=== PATIENT | male | born 1945 | race African-American/Black ===

== ENCOUNTER 2021-09-18 10:57 | Inpatient (IN) | payer OTHER ==
[2021-09-18 11:58] LABS: Absolute Lymphocytes (CBC) 1.9 K/uL (0.7-4.9); Hematocrit 23.9 % (39.6-49.0); MPV 7.9 fL (7.6-11.3); RBC Red Blood Cell Count 2.71 M/uL (4.33-5.43)
[2021-09-18] MEDS ORDERED: NA CHLORIDE 0.9% 250 ML ONE (12:00)
[2021-09-18 12:22] LABS: Protime INR 1.83
--- NOTE | 2021-09-18 12:23 | RAD REPORT ---
EXAM DESCRIPTION: RAD - Chest Single View - 09/18/2021 12:00 pm CLINICAL HISTORY: COUGH Chest pain. COMPARISON: No comparisons FINDINGS: Portable technique limits examination quality. The lungs are grossly clear. The heart is normal in size. Right-sided venous catheter has tip in the right atrium region.
[2021-09-18 12:24] LABS: Albumin 1.6 g/dL (3.4-5.0); Bilirubin Direct 0.3 mg/dL (0-0.2); Bilirubin Total 0.6 mg/dL (0.2-1.0); CKMB Creatine Kinase MB 2.6 ng/mL (1.0-3.6); Potassium 3.5 mmol/L (3.5-5.1); Protein, Total 6.4 g/dL (6.4-8.2); Troponin (Emerg Dept Use Only) 0.04 ng/mL (0.0-0.045)
[2021-09-18] MEDS ORDERED: CEFTRIAXONE 1000 MG/VIAL ONE (12:36)
[2021-09-18 12:46] LABS: Blood Morphology Comment NOT SEEN (NOT SEEN); Platelet Estimate ADEQ
[2021-09-18 13:12] LABS: SARS-COV-2 RT PCR NEGATIVE (NEGATIVE)
[2021-09-18 13:18] LABS: Urine Bacteria 20-50 /HPF (NONE SEEN)
--- NOTE | 2021-09-18 14:32 | ER ---
Nurse's Notes [facility] Name: Price Marie Age: 76 yrs Sex: Male : 1945 Arrival Date: 09/18/2021 Time: 11:05 Bed 3 Private MD: Diagnosis: Urosepsis;Altered mental status, unspecified;Hypoxia Presentation: 09/18 11:13 Chief complaint: EMS states: They were called out for syncope with decreased o2 stat. 6 Arrived to find pt with low o2 86 and non responsive. BVM used and pt became alert and back to baseline. Coronavirus screen: Vaccine status: Patient reports receiving the 2nd dose of the covid vaccine. Ebola Screen: Patient negative for fever greater than or equal to 101.5 degrees Fahrenheit, and additional compatible Ebola Virus Disease symptoms Patient denies exposure to infectious person. Patient denies travel to an Ebola-affected area in the 21 days before illness onset. Initial Sepsis Screen: Does the patient meet any 2 criteria? Altered Mental Status. Does the patient have a suspected source of infection? No. Patient's initial sepsis screen is negative. Risk Assessment: Do you want to hurt yourself or someone else? Patient reports no desire to harm self or others. Onset of symptoms was September 18, 2021 at 11:00. 11:13 Method Of Arrival: EMS: [place] [id number] 11:13 Acuity: OBIE 2 [facility] Triage Assessment: 11:17 General: Appears obese, Behavior is drowsy, Reports sob this am. Pain: Denies pain. [facility] Neuro: No deficits noted. Reports sob this am and missed dialysis this last . - Immunization history:: Client reports receiving the 2nd dose of the Covid vaccine. - Social history:: Smoking status: Patient denies any tobacco usage or history of. - Code Status:: Full code. Screenin:20 Abuse screen: Denies threats or abuse. Nutritional screening: No deficits noted. [facility] Tuberculosis screening: No symptoms or risk factors identified. Fall Risk Secondary diagnosis (15 points) impaired mobility, Ambulatory Aid- None/Bed Rest/Nurse Assist (0 pts). Mental Status- Oriented to own ability (0 pts). Assessment: 11:19 General: Appears comfortable, obese, Behavior is cooperative, drowsy. Neuro: No [facility] deficits noted. Oriented to person, place, situation. Cardiovascular: hypotension. 12:00 Cardiovascular: Rhythm is regular. jh6 13:00 Reassessment: No changes from previously documented assessment. Patient and/or family 6 updated on plan of care and expected duration. Pain level reassessed. Patient is alert, oriented x 3, equal unlabored respirations, skin warm/dry/pink. Patient denies pain at this time. 13:00 General: Appears in no apparent distress. Derm: Decubitus approximately > 20 cm is jh6 unstageable. bed has granulation present. 14:00 Reassessment: Patient and/or family updated on plan of care and expected duration. Pain jh6 level reassessed. 14:00 Neuro: No deficits noted. 6 16:36 Reassessment: No changes from previously documented assessment. Patient and/or family jh6 updated on plan of care and expected duration. Pain level reassessed. Patient is alert, oriented x 3, equal unlabored respirations, skin warm/dry/pink. Patient denies pain at this time. 16:36 Reassessment: Patient and/or family updated on plan of care and expected duration. Pain jh6 level reassessed. Patient is alert, oriented x 3, equal unlabored respirations, skin warm/dry/pink. General: Behavior is calm, cooperative. Neuro: Oriented to person, place, situation. Cardiovascular: Rhythm is regular. Vital Signs: 11:13 BP 97 / 66; Pulse 99; Resp 20; Temp 97.6; Pulse Ox 100% on 5 lpm NC; Weight 107.5 kg; [facility] Height 6 ft. 0 in. (182.88 cm); Pain 0/10; 12:30 BP 80 / 41; Pulse 94; Resp 20; 6 12:40 BP 101 / 50; Pulse 96; Resp 22; Pulse Ox 100% ; Pain 0/10; 6 13:00 BP 100 / 63; Pulse 92; Resp 20; Pulse Ox 100% ; 6 13:30 BP 76 / 55; Pulse 89; Resp 20; Pulse Ox 100% ; 6 14:00 BP 98 / 57; Pulse 94; Resp 20; Pulse Ox 100% ; 6 14:30 BP 113 / 55; Pulse 91; Resp 18; Pulse Ox 100% ; Pain 0/10; 6 15:30 BP 105 / 53; Pulse 97; Resp 20; Pulse Ox 96% on 3 lpm NC; 6 16:15 BP 109 / 67; Pulse 99; Resp 18; Pulse Ox 98% ; jh6 11:13 Body Mass Index 32.14 (107.50 kg, 182.88 cm) [facility] ED Course: 11:05 Patient arrived in ED. ds1 11:12 Rebeca Rowell RN is Primary Nurse. 6 11:12 Yobany Aguilar NP is PHCP. pm1 11:12 Chris Yee MD is Attending Physician. pm1 11:13 EKG done, by ED staff, reviewed by Yobany Aguilar NP COVID swab sent to lab. 5 11:13 Patient has correct armband on for positive identification. Placed in gown. Bed in low mh5 position. Call light in reach. Side rails up X2. Warm blanket given. secured entrance monitor on. Pulse ox on. NIBP on. 11:16 Triage completed. 6 11:18 Inserted saline lock: 22 gauge in left hand, using aseptic technique. Maintain EMS IV. [facility] Dressing intact. Site clean \T\ dry. Gauge \T\ site: 22g l wrist. Oxygen administration via nasal cannula \T\ 5L/min. 12:00 Chest Single View XRAY In Process Unspecified. EDMS 12:14 Notified Nurse Practitioner and/or Physician Interventional Radiology Technologist of a critical lab result(s), WBC ll1 20.9. 12:25 Blood Culture Adult (2) Sent. 6 12:25 Basic Metabolic Panel Sent. 6 12:25 Amylase, Serum Sent. 6 14:04 Wound care: to wound aprox 12in x 10in stage 2-4 no bone noted to coccyx area. [facility] 14:31 Jovani Alanis is Hospitalizing Provider. pm1 15:09 Resting quietly. jh6 15:10 Assisted provider with central line placement. Set up central line tray. in right 6 femoral. Line placed by Chris Yee MD Placement verified by blood return, Dressed with Tegaderm, Patient tolerated well. Before procedure, did Practitioner(s) obtain informed consent? Yes. Patient \T\ family education about procedure, CLABSI prevention and S/S of infection? Yes. Time-out/Briefing performed prior to start of procedure? Yes. Was handwashing/sanitizing done immediately prior to procedure? Yes. Was patient positioned to in a way to prevent air embolism? Yes. Was procedure site sterilized? Yes, with chlorhexidine. Was the site allowed to dry? Yes. During the procedure, did the Practitioner(s) maintain a sterile field? Yes. Was blood aspirated from each lumen? Yes. After the procedure, did the Practitioner(s) clean the site and apply a sterile dressing? No. Inserted central lines to rt groin. Administered Medications: 12:10 Drug: NS 0.9% 250 ml Route: IV; Rate: bolus; Site: left hand; jh6 12:12 Drug: Rocephin (cefTRIAXone) 1 grams Route: IV; Rate: calculated rate; Site: left hand; jh6 16:33 Drug: NS 0.9% 750 ml Route: IV; Rate: 750 bolus; Site: right femoral; jh6 Outcome: 14:30 Condition: stable jh6 14:30 Discharge instructions given to family, Instructed on the need for admit, Demonstrated understanding of instructions. 14:30 Admitted to ICU accompanied by nurse, via stretcher, room 6, with oxygen, on monitor, jh6 Report called to poli 14:31 Decision to Hospitalize by Provider. pm1 17:25 Patient left the ED. ll1 Signatures: Dispatcher [employer] EDDE Gabrielle Larios ds1 Yobany Aguilar NP CLOTH SHADER pm1 Sirena Ramirez 5 Brigitte Mohan, MAVERICK RN ll1 Rebeca Rowell RN RN jh6 Corrections: (The following items were deleted from the chart) 16:37 16:36 Reassessment: Patient and/or family updated on plan of care and expected jh6 duration. Pain level reassessed. Patient is alert, oriented x 3, equal unlabored respirations, skin warm/dry/pink. jh6
--- NOTE | 2021-09-18 14:32 | EDPHYS ---
Physician Documentation [facility] Name: Price Marie Age: 76 yrs Sex: Male : 1945 Arrival Date: 09/18/2021 Time: 11:05 Bed 3 Private MD: ED Physician Chris Yee HPI: 09/18 11:39 This 76 yrs old Black Male presents to ER via EMS with complaints of Syncope. pm1 11:39 The patient has experienced syncope, became unresponsive. Onset: The symptoms/episode pm1 began/occurred just prior to arrival. Duration: This was a single episode. Context: the episode(s) was witnessed, by family, occurred at home, occurred while the patient was sitting outside the house waiting for dialysis transportation. Patient was found by EMS to be hypoxic and returned to baseline with oxygen and bag valve mask. Associated injury: The patient did not suffer any apparent associated injury. Associated signs and symptoms: The patient has no apparent associated signs or symptoms. The patient has not recently seen a physician. - Immunization history:: Client reports receiving the 2nd dose of the Covid vaccine. - Social history:: Smoking status: Patient denies any tobacco usage or history of. - Code Status:: Full code. ROS: 11:39 Constitutional: Negative for fever, chills, and weight loss, Cardiovascular: Negative pm1 for chest pain, palpitations, and edema, Respiratory: Negative for shortness of breath, cough, wheezing, and pleuritic chest pain, Abdomen/GI: Negative for abdominal pain, nausea, vomiting, diarrhea, and constipation, MS/Extremity: Negative for injury and deformity. 11:39 Skin: Positive for of the sacral decubitus. 11:39 Neuro: Positive for syncope. 11:39 All other systems are negative. 11:39 Unable to obtain ROS due to altered mental status, obtained from and daughter. Exam: 11:39 Abdomen/GI: Inspection: obese, Palpation: abdomen is soft and non-tender. pm1 11:39 Constitutional: The patient appears non-diaphoretic, well developed, well groomed, well nourished, obese. 11:39 Cardiovascular: Exam negative for acute changes, Rate: normal, Rhythm: regular, Pulses: no pulse deficits are appreciated. 11:39 Respiratory: Exam negative for acute changes, respiratory distress, shortness of breath, Breath sounds: are clear throughout. 11:39 Musculoskeletal/extremity: Exam is negative for acute changes. 11:39 Eyes: Exam is negative for acute changes, Periorbital structures: no acute changes, pm1 Sclera: no acute changes, icterus, is not appreciated. 11:39 ENT: Exam is negative for acute changes. 11:39 Head/Face: Normocephalic, atraumatic. Chest/axilla: Normal chest wall appearance and pm1 motion. Nontender with no deformity. No lesions are appreciated. 14:59 Skin: lesion(s), located on the Large decubitus to sacral area, stage 3-4, without any pm1 discharge or drainage. Vital Signs: 11:13 BP 97 / 66; Pulse 99; Resp 20; Temp 97.6; Pulse Ox 100% on 5 lpm NC; Weight 107.5 kg; [facility] Height 6 ft. 0 in. (182.88 cm); Pain 0/10; 12:30 BP 80 / 41; Pulse 94; Resp 20; [facility] 12:40 BP 101 / 50; Pulse 96; Resp 22; Pulse Ox 100% ; Pain 0/10; 6 13:00 BP 100 / 63; Pulse 92; Resp 20; Pulse Ox 100% ; [facility] 13:30 BP 76 / 55; Pulse 89; Resp 20; Pulse Ox 100% ; [facility] 14:00 BP 98 / 57; Pulse 94; Resp 20; Pulse Ox 100% ; [facility] 14:30 BP 113 / 55; Pulse 91; Resp 18; Pulse Ox 100% ; Pain 0/10; [facility] 15:30 BP 105 / 53; Pulse 97; Resp 20; Pulse Ox 96% on 3 lpm NC; [facility] 16:15 BP 109 / 67; Pulse 99; Resp 18; Pulse Ox 98% ; [facility] 11:13 Body Mass Index 32.14 (107.50 kg, 182.88 cm) [facility] Procedures: 16:13 Central Line: the site was prepped with Betadine, a triple lumen catheter was inserted, kdr in the right femoral vein, in 3 attempts. placement was verified, by blood return, the site was dressed with 4X4s, Tegaderm, using sterile technique, the patient tolerated the procedure, well. MDM: 11:27 Patient medically screened. pm1 11:57 ED course: Patient not given septic bolus since he missed two days of dialysis, hx of pm1 CHF and blood pressure within normal limits. Do not want to overload the patient. 14:06 Counseling: I had a detailed discussion with the patient and/or guardian regarding: the pm1 historical points, exam findings, and any diagnostic results supporting the discharge/admit diagnosis, lab results, radiology results, the need for further work-up and treatment in the hospital. 14:27 Physician consultation: Jovani Alanis regarding admission, patient's condition, and pm1 will see patient in ED, Admit the patient to the ICU. Give 1000 L total bolus. Establish central line. 14:29 Data reviewed: vital signs. Data interpreted: Pulse oximetry: on room air is 100 %. pm1 Interpretation: normal. 09/18 11:27 Order name: Amylase, Serum pm1 09/18 11:27 Order name: Basic Metabolic Panel pm1 09/18 11:27 Order name: Blood Culture Adult (2) pm1 09/18 11:27 Order name: CBC with Diff; Complete Time: 12:52 pm1 09/18 11:27 Order name: CPK; Complete Time: 12:39 pm1 09/18 11:27 Order name: Ckmb; Complete Time: 12:39 pm1 09/18 11:27 Order name: LFT's; Complete Time: 12:39 pm1 09/18 11:27 Order name: Lactate; Complete Time: 12:39 pm1 09/18 11:27 Order name: Lipase; Complete Time: 12:39 pm1 09/18 11:27 Order name: Procalcitonin; Complete Time: 13:22 pm1 09/18 11:27 Order name: Protime (+inr); Complete Time: 12:28 pm1 09/18 11:27 Order name: Ptt, Activated; Complete Time: 12:28 pm1 09/18 11:27 Order name: Troponin (emerg Dept Use Only); Complete Time: 12:39 pm1 09/18 11:27 Order name: Urine Microscopic Only; Complete Time: 13:22 pm1 09/18 11:27 Order name: Chest Single View XRAY; Complete Time: 12:28 pm1 09/18 11:27 Order name: Accucheck pm1 09/18 11:27 Order name: Cardiac monitoring; Complete Time: 12:25 pm1 09/18 11:27 Order name: EKG - Nurse/Tech; Complete Time: 12:25 pm1 09/18 11:28 Order name: Amylase; Complete Time: 12:39 EDMS 09/18 11:28 Order name: Basic Metabolic Panel; Complete Time: 12:39 EDMS 09/18 11:28 Order name: Blood Culture EDMS 09/18 11:31 Order name: Misc. Lab Test pm1 09/18 12:11 Order name: Manual Differential; Complete Time: 12:52 EDMS 09/18 12:29 Order name: COVID-19/FLU A+B; Complete Time: 13:22 EDMS 09/18 13:20 Order name: Urine Culture EDMS 09/18 17:03 Order name: Lactate Sepsis 2 HR Follow-up; Complete Time: 17:07 EDMS 09/18 11:27 Order name: IV Saline Lock - Large Bore; Complete Time: 12:26 pm1 09/18 11:27 Order name: Labs collected and sent; Complete Time: 12:26 pm1 09/18 11:27 Order name: O2 Per Protocol; Complete Time: 12:26 pm1 09/18 11:27 Order name: O2 Sat Monitoring; Complete Time: 12:26 pm1 09/18 11:27 Order name: Urine Dipstick-Ancillary (obtain specimen) pm1 09/18 14:27 Order name: Central Line Kit; Complete Time: 15:31 pm1 Administered Medications: 12:10 Drug: NS 0.9% 250 ml Route: IV; Rate: bolus; Site: left hand; 6 12:12 Drug: Rocephin (cefTRIAXone) 1 grams Route: IV; Rate: calculated rate; Site: left hand; 6 16:33 Drug: NS 0.9% 750 ml Route: IV; Rate: 750 bolus; Site: right femoral; 6 Disposition: 18:37 Co-signature as Attending Physician, Chris Yee MD I agree with the assessment and kdr plan of care. Disposition Summary: 09/18/21 14:31 Hospitalization Ordered Hospitalization Status: Inpatient Admission pm1 Provider: Jovani Alanis pm1 Location: Intensive Care Unit pm1 Condition: Stable pm1 Problem: new pm1 Symptoms: have improved pm1 Bed/Room Type: Standard 1 Room Assignment: -(09/18/21 15:46) [facility] Diagnosis - Urosepsis pm1 - Altered mental status, unspecified pm1 - Hypoxia pm1 Forms: - Medication Reconciliation Form pm1 - SBAR form pm1 Signatures: Dispatcher [employer] EDChris Morgan MD MD kdr Marinas, Patrick, NP CONTROL BOARD OPERATOR pm1 Axel Azul RN RN ja1 Rebeca Rowell RN RN jh6 Corrections: (The following items were deleted from the chart) 15:46 14:31 pm1 freda
[2021-09-18] MEDS ORDERED: LIDOCAINE 1% MPF 5 ML VIAL ONE (15:41)
--- NOTE | 2021-09-18 15:53 | P.HP ---
Certification for Inpatient Patient admitted to: Inpatient With expected LOS: >2 Midnights Practitioner: I am a practitioner with admitting privileges, knowledge of patient current condition, hospital course, and medical plan of care. Services: Services provided to patient in accordance with Admission requirements found in Title 42 Section 412.3 of the Code of Federal Regulations Patient History Date of Service: 09/18/21 Reason for admission: Altered mental status History of Present Illness: 76-year-old gentleman with a history of end-stage renal disease on hemodialysis, diabetes mellitus type 2 and heart failure was brought to the emergency department due to altered mental status. Family reports fever up to 102 at home. They also reported patient has become progressively weak up to the point since slumped in his chair today. EMS was called who found him hypoxic with oxygen saturation of 86% on room air. Patient's systolic blood pressure was in the 90s on arrival to the ED. He is afebrile, but WBC markedly elevated to 20,000, lactate elevated to 4.4, chest x-ray unremarkable, UA suggest UTI. Patient has a sacral decubitus ulcer. He has a right anterior chest dialysis catheter which had no discharge or no erythema around it. Family report this is the third episode. He was diagnosed with fever of unknown origin during the first 2 episodes, had a lumbar puncture done at [facility] in the [facility], admitted for 2-weeks. He was also hospitalized for similar episode in [facility], source of sepsis again not identified. Patient was started on hemodialysis in June 2021. Patient given 1 L of normal saline for sepsis and borderline low blood pressure. Central line placed by the ED provider. Patient is admitted for further management of sepsis. Allergies No Known Allergies Allergy (Verified 09/18/21 16:48) - Past Medical/Surgical History -: ESRD -: Noninsulin-dependent DM -: Heart failure -: Multiple CVAs -: Recent lumbar puncture - Family History Family History: Reviewed- Non-Contributory - Social History Smoking Status: Former smoker Alcohol use: No Place of Residence: Home Review of Systems is unable to be obtained (Due to altered mental status) Physical Examination - Physical Exam General: In no apparent distress, Confused HEENT: Atraumatic, PERRLA, Mucous membr. moist/pink, Sclerae nonicteric Neck: Supple, JVD not distended Respiratory: Clear to auscultation bilaterally, Normal air movement Cardiovascular: No edema, Regular rate/rhythm, Normal S1 S2, No murmurs Capillary refill: <2 Seconds Gastrointestinal: Normal bowel sounds, Soft and benign, Non-distended, No tenderness Musculoskeletal: No swelling, No tenderness Integumentary: No rashes, No cyanosis, Other (Sacral decubitus ulcer) Neurological: Other (Unable to examine motor, speech is mumbled.) Lymphatics: No axilla or inguinal lymphadenopathy - Studies Laboratory Data (last 24 hrs) 09/18/21 11:41: PT 21.2 H, INR 1.83, APTT 33.6 09/18/21 11:41: WBC 20.90 H*, Hgb 7.1 L, Hct 23.9 L, Plt Count 344 09/18/21 11:41: Sodium 134 L, Potassium 3.5, BUN 63 H, Creatinine 10.30 H*, Glucose 97, Total Bilirubin 0.6, AST 23, ALT 20, Alkaline Phosphatase 114, Amylase 24 L, Lipase 39 L Assessment and Plan - Problems (Diagnosis) (1) Sepsis Current Visit: Yes Status: Acute (2) UTI (urinary tract infection) Current Visit: Yes Status: Acute (3) End-stage renal disease on hemodialysis Current Visit: Yes Status: Acute (4) Chronic systolic heart failure Current Visit: Yes Status: Acute (5) History of CVA (cerebrovascular accident) Current Visit: Yes Status: Acute (6) Metabolic acidosis Current Visit: Yes Status: Acute (7) Anemia Current Visit: Yes Status: Acute - Plan Admit patient to the ICU. Central line placed in the right femoral. Aggressive antibiotic therapy-IV vancomycin and cefepime. Consulted nephrology Consult to infectious disease given multiple episodes of fever of unknown origin and complicated hospital course. Slow IV hydration with D5 normal saline. Monitor vitals closely-high risk for septic shock. Blood cultures obtained in the ED. Urine culture also obtained in the ED. Confirm and reconcile home medications. Insulin sliding scale for glucose management. Transfuse for hemoglobin less than 7. Bicarb replacement per nephrology. Patient is supposed to have hemodialysis today. Monitor CBC and blood chemistry. Obtain CT abdomen and pelvis to identify any source of infection. - Advance Directives Does patient have a Living Will: No Does patient have a Durable POA for Healthcare: No
[2021-09-18] MEDS ORDERED: NA CHLORIDE 0.9% 1,000 ML ONE (16:05)
[2021-09-18] MEDS ORDERED: ACETAMINOPHEN 650MG/RECT SUPP PR PRN (16:43)
[2021-09-18] MEDS ORDERED: ONDANSETRON 4 MG/2 ML VIAL IV PRN (16:43)
[2021-09-18] MEDS ORDERED: D5 0.9 NS 1,000 ML IV SCH ×2 (16:43→19:08)
[2021-09-18] MEDS: HEPARIN 5000 UNIT/ML 1 ML VIAL SQ SCH (17:00)
[2021-09-18] MEDS ORDERED: ALBUMIN HUMAN 25% 200 ML IV ONE (17:30)
--- NOTE | 2021-09-18 17:32 | RAD REPORT ---
EXAM DESCRIPTION: CT - Abdomen Pelvis Wo Contrast - 09/18/2021 5:07 pm CLINICAL HISTORY: Sepsis COMPARISON: No comparisons TECHNIQUE: Axial [address] imaging of the abdomen and pelvis was performed without IV contrast. No IV contrast was given because of allergy, abnormal renal function, patient refusal or physician re quest. No oral contrast administered. All CT scans are performed using dose optimization technique as appropriate and may include automated exposure control or mA/KV adjustment according to patient size. FINDINGS: No suspicious findings in the lung bases. The liver, spleen and pancreas show no suspicious findings on non-contrast imaging. Gallbladder and b iliary tree are also without suspicious finding. Gallstones can be occult on CT imaging. Degree of re spiratory motion artifact of the upper abdomen limits accurate assessment of gallbladder wall thickne ss. No hydronephrosis or suspicious renal mass. No significant adrenal finding. Isodense renal masses an d pyelonephritis cannot be excluded in the absence of IV contrast. The urinary bladder is without sig nificant finding. A 2.6 centimeter focal mass posterior right margin of the bladder is isodense to th e bladder and is suspected to be moderate-sized bladder diverticulum. No gastric dilatation or gastric wall thickening. No pneumatosis intestinalis. Within the peritoneal cavity there is no free air, free fluid or inflammatory stranding. No acute retroperitoneal process seen. No hernia, mass or bulky lymphadenopathy. Patient has advanced degenerative changes of both hip joints, worse on the left. No acute bone or david nt finding. Patient has extensive gas densities present in the subcutaneous fatty tissues posterior to the sacrum and coccyx. No bone destructive changes. The air densities extend laterally 08-2010 cm off of the mi dline. The inferior margin of the soft tissue gas densities extend in proximity to the posterior wall distal rectum and posterior margin of the levator ani musculature. No abnormal air densities in the fatty tissues of the perineum or scrotum. No history was provided indicating that the patient has a k nown decubitus ulcer or known wound in this region. IMPRESSION: Extensive abnormal air in the subcutaneous fatty tissues posterior to the sacrum and nathan cyx with extension each direction laterally 8-10 cm off of the midline. Inferior margin of the air de nsities abutthe posterior wall distal rectum and posterior margin of the levator ani musculature. This is most likely gas-forming soft tissue infection. The abnormal air densities do not yet extend i nto the fatty tissues of the perineum.
[2021-09-18 17:47] LABS: Arterial Blood Carboxyhemoglob 1.2 % (0-1.5); Blood Gas Oxyhemoglobin 94.5 % (94-97)
[2021-09-18] MEDS: INSULIN -REGULAR HUMAN 50 UNIT/0.5 ML ML SQ SCH (18:00)
[2021-09-18] MEDS ORDERED: CEFEPIME 2 GM in NA CHLORIDE 0.9% 100 ML IV SCH (18:00)
[2021-09-18] MEDS ORDERED: VANCOMYCIN 2 GM in NA CHLORIDE 0.9% 500 ML IVPB ONE (19:00)
--- NOTE | 2021-09-18 19:05 | P.CNS ---
Date of Consult: 09/18/21 Reason for Consult: ESRD Requesting Physician: jacques willard Chief Complaint: Altered mental status History of Present Illness: 76 yo BM CKD, CHF presented to the ER with severe, worsening malaise with associated chills, fatigue and weakness. Family called EMS due to the change in status. 76-year-old gentleman with a history of end-stage renal disease on hemodialysis, diabetes mellitus type 2 and heart failure was brought to the emergency department due to altered mental status. Family reports fever up to 102 at home. They also reported patient has become progressively weak up to the point since slumped in his chair today. EMS was called who found him hypoxic with oxygen saturation of 86% on room air. Patient's systolic blood pressure was in the 90s on arrival to the ED. He is afebrile, but WBC markedly elevated to 20 ,000, lactate elevated to 4.4, chest x-ray unremarkable, UA suggest UTI. Patient has a sacral decubitus ulcer. He has a right anterior chest dialysis catheter which had no discharge or no erythema around it. Family report this is the third episode. He was diagnosed with fever of unknown origin during the first 2 episodes, had a lumbar puncture done at [facility] in the [facility], admitted for 2-weeks. He was also hospitalized for similar episode in [facility], source of sepsis again not identified. Patient was started on hemodialysis in June 2021. Patient given 1 L of normal saline for sepsis and borderline low blood pressure. Central line placed by the ED provider. Patient is admitted for further management of sepsis. Allergies No Known Allergies Allergy (Verified 09/18/21 16:48) Home medications list reviewed: Yes Home Medications: Acetaminophen 1,000 mg PO TID PRN 09/18/21 Albuterol Inhaler [Ventolin Inhaler] 2 puff IH Q6H PRN 09/18/21 Amiodarone HCl [Cordarone Tab] 200 mg PO DAILY 09/18/21 Apixaban [Eliquis] 5 mg PO BID 09/18/21 Aripiprazole [Abilify] 2.5 tab PO DAILY 09/18/21 Atorvastatin Calcium [Lipitor] 0.5 tab PO BEDTIME 09/18/21 Carboxymethylcellulose Sodium [Restore Plus] 2 each OP QID PRN 09/18/21 Cyanocobalamin (Vitamin B-12) [Vitamin B-12] 1,000 mcg PO DAILY 09/18/21 Ferrous Gluconate 324 mg PO DAILY 09/18/21 Fluticasone Propion/Salmeterol [Fluticasone-Salmeterol 100-50] 1 each IH BID 09/18/21 Folic Acid 1 mg PO DAILY 09/18/21 Ipratropium [place] 1 vial IH QID PRN 09/18/21 Ketorolac Tromethamine 1 drop OP QID PRN 09/18/21 Midodrine HCl 5 mg PO TID 09/18/21 Nut.tx.impaired Renal Fxn,Soy [Nepro Carb Steady] 237 ml PO BID 09/18/21 Omeprazole 20 mg PO DAILY 09/18/21 Petrolatum,White [Aloe [place]] 226 gm TP PRN PRN 09/18/21 Thiamine Mononitrate (Vit B1) [Vitamin B-1] 100 mg PO TID 09/18/21 Tiotropium [Spiriva Handihaler] 18 mcg IH DAILY 09/18/21 Zinc Oxide/Petrolatum,White [[place] Moist Barrier Cream] 1 nino TOP DAILY 09/18/21 - Past Medical/Surgical History Diabetic: Yes -: ESRD -: Noninsulin-dependent DM -: Heart failure -: Multiple CVAs -: HTN -: decub -: home o2 -: Recent lumbar puncture - Social History Alcohol use: No CD- Drugs: No Caffeine use: No Place of Residence: Home Review of Systems 10-point ROS is otherwise unremarkable General: Weakness, Malaise Respiratory: SOB with Excertion Neurological: Weakness Physical Examination Temp Pulse Resp BP Pulse Ox 97.6 F 99 H 22 H 108/58 L 97 09/18/21 11:13 09/18/21 17:45 09/18/21 17:45 09/18/21 17:45 09/18/21 17:45 General: In no apparent distress, Cooperative HEENT: Atraumatic Neck: Supple Respiratory: Clear to auscultation bilaterally Cardiovascular: Regular rate/rhythm, Edema Gastrointestinal: Distended, Tenderness Musculoskeletal: No clubbing, No contractures Integumentary: No rashes, No cyanosis Neurological: Normal speech Laboratory Data (last 24 hrs) 09/18/21 11:41: PT 21.2 H, INR 1.83, APTT 33.6 09/18/21 11:41: WBC 20.90 H*, Hgb 7.1 L, Hct 23.9 L, Plt Count 344 09/18/21 11:41: Sodium 134 L, Potassium 3.5, BUN 63 H, Creatinine 10.30 H*, Glucose 97, Total Bilirubin 0.6, AST 23, ALT 20, Alkaline Phosphatase 114, Amylase 24 L, Lipase 39 L Imagings Data: EXAM DESCRIPTION: CT - Abdomen Pelvis Wo Contrast - 09/18/2021 5:07 pm CLINICAL HISTORY: Sepsis COMPARISON: No comparisons TECHNIQUE: Axial [address] imaging of the abdomen and pelvis was performed without IV contrast. No IV contrast was given because of allergy, abnormal renal function, patient refusal or physician request. No oral contrast administered. All CT scans are performed using dose optimization technique as appropriate and may include automated exposure control or mA/KV adjustment according to patient size. FINDINGS: No suspicious findings in the lung bases. The liver, spleen and pancreas show no suspicious findings on non-contrast imaging. Gallbladder and biliary tree are also without suspicious finding. Gallstones can be occult on CT imaging. Degree of respiratory motion artifact of the upper abdomen limits accurate assessment of gallbladder wall thickness. No hydronephrosis or suspicious renal mass. No significant adrenal finding. Isodense renal masses and pyelonephritis cannot be excluded in the absence of IV contrast. The urinary bladder is without significant finding. A 2.6 centimeter focal mass posterior right margin of the bladder is isodense to the bladder and is suspected to be moderate-sized bladder diverticulum. No gastric dilatation or gastric wall thickening. No pneumatosis intestinalis. Within the peritoneal cavity there is no free air, free fluid or inflammatory stranding. No acute retroperitoneal process seen. No hernia, mass or bulky lymphadenopathy. Patient has advanced degenerative changes of both hip joints, worse on the left. No acute bone or joint finding. Patient has extensive gas densities present in the subcutaneous fatty tissues posterior to the sacrum and coccyx. No bone destructive changes. The air densities extend laterally 08-2010 cm off of the midline. The inferior margin of the soft tissue gas densities extend in proximity to the posterior wall distal rectum and posterior margin of the levator ani musculature. No abnormal air densities in the fatty tissues of the perineum or scrotum. No history was provided indicating that the patient has a known decubitus ulcer or known wound in this region. IMPRESSION: Extensive abnormal air in the subcutaneous fatty tissues posterior to the sacrum and coccyx with extension each direction laterally 8-10 cm off of the midline. Inferior margin of the air densities abutthe posterior wall distal rectum and posterior margin of the levator ani musculature. This is most likely gas-forming soft tissue infection. The abnormal air densities do not yet extend into the fatty tissues of the perineum. EXAM DESCRIPTION: RAD - Chest Single View - 09/18/2021 12:00 pm CLINICAL HISTORY: COUGH Chest pain. COMPARISON: No comparisons FINDINGS: Portable technique limits examination quality. The lungs are grossly clear. The heart is normal in size. Right-sided venous catheter has tip in the right atrium region. Conclusions/Impression: ESRD -HD TIW Hypotension Sepsis/ Septic Shock Acute Cystitis Sacral decubitus ulcer -Follow up cultures -Continue Vancomycin and Cefepime; monitor vanc level -Give IV Albumin Diastolic CHF, chronic A/C hypoxic respiratory failure -Low sodium diet -Continue Oxygen supplementation DM II with CKD -RISS Severe malnutrition -Currently NPO -Give IV Albumin Anemia in CKD -Recommend PRBC transfusion -Retacrit X1 -Retacrit TIW CKD MBD -Start Calcitriol Thank you kindly for the consultation. Case reviewed with the ER provider. Critical Care: Yes (>30min)
[2021-09-18] MEDS ORDERED: EPOETIN ALFA-EPBX 10,000 UNIT/ML VIAL SQ ONE (19:08)
[2021-09-18] MEDS ORDERED: MANNITOL 25% 12.5 GM/50 ML VIAL IV PRN (19:10)
[2021-09-18] MEDS ORDERED: NA CHLORIDE 0.9% 1,000 ML IV PRN (19:10)
[2021-09-18] MEDS ORDERED: D5W 1,000 ML with NA BICARB 8.4% 150 MEQ IV SCH ×2 (20:00)
[2021-09-18] MEDS: ALBUTEROL 2.5 MG/3 ML NEB SOL NEB PRN (20:25)
[2021-09-18] MEDS: IPRATROPIUM BROM 0.5MG/2.5ML NEB PRN (20:25)
[2021-09-18] MEDS: DOCUSATE NA 100 MG CAP PO SCH (20:56)
[2021-09-18] MEDS ORDERED: ALBUMIN HUMAN 25% 100 ML IV ONE (22:30)
[2021-09-19] MEDS ORDERED: ALBUMIN HUMAN 25% 100 ML IV ONE (00:30)
[2021-09-19] MEDS: HEPARIN 5000 UNIT/ML 1 ML VIAL SQ SCH ×2 (01:00→07:21)
[2021-09-19] MEDS: NOREPINEPHRINE 4 MG in D5W 250 ML IV SCH ×3 (01:44→09:46)
[2021-09-19 05:18] LABS: Absolute Lymphocytes (CBC) 1.9 K/uL (0.7-4.9); Hematocrit 18.1 % (39.6-49.0); Lymphocytes % 9.4 % (15.3-44.8); MPV 7.7 fL (7.6-11.3); Protime INR 1.99; RBC Red Blood Cell Count 2.08 M/uL (4.33-5.43)
[2021-09-19] MEDS: INSULIN -REGULAR HUMAN 50 UNIT/0.5 ML ML SQ SCH ×4 (05:24→17:26)
[2021-09-19 05:29] LABS: Albumin 2.6 g/dL (3.4-5.0); Bilirubin Total 0.5 mg/dL (0.2-1.0); Magnesium 2.2 mg/dL (1.8-2.4); Phosphorus 4.4 mg/dL (2.5-4.9); Potassium 3.1 mmol/L (3.5-5.1); Protein, Total 6.2 g/dL (6.4-8.2)
[2021-09-19] MEDS: DOCUSATE NA 100 MG CAP PO SCH ×2 (07:21→20:22)
[2021-09-19] MEDS: CALCITROL 0.25 MCG CAP PO SCH (07:22)
[2021-09-19] MEDS ORDERED: NA CHLORIDE 0.9% 250 ML ONE (09:15)
[2021-09-19] MEDS ORDERED: Meropenem 500 MG/100 ML BAG IV ONE (11:00)
[2021-09-19] MEDS: ALBUTEROL 2.5 MG/3 ML NEB SOL NEB PRN ×2 (11:36→21:55)
[2021-09-19] MEDS: IPRATROPIUM BROM 0.5MG/2.5ML NEB PRN (11:36)
--- NOTE | 2021-09-19 11:56 | P.CNS ---
Date of Consult: 09/19/21 Chief Complaint: Altered mental status History of Present Illness: The patient is a 76-year-old male with a past medical history of ESRD on HD, diabetes type 2, and heart failure who was brought to the emergency department secondary to altered mental status. Per family members at bedside the patient was set to go to dialysis however due to his altered mental status they brought him to the emergency department. Per family members the patient has had a steady decline in condition since beginning of May of this year. In May the patient had a 7 week hospitalization at the [facility] after sustaining a stroke. During that hospital stay patient developed a fever of unknown origin. He was placed on several different antibiotics and subsequently developed MUNA which worsened into ESRD. Patient was placed on dialysis in June. Following his stay at the [facility] the patient stayed at a rehab facility in [place], during this stay the patient developed a sacral decubitus wound. In July the patient was hospitalized again at a [facility], during this hospital stay the sacral wound worsened in condition. The wound developed black necrotic tissue and foul odor. Patient was brought to our facility, noted have severe sepsis with a fever, tachycardia, tachypnea, leukocytosis, lactic acidosis, and metabolic acidosis. Preliminary blood cultures obtained on 09/18 growing gram-negative rods, urine culture shows no growth. Patient empirically placed on vancomycin and cefepime on 09/18. Chest x-ray showed no acute cardiopulmonary findings. CT abdomen pelvis showed gas-forming soft tissue infection directly posterior to the sacrum. Due to the cefepime was discontinued and meropenem started for anaerobic/gas-forming organism coverage. General surgery consulted. Infectious disease has been consulted to manage patient's antibiotic regimen. ROS unable to determine due to altered mental status. Allergies No Known Allergies Allergy (Verified 09/18/21 16:48) Home Medications: Acetaminophen 1,000 mg PO TID PRN 09/18/21 Albuterol Inhaler [Ventolin Inhaler] 2 puff IH Q6H PRN 09/18/21 Amiodarone HCl [Cordarone Tab] 200 mg PO DAILY 09/18/21 Apixaban [Eliquis] 5 mg PO BID 09/18/21 Aripiprazole [Abilify] 2.5 tab PO DAILY 09/18/21 Atorvastatin Calcium [Lipitor] 0.5 tab PO BEDTIME 09/18/21 Carboxymethylcellulose Sodium [Restore Plus] 2 each OP QID PRN 09/18/21 Cyanocobalamin (Vitamin B-12) [Vitamin B-12] 1,000 mcg PO DAILY 09/18/21 Ferrous Gluconate 324 mg PO DAILY 09/18/21 Fluticasone Propion/Salmeterol [Fluticasone-Salmeterol 100-50] 1 each IH BID 09/18/21 Folic Acid 1 mg PO DAILY 09/18/21 Ipratropium [place] 1 vial IH QID PRN 09/18/21 Ketorolac Tromethamine 1 drop OP QID PRN 09/18/21 Midodrine HCl 5 mg PO TID 09/18/21 Nut.tx.impaired Renal Fxn,Soy [Nepro Carb Steady] 237 ml PO BID 09/18/21 Omeprazole 20 mg PO DAILY 09/18/21 Petrolatum,White [Aloe [place]] 226 gm TP PRN PRN 09/18/21 Thiamine Mononitrate (Vit B1) [Vitamin B-1] 100 mg PO TID 09/18/21 Tiotropium [Spiriva Handihaler] 18 mcg IH DAILY 09/18/21 Zinc Oxide/Petrolatum,White [[place] Moist Barrier Cream] 1 nino TOP DAILY 09/18/21 - Past Medical/Surgical History Diabetic: Yes -: ESRD -: Noninsulin-dependent DM -: Heart failure -: Multiple CVAs -: HTN -: decub -: home o2 -: Recent lumbar puncture - Social History Alcohol use: No CD- Drugs: No Caffeine use: No Place of Residence: Home Review of Systems is unable to be obtained Physical Examination Temp Pulse Resp BP Pulse Ox 97.5 F 73 22 H 107/47 L 97 09/19/21 08:00 09/19/21 08:45 09/19/21 08:45 09/19/21 08:45 09/19/21 08:45 General: Other (AMS) HEENT: Atraumatic Neck: Supple Respiratory: Clear to auscultation bilaterally, Normal air movement Cardiovascular: Normal pulses, Regular rate/rhythm Gastrointestinal: Normal bowel sounds, Soft and benign Musculoskeletal: No contractures Integumentary: Pressure ulcer (Sacral decubitus ulcer measuring approximately 10 x 12 cm. Wound is unstageable, a majority of wound shows necrotic eschar tissue. Wound with foul odor.) Laboratory Data (last 24 hrs) 09/18/21 11:41: PT 21.2 H, INR 1.83, APTT 33.6 09/18/21 11:41: WBC 20.90 H*, Hgb 7.1 L, Hct 23.9 L, Plt Count 344 09/18/21 11:41: Sodium 134 L, Potassium 3.5, BUN 63 H, Creatinine 10.30 H*, Glucose 97, Total Bilirubin 0.6, AST 23, ALT 20, Alkaline Phosphatase 114, Amylase 24 L, Lipase 39 L Conclusions/Impression: Antibiotics: Vancomycin Start: 09/18 Meropenem Start: 09/19 Assessment/plan Severe sepsis secondary to infected sacral decubitus ulcer Patient septic on admission with lactic acidosis, metabolic acidosis, leukocytosis, and tacypena. Source infection: Infected sacral decubitus ulcer. CT abdomen pelvis showed gas-forming soft tissue infection directly posterior to sacrum. Continue empiric antibiotic coverage with IV vancomycin and meropenem. Preliminary blood cultures obtained on 09/18 growing gram-negative rods. Urine culture shows no growth. Dr. Ramirez consulted for surgical intervention. Patient has low air loss mattress placed. ESRD on HD Avoid nephrotoxic agents, renally dose all antibiotics/give after HD on HD days. Nephrology following. Protein caloric malnutrition: Moderate Patient was low albumin, recommend supplemental Ensure protein drinks. Adequate nutrition needed for proper wound healing. -medical management per primary team Plan of care discussed with Dr. newell Thank you for consultation.
--- NOTE | 2021-09-19 11:57 | P.PN ---
Subjective Date of Service: 09/19/21 Chief Complaint: Altered mental status Developed hypotension overnight and currently on high-dose Levophed drip. Hemodialysis started. Patient is awake and interactive but confused. 4 blood culture bottles are growing gram-negative rods. Hemoglobin dropped to 5. Physical Examination - Vital Signs Temperature: 97.5 F Blood Pressure: 107/47 Pulse: 73 Respirations: 22 Pulse Ox (%): 97 - Physical Exam General: In no apparent distress, Other (Awake) HEENT: Mucous membr. moist/pink Neck: JVD not distended Respiratory: Clear to auscultation bilaterally, Normal air movement Cardiovascular: No edema, Regular rate/rhythm, Normal S1 S2 Gastrointestinal: Soft and benign, Non-distended, No tenderness Musculoskeletal: No swelling Integumentary: Other (Stage IV sacral decubitus ulcer) Neurological: Other (Patient moves all extremities spontaneously) - Studies Laboratory Data (last 24 hrs) 09/18/21 11:41: PT 21.2 H, INR 1.83, APTT 33.6 09/18/21 11:41: WBC 20.90 H*, Hgb 7.1 L, Hct 23.9 L, Plt Count 344 09/18/21 11:41: Sodium 134 L, Potassium 3.5, BUN 63 H, Creatinine 10.30 H*, Glucose 97, Total Bilirubin 0.6, AST 23, ALT 20, Alkaline Phosphatase 114, Amylase 24 L, Lipase 39 L Assessment And Plan - Current Problems (Diagnosis) (1) Sepsis Current Visit: Yes Status: Acute (2) UTI (urinary tract infection) Current Visit: Yes Status: Acute (3) End-stage renal disease on hemodialysis Current Visit: Yes Status: Acute (4) Chronic systolic heart failure Current Visit: Yes Status: Acute (5) History of CVA (cerebrovascular accident) Current Visit: Yes Status: Acute (6) Metabolic acidosis Current Visit: Yes Status: Acute (7) Anemia Current Visit: Yes Status: Acute - Plan 2 units of PRBC transfusion ordered. Nephrology input appreciated. Hemodialysis started. Patient also started on bicarb to treat metabolic acidosis. Status post albumin infusion for low albumin and hypotension. General surgery input appreciated. Patient need emergent debridement for sacral decubitus ulcer with gas gangrene. High risk for surgery given patient is currently on a vasopressor. High mortality also with a gas gangrene and sepsis. Situation communicated to the daughter. Daughter at this time want aggressive treatment. She had questions about the type of anesthesia for the surgery which anesthesiologist and Dr. Ramirez need to address. Infectious disease input appreciated. IV cefepime changed to IV meropenem for anaerobic coverage. Continue IV vancomycin till final culture result. Urine culture: No growth to date. Keep n.p.o. Insulin sliding scale for glucose management. Transfuse for hemoglobin less than 7. Monitor CBC and blood chemistry. Heparin subcu for DVT prophylaxis. Prognosis guarded.
[2021-09-19] MEDS ORDERED: NA CHLORIDE 0.9% 500 ML ONE (12:03)
[2021-09-19] MEDS ORDERED: EPINEPHRINE/PF 1 MG/ML AMP ONE (12:21)
[2021-09-19] MEDS ORDERED: KETOROLAC 30 MG/ML INJ ONE (12:21)
[2021-09-19] MEDS ORDERED: propofoL 200 MG/20 ML VIAL IV ONE (12:21)
[2021-09-19] MEDS ORDERED: KETAMINE HCL 500 MG/5 ML VIAL ONE (12:22)
[2021-09-19] MEDS ORDERED: Phenylephrine HCl 10 MG/ML 1 ML VIAL ONE (12:29)
[2021-09-19] MEDS ORDERED: EPHEDRINE SULF 50 MG/ML VIAL ONE (12:30)
--- NOTE | 2021-09-19 12:38 | CON ---
Date of Consultation: 09/19/2021 History Of Present Illness: This is an emergency consult for a 76-year-old patient, who comes to us with history of fever, sepsis, congestive heart failure, kidney disease. Overnight during the workup , the patient was found to have a sacral decubitus ulcer that may be contributing to his sepsis and a surgical consult was obtained for the need for debridement after the CAT scan shows what could be th e gas producing organism. The patient was anemic. Currently, he is still on dialysis, so we are aftab ting for him to get dialysis as one of the conditions in order for him to go to surgery, so we just w aiting for that and the patient's family came in, we were able to discuss the case understanding the risks of this patient, his poor conditions, and the chance of dying, but at the same time, we explain ed to the patient's family that this issue be addressed in stage. Review of Systems: The patient cannot give any information. Information was obtained from the patient's chart. Allergies: NONE. Medications: Reviewed including aspirin. Past Medical History: Renal disease on hemodialysis, sepsis, hypertension. Past Surgical History: Unknown. Family History: Noncontributory. Physical Examination: General: The patient is awake, but cannot give any information. Chest: Clear. Abdomen: Soft and depressible. Extremity: Good capillary refill. Integumentary: Shows multiple ulcers healed, but the one is giving much of the difficult time is the one in the sacrum, which the CAT scan referred as probably gas present. This area needs to be debri ded. CAT scan reviewed with the findings discussed with the family. Laboratory Data: Blood work shows a hemoglobin of 5, although he is right now getting dialysis and t ransfusing 2 units. The patient has a white count of 20. INR is elevated in 1.99. Chemistry, creat inine is 10.4. Assessment: A 76-year-old patient in critical condition, but at the same time we have a gas producin g bacteria in the sacrum. The patient's family came in. We discussed the pros and cons. We discuss ed also the chance of him dying, but they want to proceed with debridement of the sacral. In order f or me to do that, I need to bring him to the OR to do it properly. So Anesthesia consult was jennifer pedroza and went to the ICU to discuss with the patient's family also the risks of the surgery. We have le ukocytosis. We have anemia. We have hypotension. He is currently on vasoconstrictor just to keep t he pressure going. We need to bring the instruments and the lighting will be better since he is a bi g patient also and we need some help we can to move him to side. He may need some staging. He may n eed to do this debridement more than once and the family understand that. Most likely, we will be do ing pulse lavage to his condition and the way that look at bedside cannot be done properly. The hafsai ly understand. They will discuss once again with Anesthesia and if they give consent, we will deisye kasia. The patient once again is still on dialysis. As soon as he finishes his dialysis, we will like t o take him to surgery. FELICITA/MODL Voice ID: [id number] Report ID: [id number]
[2021-09-19] MEDS: NOREPINEPHRINE 8 MG in Dextrose 5%-Water 500 ML IV SCH ×2 (12:41→19:24)
[2021-09-19] MEDS ORDERED: COLLAGENASE 30 GM OINTMENT TOP ONE (13:17)
[2021-09-19] MEDS ORDERED: BUPIVACAINE 0.5% PF 10 ML VIAL ONE (13:17)
--- NOTE | 2021-09-19 13:59 | P.BOP ---
Preoperative diagnosis: necrotic infected sacral stage 4 decubitus ulcer, sepsis, ESRD, afib Postoperative diagnosis: same Primary procedure: Debridement necrotic infected sacral stage 4 decubitus ulcer 20 x 15 x 2 cm Estimated blood loss: <20cc Specimen: culture and necrotic tissue Findings: necrotic infected sacral decubitus ulcer Anesthesia: MAC Complications: None Drain(s): Other Transferred to: Recovery Room Condition: Serious
[2021-09-19] MEDS ORDERED: [UNRECOGNIZED DRUG - OTHER] OPTH PRN (14:24)
[2021-09-19] MEDS ORDERED: IPRATROPIUM BROM 0.5MG/2.5ML IH PRN (14:24)
[2021-09-19] MEDS ORDERED: ALOE VESTA TOP PRN (14:24)
[2021-09-19] MEDS ORDERED: KETOROLAC TROMETHAMINE OPH OPTH PRN (14:24)
[2021-09-19] MEDS: AMIODARONE HCL 200 MG TAB PO SCH (15:00)
[2021-09-19] MEDS ORDERED: CEFEPIME 1 GM in NA CHLORIDE 0.9% 100 ML IV SCH (17:00)
[2021-09-19] MEDS ORDERED: D5 0.9 NS 1,000 ML IV SCH (17:00)
[2021-09-19] MEDS: EPOETIN ALFA 10,000 UNIT/ML VIAL SQ SCH (17:52)
--- NOTE | 2021-09-19 17:52 | P.PN ---
Date of Service: 09/19/21 Patient noted to be in rapid atrial fibrillation. He spontaneously converted to sinus rhythm. Status post sacral decubitus ulcer debridement. Patient remains on high-dose Levophed drip. Status post hemodialysis. Status post 2 unit PRBC transfusion. Posttransfusion hemoglobin is 7.1. Critical care time spent managing septic shock, atrial fibrillation and anemia was about 42 minutes.
[2021-09-19] MEDS: FLUTICASONE SALMETEROL IH SCH (20:22)
[2021-09-19] MEDS: THIAMINE HCL 100 MG TABLET PO SCH (20:23)
[2021-09-19] MEDS: ATORVASTATIN 40 MG TAB PO SCH (20:23)
[2021-09-19] MEDS: NEPRO SHAKE 237 ML CAN PO SCH (20:23)
[2021-09-19] MEDS ORDERED: THIAMINE MONONITRATE 100 MG PO SCH (21:00)
--- NOTE | 2021-09-19 21:25 | OP ---
Date of Procedure: 09/19/2021 Surgeon: Rosalino Ramirez MD Preoperative Diagnoses: Sepsis, necrotic infected sacral stage IV decubitus ulcer, end-stage renal d isease, atrial fibrillation, septic shock, on vasoconstrictors. Postoperative Diagnoses: Sepsis, necrotic infected sacral stage IV decubitus ulcer, end-stage renal disease, atrial fibrillation, septic shock, on vasoconstrictors. Procedure: Emergent debridement of a necrotic infected sacral stage IV decubitus ulcer, 20 x 15 x 2 cm. Specimen: Culture of necrotic tissue that has gas containing bacteria. Anesthesia: MAC plus local. Packing: Wet-to-dry with Santyl. Indications: This is a case of a 76-year-old patient in septic shock. He has some gas-forming bacte jeremy in the sacrum. They wanted emergency debridement. Everybody understood the risks of this, which include , but at the same time, they believe if not doing so, they will not be able to get him out of the sepsis. Because of his body habitus and his position, we have to take him and use the ins truments in OR, so we brought the patient to the operating room. We explained to the patient and the patient's family benefits and risks of debridement, which include, but not limited to infection, ble eding, damage to adjacent structures, anesthesia complication, recurrence, TX, and even . He al so understands and the family understands that they may take more than 1 debridement to get this unde r control. They understood, signed a consent. Procedure In Detail: The patient was brought emergently to the operating room and placed in a latera l decubitus position. A time-out was called. The anesthesia was induced without complication. The sacral area was prepped and draped in usual sterile fashion. There was a foul-smelling necrotic tiss ue present CAT scan shows to have a gas-forming bacteria. With a sharp knife, we proceede d to remove the necrotic tissue medially all the way down to sacrum and gluteus muscle. Loculations were explored and opened and cultures were obtained. After that, removed the tissue. We procee ded then to use pulse lavage and irrigated the area profusely. Then, after that, obtained hemostasis and packed the area with Santyl wet-to-dry. Initially, we put local anesthetic for pain control. T he patient tolerated the procedure well. The patient is way to ICU in serious, but stable condition. HM/MODL Voice ID: [id number] Report ID: [id number]
--- NOTE | 2021-09-19 21:55 | P.PN ---
Date of Service: 09/19/21 Vital Signs Temp Pulse Resp BP Pulse Ox 97.5 F 71 31 H 94/47 L 96 09/19/21 12:22 09/19/21 19:45 09/19/21 19:45 09/19/21 19:45 09/19/21 19:45 Medications Acetaminophen (Acetaminophen 650mg/Rect Supp) 650 mg OK Q6HP PRN PRN Reason: TEMP > 100' F Acetaminophen (Acetaminophen 500 Mg Tab) 500 mg PO Q4HP PRN PRN Reason: TEMP > 100' F Albuterol Sulfate (Albuterol 2.5 Mg/3 Ml Neb Debra) 2.5 mg NEB [id number] PRN PRN Reason: SHORTNESS OF BREATH Last Admin: 09/19/21 11:36 Dose: 2.5 mg Documented by: Amiodarone HCl (Amiodarone Hcl 200 Mg Tab) [address] [facility] Last Admin: 09/19/21 15:00 Dose: Not Given Documented by: Aripiprazole (Aripiprazole 5 Mg Tab) 2.[address] [facility] Atorvastatin Calcium (Atorvastatin 40 Mg Tab) [address] [facility] Last Admin: 09/19/21 20:23 Dose: Not Given Documented by: Calcitriol (Calcitrol 0.25 Mcg Cap) 0.[address] [facility] Last Admin: 09/19/21 07:22 Dose: Not Given Documented by: Collagenase (Collagenase 30 Gm Ointment) [address] [facility] Cyanocobalamin (Cyanocobalamin 1,000 Mcg Tab) 1,[address] [facility] Docusate Sodium (Docusate Na 100 Mg Cap) [address] [facility] Last Admin: 09/19/21 20:22 Dose: Not Given Documented by: Enteral Nutritional Formula (Nepro Shake 237 Ml Can) [address] [facility] Last Admin: 09/19/21 20:23 Dose: Not Given Documented by: Epoetin Garrick (Epoetin Garrick 10,000 Unit/Ml Vial) 10,000 unit SQ M,W,F [facility] Last Admin: 09/19/21 17:52 Dose: 10,000 unit Documented by: Ferrous Gluconate (Ferrous Gluconate 324 Mg Tab) [address] [facility] Folic Acid (Folic Acid 1 Mg Tablet) [address] [facility] Heparin Sodium (Porcine) (Heparin 5000 Unit/Ml 1 Ml Vial) 5,000 unit SQ Q8HR [facility] Last Admin: 09/19/21 07:21 Dose: Not Given Documented by: Heparin Sodium (Porcine) (Heparin 1,000 Unit/Ml Vial) 6,000 unit IV EVERY HD PRN PRN Reason: AFTER EACH Last Admin: 09/19/21 11:53 Dose: 6,000 unit Documented by: Heparin Sodium (Porcine) (Heparin 1,000 Unit/Ml Vial) 2,000 unit IV EVERY HD [facility] Stop: 09/24/21 11:01 Home Med (Carboxymethylcellulose Sodium [Restore Plus]) 2 each OPTH QID PRN PRN Reason: DRY EYES Home Med (Fluticasone Propion/Salmeterol [Fluticasone-Salmeterol 100-50]) 1 each IH BID [facility] Last Admin: 09/19/21 20:22 Dose: Not Given Documented by: Home Med (Ketorolac Tromethamine [Ketorolac Tromethamine]) 1 drop OPTH QID PRN PRN Reason: inflammation Home Med (Petrolatum,White [Aloe [place]]) 0 gm TOP PRN PRN PRN Reason: wound care Vancomycin HCl 1 gm/ Sodium (Chloride) 250 mls @ 166.667 mls/hr IVPB AFTER EACH DIALYSIS [facility]; Protocol Albumin Human (Albumin 25%) 50 mls @ 100 mls/hr IV EVERY HD [facility] Meropenem (Merrem 500 Mg/100 Ml Ns Ivpb) 500 mg in 100 mls @ 200 mls/hr IV DAILY [facility] Norepinephrine Bitartrate 8 mg (/ Dextrose) 508 mls @ 0 mls/hr IV TITR [facility]; Protocol Last Admin: 09/19/21 19:24 Dose: 25 mcg/min, 95.3 mls/hr Documented by: Insulin Human Regular (Insulin -Regular Human 50 Unit/0.5 Ml Ml) 0 unit SQ Q6HR [facility]; Protocol Last Admin: 09/19/21 17:26 Dose: Not Given Documented by: Ipratropium Zahl (Ipratropium Brom 0.5mg/2.5ml) 0.5 mg IH QIDRESP PRN PRN Reason: SHORTNESS OF BREATH Mannitol (Mannitol 25% 12.5 Gm/50 Ml Vial) 12.5 gm IV EVERY HD PRN PRN Reason: Titrate to SBP (MUST DEFINE) Ondansetron HCl (Ondansetron 4 Mg/2 Ml Vial) 4 mg IV Q6HP PRN PRN Reason: NAUSEA / VOMITING Pantoprazole Sodium (Pantoprazole 40mg Tablet) [address] [facility] Sodium Chloride (Flush Normal Saline 10 Ml) [address] [facility] Last Admin: 09/19/21 20:23 Dose: 10 ml Documented by: Thiamine HCl (Thiamine Hcl 100 Mg Tablet) [address] [facility] Last Admin: 09/19/21 20:23 Dose: Not Given Documented by: Microbiology Results 09/18/21 12:45 Clean Catch Urine Eleanor Count - Preliminary No growth. 09/18/21 12:45 Clean Catch Urine - Preliminary No growth. 09/18/21 11:41 Blood - Blood Aerobic Blood Culture - Preliminary 09/18/21 11:41 Blood - Blood Blood Culture Gram Stain - Preliminary 09/18/21 11:41 Blood - Blood Anaerobic Blood Culture - Preliminary 09/18/21 11:41 Blood - Blood Gram Stain - Preliminary 09/18/21 11:35 Blood - Blood Aerobic Blood Culture - Preliminary 09/18/21 11:35 Blood - Blood Blood Culture Gram Stain - Preliminary 09/18/21 11:35 Blood - Blood Anaerobic Blood Culture - Preliminary 09/18/21 11:35 Blood - Blood Gram Stain - Preliminary Assessment/ Plan: Nephrology No dyspnea No chest pain Weakness and malaise Started on Levophed overnight for persistent hypotension Vitals, medications, blood work and imaging reviewed in the chart General: In no apparent distress, Cooperative HEENT: Atraumatic Neck: Supple Respiratory: Clear to auscultation bilaterally Cardiovascular: Regular rate/rhythm, Edema Gastrointestinal: Distended, Tenderness Musculoskeletal: No clubbing, No contractures Integumentary: No rashes, No cyanosis Neurological: Normal speech Laboratory Data (last 24 hrs) 09/18/21 11:41: PT 21.2 H, INR 1.83, APTT 33.6 09/18/21 11:41: WBC 20.90 H*, Hgb 7.1 L, Hct 23.9 L, Plt Count 344 09/18/21 11:41: Sodium 134 L, Potassium 3.5, BUN 63 H, Creatinine 10.30 H*, Glucose 97, Total Bilirubin 0.6, AST 23, ALT 20, Alkaline Phosphatase 114, Amylase 24 L, Lipase 39 L Imagings Data: EXAM DESCRIPTION: CT - Abdomen Pelvis Wo Contrast - 09/18/2021 5:07 pm CLINICAL HISTORY: Sepsis COMPARISON: No comparisons TECHNIQUE: Axial [address] imaging of the abdomen and pelvis was performed without IV contrast. No IV contrast was given because of allergy, abnormal renal function, patient refusal or physician request. No oral contrast administered. All CT scans are performed using dose optimization technique as appropriate and may include automated exposure control or mA/KV adjustment according to patient size. FINDINGS: No suspicious findings in the lung bases. The liver, spleen and pancreas show no suspicious findings on non-contrast imaging. Gallbladder and biliary tree are also without suspicious finding. Gallstones can be occult on CT imaging. Degree of respiratory motion artifact of the upper abdomen limits accurate assessment of gallbladder wall thickness. No hydronephrosis or suspicious renal mass. No significant adrenal finding. Isodense renal masses and pyelonephritis cannot be excluded in the absence of IV contrast. The urinary bladder is without significant finding. A 2.6 centimeter focal mass posterior right margin of the bladder is isodense to the bladder and is suspected to be moderate-sized bladder diverticulum. No gastric dilatation or gastric wall thickening. No pneumatosis intestinalis. Within the peritoneal cavity there is no free air, free fluid or inflammatory s tranding. No acute retroperitoneal process seen. No hernia, mass or bulky lymphadenopathy. Patient has advanced degenerative changes of both hip joints, worse on the left. No acute bone or joint finding. Patient has extensive gas densities present in the subcutaneous fatty tissues posterior to the sacrum and coccyx. No bone destructive changes. The air densities extend laterally 08-2010 cm off of the midline. The inferior margin of the soft tissue gas densities extend in proximity to the posterior wall distal rectum and posterior margin of the levator ani musculature. No abnormal air densities in the fatty tissues of the perineum or scrotum. No history was provided indicating that the patient has a known decubitus ulcer or known wound in this region. IMPRESSION: Extensive abnormal air in the subcutaneous fatty tissues posterior to the sacrum and coccyx with extension each direction laterally 8-10 cm off of the midline. Inferior margin of the air densities abutthe posterior wall distal rectum and posterior margin of the levator ani musculature. This is most likely gas-forming soft tissue infection. The abnormal air densities do not yet extend into the fatty tissues of the perineum. EXAM DESCRIPTION: RAD - Chest Single View - 09/18/2021 12:00 pm CLINICAL HISTORY: COUGH Chest pain. COMPARISON: No comparisons FINDINGS: Portable technique limits examination quality. The lungs are grossly clear. The heart is normal in size. Right-sided venous catheter has tip in the right atrium region. Conclusions/Impression: ESRD -HD TIW as tolerated -Seen and examined on HD Hypotension Sepsis/ Septic Shock Acute Cystitis Sacral decubitus ulcer -Follow up cultures -Continue Vancomycin and Meropenem; monitor vanc level -IV Albumin as ordered -Continue Levophed -Follow up with surgery; case discussed with Dr. Ramirez Diastolic CHF, chronic A/C hypoxic respiratory failure -Low sodium diet -Continue Oxygen supplementation -HD with UF as tolerated DM II with CKD -RISS Severe malnutrition -Continue Nepro -IV Albumin as ordered Anemia in CKD -PRBC transfusion as ordered -Retacrit TIW CKD MBD -Continue Calcitriol Case reviewed with Dr. Alanis
[2021-09-20] MEDS: NOREPINEPHRINE 8 MG in Dextrose 5%-Water 500 ML IV SCH ×2 (00:28→05:40)
[2021-09-20] MEDS: INSULIN -REGULAR HUMAN 50 UNIT/0.5 ML ML SQ SCH ×4 (05:00→17:46)
[2021-09-20 05:11] LABS: Absolute Lymphocytes (CBC) 2.5 K/uL (0.7-4.9); Lymphocytes % 14.2 % (15.3-44.8); RBC Red Blood Cell Count 2.78 M/uL (4.33-5.43)
[2021-09-20 05:32] LABS: Albumin 2.4 g/dL (3.4-5.0); Bilirubin Total 0.7 mg/dL (0.2-1.0); Protein, Total 6.1 g/dL (6.4-8.2)
[2021-09-20 05:39] LABS: Potassium 2.8 mmol/L (3.5-5.1)
[2021-09-20] MEDS ORDERED: KCL 20 MEQ/100 mL IVPB 100 ML IV ONE (05:54)
[2021-09-20] MEDS: KCL 20 MEQ/100 mL IVPB 20 MEQ/100 ML BAG IV SCH ×4 (06:01→22:45)
[2021-09-20] MEDS ORDERED: HOME MED 1 EA UNK (Cyanocobalamin (Vitamin B-12) [Vitamin B-12] 1,000 MCG Capsule) PO SCH (09:00)
[2021-09-20] MEDS ORDERED: AMIODARONE HCL 200 MG TAB PO SCH (09:00)
[2021-09-20] MEDS: FLUTICASONE SALMETEROL IH SCH ×2 (09:00→21:17)
[2021-09-20] MEDS ORDERED: HOME MED 1 EA UNK (Ferrous Gluconate [Ferrous Gluconate] 324 MG Tablet) PO SCH (09:00)
[2021-09-20] MEDS ORDERED: HOME MED 1 EA UNK (Omeprazole [Omeprazole] 20 MG Tab.Rap.Dr) PO SCH (09:00)
[2021-09-20] MEDS ORDERED: VANCOMYCIN 1 GM in NA CHLORIDE 0.9% 250 ML IVPB SCH (09:00)
[2021-09-20] MEDS: DOCUSATE NA 100 MG CAP PO SCH (09:00)
[2021-09-20] MEDS ORDERED: HOME MED 1 EA UNK (Aripiprazole [Abilify] 10 MG Tablet) PO SCH (09:00)
--- NOTE | 2021-09-20 10:19 | P.PN ---
Subjective Date of Service: 09/20/21 Chief Complaint: Altered mental status Patient is still hypotensive and requiring Levophed drip. Status post sacral decubitus ulcer debridement. S/p hemodialysis yesterday Patient is awake and interactive but confused. 4 blood culture bottles are growing gram-negative rods. Posttransfusion hemoglobin stable at 7. He has been afebrile Physical Examination - Vital Signs Temperature: 97.2 F Blood Pressure: 107/63 Pulse: 72 Respirations: 22 Pulse Ox (%): 94 - Physical Exam General: In no apparent distress, Other (Awake) HEENT: Mucous membr. moist/pink Neck: Supple Respiratory: Clear to auscultation bilaterally, Normal air movement Cardiovascular: No edema, Regular rate/rhythm, Normal S1 S2 Gastrointestinal: Soft and benign, Non-distended, No tenderness Musculoskeletal: No swelling Integumentary: Pressure ulcer (Large stage IV sacral decubitus ulcer) Neurological: Normal speech, Other (Moves all extremities spontaneously) - Studies Microbiology Data (last 24 hrs): 09/18/21 12:45 Clean Catch Urine Farina Count - Final No growth. 09/18/21 12:45 Clean Catch Urine - Final No growth. 09/18/21 11:35 Blood - Blood Blood Culture Gram Stain - Final 09/18/21 11:35 Blood - Blood Gram Stain - Final Assessment And Plan - Current Problems (Diagnosis) (1) Sepsis Current Visit: Yes Status: Acute (2) UTI (urinary tract infection) Current Visit: Yes Status: Acute (3) End-stage renal disease on hemodialysis Current Visit: Yes Status: Acute (4) Chronic systolic heart failure Current Visit: Yes Status: Acute (5) History of CVA (cerebrovascular accident) Current Visit: Yes Status: Acute (6) Metabolic acidosis Current Visit: Yes Status: Acute (7) Anemia Current Visit: Yes Status: Acute - Plan Status post 2 unit PRBC transfusion. Status post sacral decubitus ulcer debridement. Nephrology is following for hemodialysis. Metabolic acidosis resolved. Status post albumin infusion for low albumin and hypotension. General surgery is following and planning another debridement as needed Daughter at this time want aggressive treatment. Infectious disease input appreciated. Continue IV meropenem and vancomycin. Will scale down on antibiotics pending final blood culture result. Urine culture: No growth. Feeding started. Insulin sliding scale for glucose management. Anemia likely secondary to sepsis and chronic kidney disease. Transfuse for hemoglobin less than 7. Monitor CBC and blood chemistry. Resume patient Eliquis for A. fib anticoagulation. Prognosis guarded.
[2021-09-20] MEDS: AMIODARONE HCL 200 MG TAB PO SCH (10:22)
[2021-09-20] MEDS: ARIPiprazole 5 MG TAB PO SCH (10:33)
[2021-09-20] MEDS: CYANOCOBALAMIN 1,000 MCG TAB PO SCH (10:33)
[2021-09-20] MEDS: CALCITROL 0.25 MCG CAP PO SCH (10:33)
[2021-09-20] MEDS: FOLIC ACID 1 MG TABLET PO SCH (10:33)
[2021-09-20] MEDS: THIAMINE HCL 100 MG TABLET PO SCH ×3 (10:34→20:50)
[2021-09-20] MEDS: PANTOPRAZOLE 40MG TABLET PO SCH (10:35)
[2021-09-20] MEDS: FERROUS GLUCONATE 324 MG TAB PO SCH (10:35)
[2021-09-20] MEDS: COLLAGENASE 30 GM OINTMENT TOP SCH (10:36)
--- NOTE | 2021-09-20 11:08 | P.PN ---
Subjective Date of Service: 09/20/21 Chief Complaint: Altered mental status Patient seen examined at bedside status post emergent debridement of sacral decubitus ulcer performed on 09/19. Surgery went well with no complications. Hemostasis obtained. WBC down trending, continue with broad-spectrum IV antibiotics. Still awaiting full blood culture reports. Review of Systems 10-point ROS is otherwise unremarkable Physical Examination - Vital Signs Temperature: 97.2 F Blood Pressure: 112/56 Pulse: 73 Respirations: 25 Pulse Ox (%): 99 - Studies Laboratory Last Values WBC 20.90 K/uL (4.3-10.9) H* 09/18/21 11:41 RBC 2.71 M/uL (4.33-5.43) L 09/18/21 11:41 Hgb 7.1 g/dL (13.6-17.9) L 09/18/21 11:41 Hct 23.9 % (39.6-49.0) L 09/18/21 11:41 MCV 88.3 fL (80-100) 09/18/21 11:41 MCH 26.1 pg (27.0-35.0) L 09/18/21 11:41 MCHC 29.6 g/dL (32.0-36.0) L 09/18/21 11:41 RDW 20.0 % (12.1-15.2) H 09/18/21 11:41 Plt Count 344 K/uL (152-406) 09/18/21 11:41 MPV 7.9 fL (7.6-11.3) 09/18/21 11:41 Neutrophils % 86.4 % (41.7-73.7) H 09/18/21 11:41 Lymphocytes % 9.0 % (15.3-44.8) L 09/18/21 11:41 Monocytes % 4.1 % (3.3-12.3) 09/18/21 11:41 Eosinophils % 0.3 % (0-4.4) 09/18/21 11:41 Basophils % 0.2 % (0-1.3) 09/18/21 11:41 Absolute Neutrophils 18.0 K/uL (1.8-8.0) H 09/18/21 11:41 Segmented Neutrophils 90 % (40-80) H 09/18/21 11:41 Absolute Lymphocytes 1.9 K/uL (0.7-4.9) 09/18/21 11:41 Lymphocytes 7 % (15-42) L 09/18/21 11:41 Monocytes 3 % (0-10) 09/18/21 11:41 Absolute Monocytes 0.9 K/uL (0.1-1.3) 09/18/21 11:41 Absolute Eosinophils 0.1 K/uL (0-0.5) 09/18/21 11:41 Absolute Basophils 0.0 K/uL (0-0.5) 09/18/21 11:41 Platelet Estimate Adeq 09/18/21 11:41 Morphology Comment Not seen (NOT SEEN) 09/18/21 11:41 PT 21.2 SECONDS (9.5-12.5) H 09/18/21 11:41 INR 1.83 09/18/21 11:41 APTT 33.6 SECONDS (24.3-36.9) 09/18/21 11:41 Sodium 134 mmol/L (136-145) L 09/18/21 11:41 Potassium 3.5 mmol/L (3.5-5.1) 09/18/21 11:41 Chloride 104 mmol/L (98-107) 09/18/21 11:41 Carbon Dioxide 14 mmol/L (21-32) L* 09/18/21 11:41 BUN 63 mg/dL (7-18) H 09/18/21 11:41 Creatinine 10.30 mg/dL (0.55-1.3) H* 09/18/21 11:41 Estimated GFR 6 mL/min (=/>90) L 09/18/21 11:41 Glucose 97 mg/dL (74-106) 09/18/21 11:41 Lactic Acid 4.4 mmol/L (0.4-2.0) H* 09/18/21 11:41 Calcium 8.5 mg/dL (8.5-10.1) 09/18/21 11:41 Total Bilirubin 0.6 mg/dL (0.2-1.0) 09/18/21 11:41 Direct Bilirubin 0.3 mg/dL (0-0.2) H 09/18/21 11:41 AST 23 U/L (15-37) 09/18/21 11:41 ALT 20 U/L (12-78) 09/18/21 11:41 Alkaline Phosphatase 114 U/L (45-117) 09/18/21 11:41 Creatine Kinase 80 U/L (39-308) 09/18/21 11:41 CK-MB (CK-2) 2.6 ng/mL (1.0-3.6) 09/18/21 11:41 Rapid Troponin I 0.04 ng/mL (0.0-0.045) 09/18/21 11:41 Serum Total Protein 6.4 g/dL (6.4-8.2) 09/18/21 11:41 Albumin 1.6 g/dL (3.4-5.0) L 09/18/21 11:41 Globulin 4.8 g/dL (2.3-3.5) H 09/18/21 11:41 Albumin/Globulin Ratio 0.3 (1.1-1.8) L 09/18/21 11:41 Amylase 24 U/L (25-115) L 09/18/21 11:41 Lipase 39 U/L (73-393) L 09/18/21 11:41 Procalcitonin 5.15 ng/mL (<0.050) H 09/18/21 11:41 Urine RBC 5-10 /HPF (NONE SEEN) H 09/18/21 12:45 Urine WBC 5-10 /HPF (<5) H 09/18/21 12:45 Ur Squamous Epith Cells <5 /HPF (NONE SEEN) 09/18/21 12:45 Urine Bacteria 20-50 /HPF (NONE SEEN) H 09/18/21 12:45 Urine Culture Reflexed Reflexed 09/18/21 12:45 Influenza Type A RNA Negative (NEGATIVE) 09/18/21 12:27 Influenza Type B RNA Negative (NEGATIVE) 09/18/21 12:27 SARS-CoV-2 RNA (RT-PCR) Negative (NEGATIVE) 09/18/21 12:27 Miscellaneous Test Cancelled 09/18/21 11:31 Microbiology Data (last 24 hrs): 09/18/21 12:45 Clean Catch Urine Harmony Count - Final No growth. 09/18/21 12:45 Clean Catch Urine - Final No growth. 09/18/21 11:35 Blood - Blood Blood Culture Gram Stain - Final 09/18/21 11:35 Blood - Blood Gram Stain - Final Assessment And Plan - Plan Physical exam: General: Other (AMS) HEENT: Atraumatic Neck: Supple Respiratory: Clear to auscultation bilaterally, Normal air movement Cardiovascular: Normal pulses, Regular rate/rhythm Gastrointestinal: Normal bowel sounds, Soft and benign Musculoskeletal: No contractures Integumentary: Pressure ulcer (Sacral decubitus ulcer status post surgical debridement performed on 09/19. Conclusions/Impression: Antibiotics: Vancomycin Start: 09/18 Meropenem Start: 09/19 Assessment/plan Severe sepsis secondary to infected sacral decubitus ulcer Patient septic on admission with lactic acidosis, metabolic acidosis, leukocytosis, and tacypena. Source infection: Infected sacral decubitus ulcer. CT abdomen pelvis showed gas-forming soft tissue infection directly posterior to sacrum. Continue empiric antibiotic coverage with IV vancomycin and meropenem. Preliminary blood cultures obtained on 09/18 growing gram-negative rods. Urine culture shows no growth. Patient underwent emergent debridement of sacral decubitus ulcer on 09/19. Surgery went well no complications, all necrotic tissue removed. Continue wound care per surgical team. Currently utilizing santal wet-to-dry. Patient has low air loss mattress placed. ESRD on HD Avoid nephrotoxic agents, renally dose all antibiotics/give after HD on HD days. Nephrology following. Anemia Patient has received blood products. Continue to monitor H&H. Leukocytosis Down trending, continue to monitor WBC trend in fever curve. Protein caloric malnutrition: Moderate Patient was low albumin, recommend supplemental Ensure protein drinks. Adequate nutrition needed for proper wound healing. -medical management per primary team Plan of care discussed with Dr. newell Thank you for consultation.
[2021-09-20] MEDS: Meropenem 500 MG/100 ML BAG IV SCH (11:28)
[2021-09-20] MEDS: APIXABAN 5 MG TABLET PO SCH ×2 (11:31→20:48)
[2021-09-20] MEDS: NOREPINEPHRINE 8 MG in D5W 250 ML IV SCH ×2 (12:43→19:10)
[2021-09-20] MEDS: NEPRO SHAKE 237 ML CAN PO SCH ×2 (15:04→20:48)
[2021-09-20] MEDS ORDERED: KETOROLAC TROMETHAMINE OPH OPTH PRN (17:00)
[2021-09-20] MEDS ORDERED: [UNRECOGNIZED DRUG - OTHER] OPTH PRN (17:00)
--- NOTE | 2021-09-20 19:55 | P.PN ---
Date of Service: 09/20/21 Vital Signs Temp Pulse Resp BP Pulse Ox 98 F 112 H 27 H 112/56 L 99 09/20/21 16:00 09/20/21 19:30 09/20/21 19:30 09/20/21 19:30 09/20/21 19:30 Medications Acetaminophen (Acetaminophen 650mg/Rect Supp) 650 mg [place] Q6HP PRN PRN Reason: TEMP > 100' F Acetaminophen (Acetaminophen 500 Mg Tab) 500 mg PO Q4HP PRN PRN Reason: TEMP > 100' F Albuterol Sulfate (Albuterol 2.5 Mg/3 Ml Neb Debra) 2.5 mg NEB [id number] PRN PRN Reason: SHORTNESS OF BREATH Last Admin: 09/19/21 21:55 Dose: 2.5 mg Documented by: Amiodarone HCl (Amiodarone Hcl 200 Mg Tab) 200 mg PO DAILY [facility] Last Admin: 09/20/21 10:22 Dose: 200 mg Documented by: Apixaban (Apixaban 5 Mg Tablet) 5 mg PO BID [facility] Last Admin: 09/20/21 11:31 Dose: 5 mg Documented by: Aripiprazole (Aripiprazole 5 Mg Tab) 2.5 mg PO DAILY [facility] Last Admin: 09/20/21 10:33 Dose: 2.5 mg Documented by: Atorvastatin Calcium (Atorvastatin 40 Mg Tab) 40 mg PO BEDTIME [facility] Last Admin: 09/19/21 20:23 Dose: Not Given Documented by: Calcitriol (Calcitrol 0.25 Mcg Cap) 0.5 mcg PO DAILY [facility] Last Admin: 09/20/21 10:33 Dose: 0.5 mcg Documented by: Collagenase (Collagenase 30 Gm Ointment) 1 appl TOP DAILY [facility] Last Admin: 09/20/21 10:36 Dose: 1 appl Documented by: Cyanocobalamin (Cyanocobalamin 1,000 Mcg Tab) 1,000 mcg PO DAILY [facility] Last Admin: 09/20/21 10:33 Dose: 1,000 mcg Documented by: Docusate Sodium (Docusate Na 100 Mg Cap) 100 mg PO BID PRN PRN Reason: CONSTIPATION Enteral Nutritional Formula (Nepro Shake 237 Ml Can) 237 ml PO BID [facility] Last Admin: 09/20/21 15:04 Dose: 237 ml Documented by: Epoetin Garrick (Epoetin Garrick 10,000 Unit/Ml Vial) 10,000 unit SQ M,W,F [facility] Last Admin: 09/19/21 17:52 Dose: 10,000 unit Documented by: Ferrous Gluconate (Ferrous Gluconate 324 Mg Tab) 324 mg PO DAILY [facility] Last Admin: 09/20/21 10:35 Dose: 324 mg Documented by: Folic Acid (Folic Acid 1 Mg Tablet) 1 mg PO DAILY [facility] Last Admin: 09/20/21 10:33 Dose: 1 mg Documented by: Heparin Sodium (Porcine) (Heparin 1,000 Unit/Ml Vial) 6,000 unit IV EVERY HD PRN PRN Reason: AFTER EACH Last Admin: 09/19/21 11:53 Dose: 6,000 unit Documented by: Heparin Sodium (Porcine) (Heparin 1,000 Unit/Ml Vial) 2,000 unit IV EVERY HD [facility] Stop: 09/24/21 11:01 Home Med (Fluticasone Propion/Salmeterol [Fluticasone-Salmeterol 100-50]) 1 each IH BID [facility] Last Admin: 09/20/21 09:00 Dose: 1 each Documented by: Home Med (Petrolatum,White [Aloe Leslie]) 0 gm TOP PRN PRN PRN Reason: wound correction Med (Ketorolac Tromethamine [Ketorolac Tromethamine]) 1 drop OPTH QID PRN PRN Reason: inflammation Home Med (Carboxymethylcellulose Sodium [Restore Plus]) 2 each OPTH QID PRN PRN Reason: DRY EYES Vancomycin HCl 1 gm/ Sodium (Chloride) 250 mls @ 166.667 mls/hr IVPB AFTER EACH DIALYSIS [facility]; Protocol Albumin Human (Albumin 25%) 50 mls @ 100 mls/hr IV EVERY HD [facility] Meropenem (Merrem 500 Mg/100 Ml Ns Ivpb) 500 mg in 100 mls @ 200 mls/hr IV DAILY [facility] Last Admin: 09/20/21 11:28 Dose: 100 mls Documented by: Norepinephrine Bitartrate 8 mg (/ Dextrose) 258 mls @ 0 mls/hr IV TITR [facility]; Protocol Last Admin: 09/20/21 19:10 Dose: 22 mcg/min, 42.6 mls/hr Documented by: Potassium Chloride (Kcl 20 Meq/100 Ml Ivpb (Premix)) 20 meq in 100 mls @ 50 mls/hr IV Q2H [facility]; Protocol Stop: 09/20/21 23:59 Insulin Human Regular (Insulin -Regular Human 50 Unit/0.5 Ml Ml) 0 unit SQ Q6HR [facility]; Protocol Last Admin: 09/20/21 17:46 Dose: Not Given Documented by: Ipratropium [place] (Ipratropium Brom 0.5mg/2.5ml) 0.5 mg IH QIDRESP PRN PRN Reason: SHORTNESS OF BREATH Last Admin: 09/19/21 21:55 Dose: 0.5 mg Documented by: Mannitol (Mannitol 25% 12.5 Gm/50 Ml Vial) 12.5 gm IV EVERY HD PRN PRN Reason: Titrate to SBP (MUST DEFINE) Ondansetron HCl (Ondansetron 4 Mg/2 Ml Vial) 4 mg IV Q6HP PRN PRN Reason: NAUSEA / VOMITING Pantoprazole Sodium (Pantoprazole 40mg Tablet) 40 mg PO DAILY [facility] Last Admin: 09/20/21 10:35 Dose: 40 mg Documented by: Sodium Chloride (Flush Normal Saline 10 Ml) 10 ml IV BID [facility] Last Admin: 09/20/21 09:00 Dose: 10 ml Documented by: Thiamine HCl (Thiamine Hcl 100 Mg Tablet) 100 mg PO TID [facility] Last Admin: 09/20/21 15:03 Dose: 100 mg Documented by: Microbiology Results 09/18/21 12:45 Clean Catch Urine [place] Count - Final No growth. 09/18/21 12:45 Clean Catch Urine - Final No growth. 09/18/21 11:35 Blood - Blood Aerobic Blood Culture - Preliminary Gram Neg Vimal 09/18/21 11:35 Blood - Blood Blood Culture Gram Stain - Final 09/18/21 11:35 Blood - Blood Anaerobic Blood Culture - Preliminary 09/18/21 11:35 Blood - Blood Gram Stain - Final 09/18/21 11:41 Blood - Blood Aerobic Blood Culture - Preliminary 09/18/21 11:41 Blood - Blood Blood Culture Gram Stain - Preliminary 09/18/21 11:41 Blood - Blood Anaerobic Blood Culture - Preliminary 09/18/21 11:41 Blood - Blood Gram Stain - Preliminary Assessment/ Plan: Nephrology No dyspnea No chest pain Tolerating oral meds No acute events overnight. Vitals, medications, blood work and imaging reviewed in the chart General: In no apparent distress, Cooperative HEENT: Atraumatic Neck: Supple Respiratory: Clear to auscultation bilaterally Cardiovascular: Regular rate/rhythm, Edema Gastrointestinal: Non-distended, No tenderness Musculoskeletal: No clubbing, No contractures Integumentary: No rashes, No cyanosis Neurological: Normal speech Laboratory Data (last 24 hrs) 09/18/21 11:41: PT 21.2 H, INR 1.83, APTT 33.6 09/18/21 11:41: WBC 20.90 H*, Hgb 7.1 L, Hct 23.9 L, Plt Count 344 09/18/21 11:41: Sodium 134 L, Potassium 3.5, BUN 63 H, Creatinine 10.30 H*, Glucose 97, Total Bilirubin 0.6, AST 23, ALT 20, Alkaline Phosphatase 114, Amylase 24 L, Lipase 39 L Imagings Data: EXAM DESCRIPTION: CT - Abdomen Pelvis Wo Contrast - 09/18/2021 5:07 pm CLINICAL HISTORY: Sepsis COMPARISON: No comparisons TECHNIQUE: Axial [address] imaging of the abdomen and pelvis was performed without IV contrast. No IV contrast was given because of allergy, abnormal renal function, patient refusal or physician request. No oral contrast administered. All CT scans are performed using dose optimization technique as appropriate and may include automated exposure control or mA/KV adjustment according to patient size. FINDINGS: No suspicious findings in the lung bases. The liver, spleen and pancreas show no suspicious findings on non-contrast imaging. Gallbladder and biliary tree are also without suspicious finding. Gallstones can be occult on CT imaging. Degree of respiratory motion artifact of the upper abdomen limits accurate assessment of gallbladder wall thickness. No hydronephrosis or suspicious renal mass. No significant adrenal finding. Isodense renal masses and pyelonephritis cannot be excluded in the absence of IV contrast. The urinary bladder is without significant finding. A 2.6 centimeter focal mass posterior right margin of the bladder is isodense to the bladder and is suspected to be moderate-sized bladder diverticulum. No gastric dilatation or gastric wall thickening. No pneumatosis intestinalis. Within the peritoneal cavity there is no free air, free fluid or inflammatory stranding. No acute retroperitoneal process seen. No hernia, mass or bulky lymphadenopathy. Patient has advanced degenerative changes of both hip joints, worse on the left. No acute bone or joint finding. Patient has extensive gas densities present in the subcutaneous fatty tissues posterior to the sacrum and coccyx. No bone destructive changes. The air densities extend laterally 08-2010 cm off of the midline. The inferior margin of the soft tissue gas densities extend in proximity to the posterior wall distal rectum and posterior margin of the levator ani musculature. No abnormal air densities in the fatty tissues of the perineum or scrotum. No history was provided indicating that the patient has a known decubitus ulcer or known wound in this region. IMPRESSION: Extensive abnormal air in the subcutaneous fatty tissues posterior to the sacrum and coccyx with extension each direction laterally 8-10 cm off of the midline. Inferior margin of the air densities abutthe posterior wall distal rectum and posterior margin of the levator ani musculature. This is most likely gas-forming soft tissue infection. The abnormal air densities do not yet extend into the fatty tissues of the perineum. EXAM DESCRIPTION: RAD - Chest Single View - 09/18/2021 12:00 pm CLINICAL HISTORY: COUGH Chest pain. COMPARISON: No comparisons FINDINGS: Portable technique limits examination quality. The lungs are grossly clear. The heart is normal in size. Right-sided venous cat heter has tip in the right atrium region. Conclusions/Impression: ESRD -HD TIW as tolerated Hypokalemia -Replete potassium Hypotension Sepsis/ Septic Shock Acute Cystitis Sacral decubitus ulcer -Follow up cultures -Continue Vancomycin and Meropenem; monitor vanc level -IV Albumin prn -Continue Levophed -Follow up with surgery; plan for wound vac Diastolic CHF, chronic A/C hypoxic respiratory failure -Low sodium diet -Continue Oxygen supplementation -HD with UF as tolerated DM II with CKD -RISS Severe malnutrition -Continue Nepro -IV Albumin prn Anemia in CKD -PRBC transfusion prn -Retacrit TIW CKD MBD -Continue Calcitriol Case reviewed with his nurse. Greater than 30min patient care.
[2021-09-20] MEDS: ATORVASTATIN 40 MG TAB PO SCH (20:48)
[2021-09-21] MEDS: NOREPINEPHRINE 8 MG in D5W 250 ML IV SCH ×3 (02:12→18:43)
[2021-09-21] MEDS: INSULIN -REGULAR HUMAN 50 UNIT/0.5 ML ML SQ SCH ×4 (06:00→18:00)
[2021-09-21 06:29] LABS: Absolute Lymphocytes (CBC) 3.7 K/uL (0.7-4.9); Hematocrit 24.1 % (39.6-49.0); Lymphocytes % 19.4 % (15.3-44.8); MPV 7.9 fL (7.6-11.3)
[2021-09-21 06:51] LABS: Albumin 2.1 g/dL (3.4-5.0); Magnesium 1.8 mg/dL (1.8-2.4); Phosphorus 1.4 mg/dL (2.5-4.9); Potassium 3.1 mmol/L (3.5-5.1); Protein, Total 5.9 g/dL (6.4-8.2); Uric Acid 6.2 mg/dL (3.5-7.2)
[2021-09-21] MEDS: AMIODARONE HCL 200 MG TAB PO SCH (07:48)
[2021-09-21] MEDS: PANTOPRAZOLE 40MG TABLET PO SCH (07:48)
[2021-09-21] MEDS: NEPRO SHAKE 237 ML CAN PO SCH (09:00)
[2021-09-21] MEDS: CYANOCOBALAMIN 1,000 MCG TAB PO SCH (09:21)
[2021-09-21] MEDS: THIAMINE HCL 100 MG TABLET PO SCH (09:21)
[2021-09-21] MEDS: APIXABAN 5 MG TABLET PO SCH ×2 (09:21→19:54)
[2021-09-21] MEDS: CALCITROL 0.25 MCG CAP PO SCH (09:21)
[2021-09-21] MEDS: FERROUS GLUCONATE 324 MG TAB PO SCH (09:21)
[2021-09-21] MEDS: FOLIC ACID 1 MG TABLET PO SCH (09:21)
[2021-09-21] MEDS: ARIPiprazole 5 MG TAB PO SCH (09:21)
[2021-09-21] MEDS: FLUTICASONE SALMETEROL IH SCH ×2 (09:22→19:56)
[2021-09-21] MEDS: NA CHLORIDE 0.9% 250 ML IV ONE ×2 (09:44→10:00)
[2021-09-21] MEDS: ALBUMIN HUMAN 25% 100 ML IV ONE ×2 (09:44→10:00)
[2021-09-21] MEDS ORDERED: SODIUM CHLORIDE 0.9% 10ML INJ IV PRN (10:15)
[2021-09-21] MEDS: KCL 20 MEQ/100 mL IVPB 20 MEQ/100 ML BAG IV SCH ×2 (10:16→12:17)
--- NOTE | 2021-09-21 10:46 | P.PN ---
Subjective Date of Service: 09/21/21 Chief Complaint: Altered mental status Patient seen examined at bedside, states he is feeling well today. Slight elevation WBC noted on most recent labs, continue broad-spectrum IV antibiotics. Patient is afebrile, denies nausea/vomiting/diarrhea. Blood cultures growing Proteus mirabilis. Review of Systems 10-point ROS is otherwise unremarkable Physical Examination - Vital Signs Temperature: 98.8 F Blood Pressure: 112/67 Pulse: 133 Respirations: 21 Pulse Ox (%): 99 - Studies Active Medications Acetaminophen (Acetaminophen 650mg/Rect Supp) 650 mg [place] Q6HP PRN PRN Reason: TEMP > 100' F Acetaminophen (Acetaminophen 500 Mg Tab) 500 mg PO Q4HP PRN PRN Reason: TEMP > 100' F Albuterol Sulfate (Albuterol 2.5 Mg/3 Ml Neb Debra) 2.5 mg NEB [id number] PRN PRN Reason: SHORTNESS OF BREATH Last Admin: 09/19/21 21:55 Dose: 2.5 mg Documented by: Amiodarone HCl (Amiodarone Hcl 200 Mg Tab) 200 mg PO DAILY [facility] Last Admin: 09/21/21 07:48 Dose: 200 mg Documented by: Apixaban (Apixaban 5 Mg Tablet) 5 mg PO BID [facility] Last Admin: 09/21/21 09:21 Dose: 5 mg Documented by: Aripiprazole (Aripiprazole 5 Mg Tab) 2.5 mg PO DAILY [facility] Last Admin: 09/21/21 09:21 Dose: 2.5 mg Documented by: Atorvastatin Calcium (Atorvastatin 40 Mg Tab) 40 mg PO BEDTIME [facility] Last Admin: 09/20/21 20:48 Dose: 40 mg Documented by: Calcitriol (Calcitrol 0.25 Mcg Cap) 0.5 mcg PO DAILY [facility] Last Admin: 09/21/21 09:21 Dose: 0.5 mcg Documented by: Collagenase (Collagenase 30 Gm Ointment) 1 appl TOP DAILY [facility] Last Admin: 09/20/21 10:36 Dose: 1 appl Documented by: Docusate Sodium (Docusate Na 100 Mg Cap) 100 mg PO BID PRN PRN Reason: CONSTIPATION Enteral Nutritional Formula (Nepro Shake 237 Ml Can) 237 ml PO BID [facility] Last Admin: 09/21/21 09:00 Dose: 237 ml Documented by: Epoetin Garrick (Epoetin Garrick 10,000 Unit/Ml Vial) 10,000 unit SQ M,W,F [facility] Last Admin: 09/19/21 17:52 Dose: 10,000 unit Documented by: Heparin Sodium (Porcine) (Heparin 1,000 Unit/Ml Vial) 6,000 unit IV EVERY HD PRN PRN Reason: AFTER EACH Last Admin: 09/19/21 11:53 Dose: 6,000 unit Documented by: Heparin Sodium (Porcine) (Heparin 1,000 Unit/Ml Vial) 2,000 unit IV EVERY HD [facility] Stop: 09/24/21 11:01 Home Med (Fluticasone Propion/Salmeterol [Fluticasone-Salmeterol 100-50]) 1 each IH BID [facility] Last Admin: 09/21/21 09:22 Dose: 1 each Documented by: Home Med (Petrolatum,White [Aloe [place]]) 0 gm TOP PRN PRN PRN Reason: wound alf Med (Ketorolac Tromethamine [Ketorolac Tromethamine]) 1 drop OPTH QID PRN PRN Reason: inflammation Home Med (Carboxymethylcellulose Sodium [Restore Plus]) 2 each OPTH QID PRN PRN Reason: DRY EYES Vancomycin HCl 1 gm/ Sodium (Chloride) 250 mls @ 166.667 mls/hr IVPB AFTER EACH DIALYSIS [facility]; Protocol Albumin Human (Albumin 25%) 50 mls @ 100 mls/hr IV EVERY HD [facility] Meropenem (Merrem 500 Mg/100 Ml Ns Ivpb) 500 mg in 100 mls @ 200 mls/hr IV DAILY [facility] Last Admin: 09/20/21 11:28 Dose: 100 mls Documented by: Norepinephrine Bitartrate 8 mg (/ Dextrose) 258 mls @ 0 mls/hr IV TITR [facility]; Protocol Last Admin: 09/21/21 10:28 Dose: 18 mcg/min, 34.8 mls/hr Documented by: Albumin Human (Albumin 25% 25 Gm) 100 mls @ 100 mls/hr IV 1X ONE Stop: 09/21/21 10:59 Last Admin: 09/21/21 09:44 Dose: 100 mls Documented by: Potassium Chloride (Kcl 20 Meq/100 Ml Ivpb (Premix)) 20 meq in 100 mls @ 50 mls/hr IV Q2H [facility]; Protocol Stop: 09/21/21 14:59 Last Admin: 09/21/21 10:16 Dose: 100 mls Documented by: Magnesium Sulfate (Magnesium Sulfate 2 Gm/50ml Ivpb (Premix)) 2 g in 50 mls @ 50 mls/hr IV 1X ONE Stop: 09/21/21 11:59 Last Admin: 09/21/21 10:16 Dose: 50 mls Documented by: Insulin Human Regular (Insulin -Regular Human 50 Unit/0.5 Ml Ml) 0 unit SQ Q6HR [facility]; Protocol Last Admin: 09/21/21 06:00 Dose: Not Given Documented by: Ipratropium [place] (Ipratropium Brom 0.5mg/2.5ml) 0.5 mg IH QIDRESP PRN PRN Reason: SHORTNESS OF BREATH Last Admin: 09/19/21 21:55 Dose: 0.5 mg Documented by: Mannitol (Mannitol 25% 12.5 Gm/50 Ml Vial) 12.5 gm IV EVERY HD PRN PRN Reason: Titrate to SBP (MUST DEFINE) Ondansetron HCl (Ondansetron 4 Mg/2 Ml Vial) 4 mg IV Q6HP PRN PRN Reason: NAUSEA / VOMITING Pantoprazole Sodium (Pantoprazole 40 Mg Inj) 40 mg IVP DAILY [facility]; Protocol Potassium Phos/Sodium Phos (Potass/Sodium Phosphate 1 Pkt Powd.Pack) 2 pkt PO 1X ONE Stop: 09/21/21 11:01 Last Admin: 09/21/21 10:17 Dose: 2 pkt Documented by: Sodium Chloride (Flush Normal Saline 10 Ml) 10 ml IV BID [facility] Last Admin: 09/21/21 09:00 Dose: 10 ml Documented by: Sodium Chloride (Sodium Chloride 0.9% 10ml Inj) 10 ml IV UD PRN PRN Reason: Diluant Vitamin B Complex/Vit C/Folic Acid (Multivitamins,Therapeut 1 Tab) 1 tab PO DAILY [facility] Microbiology Data (last 24 hrs): 09/18/21 11:41 Blood - Blood Aerobic Blood Culture - Final Proteus Mirabilis 09/18/21 11:41 Blood - Blood Blood Culture Gram Stain - Final 09/18/21 11:41 Blood - Blood Anaerobic Blood Culture - Final Proteus Mirabilis 09/18/21 11:41 Blood - Blood Gram Stain - Final 09/18/21 11:35 Blood - Blood Aerobic Blood Culture - Final Proteus Mirabilis 09/18/21 11:35 Blood - Blood Blood Culture Gram Stain - Final 09/18/21 11:35 Blood - Blood Anaerobic Blood Culture - Final Proteus Mirabilis 09/18/21 11:35 Blood - Blood Gram Stain - Final 09/18/21 12:45 Clean Catch Urine [place] Count - Final No growth. 09/18/21 12:45 Clean Catch Urine - Final No growth. Assessment And Plan - Plan Physical exam: General: Other (AMS) HEENT: Atraumatic Neck: Supple Respiratory: Clear to auscultation bilaterally, Normal air movement Cardiovascular: Normal pulses, Regular rate/rhythm Gastrointestinal: Normal bowel sounds, Soft and benign Musculoskeletal: No contractures Integumentary: Pressure ulcer (Sacral decubitus ulcer status post surgical debridement performed on 09/19. Conclusions/Impression: Antibiotics: Vancomycin Start: 09/18 Meropenem Start: 09/19 Assessment/plan Severe sepsis secondary to infected sacral decubitus ulcer Patient septic on admission with lactic acidosis, metabolic acidosis, leukocytosis, and tacypena. Source infection: Infected sacral decubitus ulcer. CT abdomen pelvis showed gas-forming soft tissue infection directly posterior to sacrum. Continue empiric antibiotic coverage with IV vancomycin and meropenem. Blood cultures obtained on 09/18 growing Proteus mirabilis. Repeat blood cultures show no growth at 24hr. Urine culture shows no growth. Patient underwent emergent debridement of sacral decubitus ulcer on 09/19. Surgery went well no complications, all necrotic tissue removed. Continue wound care per surgical team. Currently utilizing santal wet-to-dry. Patient has low air loss mattress placed. ESRD on HD Avoid nephrotoxic agents, renally dose all antibiotics/give after HD on HD days. Nephrology following. Anemia Patient has received blood products. Continue to monitor H&H. Leukocytosis Down trending, continue to monitor WBC trend in fever curve. Protein caloric malnutrition: Moderate Patient was low albumin, recommend supplemental Ensure protein drinks. Adequate nutrition needed for proper wound healing. -medical management per primary team Plan of care discussed with Dr. newell Thank you for consultation.
[2021-09-21] MEDS ORDERED: Magnesium Sulfate 2gm IVPB 2 G/50 ML BAG IV ONE (11:00)
[2021-09-21] MEDS ORDERED: POTASS/SODIUM PHOSPHATE 1 PKT POWD.PACK PO ONE (11:00)
--- NOTE | 2021-09-21 11:05 | P.PN ---
Subjective Date of Service: 09/21/21 Chief Complaint: Altered mental status Patient remains on Levophed drip. He was more interactive with me this morning. He has been in and out of atrial fibrillation. Currently in atrial fibrillation with heart rate ranging from 130 to 150 He has been afebrile Physical Examination - Vital Signs Temperature: 98.8 F Blood Pressure: 112/67 Pulse: 133 Respirations: 21 Pulse Ox (%): 99 - Physical Exam General: In no apparent distress, Confused, Other (Awake) HEENT: Mucous membr. moist/pink Neck: JVD not distended Respiratory: Clear to auscultation bilaterally, Normal air movement Cardiovascular: Normal S1 S2, Irregular heart rate/rhythm Gastrointestinal: Soft and benign, Non-distended Musculoskeletal: No swelling Integumentary: Other (Sacral decubitus ulcer) Neurological: Other (Moves all extremities) - Studies Microbiology Data (last 24 hrs): 09/18/21 11:41 Blood - Blood Aerobic Blood Culture - Final Proteus Mirabilis 09/18/21 11:41 Blood - Blood Blood Culture Gram Stain - Final 09/18/21 11:41 Blood - Blood Anaerobic Blood Culture - Final Proteus Mirabilis 09/18/21 11:41 Blood - Blood Gram Stain - Final 09/18/21 11:35 Blood - Blood Aerobic Blood Culture - Final Proteus Mirabilis 09/18/21 11:35 Blood - Blood Blood Culture Gram Stain - Final 09/18/21 11:35 Blood - Blood Anaerobic Blood Culture - Final Proteus Mirabilis 09/18/21 11:35 Blood - Blood Gram Stain - Final 09/18/21 12:45 Clean Catch Urine [place] Count - Final No growth. 09/18/21 12:45 Clean Catch Urine - Final No growth. Assessment And Plan - Current Problems (Diagnosis) (1) Sepsis Current Visit: Yes Status: Acute (2) UTI (urinary tract infection) Current Visit: Yes Status: Acute (3) End-stage renal disease on hemodialysis Current Visit: Yes Status: Acute (4) Chronic systolic heart failure Current Visit: Yes Status: Acute (5) History of CVA (cerebrovascular accident) Current Visit: Yes Status: Acute (6) Metabolic acidosis Current Visit: Yes Status: Acute (7) Anemia Current Visit: Yes Status: Acute - Plan Status post 2 unit PRBC transfusion. Status post sacral decubitus ulcer debridement. Nephrology is following for hemodialysis. Patient scheduled for hemodialysis today. Metabolic acidosis resolved. Status post albumin infusion for low albumin and hypotension. General surgery is following and planning another debridement as needed. Daughter at this time want aggressive treatment. We will give albumin infusion and 250 mils normal saline bolus to see if this can reduce her heart rate, improve her blood pressure so we can wean off the Levophed. Infectious disease is following. Continue IV meropenem and vancomycin. Blood culture is growing pansensitive Proteus. Repeat blood culture is pending. Scale down antibiotics per ID recommendation Urine culture: No growth. Feeding started. Insulin sliding scale for glucose management. Anemia likely secondary to sepsis and chronic kidney disease. Transfuse as needed for hemoglobin less than 7. Monitor CBC and blood chemistry. Continue Eliquis for A. fib anticoagulation. Electrolyte replacement per nephrology. Prognosis guarded.
[2021-09-21] MEDS: LACTOSE-REDUCED FOOD 330 ML LIQUID PO SCH ×2 (13:56→19:54)
[2021-09-21] MEDS: POTASS/SODIUM PHOSPHATE 1 PKT POWD.PACK PO SCH ×2 (14:00→15:55)
[2021-09-21] MEDS: COLLAGENASE 30 GM OINTMENT TOP SCH (17:08)
[2021-09-21] MEDS ORDERED: HYDROMORPHONE HCL 1 MG/ML INJ IV ONE (18:28)
[2021-09-21] MEDS: Meropenem 500 MG/100 ML BAG IV SCH (18:39)
[2021-09-21] MEDS: EPOETIN ALFA 10,000 UNIT/ML VIAL SQ SCH (18:40)
[2021-09-21] MEDS: ATORVASTATIN 40 MG TAB PO SCH (19:56)
--- NOTE | 2021-09-21 21:18 | P.PN ---
Date of Service: 09/21/21 Vital Signs Temp Pulse Resp BP Pulse Ox 97.4 F 94 H 18 103/69 100 09/21/21 20:00 09/21/21 20:15 09/21/21 20:15 09/21/21 20:15 09/21/21 20:15 Medications Acetaminophen (Acetaminophen 650mg/Rect Supp) 650 mg [place] Q6HP PRN PRN Reason: TEMP > 100' F Acetaminophen (Acetaminophen 500 Mg Tab) 500 mg PO Q4HP PRN PRN Reason: TEMP > 100' F Albuterol Sulfate (Albuterol 2.5 Mg/3 Ml Neb Debra) 2.5 mg NEB [id number] PRN PRN Reason: SHORTNESS OF BREATH Last Admin: 09/19/21 21:55 Dose: 2.5 mg Documented by: Amiodarone HCl (Amiodarone Hcl 200 Mg Tab) 200 mg PO DAILY [facility] Last Admin: 09/21/21 07:48 Dose: 200 mg Documented by: Apixaban (Apixaban 5 Mg Tablet) 5 mg PO BID [facility] Last Admin: 09/21/21 19:54 Dose: 5 mg Documented by: Aripiprazole (Aripiprazole 5 Mg Tab) 2.5 mg PO DAILY [facility] Last Admin: 09/21/21 09:21 Dose: 2.5 mg Documented by: Atorvastatin Calcium (Atorvastatin 40 Mg Tab) 40 mg PO BEDTIME [facility] Last Admin: 09/21/21 19:56 Dose: 40 mg Documented by: Calcitriol (Calcitrol 0.25 Mcg Cap) 0.5 mcg PO DAILY [facility] Last Admin: 09/21/21 09:21 Dose: 0.5 mcg Documented by: Collagenase (Collagenase 30 Gm Ointment) 1 appl TOP DAILY [facility] Last Admin: 09/21/21 17:08 Dose: 1 appl Documented by: Docusate Sodium (Docusate Na 100 Mg Cap) 100 mg PO BID PRN PRN Reason: CONSTIPATION Epoetin Garrick (Epoetin Garrick 10,000 Unit/Ml Vial) 10,000 unit SQ M,W,F [facility] Last Admin: 09/21/21 18:40 Dose: 10,000 unit Documented by: Heparin Sodium (Porcine) (Heparin 1,000 Unit/Ml Vial) 6,000 unit IV EVERY HD PRN PRN Reason: AFTER EACH Last Admin: 09/19/21 11:53 Dose: 6,000 unit Documented by: Heparin Sodium (Porcine) (Heparin 1,000 Unit/Ml Vial) 2,000 unit IV EVERY HD [facility] Stop: 09/24/21 11:01 Home Med (Fluticasone Propion/Salmeterol [Fluticasone-Salmeterol 100-50]) 1 each IH BID [facility] Last Admin: 09/21/21 19:56 Dose: 1 each Documented by: Home Med (Petrolatum,White [Aloe [place]]) 0 gm TOP PRN PRN PRN Reason: wound [facility] Med (Ketorolac Tromethamine [Ketorolac Tromethamine]) 1 drop OPTH QID PRN PRN Reason: inflammation Home Med (Carboxymethylcellulose Sodium [Restore Plus]) 2 each OPTH QID PRN PRN Reason: DRY EYES Vancomycin HCl 1 gm/ Sodium (Chloride) 250 mls @ 166.667 mls/hr IVPB AFTER EACH DIALYSIS [facility]; Protocol Albumin Human (Albumin 25%) 50 mls @ 100 mls/hr IV EVERY HD [facility] Meropenem (Merrem 500 Mg/100 Ml Ns Ivpb) 500 mg in 100 mls @ 200 mls/hr IV DAILY [facility] Last Admin: 09/21/21 18:39 Dose: 100 mls Documented by: Norepinephrine Bitartrate 8 mg (/ Dextrose) 258 mls @ 0 mls/hr IV TITR [facility]; Protocol Last Admin: 09/21/21 18:43 Dose: 18 mcg/min, 34.8 mls/hr Documented by: Insulin Human Regular (Insulin -Regular Human 50 Unit/0.5 Ml Ml) 0 unit SQ Q6HR [facility]; Protocol Last Admin: 09/21/21 18:00 Dose: Not Given Documented by: Ipratropium [place] (Ipratropium Brom 0.5mg/2.5ml) 0.5 mg IH QIDRESP PRN PRN Reason: SHORTNESS OF BREATH Last Admin: 09/19/21 21:55 Dose: 0.5 mg Documented by: Mannitol (Mannitol 25% 12.5 Gm/50 Ml Vial) 12.5 gm IV EVERY HD PRN PRN Reason: Titrate to SBP (MUST DEFINE) Ondansetron HCl (Ondansetron 4 Mg/2 Ml Vial) 4 mg IV Q6HP PRN PRN Reason: NAUSEA / VOMITING Pantoprazole Sodium (Pantoprazole 40 Mg Inj) 40 mg IVP DAILY [facility]; Protocol Sodium Chloride (Flush Normal Saline 10 Ml) 10 ml IV BID [facility] Last Admin: 09/21/21 19:56 Dose: 10 ml Documented by: Sodium Chloride (Sodium Chloride 0.9% 10ml Inj) 10 ml IV UD PRN PRN Reason: Diluant Vitamin B Complex/Vit C/Folic Acid (Multivitamins,Therapeut 1 Tab) 1 tab PO DAILY [facility] Microbiology Results 09/18/21 11:41 Blood - Blood Aerobic Blood Culture - Final Proteus Mirabilis 09/18/21 11:41 Blood - Blood Blood Culture Gram Stain - Final 09/18/21 11:41 Blood - Blood Anaerobic Blood Culture - Final Proteus Mirabilis 09/18/21 11:41 Blood - Blood Gram Stain - Final 09/18/21 11:35 Blood - Blood Aerobic Blood Culture - Final Proteus Mirabilis 09/18/21 11:35 Blood - Blood Blood Culture Gram Stain - Final 09/18/21 11:35 Blood - Blood Anaerobic Blood Culture - Final Proteus Mirabilis 09/18/21 11:35 Blood - Blood Gram Stain - Final 09/18/21 12:45 Clean Catch Urine [place] Count - Final No growth. 09/18/21 12:45 Clean Catch Urine - Final No growth. Assessment/ Plan: Nephrology No dyspnea No chest pain Weakness and fatigue. No acute events overnight. Vitals, medications, blood work and imaging reviewed in the chart General: In no apparent distress, Cooperative HEENT: Atraumatic Neck: Supple Respiratory: Clear to auscultation bilaterally Cardiovascular: Regular rate/rhythm, Hip Edema Gastrointestinal: Non-distended, No tenderness Musculoskeletal: No clubbing, No contractures Integumentary: No rashes, No cyanosis Neurological: Normal speech Laboratory Data (last 24 hrs) 09/18/21 11:41: PT 21.2 H, INR 1.83, APTT 33.6 09/18/21 11:41: WBC 20.90 H*, Hgb 7.1 L, Hct 23.9 L, Plt Count 344 09/18/21 11:41: Sodium 134 L, Potassium 3.5, BUN 63 H, Creatinine 10.30 H*, Glucose 97, Total Bilirubin 0.6, AST 23, ALT 20, Alkaline Phosphatase 114, Amylase 24 L, Lipase 39 L Imagings Data: EXAM DESCRIPTION: CT - Abdomen Pelvis Wo Contrast - 09/18/2021 5:07 pm CLINICAL HISTORY: Sepsis COMPARISON: No comparisons TECHNIQUE: Axial [address] imaging of the abdomen and pelvis was performed without IV contrast. No IV contrast was given because of allergy, abnormal renal function, patient refusal or physician request. No oral contrast administered. All CT scans are performed using dose optimization technique as appropriate and may include automated exposure control or mA/KV adjustment according to patient size. FINDINGS: No suspicious findings in the lung bases. The liver, spleen and pancreas show no suspicious findings on non-contrast imaging. Gallbladder and biliary tree are also without suspicious finding. Gallstones can be occult on CT imaging. Degree of respiratory motion artifact of the upper abdomen limits accurate assessment of gallbladder wall thickness. No hydronephrosis or suspicious renal mass. No significant adrenal finding. Isodense renal masses and pyelonephritis cannot be excluded in the absence of IV contrast. The urinary bladder is without significant finding. A 2.6 centimeter focal mass posterior right margin of the bladder is isodense to the bladder and is suspected to be moderate-sized bladder diverticulum. No gastric dilatation or gastric wall thickening. No pneumatosis intestinalis. Within the peritoneal cavity there is no free air, free fluid or inflammatory stranding. No acute retroperitoneal process seen. No hernia, mass or bulky lymphadenopathy. Patient has advanced degenerative changes of both hip joints, worse on the left. No acute bone or joint finding. Patient has extensive gas densities present in the subcutaneous fatty tissues posterior to the sacrum and coccyx. No bone destructive changes. The air densities extend laterally 08-2010 cm off of the midline. The inferior margin of the soft tissue gas densities extend in proximity to the posterior wall distal rectum and posterior margin of the levator ani musculature. No abnormal air densities in the fatty tissues of the perineum or scrotum. No history was provided indicating that the patient has a known decubitus ulcer or known wound in this region. IMPRESSION: Extensive abnormal air in the subcutaneous fatty tissues posterior to the sacrum and coccyx with extension each direction laterally 8-10 cm off of the midline. Inferior margin of the air densities abutthe posterior wall distal rectum and posterior margin of the levator ani musculature. This is most likely gas-forming soft tissue infection. The abnormal air densities do not yet extend into the fatty tissues of the perineum. EXAM DESCRIPTION: RAD - Chest Single View - 09/18/2021 12:00 pm CLINICAL HISTORY: COUGH Chest pain. COMPARISON: No comparisons FINDINGS: Portable technique limits examination quality. The lungs are grossly clear. The heart is normal in size. Right-sided venous catheter has tip in the right atrium region. Conclusions/Impression: ESRD -HD TIW as tolerated -HD not performed today due to rapid Afib Hypokalemia -Replete potassium Hypomagnesemia -Replete IV magnesium HypoPO4 -Give Neutra-phos Hypotension Sepsis/ Septic Shock Acute Cystitis Sacral decubitus ulcer -Follow up cultures -Continue Vancomycin and Meropenem; monitor vanc level -IV Albumin prn -Continue Levophed; wean as tolerated -Follow up with surgery; plan for wound vac Diastolic CHF, chronic A/C hypoxic respiratory failure -Low sodium diet -Continue Oxygen supplementation -HD with UF as tolerated DM II with CKD -RISS Severe malnutrition -Change supplementation to Ensure -IV Albumin prn -Change oral supplements to nephrovite Anemia in CKD -PRBC transfusion prn -Retacrit TIW CKD MBD -Continue Calcitriol Case reviewed with Dr. Alanis. Greater than 30min patient care.
[2021-09-22] MEDS: NOREPINEPHRINE 8 MG in D5W 250 ML IV SCH ×2 (00:59→12:02)
[2021-09-22 05:13] LABS: Absolute Lymphocytes (CBC) 2.1 K/uL (0.7-4.9); Hematocrit 24.4 % (39.6-49.0); Lymphocytes % 12.6 % (15.3-44.8); MPV 8.1 fL (7.6-11.3); RBC Red Blood Cell Count 2.91 M/uL (4.33-5.43)
[2021-09-22 05:55] LABS: Albumin 2.1 g/dL (3.4-5.0); Bilirubin Total 0.8 mg/dL (0.2-1.0); Folic Acid, (Folate) 19.6 ng/mL (3.1-17.5); Magnesium 2.3 mg/dL (1.8-2.4); Phosphorus 2.5 mg/dL (2.5-4.9); Potassium 3.2 mmol/L (3.5-5.1); Protein, Total 5.9 g/dL (6.4-8.2)
[2021-09-22] MEDS: INSULIN -REGULAR HUMAN 50 UNIT/0.5 ML ML SQ SCH ×4 (06:00→18:00)
[2021-09-22] MEDS: Meropenem 500 MG/100 ML BAG IV SCH (08:34)
[2021-09-22] MEDS: MULTIVITAMINS,THERAPEUT 1 TAB PO SCH (08:35)
[2021-09-22] MEDS: AMIODARONE HCL 200 MG TAB PO SCH (08:35)
[2021-09-22] MEDS: PANTOPRAZOLE 40 MG INJ IVP SCH (08:35)
[2021-09-22] MEDS: CALCITROL 0.25 MCG CAP PO SCH (08:35)
[2021-09-22] MEDS: APIXABAN 5 MG TABLET PO SCH ×2 (08:35→21:13)
[2021-09-22] MEDS: ARIPiprazole 5 MG TAB PO SCH (08:35)
[2021-09-22] MEDS: FLUTICASONE SALMETEROL IH SCH ×2 (09:00→21:13)
[2021-09-22] MEDS: LACTOSE-REDUCED FOOD 330 ML LIQUID PO SCH ×4 (09:00→21:00)
[2021-09-22] MEDS: COLLAGENASE 30 GM OINTMENT TOP SCH (10:48)
--- NOTE | 2021-09-22 10:58 | P.PN ---
Subjective Date of Service: 09/22/21 Chief Complaint: Altered mental status Patient remain hypotensive on Levophed drip. His oral intake is improved. A. fib heart rate improved. Patient is awake and interactive. Physical Examination - Vital Signs Temperature: 96.8 F Blood Pressure: 98/48 Pulse: 73 Respirations: 22 Pulse Ox (%): 99 - Studies Microbiology Data (last 24 hrs): 09/18/21 11:41 Blood - Blood Aerobic Blood Culture - Final Proteus Mirabilis 09/18/21 11:41 Blood - Blood Blood Culture Gram Stain - Final 09/18/21 11:41 Blood - Blood Anaerobic Blood Culture - Final Proteus Mirabilis 09/18/21 11:41 Blood - Blood Gram Stain - Final 09/18/21 11:35 Blood - Blood Aerobic Blood Culture - Final Proteus Mirabilis 09/18/21 11:35 Blood - Blood Blood Culture Gram Stain - Final 09/18/21 11:35 Blood - Blood Anaerobic Blood Culture - Final Proteus Mirabilis 09/18/21 11:35 Blood - Blood Gram Stain - Final Assessment And Plan - Current Problems (Diagnosis) (1) Sepsis Current Visit: Yes Status: Acute (2) UTI (urinary tract infection) Current Visit: Yes Status: Acute (3) End-stage renal disease on hemodialysis Current Visit: Yes Status: Acute (4) Chronic systolic heart failure Current Visit: Yes Status: Acute (5) History of CVA (cerebrovascular accident) Current Visit: Yes Status: Acute (6) Metabolic acidosis Current Visit: Yes Status: Acute (7) Anemia Current Visit: Yes Status: Acute - Plan Physical examination General: In no apparent distress, awake and interactive. HEENT: Mucous membr. moist/pink Neck: JVD not distended Respiratory: Clear to auscultation bilaterally, Normal air movement Cardiovascular: Normal S1 S2, Irregular heart rate/rhythm Gastrointestinal: Soft and benign, Non-distended Musculoskeletal: No swelling Integumentary: Stage IV large sacral decubitus ulcer) Neurological: Moves all extremities Status post 2 unit PRBC transfusion. Posttransfusion hemoglobin is stable around 7. Status post sacral decubitus ulcer debridement. Nephrology is following for hemodialysis. Metabolic acidosis resolved. Status post albumin infusion for low albumin and hypotension. General surgery is following and planning another debridement as needed. Daughter at this time want aggressive treatment. Patient is still hypotensive despite multiple albumin infusion, normal saline bolus and IV hydration. Levophed drip is being weaned down. Noted patient has soft blood pressure at baseline and has been on midodrine. Will restart midodrine so we can wean off the Levophed drip Infectious disease is following. . Blood culture is growing pansensitive Proteus. Wound culture: Proteus and Citrobacter. Repeat blood culture shows no growth to date. Continue IV meropenem and vancomycin Antibiotic taper per infectious disease Urine culture: No growth. Feeding started. Insulin sliding scale for glucose management. Anemia likely secondary to sepsis and chronic kidney disease. Transfuse as needed for hemoglobin less than 7. Monitor CBC and blood chemistry. Continue Eliquis for A. fib anticoagulation. Electrolyte replacement per nephrology. Prognosis guarded.
[2021-09-22] MEDS: MIDODRINE HCL 5 MG TABLET PO SCH ×2 (11:59→17:14)
[2021-09-22] MEDS ORDERED: NA CHLORIDE 0.9% 250 ML ONE (17:30)
[2021-09-22] MEDS: ATORVASTATIN 40 MG TAB PO SCH (21:13)
[2021-09-23] MEDS: NOREPINEPHRINE 8 MG in D5W 250 ML IV SCH (05:00)
[2021-09-23 05:39] LABS: Absolute Lymphocytes (CBC) 2.3 K/uL (0.7-4.9); Hematocrit 23.6 % (39.6-49.0); Lymphocytes % 19.5 % (15.3-44.8); MPV 7.3 fL (7.6-11.3); RBC Red Blood Cell Count 2.86 M/uL (4.33-5.43)
[2021-09-23] MEDS: INSULIN -REGULAR HUMAN 50 UNIT/0.5 ML ML SQ SCH ×4 (06:00→16:07)
[2021-09-23 06:05] LABS: Phosphorus 2.1 mg/dL (2.5-4.9); Potassium 3.3 mmol/L (3.5-5.1)
[2021-09-23] MEDS: MIDODRINE HCL 5 MG TABLET PO SCH ×3 (08:05→16:07)
[2021-09-23] MEDS: PANTOPRAZOLE 40 MG INJ IVP SCH (08:05)
[2021-09-23] MEDS: MULTIVITAMINS,THERAPEUT 1 TAB PO SCH (08:05)
[2021-09-23] MEDS: APIXABAN 5 MG TABLET PO SCH ×2 (08:05→20:17)
[2021-09-23] MEDS: ARIPiprazole 5 MG TAB PO SCH (08:05)
[2021-09-23] MEDS: CALCITROL 0.25 MCG CAP PO SCH (08:05)
[2021-09-23] MEDS: AMIODARONE HCL 200 MG TAB PO SCH (08:05)
[2021-09-23] MEDS: FLUTICASONE SALMETEROL IH SCH ×2 (08:06→20:16)
[2021-09-23] MEDS: Meropenem 500 MG/100 ML BAG IV SCH (08:06)
[2021-09-23] MEDS: LACTOSE-REDUCED FOOD 330 ML LIQUID PO SCH ×3 (09:00→21:00)
[2021-09-23] MEDS: COLLAGENASE 30 GM OINTMENT TOP SCH (09:00)
--- NOTE | 2021-09-23 10:03 | P.PN ---
Subjective Date of Service: 09/23/21 Chief Complaint: Altered mental status Patient awake and tolerating puree Diet Heart rate has been under good control for the past 24 hours, mostly in sinus rhythm and intermittent A. fib Leukocytosis has trended down significantly. Physical Examination - Vital Signs Temperature: 97.7 F Blood Pressure: 116/62 Pulse: 88 Respirations: 24 Pulse Ox (%): 96 Assessment And Plan - Current Problems (Diagnosis) (1) Sepsis Current Visit: Yes Status: Acute (2) UTI (urinary tract infection) Current Visit: Yes Status: Acute (3) End-stage renal disease on hemodialysis Current Visit: Yes Status: Acute (4) Chronic systolic heart failure Current Visit: Yes Status: Acute (5) History of CVA (cerebrovascular accident) Current Visit: Yes Status: Acute (6) Metabolic acidosis Current Visit: Yes Status: Acute (7) Anemia Current Visit: Yes Status: Acute - Plan Physical examination General: In no apparent distress, awake and interactive. HEENT: Mucous membr. moist/pink Neck: JVD not distended Respiratory: Clear to auscultation bilaterally, Normal air movement Cardiovascular: Normal S1 S2, Irregular heart rate/rhythm Gastrointestinal: Soft and benign, Non-distended, nontender. Musculoskeletal: No swelling Integumentary: Stage IV large sacral decubitus ulcer) Neurological: Moves all extremities Status post 3 unit PRBC transfusion. Status post sacral decubitus ulcer debridement. Nephrology is following for hemodialysis. Metabolic acidosis resolved. Status post albumin infusion for low albumin and hypotension. General surgery is following. Patient may need another surgical debridement Patient is still hypotensive despite multiple albumin infusion, normal saline bolus and IV hydration. Levophed drip is being weaned down. Continue midodrine. Patient has baseline soft blood pressure. Infectious disease is following. . Blood culture: pansensitive Proteus. Wound culture: Proteus and Citrobacter. Repeat blood culture shows no growth to date. Continue IV meropenem and vancomycin Antibiotic taper per infectious disease Urine culture: No growth. Feeding as tolerated. Patient is tolerating puree diet more. Insulin sliding scale for glucose management. Anemia likely secondary to sepsis and chronic kidney disease. Transfuse as needed for hemoglobin less than 7. Monitor CBC and blood chemistry. Continue Eliquis for A. fib anticoagulation. Electrolyte replacement per nephrology. Prognosis guarded.
--- NOTE | 2021-09-23 19:00 | P.PN ---
Date of Service: 09/22/21 Vital Signs Temp Pulse Resp BP Pulse Ox 97.4 F 94 H 20 98/73 96 09/23/21 16:00 09/23/21 18:00 09/23/21 18:00 09/23/21 18:00 09/23/21 18:00 Medications Acetaminophen (Acetaminophen 650mg/Rect Supp) [address] Q6HP PRN PRN Reason: TEMP > 100' F Acetaminophen (Acetaminophen 500 Mg Tab) 500 mg PO Q4HP PRN PRN Reason: TEMP > 100' F Albuterol Sulfate (Albuterol 2.5 Mg/3 Ml Neb Debra) 2.5 mg NEB [id number] PRN PRN Reason: SHORTNESS OF BREATH Last Admin: 09/19/21 21:55 Dose: 2.5 mg Documented by: Amiodarone HCl (Amiodarone Hcl 200 Mg Tab) 200 mg PO DAILY [facility] Last Admin: 09/23/21 08:05 Dose: 200 mg Documented by: Apixaban (Apixaban 5 Mg Tablet) 5 mg PO BID [facility] Last Admin: 09/23/21 08:05 Dose: 5 mg Documented by: Aripiprazole (Aripiprazole 5 Mg Tab) 2.5 mg PO DAILY [facility] Last Admin: 09/23/21 08:05 Dose: 2.5 mg Documented by: Atorvastatin Calcium (Atorvastatin 40 Mg Tab) 40 mg PO BEDTIME [facility] Last Admin: 09/22/21 21:13 Dose: 40 mg Documented by: Calcitriol (Calcitrol 0.25 Mcg Cap) 0.5 mcg PO DAILY [facility] Last Admin: 09/23/21 08:05 Dose: 0.5 mcg Documented by: Collagenase (Collagenase 30 Gm Ointment) 1 appl TOP DAILY [facility] Last Admin: 09/23/21 09:00 Dose: 1 appl Documented by: Docusate Sodium (Docusate Na 100 Mg Cap) 100 mg PO BID PRN PRN Reason: CONSTIPATION Epoetin [place] (Epoetin [place] 10,000 Unit/Ml Vial) 10,000 unit SQ M,W,F [facility] Last Admin: 09/21/21 18:40 Dose: 10,000 unit Documented by: Heparin Sodium (Porcine) (Heparin 1,000 Unit/Ml Vial) 6,000 unit IV EVERY HD PRN PRN Reason: AFTER EACH Last Admin: 09/22/21 20:05 Dose: 6,000 unit Documented by: Heparin Sodium (Porcine) (Heparin 1,000 Unit/Ml Vial) 2,000 unit IV EVERY HD [facility] Stop: 09/24/21 11:01 Home Med (Fluticasone Propion/Salmeterol [Fluticasone-Salmeterol 100-50]) 1 each IH BID [facility] Last Admin: 09/23/21 08:06 Dose: 1 each Documented by: Home Med (Petrolatum,White [Aloe [place]]) 0 gm TOP PRN PRN PRN Reason: wound [facility] living Med (Ketorolac Tromethamine [Ketorolac Tromethamine]) 1 drop OPTH QID PRN PRN Reason: inflammation Home Med (Carboxymethylcellulose Sodium [Restore Plus]) 2 each OPTH QID PRN PRN Reason: DRY EYES Vancomycin HCl 1 gm/ Sodium (Chloride) 250 mls @ 166.667 mls/hr IVPB AFTER EACH DIALYSIS [facility]; Protocol Last Admin: 09/23/21 00:24 Dose: 250 mls Documented by: Albumin Human (Albumin 25%) 50 mls @ 100 mls/hr IV EVERY HD [facility] Meropenem (Merrem 500 Mg/100 Ml Ns Ivpb) 500 mg in 100 mls @ 200 mls/hr IV DAILY [facility] Last Admin: 09/23/21 08:06 Dose: 100 mls Documented by: Norepinephrine Bitartrate 8 mg (/ Dextrose) 258 mls @ 0 mls/hr IV TITR [facility]; Protocol Last Admin: 09/23/21 05:00 Dose: 8 mcg/min, 15.5 mls/hr Documented by: Insulin Human Regular (Insulin -Regular Human 50 Unit/0.5 Ml Ml) 0 unit SQ Q6HR [facility]; Protocol Last Admin: 09/23/21 16:07 Dose: Not Given Documented by: Ipratropium [place] (Ipratropium Brom 0.5mg/2.5ml) 0.5 mg IH QIDRESP PRN PRN Reason: SHORTNESS OF BREATH Last Admin: 09/19/21 21:55 Dose: 0.5 mg Documented by: Mannitol (Mannitol 25% 12.5 Gm/50 Ml Vial) 12.5 gm IV EVERY HD PRN PRN Reason: Titrate to SBP (MUST DEFINE) Midodrine (Midodrine Hcl 5 Mg Tablet) 5 mg PO AC [facility] Last Admin: 09/23/21 16:07 Dose: 5 mg Documented by: Ondansetron HCl (Ondansetron 4 Mg/2 Ml Vial) 4 mg IV Q6HP PRN PRN Reason: NAUSEA / VOMITING Pantoprazole Sodium (Pantoprazole 40 Mg Inj) 40 mg IVP DAILY [facility]; Protocol Last Admin: 09/23/21 08:05 Dose: 40 mg Documented by: Sodium Chloride (Flush Normal Saline 10 Ml) 10 ml IV BID [facility] Last Admin: 09/23/21 08:07 Dose: 10 ml Documented by: Sodium Chloride (Sodium Chloride 0.9% 10ml Inj) 10 ml IV UD PRN PRN Reason: Diluant Vitamin B Complex/Vit C/Folic Acid (Multivitamins,Therapeut 1 Tab) 1 tab PO DAILY [facility] Last Admin: 09/23/21 08:05 Dose: 1 tab Documented by: Microbiology Results 09/18/21 11:41 Blood - Blood Aerobic Blood Culture - Final Proteus Mirabilis 09/18/21 11:41 Blood - Blood Blood Culture Gram Stain - Final 09/18/21 11:41 Blood - Blood Anaerobic Blood Culture - Final Proteus Mirabilis 09/18/21 11:41 Blood - Blood Gram Stain - Final 09/18/21 11:35 Blood - Blood Aerobic Blood Culture - Final Proteus Mirabilis 09/18/21 11:35 Blood - Blood Blood Culture Gram Stain - Final 09/18/21 11:35 Blood - Blood Anaerobic Blood Culture - Final Proteus Mirabilis 09/18/21 11:35 Blood - Blood Gram Stain - Final 09/18/21 12:45 Clean Catch Urine [place] Count - Final No growth. 09/18/21 12:45 Clean Catch Urine - Final No growth. Assessment/ Plan: Nephrology No dyspnea. ZHAO No chest pain Weakness and fatigue. No acute events overnight. Vitals, medications, blood work and imaging reviewed in the chart General: In no apparent distress, Cooperative HEENT: Atraumatic Neck: Supple Respiratory: Clear to auscultation bilaterally Cardiovascular: Regular rate/rhythm, Hip Edema Gastrointestinal: Non-distended, No tenderness Musculoskeletal: No clubbing, No contractures Integumentary: No rashes, No cyanosis Neurological: Minimal speech Laboratory Data (last 24 hrs) 09/18/21 11:41: PT 21.2 H, INR 1.83, APTT 33.6 09/18/21 11:41: WBC 20.90 H*, Hgb 7.1 L, Hct 23.9 L, Plt Count 344 09/18/21 11:41: Sodium 134 L, Potassium 3.5, BUN 63 H, Creatinine 10.30 H*, Glucose 97, Total Bilirubin 0.6, AST 23, ALT 20, Alkaline Phosphatase 114, Amylase 24 L, Lipase 39 L Imagings Data: EXAM DESCRIPTION: CT - Abdomen Pelvis Wo Contrast - 09/18/2021 5:07 pm CLINICAL HISTORY: Sepsis COMPARISON: No comparisons TECHNIQUE: Axial [address] imaging of the abdomen and pelvis was performed without IV contrast. No IV contrast was given because of allergy, abnormal renal function, patient refusal or physician request. No oral contrast administered. All CT scans are performed using dose optimization technique as appropriate and may include automated exposure control or mA/KV adjustment according to patient size. FINDINGS: No suspicious findings in the lung bases. The liver, spleen and pancreas show no suspicious findings on non-contrast imaging. Gallbladder and biliary tree are also without suspicious finding. Gallstones can be occult on CT imaging. Degree of respiratory motion artifact of the upper abdomen limits accurate assessment of gallbladder wall thickness. No hydronephrosis or suspicious renal mass. No significant adrenal finding. Isodense renal masses and pyelonephritis cannot be excluded in the absence of IV contrast. The urinary bladder is without significant finding. A 2.6 centimeter focal mass posterior right margin of the bladder is isodense to the bladder and is suspected to be moderate-sized bladder diverticulum. No gastric dilatation or gastric wall thickening. No pneumatosis intestinalis. Within the peritoneal cavity there is no free air, free fluid or inflammatory stranding. No acute retroperitoneal process seen. No hernia, mass or bulky lymphadenopathy. Patient has advanced degenerative changes of both hip joints, worse on the left. No acute bone or joint finding. Patient has extensive gas densities present in the subcutaneous fatty tissues posterior to the sacrum and coccyx. No bone destructive changes. The air densities extend laterally 08-2010 cm off of the midline. The inferior margin of the soft tissue gas densities extend in proximity to the posterior wall distal rectum and posterior margin of the levator ani musculature. No abnormal air densities in the fatty tissues of the perineum or scrotum. No history was provided indicating that the patient has a known decubitus ulcer or known wound in this region. IMPRESSION: Extensive abnormal air in the subcutaneous fatty tissues posterior to the sacrum and coccyx with extension each direction laterally 8-10 cm off of the midline. Inferior margin of the air densities abutthe posterior wall distal rectum and posterior margin of the levator ani musculature. This is most likely gas-forming soft tissue infection. The abnormal air densities do not yet extend into the fatty tissues of the perineum. EXAM DESCRIPTION: RAD - Chest Single View - 09/18/2021 12:00 pm CLINICAL HISTORY: COUGH Chest pain. COMPARISON: No comparisons FINDINGS: Portable technique limits examination quality. The lungs are grossly clear. The heart is normal in size. Right-sided venous catheter has tip in the right atrium region. Conclusions/Impression: ESRD -HD TIW as tolerated -HD today; give PRBC with HD Hypokalemia -Replete potassium Hypomagnesemia -Replete with IV magnesium prn HypoPO4 -Give Neutra-phos prn -Encourage nutrition Hypotension Sepsis/ Septic Shock Acute Cystitis Sacral decubitus ulcer -Continue Vancomycin and Meropenem; monitor vanc level -IV Albumin prn -Continue Levophed; wean as tolerated -Follow up with surgery; plan for wound vac Diastolic CHF, chronic A/C hypoxic respiratory failure -Low sodium diet -Continue Oxygen supplementation -HD with UF as tolerated DM II with CKD -RISS Severe malnutrition -Continue Ensure supplementation -IV Albumin prn -Continue nephrovite Anemia in CKD -PRBC transfusion with HD today -Retacrit TIW CKD MBD -Continue Calcitriol Case reviewed with Dr. Alanis. Greater than 30min patient care.
[2021-09-23] MEDS: KCL 20 MEQ/100 mL IVPB 20 MEQ/100 ML BAG IV SCH ×2 (20:16→21:54)
[2021-09-23] MEDS: ATORVASTATIN 40 MG TAB PO SCH (20:17)
[2021-09-24] MEDS: NOREPINEPHRINE 8 MG in D5W 250 ML IV SCH ×2 (03:37→21:09)
[2021-09-24 05:51] LABS: Absolute Lymphocytes (CBC) 2.6 K/uL (0.7-4.9); Hematocrit 21.3 % (39.6-49.0); Lymphocytes % 23.2 % (15.3-44.8); MPV 7.7 fL (7.6-11.3); RBC Red Blood Cell Count 2.58 M/uL (4.33-5.43)
[2021-09-24] MEDS: INSULIN -REGULAR HUMAN 50 UNIT/0.5 ML ML SQ SCH ×5 (05:51→23:14)
[2021-09-24 06:59] LABS: Potassium 3.3 mmol/L (3.5-5.1)
[2021-09-24] MEDS: AMIODARONE HCL 200 MG TAB PO SCH (08:12)
[2021-09-24] MEDS: FLUTICASONE SALMETEROL IH SCH ×2 (08:12→20:32)
[2021-09-24] MEDS: CALCITROL 0.25 MCG CAP PO SCH (08:12)
[2021-09-24] MEDS: MIDODRINE HCL 5 MG TABLET PO SCH ×3 (08:12→18:20)
[2021-09-24] MEDS: PANTOPRAZOLE 40 MG INJ IVP SCH (08:12)
[2021-09-24] MEDS: ARIPiprazole 5 MG TAB PO SCH (08:13)
[2021-09-24] MEDS: MULTIVITAMINS,THERAPEUT 1 TAB PO SCH (08:13)
[2021-09-24] MEDS: COLLAGENASE 30 GM OINTMENT TOP SCH (08:42)
[2021-09-24] MEDS: APIXABAN 5 MG TABLET PO SCH (09:00)
[2021-09-24] MEDS: LACTOSE-REDUCED FOOD 330 ML LIQUID PO SCH ×3 (09:00→20:33)
[2021-09-24] MEDS ORDERED: NA CHLORIDE 0.9% 250 ML IV SCH (10:00)
--- NOTE | 2021-09-24 10:55 | P.PN ---
Subjective Date of Service: 09/24/21 Chief Complaint: Altered mental status Patient seen examined at bedside, no acute events. Review of Systems 10-point ROS is otherwise unremarkable Physical Examination - Vital Signs Temperature: 97.8 F Blood Pressure: 109/64 Pulse: 76 Respirations: 20 Pulse Ox (%): 100 - Studies Microbiology 09/18/21 11:41 Blood - Blood Aerobic Blood Culture - Final Proteus Mirabilis 09/18/21 11:41 Blood - Blood Blood Culture Gram Stain - Final 09/18/21 11:41 Blood - Blood Anaerobic Blood Culture - Final Proteus Mirabilis 09/18/21 11:41 Blood - Blood Gram Stain - Final 09/18/21 11:35 Blood - Blood Aerobic Blood Culture - Final Proteus Mirabilis 09/18/21 11:35 Blood - Blood Blood Culture Gram Stain - Final 09/18/21 11:35 Blood - Blood Anaerobic Blood Culture - Final Proteus Mirabilis 09/18/21 11:35 Blood - Blood Gram Stain - Final 09/18/21 12:45 Clean Catch Urine [place] Count - Final No growth. 09/18/21 12:45 Clean Catch Urine - Final No growth. Assessment And Plan - Plan Physical exam: General: Other (AMS) HEENT: Atraumatic Neck: Supple Respiratory: Clear to auscultation bilaterally, Normal air movement Cardiovascular: Normal pulses, Regular rate/rhythm Gastrointestinal: Normal bowel sounds, Soft and benign Musculoskeletal: No contractures Integumentary: Pressure ulcer (Sacral decubitus ulcer status post surgical debridement performed on 09/19. Conclusions/Impression: Antibiotics: Vancomycin Start: 09/18 Stop: 09/24 Meropenem Start: 09/19 Assessment/plan Severe sepsis secondary to infected sacral decubitus ulcer Patient septic on admission with lactic acidosis, metabolic acidosis, leukocytosis, and tacypena. Source infection: Infected sacral decubitus ulcer. CT abdomen pelvis showed gas-forming soft tissue infection directly posterior to sacrum. Initially placed on empiric antibiotic coverage with IV vancomycin and meropenem. Blood cultures obtained on 09/18 growing Proteus mirabilis. Repeat blood cultures show no growth at 24hr. Sacral wound culture grew Proteus mirabilis and citrobacter, both sensitive to meropenem. IV vancomycin discontinued, continue monotherapy with IV meropenem. Urine culture shows no growth. Patient underwent emergent debridement of sacral decubitus ulcer on 09/19. Surgery went well no complications. Surgical team plans to take patient back for additional debridement. Continue wound care per surgical team. Currently utilizing santal wet-to-dry. Patient has low air loss mattress placed. ESRD on HD Avoid nephrotoxic agents, renally dose all antibiotics/give after HD on HD days. Nephrology following. Anemia Patient has received blood products. Continue to monitor H&H. Leukocytosis Down trending, continue to monitor WBC trend in fever curve. Protein caloric malnutrition: Moderate Patient was low albumin, recommend supplemental Ensure protein drinks. Adequate nutrition needed for proper wound healing. -medical management per primary team Plan of care discussed with Dr. newell Thank you for consultation.
--- NOTE | 2021-09-24 11:36 | P.PN ---
Date of Service: 09/24/21 Vital Signs Temp Pulse Resp BP Pulse Ox 97.8 F 76 20 109/64 100 09/24/21 10:54 09/24/21 10:54 09/24/21 10:54 09/24/21 10:54 09/24/21 10:54 Medications Acetaminophen (Acetaminophen 650mg/Rect Supp) 650 mg KS Q6HP PRN PRN Reason: TEMP > 100' F Acetaminophen (Acetaminophen 500 Mg Tab) 500 mg PO Q4HP PRN PRN Reason: TEMP > 100' F Albuterol Sulfate (Albuterol 2.5 Mg/3 Ml Neb Debra) 2.5 mg NEB [id number] PRN PRN Reason: SHORTNESS OF BREATH Last Admin: 09/19/21 21:55 Dose: 2.5 mg Documented by: Amiodarone HCl (Amiodarone Hcl 200 Mg Tab) 200 mg PO DAILY [facility] Last Admin: 09/24/21 08:12 Dose: 200 mg Documented by: Apixaban (Apixaban 5 Mg Tablet) 5 mg PO BID [facility] Last Admin: 09/23/21 20:17 Dose: 5 mg Documented by: Aripiprazole (Aripiprazole 5 Mg Tab) 2.5 mg PO DAILY [facility] Last Admin: 09/24/21 08:13 Dose: 2.5 mg Documented by: Atorvastatin Calcium (Atorvastatin 40 Mg Tab) 40 mg PO BEDTIME [facility] Last Admin: 09/23/21 20:17 Dose: 40 mg Documented by: Calcitriol (Calcitrol 0.25 Mcg Cap) 0.5 mcg PO DAILY [facility] Last Admin: 09/24/21 08:12 Dose: 0.5 mcg Documented by: Collagenase (Collagenase 30 Gm Ointment) 1 appl TOP DAILY [facility] Last Admin: 09/24/21 08:42 Dose: 1 appl Documented by: Docusate Sodium (Docusate Na 100 Mg Cap) 100 mg PO BID PRN PRN Reason: CONSTIPATION Epoetin Garrick (Epoetin Garrick 10,000 Unit/Ml Vial) 10,000 unit SQ M,W,F [facility] Last Admin: 09/21/21 18:40 Dose: 10,000 unit Documented by: Heparin Sodium (Porcine) (Heparin 1,000 Unit/Ml Vial) 6,000 unit IV EVERY HD PRN PRN Reason: AFTER EACH Last Admin: 09/22/21 20:05 Dose: 6,000 unit Documented by: Home Med (Fluticasone Propion/Salmeterol [Fluticasone-Salmeterol 100-50]) 1 each IH BID [facility] Last Admin: 09/24/21 08:12 Dose: 1 each Documented by: Home Med (Petrolatum,White [Aloe [place]]) 0 gm TOP PRN PRN PRN Reason: wound halfway Med (Ketorolac Tromethamine [Ketorolac Tromethamine]) 1 drop OPTH QID PRN PRN Reason: inflammation Home Med (Carboxymethylcellulose Sodium [Restore Plus]) 2 each OPTH QID PRN PRN Reason: DRY EYES Albumin Human (Albumin 25%) 50 mls @ 100 mls/hr IV EVERY HD [facility] Meropenem (Merrem 500 Mg/100 Ml Ns Ivpb) 500 mg in 100 mls @ 200 mls/hr IV DAILY [facility] Last Admin: 09/23/21 08:06 Dose: 100 mls Documented by: Norepinephrine Bitartrate 8 mg (/ Dextrose) 258 mls @ 0 mls/hr IV TITR KAMRYN; Protocol Last Titration: 09/24/21 05:54 Dose: 5 mcg/min, 9.7 mls/hr Documented by: Sodium Chloride (Sodium Chloride) 250 mls @ 0 mls/hr IV .Q0M [facility] Insulin Human Regular (Insulin -Regular Human 50 Unit/0.5 Ml Ml) 0 unit SQ Q6HR [facility]; Protocol Last Admin: 09/24/21 05:51 Dose: Not Given Documented by: Ipratropium [place] (Ipratropium Brom 0.5mg/2.5ml) 0.5 mg IH QIDRESP PRN PRN Reason: SHORTNESS OF BREATH Last Admin: 09/19/21 21:55 Dose: 0.5 mg Documented by: Mannitol (Mannitol 25% 12.5 Gm/50 Ml Vial) 12.5 gm IV EVERY HD PRN PRN Reason: Titrate to SBP (MUST DEFINE) Midodrine (Midodrine Hcl 5 Mg Tablet) 5 mg PO AC [facility] Last Admin: 09/24/21 08:12 Dose: 5 mg Documented by: Ondansetron HCl (Ondansetron 4 Mg/2 Ml Vial) 4 mg IV Q6HP PRN PRN Reason: NAUSEA / VOMITING Pantoprazole Sodium (Pantoprazole 40 Mg Inj) 40 mg IVP DAILY [facility]; Protocol Last Admin: 09/24/21 08:12 Dose: 40 mg Documented by: Sodium Chloride (Flush Normal Saline 10 Ml) 10 ml IV BID [facility] Last Admin: 09/24/21 08:13 Dose: 10 ml Documented by: Sodium Chloride (Sodium Chloride 0.9% 10ml Inj) 10 ml IV UD PRN PRN Reason: Diluant Vitamin B Complex/Vit C/Folic Acid (Multivitamins,Therapeut 1 Tab) 1 tab PO DAILY [facility] Last Admin: 09/24/21 08:13 Dose: 1 tab Documented by: Microbiology Results 09/18/21 11:41 Blood - Blood Aerobic Blood Culture - Final Proteus Mirabilis 09/18/21 11:41 Blood - Blood Blood Culture Gram Stain - Final 09/18/21 11:41 Blood - Blood Anaerobic Blood Culture - Final Proteus Mirabilis 09/18/21 11:41 Blood - Blood Gram Stain - Final 09/18/21 11:35 Blood - Blood Aerobic Blood Culture - Final Proteus Mirabilis 09/18/21 11:35 Blood - Blood Blood Culture Gram Stain - Final 09/18/21 11:35 Blood - Blood Anaerobic Blood Culture - Final Proteus Mirabilis 09/18/21 11:35 Blood - Blood Gram Stain - Final 09/18/21 12:45 Clean Catch Urine [place] Count - Final No growth. 09/18/21 12:45 Clean Catch Urine - Final No growth. Assessment/ Plan: Nephrology No dyspnea. ZHAO No chest pain Weakness and fatigue. No acute events overnight. Vitals, medications, blood work and imaging reviewed in the chart General: In no apparent distress, Cooperative HEENT: Atraumatic Neck: Supple Respiratory: Clear to auscultation bilaterally Cardiovascular: Regular rate/rhythm, Hip Edema Gastrointestinal: Non-distended, No tenderness Musculoskeletal: No clubbing, No contractures Integumentary: No rashes, No cyanosis Neurological: Minimal speech Laboratory Data (last 24 hrs) 09/18/21 11:41: PT 21.2 H, INR 1.83, APTT 33.6 09/18/21 11:41: WBC 20.90 H*, Hgb 7.1 L, Hct 23.9 L, Plt Count 344 09/18/21 11:41: Sodium 134 L, Potassium 3.5, BUN 63 H, Creatinine 10.30 H*, Glucose 97, Total Bilirubin 0.6, AST 23, ALT 20, Alkaline Phosphatase 114, Amylase 24 L, Lipase 39 L Imagings Data: EXAM DESCRIPTION: CT - Abdomen Pelvis Wo Contrast - 09/18/2021 5:07 pm CLINICAL HISTORY: Sepsis COMPARISON: No comparisons TECHNIQUE: Axial [address] imaging of the abdomen and pelvis was performed without IV contrast. No IV contrast was given because of allergy, abnormal renal function, patient refusal or physician request. No oral contrast administered. All CT scans are performed using dose optimization technique as appropriate and may include automated exposure control or mA/KV adjustment according to patient size. FINDINGS: No suspicious findings in the lung bases. The liver, spleen and pancreas show no suspicious findings on non-contrast imaging. Gallbladder and biliary tree are also without suspicious finding. Gallstones can be occult on CT imaging. Degree of respiratory motion artifact of the upper abdomen limits accurate assessment of gallbladder wall thickness. No hydronephrosis or suspicious renal mass. No significant adrenal finding. Isodense renal masses and pyelonephritis cannot be excluded in the absence of IV contrast. The urinary bladder is without significant finding. A 2.6 centimeter focal mass posterior right margin of the bladder is isodense to the bladder and is suspected to be moderate-sized bladder diverticulum. No gastric dilatation or gastric wall thickening. No pneumatosis intestinalis. Within the peritoneal cavity there is no free air, free fluid or inflammatory stranding. No acute retroperitoneal process seen. No hernia, mass or bulky lymphadenopathy. Patient has advanced degenerative changes of both hip joints, worse on the left. No acute bone or joint finding. Patient has extensive gas densities present in the subcutaneous fatty tissues posterior to the sacrum and coccyx. No bone destructive changes. The air densities extend laterally 08-2010 cm off of the midline. The inferior margin of the soft tissue gas densities extend in proximity to the posterior wall distal rectum and posterior margin of the levator ani musculature. No abnormal air densities in the fatty tissues of the perineum or scrotum. No history was provided indicating that the patient has a known decubitus ulcer or known wound in this region. IMPRESSION: Extensive abnormal air in the subcutaneous fatty tissues posterior to the sacrum and coccyx with extension each direction laterally 8-10 cm off of the midline. Inferior margin of the air densities abutthe posterior wall distal rectum and posterior margin of the levator ani musculature. This is most likely gas-forming soft tissue infection. The abnormal air densities do not yet extend into the fatty tissues of the perineum. EXAM DESCRIPTION: RAD - Chest Single View - 09/18/2021 12:00 pm CLINICAL HISTORY: COUGH Chest pain. COMPARISON: No comparisons FINDINGS: Portable technique limits examination quality. The lungs are grossly clear. The heart is normal in size. Right-sided venous catheter has tip in the right atrium region. Conclusions/Impression: ESRD -HD TIW as tolerated -HD today; give PRBC with HD Hypokalemia -Replete potassium Hypomagnesemia -Replete with IV magnesium prn HypoPO4 -Give Neutra-phos prn -Encourage nutrition Hypotension Sepsis/ Septic Shock Acute Cystitis Sacral decubitus ulcer -Continue Vancomycin and Meropenem; monitor vanc level -IV Albumin prn -Continue Levophed; wean as tolerated -Follow up with surgery; plan for wound vac Diastolic CHF, chronic A/C hypoxic respiratory failure -Low sodium diet -Continue Oxygen supplementation -HD with UF as tolerated DM II with CKD -RISS Severe malnutrition -Continue Ensure supplementation -IV Albumin prn -Continue nephrovite Anemia in CKD -PRBC transfusion with HD today -Retacrit TIW CKD MBD -Continue Calcitriol Case reviewed with Dr. Alanis. Greater than 30min patient care.
--- NOTE | 2021-09-24 11:51 | P.PN ---
Subjective Date of Service: 09/24/21 Chief Complaint: Altered mental status Patient awake and interactive. Patient is currently in sinus rhythm and heart rate controlled. Leukocytosis almost resolved. Hemoglobin dropped to 6.7. Physical Examination - Vital Signs Temperature: 97.8 F Blood Pressure: 109/64 Pulse: 76 Respirations: 20 Pulse Ox (%): 100 Assessment And Plan - Current Problems (Diagnosis) (1) Sepsis Current Visit: Yes Status: Acute (2) UTI (urinary tract infection) Current Visit: Yes Status: Acute (3) End-stage renal disease on hemodialysis Current Visit: Yes Status: Acute (4) Chronic systolic heart failure Current Visit: Yes Status: Acute (5) History of CVA (cerebrovascular accident) Current Visit: Yes Status: Acute (6) Metabolic acidosis Current Visit: Yes Status: Acute (7) Anemia Current Visit: Yes Status: Acute - Plan Physical examination General: In no apparent distress, awake and interactive. HEENT: Mucous membr. moist/pink Neck: JVD not distended Respiratory: Clear to auscultation bilaterally, Normal air movement Cardiovascular: Normal S1 S2, Irregular heart rate/rhythm Gastrointestinal: Soft and benign, Non-distended, nontender. Musculoskeletal: No swelling Integumentary: Stage IV large sacral decubitus ulcer Neurological: Moves all extremities Plan: Status post 3 unit PRBC transfusion. Transfused 2 more units PRBC for hemoglobin of 6.7. No evidence of active bleeding. Patient is on Eliquis but no GI bleed. No melena or hematochezia. Hold Eliquis. Status post sacral decubitus ulcer debridement. Dr. Ramirez recommend another debridement. Nephrology is following for hemodialysis. Metabolic acidosis resolved. Status post albumin infusion for low albumin and hypotension. Patient is still hypotensive despite multiple albumin infusion, normal saline bolus and IV hydration. Levophed drip is being weaned down. Currently at 7 mcg per minute. Continue midodrine. Patient has baseline soft blood pressure. Infectious disease is following. Blood culture: pansensitive Proteus. Wound culture: Proteus and Citrobacter. Repeat blood culture shows no growth to date. Antibiotics scaled down to IV meropenem. IV vancomycin discontinued 09/24/21. Urine culture: No growth. Feeding as tolerated. Patient is tolerating puree diet more. Insulin sliding scale for glucose management. Anemia likely secondary to sepsis and chronic kidney disease. Monitor CBC and blood chemistry. Electrolyte replacement per nephrology. Patient is a good candidate for LTAC placement for aggressive wound care, bacteremia treatment and hemodialysis. Prognosis guarded.
[2021-09-24] MEDS: KCL 20 MEQ/100 mL IVPB 20 MEQ/100 ML BAG IV SCH ×2 (12:51→14:46)
[2021-09-24] MEDS: EPOETIN ALFA 10,000 UNIT/ML VIAL SQ SCH (18:20)
[2021-09-24] MEDS: ATORVASTATIN 40 MG TAB PO SCH (20:31)
[2021-09-25] MEDS: Meropenem 500 MG/100 ML BAG IV SCH ×2 (02:31→09:00)
[2021-09-25 05:32] LABS: Absolute Lymphocytes (CBC) 2.6 K/uL (0.7-4.9); Hematocrit 26.7 % (39.6-49.0); Lymphocytes % 23.9 % (15.3-44.8); MPV 7.9 fL (7.6-11.3); RBC Red Blood Cell Count 3.22 M/uL (4.33-5.43)
[2021-09-25] MEDS: INSULIN -REGULAR HUMAN 50 UNIT/0.5 ML ML SQ SCH ×3 (05:40→17:43)
[2021-09-25 05:41] LABS: Potassium 3.4 mmol/L (3.5-5.1)
--- NOTE | 2021-09-25 05:57 | P.PN ---
Date of Service: 09/25/21 Subjective: No acute events overnight per nursing. Patient alert, oriented to self. Without any complaints, denies pain continues on levophed s/p 2u PRBC yesterday with dialysis ROS: 10 point ROS as noted above, otherwise negative Physical examination General: In no apparent distress, awake/interactive HEENT: Mucous membr. moist/pink, sclera anicteric Respiratory: mild b/l crackles, nonlabored on 1L NC Cardiovascular: Irregular heart rate/rhythm, 2+ b/l edema Gastrointestinal: Soft, Non-distended, nontender. Integumentary: large sacral decubitus ulcer - deferred Neurological: Moves all extremities Problem List Sepsis secondary to infected sacral ulcer, bacteremia End-stage renal disease on hemodialysis Chronic systolic heart failure History of CVA (cerebrovascular accident) Metabolic acidosis Anemia s/p 5u PRBC, last 2 uPRBC on 09/24 No evidence of active bleeding. Patient was on Eliquis but no GI bleed. No melena or hematochezia. Eliquis now on hold s/p sacral decubitus ulcer debridement. Dr. Ramirez recommends another debridement, possibly today Nephrology is following for hemodialysis. Metabolic acidosis resolved. Status post albumin infusion for low albumin and hypotension. Electrolyte replacement per nephrology. Patient is still hypotensive despite multiple albumin infusion, normal saline bolus and IV hydration. Levophed drip is being weaned down. Currently at 4 mcg per minute. Continue midodrine. Patient has baseline soft blood pressure. Infectious disease is following. Blood culture: pansensitive Proteus. Wound culture: Proteus and Citrobacter. Now growing enterococcus as well Repeat blood culture shows no growth to date. Antibiotics scaled down to IV meropenem. IV vancomycin discontinued 09/24/21. will discuss new culture results with ID Urine culture: No growth. Feeding as tolerated. Insulin sliding scale for glucose management. Anemia likely secondary to sepsis and chronic kidney disease. unclear if current level of cognition/mentation is his baseline or not, will discuss further with family Dispo: continue ICU level of care Patient is a good candidate for LTAC placement for aggressive wound care, bacteremia treatment and hemodialysis. This was reportedly discussed with family yesterday who do not want him going anywhere else but home when ready. Will re-address with daughter Prognosis guarded. Time Spent Managing Pts Care (In Minutes): 35
[2021-09-25] MEDS: MIDODRINE HCL 5 MG TABLET PO SCH ×3 (07:30→17:43)
[2021-09-25 07:58] LABS: Anisocytosis 2+; Blood Morphology Comment NOTED (NOT SEEN); Platelet Estimate DECR; White Blood Cell Scan OK (OK)
[2021-09-25] MEDS: LACTOSE-REDUCED FOOD 330 ML LIQUID PO SCH ×3 (09:00→21:00)
[2021-09-25] MEDS: ARIPiprazole 5 MG TAB PO SCH (10:44)
[2021-09-25] MEDS: CALCITROL 0.25 MCG CAP PO SCH (10:45)
[2021-09-25] MEDS: PANTOPRAZOLE 40 MG INJ IVP SCH (10:45)
[2021-09-25] MEDS: MULTIVITAMINS,THERAPEUT 1 TAB PO SCH (10:45)
[2021-09-25] MEDS: AMIODARONE HCL 200 MG TAB PO SCH (10:45)
[2021-09-25] MEDS: FLUTICASONE SALMETEROL IH SCH ×2 (10:46→21:22)
--- NOTE | 2021-09-25 11:06 | P.PN ---
Subjective Date of Service: 09/25/21 Chief Complaint: Altered mental status Patient seen examined at bedside, wound culture now growing a vancomycin- resistant Enterococcus faecalis. Patient placed on daptomycin, will hold statin well on this medication. Review of Systems 10-point ROS is otherwise unremarkable Physical Examination - Vital Signs Temperature: 98.2 F Blood Pressure: 94/53 Pulse: 78 Respirations: 21 Pulse Ox (%): 95 - Studies Microbiology 09/18/21 11:41 Blood - Blood Aerobic Blood Culture - Final Proteus Mirabilis 09/18/21 11:41 Blood - Blood Blood Culture Gram Stain - Final 09/18/21 11:41 Blood - Blood Anaerobic Blood Culture - Final Proteus Mirabilis 09/18/21 11:41 Blood - Blood Gram Stain - Final 09/18/21 11:35 Blood - Blood Aerobic Blood Culture - Final Proteus Mirabilis 09/18/21 11:35 Blood - Blood Blood Culture Gram Stain - Final 09/18/21 11:35 Blood - Blood Anaerobic Blood Culture - Final Proteus Mirabilis 09/18/21 11:35 Blood - Blood Gram Stain - Final 09/18/21 12:45 Clean Catch Urine [place] Count - Final No growth. 09/18/21 12:45 Clean Catch Urine - Final No growth. Assessment And Plan - Plan Physical exam: General: Other (AMS) HEENT: Atraumatic Neck: Supple Respiratory: Clear to auscultation bilaterally, Normal air movement Cardiovascular: Normal pulses, Regular rate/rhythm Gastrointestinal: Normal bowel sounds, Soft and benign Musculoskeletal: No contractures Integumentary: Pressure ulcer (Sacral decubitus ulcer status post surgical debridement performed on 09/19. Conclusions/Impression: Antibiotics: CURRENT: Daptomycin Start: 09/25 Meropenem Start: 09/19 DC: Vancomycin Start: 09/18 Stop: 09/24 Assessment/plan Severe sepsis secondary to infected sacral decubitus ulcer Patient septic on admission with lactic acidosis, metabolic acidosis, leukocytosis, and tacypena. Source infection: Infected sacral decubitus ulcer. CT abdomen pelvis showed gas-forming soft tissue infection directly posterior to sacrum. Sacral wound culture grew Proteus mirabilis, citrobacter, and vancomycin-resistant Enterococcus faecalis. Based off wound culture report patient has been placed on daptomycin and meropenem. Baseline creatinine kinase ordered, will obtain weekly creatinine kinase will patient is on daptomycin. Will hold statin well patient is on this medication. Patient underwent emergent debridement of sacral decubitus ulcer on 09/19. Surgery went well no complications. Surgical team plans to take patient back for additional debridement. Continue wound care per surgical team. Currently utilizing santal wet-to-dry. Patient has low air loss mattress placed. Bacteremia Blood cultures obtained on 09/18 growing Proteus mirabilis sensitive to meropen em. Repeat blood cultures ontained on 09/20 show no growth at 24hr. Continue IV meropenem for 7 days from 09/20. ESRD on HD Avoid nephrotoxic agents, renally dose all antibiotics/give after HD on HD days. Nephrology following. Anemia Patient has received blood products. Continue to monitor H&H. Leukocytosis Down trending, continue to monitor WBC trend in fever curve. Protein caloric malnutrition: Moderate Patient was low albumin, recommend supplemental Ensure protein drinks. Adequate nutrition needed for proper wound healing. -medical management per primary team Plan of care discussed with Dr. newell Thank you for consultation.
[2021-09-25] MEDS: NA CHLORIDE 0.9% IVPB SCH (13:41)
[2021-09-25] MEDS: DAPTOMYCIN IVPB SCH (13:41)
[2021-09-25] MEDS: NOREPINEPHRINE 8 MG in D5W 250 ML IV SCH (14:49)
--- NOTE | 2021-09-25 23:06 | P.PN ---
Date of Service: 09/25/21 Vital Signs Temp Pulse Resp BP Pulse Ox 96.6 F L 84 23 H 102/62 98 09/25/21 20:00 09/25/21 21:15 09/25/21 21:15 09/25/21 21:15 09/25/21 21:15 Medications Acetaminophen (Acetaminophen 650mg/Rect Supp) 650 mg MT Q6HP PRN PRN Reason: TEMP > 100' F Acetaminophen (Acetaminophen 500 Mg Tab) 500 mg PO Q4HP PRN PRN Reason: TEMP > 100' F Amiodarone HCl (Amiodarone Hcl 200 Mg Tab) 200 mg PO DAILY [facility] Last Admin: 09/25/21 10:45 Dose: 200 mg Documented by: Apixaban (Apixaban 5 Mg Tablet) 5 mg PO BID [facility] Last Admin: 09/24/21 09:00 Dose: Not Given Documented by: Aripiprazole (Aripiprazole 5 Mg Tab) 2.5 mg PO DAILY [facility] Last Admin: 09/25/21 10:44 Dose: 2.5 mg Documented by: Calcitriol (Calcitrol 0.25 Mcg Cap) 0.5 mcg PO DAILY [facility] Last Admin: 09/25/21 10:45 Dose: 0.5 mcg Documented by: Collagenase (Collagenase 30 Gm Ointment) 1 appl TOP DAILY [facility] Last Admin: 09/24/21 08:42 Dose: 1 appl Documented by: Docusate Sodium (Docusate Na 100 Mg Cap) 100 mg PO BID PRN PRN Reason: CONSTIPATION Epoetin Garrick (Epoetin Garrick 10,000 Unit/Ml Vial) 10,000 unit SQ M,W,F [facility] Last Admin: 09/24/21 18:20 Dose: 10,000 unit Documented by: Home Med (Fluticasone Propion/Salmeterol [Fluticasone-Salmeterol 100-50]) 1 each IH BID [facility] Last Admin: 09/25/21 21:22 Dose: 1 each Documented by: Home Med (Petrolatum,White [Aloe Hawi]) 0 gm TOP PRN PRN PRN Reason: wound group home Med (Ketorolac Tromethamine [Ketorolac Tromethamine]) 1 drop OPTH QID PRN PRN Reason: inflammation Home Med (Carboxymethylcellulose Sodium [Restore Plus]) 2 each OPTH QID PRN PRN Reason: DRY EYES Albumin Human (Albumin 25%) 50 mls @ 100 mls/hr IV EVERY HD [facility] Meropenem (Merrem 500 Mg/100 Ml Ns Ivpb) 500 mg in 100 mls @ 200 mls/hr IV DAILY [facility] Last Admin: 09/25/21 09:00 Dose: Not Given Documented by: Norepinephrine Bitartrate 8 mg (/ Dextrose) 258 mls @ 0 mls/hr IV TITR [facility]; Protocol Last Titration: 09/25/21 14:51 Dose: 6 mcg/min, 11.6 mls/hr Documented by: Sodium Chloride (Sodium Chloride) 250 mls @ 0 mls/hr IV .Q0M [facility] Last Admin: 09/24/21 22:36 Dose: 250 mls Documented by: Daptomycin 675 mg/ Sodium (Chloride) 100 mls @ 200 mls/hr IVPB Q48H [facility] Last Admin: 09/25/21 13:41 Dose: 100 mls Documented by: Potassium Chloride (Kcl 20 Meq/100 Ml Ivpb (Premix)) 20 meq in 100 mls @ 50 mls/hr IV Q2H [facility]; Protocol Stop: 09/26/21 02:59 Insulin Human Regular (Insulin -Regular Human 50 Unit/0.5 Ml Ml) 0 unit SQ Q6HR [facility]; Protocol Last Admin: 09/25/21 17:43 Dose: Not Given Documented by: Ipratropium [place] (Ipratropium Brom 0.5mg/2.5ml) 0.5 mg IH QIDRESP PRN PRN Reason: SHORTNESS OF BREATH Last Admin: 09/19/21 21:55 Dose: 0.5 mg Documented by: Mannitol (Mannitol 25% 12.5 Gm/50 Ml Vial) 12.5 gm IV EVERY HD PRN PRN Reason: Titrate to SBP (MUST DEFINE) Midodrine (Midodrine Hcl 5 Mg Tablet) 5 mg PO AC [facility] Last Admin: 09/25/21 17:43 Dose: 5 mg Documented by: Ondansetron HCl (Ondansetron 4 Mg/2 Ml Vial) 4 mg IV Q6HP PRN PRN Reason: NAUSEA / VOMITING Pantoprazole Sodium (Pantoprazole 40 Mg Inj) 40 mg IVP DAILY [facility]; Protocol Last Admin: 09/25/21 10:45 Dose: 40 mg Documented by: Sodium Chloride (Flush Normal Saline 10 Ml) 10 ml IV BID [facility] Last Admin: 09/25/21 21:23 Dose: 10 ml Documented by: Sodium Chloride (Sodium Chloride 0.9% 10ml Inj) 10 ml IV UD PRN PRN Reason: Diluant Vitamin B Complex/Vit C/Folic Acid (Multivitamins,Therapeut 1 Tab) 1 tab PO DAILY [facility] Last Admin: 09/25/21 10:45 Dose: 1 tab Documented by: Microbiology Results 09/18/21 11:41 Blood - Blood Aerobic Blood Culture - Final Proteus Mirabilis 09/18/21 11:41 Blood - Blood Blood Culture Gram Stain - Final 09/18/21 11:41 Blood - Blood Anaerobic Blood Culture - Final Proteus Mirabilis 09/18/21 11:41 Blood - Blood Gram Stain - Final 09/18/21 11:35 Blood - Blood Aerobic Blood Culture - Final Proteus Mirabilis 09/18/21 11:35 Blood - Blood Blood Culture Gram Stain - Final 09/18/21 11:35 Blood - Blood Anaerobic Blood Culture - Final Proteus Mirabilis 09/18/21 11:35 Blood - Blood Gram Stain - Final 09/18/21 12:45 Clean Catch Urine [place] Count - Final No growth. 09/18/21 12:45 Clean Catch Urine - Final No growth. Assessment/ Plan: Nephrology No dyspnea. ZHAO No chest pain Weakness and fatigue. Feeling better today. No acute events overnight. Vitals, medications, blood work and imaging reviewed in the chart General: In no apparent distress, Cooperative HEENT: Atraumatic Neck: Supple Respiratory: Clear to auscultation bilaterally Cardiovascular: Regular rate/rhythm, Hip Edema Gastrointestinal: Non-distended, No tenderness Musculoskeletal: No clubbing, No contractures Integumentary: No rashes, No cyanosis Neurological: Minimal speech Laboratory Data (last 24 hrs) 09/18/21 11:41: PT 21.2 H, INR 1.83, APTT 33.6 09/18/21 11:41: WBC 20.90 H*, Hgb 7.1 L, Hct 23.9 L, Plt Count 344 09/18/21 11:41: Sodium 134 L, Potassium 3.5, BUN 63 H, Creatinine 10.30 H*, Glucose 97, Total Bilirubin 0.6, AST 23, ALT 20, Alkaline Phosphatase 114, Amylase 24 L, Lipase 39 L Imagings Data: EXAM DESCRIPTION: CT - Abdomen Pelvis Wo Contrast - 09/18/2021 5:07 pm CLINICAL HISTORY: Sepsis COMPARISON: No comparisons TECHNIQUE: Axial [address] imaging of the abdomen and pelvis was performed without IV contrast. No IV contrast was given because of allergy, abnormal renal function, patient refusal or physician request. No oral contrast administered. All CT scans are performed using dose optimization technique as appropriate and may include automated exposure control or mA/KV adjustment according to patient size. FINDINGS: No suspicious findings in the lung bases. The liver, spleen and pancreas show no suspicious findings on non-contrast imaging. Gallbladder and biliary tree are also without suspicious finding. Gallstones can be occult on CT imaging. Degree of respiratory motion artifact of the upper abdomen limits accurate assessment of gallbladder wall thickness. No hydronephrosis or suspicious renal mass. No significant adrenal finding. Isodense renal masses and pyelonephritis cannot be excluded in the absence of IV contrast. The urinary bladder is without significant finding. A 2.6 centimeter focal mass posterior right margin of the bladder is isodense to the bladder and is suspected to be moderate-sized bladder diverticulum. No gastric dilatation or gastric wall thickening. No pneumatosis intestinalis. Within the peritoneal cavity there is no free air, free fluid or inflammatory stranding. No acute retroperitoneal process seen. No hernia, mass or bulky lymphadenopathy. Patient has advanced degenerative changes of both hip joints, worse on the left. No acute bone or joint finding. Patient has extensive gas densities present in the subcutaneous fatty tissues posterior to the sacrum and coccyx. No bone destructive changes. The air densities extend laterally 08-2010 cm off of the midline. The inferior margin of the soft tissue gas densities extend in proximity to the posterior wall distal rectum and posterior margin of the levator ani musculature. No abnormal air densities in the fatty tissues of the perineum or scrotum. No history was provided indicating that the patient has a known decubitus ulcer or known wound in this region. IMPRESSION: Extensive abnormal air in the subcutaneous fatty tissues posterior to the sacrum and coccyx with extension each direction laterally 8-10 cm off of the midline. Inferior margin of the air densities abutthe posterior wall distal rectum and posterior margin of the levator ani musculature. This is most likely gas-forming soft tissue infection. The abnormal air densities do not yet extend into the fatty tissues of the perineum. EXAM DESCRIPTION: RAD - Chest Single View - 09/18/2021 12:00 pm CLINICAL HISTORY: COUGH Chest pain. COMPARISON: No comparisons FINDINGS: Portable technique limits examination quality. The lungs are grossly clear. The heart is normal in size. Right-sided venous catheter has tip in the right atrium region. Conclusions/Impression: ESRD -HD TIW as tolerated Hypokalemia -Replete potassium Hypomagnesemia -Replete with IV magnesium prn HypoPO4 -Give Neutra-phos prn -Encourage nutrition Hypotension Sepsis/ Septic Shock Acute Cystitis Sacral decubitus ulcer -Continue Vancomycin and Meropenem; monitor vanc level -IV Albumin prn -Continue Levophed; wean as tolerated -Follow up with surgery; plan for wound vac Systolic Diastolic CHF, chronic A/C hypoxic respiratory failure -Low sodium diet -Continue Oxygen supplementation -HD with UF as tolerated DM II with CKD -RISS Severe malnutrition -Continue Ensure supplementation -IV Albumin prn -Continue nephrovite Anemia in CKD -PRBC transfusion with HD today -Retacrit TIW CKD MBD -Continue Calcitriol Greater than 30min patient care.
[2021-09-26] MEDS: KCL 20 MEQ/100 mL IVPB 20 MEQ/100 ML BAG IV SCH ×2 (00:06→02:19)
[2021-09-26] MEDS: COLLAGENASE 30 GM OINTMENT TOP SCH ×2 (01:30→09:00)
[2021-09-26 04:57] LABS: Absolute Lymphocytes (CBC) 2.9 K/uL (0.7-4.9); Hematocrit 27.3 % (39.6-49.0); MPV 8.4 fL (7.6-11.3); RBC Red Blood Cell Count 3.27 M/uL (4.33-5.43)
[2021-09-26 05:22] LABS: Lymphocytes % 26.8 % (15.3-44.8)
--- NOTE | 2021-09-26 05:42 | P.PN ---
Date of Service: 09/26/21 Subjective: no acute events overnight scheduled for OR today for debridement without any new complaints ROS: 10 point ROS as noted above, otherwise negative Physical examination General: In no apparent distress, awake/interactive HEENT: Mucous membr. moist/pink, sclera anicteric Respiratory: mild b/l crackles, nonlabored on 1L NC Cardiovascular: Irregular heart rate/rhythm, 2+ b/l edema Gastrointestinal: Soft, Non-distended, nontender. Integumentary: large sacral decubitus ulcer - deferred at this time Neurological: Moves all extremities Problem List Sepsis secondary to infected sacral ulcer, bacteremia End-stage renal disease on hemodialysis Chronic systolic heart failure History of CVA (cerebrovascular accident) Metabolic acidosis Anemia s/p 5u PRBC, last 2 uPRBC on 09/24 No evidence of active bleeding. Patient was on Eliquis but no GI bleed. No melena or hematochezia. Eliquis now on hold s/p sacral decubitus ulcer debridement. Dr. Ramirez recommends another debridement, today Nephrology is following for hemodialysis. Metabolic acidosis resolved. Status post albumin infusion for low albumin and hypotension Patient is still hypotensive despite multiple albumin infusion, normal saline bolus and IV hydration. Levophed drip is being weaned down. Currently at 4 mcg per minute. Continue midodrine. Patient has baseline soft blood pressure. Infectious disease is following. Blood culture: pansensitive Proteus. Wound culture: Proteus and Citrobacter. Now growing enterococcus as well Repeat blood culture shows no growth to date. Antibiotics scaled down to IV meropenem. IV vancomycin discontinued 09/24/21. Dapto added by ID on 09/25 Urine culture: No growth. Feeding as tolerated. Insulin sliding scale for glucose management. Anemia likely secondary to sepsis and chronic kidney disease. unclear if current level of cognition/mentation is his baseline or not, will discuss further with family Dispo: continue ICU level of care Patient is a good candidate for LTAC placement for aggressive wound care, bacteremia treatment and hemodialysis. This was reportedly discussed with family earlier in the week and they do not want him going anywhere else but home when ready. Prognosis guarded. Time Spent Managing Pts Care (In Minutes): 35
[2021-09-26] MEDS: INSULIN -REGULAR HUMAN 50 UNIT/0.5 ML ML SQ SCH ×4 (05:50→16:46)
[2021-09-26 06:05] LABS: Potassium 4.2 mmol/L (3.5-5.1)
[2021-09-26] MEDS: MIDODRINE HCL 5 MG TABLET PO SCH ×3 (07:30→16:46)
[2021-09-26] MEDS: PANTOPRAZOLE 40 MG INJ IVP SCH (08:52)
[2021-09-26] MEDS: Meropenem 500 MG/100 ML BAG IV SCH (08:52)
[2021-09-26] MEDS: FLUTICASONE SALMETEROL IH SCH ×2 (08:52→20:16)
[2021-09-26] MEDS: LACTOSE-REDUCED FOOD 330 ML LIQUID PO SCH ×3 (08:53→20:16)
--- NOTE | 2021-09-26 10:36 | P.PN ---
Subjective Date of Service: 09/26/21 Chief Complaint: Altered mental status Patient seen examined at bedside, baseline creatinine kinase within normal range. Surgical team plans to take patient back to OR for second sacral debridment today. Review of Systems 10-point ROS is otherwise unremarkable Physical Examination - Vital Signs Temperature: 97.6 F Blood Pressure: 108/52 Pulse: 81 Respirations: 29 Pulse Ox (%): 98 - Studies Laboratory Last Values WBC 20.90 K/uL (4.3-10.9) H* 09/18/21 11:41 RBC 2.71 M/uL (4.33-5.43) L 09/18/21 11:41 Hgb 7.1 g/dL (13.6-17.9) L 09/18/21 11:41 Hct 23.9 % (39.6-49.0) L 09/18/21 11:41 MCV 88.3 fL (80-100) 09/18/21 11:41 MCH 26.1 pg (27.0-35.0) L 09/18/21 11:41 MCHC 29.6 g/dL (32.0-36.0) L 09/18/21 11:41 RDW 20.0 % (12.1-15.2) H 09/18/21 11:41 Plt Count 344 K/uL (152-406) 09/18/21 11:41 MPV 7.9 fL (7.6-11.3) 09/18/21 11:41 Neutrophils % 86.4 % (41.7-73.7) H 09/18/21 11:41 Lymphocytes % 9.0 % (15.3-44.8) L 09/18/21 11:41 Monocytes % 4.1 % (3.3-12.3) 09/18/21 11:41 Eosinophils % 0.3 % (0-4.4) 09/18/21 11:41 Basophils % 0.2 % (0-1.3) 09/18/21 11:41 Absolute Neutrophils 18.0 K/uL (1.8-8.0) H 09/18/21 11:41 Segmented Neutrophils 90 % (40-80) H 09/18/21 11:41 Absolute Lymphocytes 1.9 K/uL (0.7-4.9) 09/18/21 11:41 Lymphocytes 7 % (15-42) L 09/18/21 11:41 Monocytes 3 % (0-10) 09/18/21 11:41 Absolute Monocytes 0.9 K/uL (0.1-1.3) 09/18/21 11:41 Absolute Eosinophils 0.1 K/uL (0-0.5) 09/18/21 11:41 Absolute Basophils 0.0 K/uL (0-0.5) 09/18/21 11:41 Platelet Estimate Adeq 09/18/21 11:41 Morphology Comment Not seen (NOT SEEN) 09/18/21 11:41 PT 21.2 SECONDS (9.5-12.5) H 09/18/21 11:41 INR 1.83 09/18/21 11:41 APTT 33.6 SECONDS (24.3-36.9) 09/18/21 11:41 Sodium 134 mmol/L (136-145) L 09/18/21 11:41 Potassium 3.5 mmol/L (3.5-5.1) 09/18/21 11:41 Chloride 104 mmol/L (98-107) 09/18/21 11:41 Carbon Dioxide 14 mmol/L (21-32) L* 09/18/21 11:41 BUN 63 mg/dL (7-18) H 09/18/21 11:41 Creatinine 10.30 mg/dL (0.55-1.3) H* 09/18/21 11:41 Estimated GFR 6 mL/min (=/>90) L 09/18/21 11:41 Glucose 97 mg/dL (74-106) 09/18/21 11:41 Lactic Acid 4.4 mmol/L (0.4-2.0) H* 09/18/21 11:41 Calcium 8.5 mg/dL (8.5-10.1) 09/18/21 11:41 Total Bilirubin 0.6 mg/dL (0.2-1.0) 09/18/21 11:41 Direct Bilirubin 0.3 mg/dL (0-0.2) H 09/18/21 11:41 AST 23 U/L (15-37) 09/18/21 11:41 ALT 20 U/L (12-78) 09/18/21 11:41 Alkaline Phosphatase 114 U/L (45-117) 09/18/21 11:41 Creatine Kinase 80 U/L (39-308) 09/18/21 11:41 CK-MB (CK-2) 2.6 ng/mL (1.0-3.6) 09/18/21 11:41 Rapid Troponin I 0.04 ng/mL (0.0-0.045) 09/18/21 11:41 Serum Total Protein 6.4 g/dL (6.4-8.2) 09/18/21 11:41 Albumin 1.6 g/dL (3.4-5.0) L 09/18/21 11:41 Globulin 4.8 g/dL (2.3-3.5) H 09/18/21 11:41 Albumin/Globulin Ratio 0.3 (1.1-1.8) L 09/18/21 11:41 Amylase 24 U/L (25-115) L 09/18/21 11:41 Lipase 39 U/L (73-393) L 09/18/21 11:41 Procalcitonin 5.15 ng/mL (<0.050) H 09/18/21 11:41 Urine RBC 5-10 /HPF (NONE SEEN) H 09/18/21 12:45 Urine WBC 5-10 /HPF (<5) H 09/18/21 12:45 Ur Squamous Epith Cells <5 /HPF (NONE SEEN) 09/18/21 12:45 Urine Bacteria 20-50 /HPF (NONE SEEN) H 09/18/21 12:45 Urine Culture Reflexed Reflexed 09/18/21 12:45 Influenza Type A RNA Negative (NEGATIVE) 09/18/21 12:27 Influenza Type B RNA Negative (NEGATIVE) 09/18/21 12:27 SARS-CoV-2 RNA (RT-PCR) Negative (NEGATIVE) 09/18/21 12:27 Miscellaneous Test Cancelled 09/18/21 11:31 Assessment And Plan - Plan Physical exam: General: Other (AMS) HEENT: Atraumatic Neck: Supple Respiratory: Clear to auscultation bilaterally, Normal air movement Cardiovascular: Normal pulses, Regular rate/rhythm Gastrointestinal: Normal bowel sounds, Soft and benign Musculoskeletal: No contractures Integumentary: Pressure ulcer (Sacral decubitus ulcer status post surgical debridement performed on 09/19. Conclusions/Impression: Antibiotics: CURRENT: Daptomycin Start: 09/25 Meropenem Start: 09/19 DC: Vancomycin Start: 09/18 Stop: 09/24 Assessment/plan Severe sepsis secondary to infected sacral decubitus ulcer Patient septic on admission with lactic acidosis, metabolic acidosis, leukocytosis, and tacypena. Source infection: Infected sacral decubitus ulcer. CT abdomen pelvis showed gas-forming soft tissue infection directly posterior to sacrum. Sacral wound culture grew Proteus mirabilis, citrobacter, and vancomycin-resistant Enterococcus faecalis. Based off wound culture report patient has been placed on daptomycin and meropenem. Baseline creatinine kinase: 15, will obtain weekly creatinine kinase will patient is on daptomycin. Will hold statin well patient is on this medication. Patient underwent emergent debridement of sacral decubitus ulcer on 09/19. Surgery went well no complications. Surgical team plans to take patient back for additional debridement. Continue wound care per surgical team. Currently utilizing santal wet-to-dry. Patient has low air loss mattress placed. Bacteremia Blood cultures obtained on 09/18 growing Proteus mirabilis sensitive to meropenem. Repeat blood cultures obtained on 09/20 show no growth at 24hr. Continue IV meropenem for 7 days from 09/20. ESRD on HD Avoid nephrotoxic agents, renally dose all antibiotics/give after HD on HD days. Nephrology following. Anemia Patient has received blood products. Continue to monitor H&H. Leukocytosis Down trending, continue to monitor WBC trend in fever curve. Protein caloric malnutrition: Moderate Patient was low albumin, recommend supplemental Ensure protein drinks. Adequate nutrition needed for proper wound healing. -medical management per primary team Plan of care discussed with Dr. newell Thank you for consultation.
[2021-09-26] MEDS ORDERED: MIDAZOLAM HCL 2 MG/2 ML INJ ONE (11:23)
[2021-09-26] MEDS ORDERED: propofoL 200 MG/20 ML VIAL IV ONE (11:23)
[2021-09-26] MEDS ORDERED: FENTANYL CITR 100 MCG/2 ML ONE (11:23)
[2021-09-26] MEDS ORDERED: COLLAGENASE 30 GM OINTMENT TOP ONE (11:24)
[2021-09-26] MEDS ORDERED: NA CHLORIDE 0.9% 500 ML ONE (11:24)
[2021-09-26] MEDS ORDERED: BUPIVACAINE 0.5% PF 10 ML VIAL ONE (11:57)
[2021-09-26] MEDS: MULTIVITAMINS,THERAPEUT 1 TAB PO SCH (12:24)
[2021-09-26] MEDS: AMIODARONE HCL 200 MG TAB PO SCH (12:24)
[2021-09-26] MEDS: CALCITROL 0.25 MCG CAP PO SCH (12:24)
[2021-09-26] MEDS: ARIPiprazole 5 MG TAB PO SCH (12:24)
[2021-09-26] MEDS: EPOETIN ALFA 10,000 UNIT/ML VIAL SQ SCH (16:46)
[2021-09-26] MEDS: NOREPINEPHRINE 8 MG in D5W 250 ML IV SCH (18:33)
--- NOTE | 2021-09-26 20:03 | OP ---
Date of Procedure: 09/26/2021 Surgeon: Rosalino Ramirez MD Preoperative Diagnosis: Sepsis, sacral necrotic decubitus ulcer. Postoperative Diagnosis: Sepsis, sacral necrotic decubitus ulcer. Procedure: Excisional debridement, subcu of a necrotic sacral decubitus ulcer, 22 x 15 x 2 cm. Anesthesia: General plus local. Complications: None. Indications: This is a case of a 76-year-old patient with a history of sepsis, found to have necroti c sacral ulcer. The gas-forming bacteria was taken several days ago for initial debridement. Now ta roman today for additional debridement of that region since the patient is forming some necrotic tissue still over the area. The benefits, alternatives, and risks fully explained to the family again. We understand his conditions. He is on vasoconstrictors at this moment, but at the same time, still ne ed a job to be done in that sacral decubitus ulcer to trying to diminish the chance of this contribut ing to his sepsis. The family understood the risks including infection, bleeding, damage to adjacent structures, anesthesia complication, UT, and even . He also understands this will require woun d care and some of the modalities including nutrition and off-loading to be successful. The consent was signed. Procedure In Detail: The patient was brought to the operating room, placed in supine position. Anes thesia was done without complication. The patient was placed in lateral decubitus with proper protec tion. The sacral area was prepped and draped in a sterile fashion. We proceeded to carefully using an 11 blade do debridement of the area. Necrotic tissue was removed and then after that, we proceeded to pulse lavage of the entire wound with several liters of saline. Then, hemostasis obt ained. Local anesthetic was applied and the area covered with dry dressing. The patient tolerated t he procedure well. The patient will be sent back to ICU in stable condition. HM/MODL Voice ID: [id number] Report ID: [id number]
--- NOTE | 2021-09-26 22:32 | P.PN ---
Date of Service: 09/26/21 Vital Signs Temp Pulse Resp BP Pulse Ox 97 F 85 24 H 103/55 L 99 09/26/21 20:00 09/26/21 22:15 09/26/21 22:15 09/26/21 22:15 09/26/21 21:30 Medications Acetaminophen (Acetaminophen 650mg/Rect Supp) 650 mg MI Q6HP PRN PRN Reason: TEMP > 100' F Acetaminophen (Acetaminophen 500 Mg Tab) 500 mg PO Q4HP PRN PRN Reason: TEMP > 100' F Amiodarone HCl (Amiodarone Hcl 200 Mg Tab) 200 mg PO DAILY PENDING SALE TO [facility] Last Admin: 09/26/21 12:24 Dose: 200 mg Documented by: Apixaban (Apixaban 5 Mg Tablet) 5 mg PO BID PENDING SALE TO [facility] Last Admin: 09/24/21 09:00 Dose: Not Given Documented by: Aripiprazole (Aripiprazole 5 Mg Tab) 2.5 mg PO DAILY PENDING SALE TO [facility] Last Admin: 09/26/21 12:24 Dose: 2.5 mg Documented by: Calcitriol (Calcitrol 0.25 Mcg Cap) 0.5 mcg PO DAILY PENDING SALE TO [facility] Last Admin: 09/26/21 12:24 Dose: 0.5 mcg Documented by: Collagenase (Collagenase 30 Gm Ointment) 1 appl TOP DAILY PENDING SALE TO [facility] Last Admin: 09/26/21 09:00 Dose: Not Given Documented by: Docusate Sodium (Docusate Na 100 Mg Cap) 100 mg PO BID PRN PRN Reason: CONSTIPATION Epoetin Garrick (Epoetin Garrick 10,000 Unit/Ml Vial) 10,000 unit SQ M,W,F PENDING SALE TO [facility] Last Admin: 09/26/21 16:46 Dose: 10,000 unit Documented by: Heparin Sodium (Porcine) (Heparin 1,000 Unit/Ml Vial) 3,000 unit IV EVERY HD PENDING SALE TO [facility] Stop: 10/03/21 17:01 Heparin Sodium (Porcine) (Heparin 1,000 Unit/Ml Vial) 6,000 unit IV EVERY HD PRN PRN Reason: AFTER EACH Home Med (Fluticasone Propion/Salmeterol [Fluticasone-Salmeterol 100-50]) 1 each IH BID PENDING SALE TO [facility] Last Admin: 09/26/21 20:16 Dose: 1 each Documented by: Home Med (Petrolatum,White [Aloe [place]]) 0 gm TOP PRN PRN PRN Reason: wound halfway Med (Ketorolac Tromethamine [Ketorolac Tromethamine]) 1 drop OPTH QID PRN PRN Reason: inflammation Home Med (Carboxymethylcellulose Sodium [Restore Plus]) 2 each OPTH QID PRN PRN Reason: DRY EYES Albumin Human (Albumin 25%) 50 mls @ 100 mls/hr IV EVERY HD KAMRYN Meropenem (Merrem 500 Mg/100 Ml Ns Ivpb) 500 mg in 100 mls @ 200 mls/hr IV DAILY PENDING SALE TO [facility] Last Admin: 09/26/21 08:52 Dose: 100 mls Documented by: Norepinephrine Bitartrate 8 mg (/ Dextrose) 258 mls @ 0 mls/hr IV TITR PENDING SALE TO [facility]; Protocol Last Titration: 09/26/21 19:45 Dose: 10 mcg/min, 19.4 mls/hr Documented by: Sodium Chloride (Sodium Chloride) 250 mls @ 0 mls/hr IV .Q0M PENDING SALE TO [facility] Last Admin: 09/24/21 22:36 Dose: 250 mls Documented by: Daptomycin 675 mg/ Sodium (Chloride) 100 mls @ 200 mls/hr IVPB Q48H PENDING SALE TO [facility] Last Admin: 09/25/21 13:41 Dose: 100 mls Documented by: Insulin Human Regular (Insulin -Regular Human 50 Unit/0.5 Ml Ml) 0 unit SQ Q6HR PENDING SALE TO [facility]; Protocol Last Admin: 09/26/21 16:46 Dose: Not Given Documented by: Ipratropium [place] (Ipratropium Brom 0.5mg/2.5ml) 0.5 mg IH QIDRESP PRN PRN Reason: SHORTNESS OF BREATH Last Admin: 09/19/21 21:55 Dose: 0.5 mg Documented by: Mannitol (Mannitol 25% 12.5 Gm/50 Ml Vial) 12.5 gm IV EVERY HD PRN PRN Reason: Titrate to SBP (MUST DEFINE) Midodrine (Midodrine Hcl 5 Mg Tablet) 5 mg PO AC PENDING SALE TO [facility] Last Admin: 09/26/21 16:46 Dose: 5 mg Documented by: Ondansetron HCl (Ondansetron 4 Mg/2 Ml Vial) 4 mg IV Q6HP PRN PRN Reason: NAUSEA / VOMITING Pantoprazole Sodium (Pantoprazole 40mg Tablet) 40 mg PO DAILYAC PENDING SALE TO [facility]; Protocol Sodium Chloride (Flush Normal Saline 10 Ml) 10 ml IV BID KAMRYN Last Admin: 09/26/21 20:19 Dose: 10 ml Documented by: Sodium Chloride (Sodium Chloride 0.9% 10ml Inj) 10 ml IV UD PRN PRN Reason: Diluant Vitamin B Complex/Vit C/Folic Acid (Multivitamins,Therapeut 1 Tab) 1 tab PO DAILY KAMRYN Last Admin: 09/26/21 12:24 Dose: 1 tab Documented by: Microbiology Results 09/18/21 11:41 Blood - Blood Aerobic Blood Culture - Final Proteus Mirabilis 09/18/21 11:41 Blood - Blood Blood Culture Gram Stain - Final 09/18/21 11:41 Blood - Blood Anaerobic Blood Culture - Final Proteus Mirabilis 09/18/21 11:41 Blood - Blood Gram Stain - Final 09/18/21 11:35 Blood - Blood Aerobic Blood Culture - Final Proteus Mirabilis 09/18/21 11:35 Blood - Blood Blood Culture Gram Stain - Final 09/18/21 11:35 Blood - Blood Anaerobic Blood Culture - Final Proteus Mirabilis 09/18/21 11:35 Blood - Blood Gram Stain - Final 09/18/21 12:45 Clean Catch Urine [place] Count - Final No growth. 09/18/21 12:45 Clean Catch Urine - Final No growth. Assessment/ Plan: Nephrology No dyspnea. ZHAO No chest pain Weakness and fatigue. No acute events overnight. Vitals, medications, blood work and imaging reviewed in the chart General: In no apparent distress, Cooperative HEENT: Atraumatic Neck: Supple Respiratory: Clear to auscultation bilaterally Cardiovascular: Regular rate/rhythm, Hip Edema Gastrointestinal: Non-distended, No tenderness Musculoskeletal: No clubbing, No contractures Integumentary: No rashes, No cyanosis. Large sacral ulcer. Neurological: Normal speech Laboratory Data (last 24 hrs) 09/18/21 11:41: PT 21.2 H, INR 1.83, APTT 33.6 09/18/21 11:41: WBC 20.90 H*, Hgb 7.1 L, Hct 23.9 L, Plt Count 344 09/18/21 11:41: Sodium 134 L, Potassium 3.5, BUN 63 H, Creatinine 10.30 H*, Glucose 97, Total Bilirubin 0.6, AST 23, ALT 20, Alkaline Phosphatase 114, Amylase 24 L, Lipase 39 L Imagings Data: EXAM DESCRIPTION: CT - Abdomen Pelvis Wo Contrast - 09/18/2021 5:07 pm CLINICAL HISTORY: Sepsis COMPARISON: No comparisons TECHNIQUE: Axial [address] imaging of the abdomen and pelvis was performed without IV contrast. No IV contrast was given because of allergy, abnormal renal function, patient refusal or physician request. No oral contrast administered. All CT scans are performed using dose optimization technique as appropriate and may include automated exposure control or mA/KV adjustment according to patient size. FINDINGS: No suspicious findings in the lung bases. The liver, spleen and pancreas show no suspicious findings on non-contrast imaging. Gallbladder and biliary tree are also without suspicious finding. Gallstones can be occult on CT imaging. Degree of respiratory motion artifact of the upper abdomen limits accurate assessment of gallbladder wall thickness. No hydronephrosis or suspicious renal mass. No significant adrenal finding. Isodense renal masses and pyelonephritis cannot be excluded in the absence of IV contrast. The urinary bladder is without significant finding. A 2.6 centimeter focal mass posterior right margin of the bladder is isodense to the bladder and is suspected to be moderate-sized bladder diverticulum. No gastric dilatation or gastric wall thickening. No pneumatosis intestinalis. Within the peritoneal cavity there is no free air, free fluid or inflammatory stranding. No acute retroperitoneal process seen. No hernia, mass or bulky lymphadenopathy. Patient has advanced degenerative changes of both hip joints, worse on the left. No acute bone or joint finding. Patient has extensive gas densities present in the subcutaneous fatty tissues posterior to the sacrum and coccyx. No bone destructive changes. The air densities extend laterally 08-2010 cm off of the midline. The inferior margin of the soft tissue gas densities extend in proximity to the posterior wall distal rectum and posterior margin of the levator ani musculature. No abnormal air densities in the fatty tissues of the perineum or scrotum. No history was provided indicating that the patient has a known decubitus ulcer or known wound in this region. IMPRESSION: Extensive abnormal air in the subcutaneous fatty tissues posterior to the sacrum and coccyx with extension each direction laterally 8-10 cm off of the midline. Inferior margin of the air densities abutthe posterior wall distal rectum and posterior margin of the levator ani musculature. This is most likely gas-forming soft tissue infection. The abnormal air densities do not yet extend into the fatty tissues of the perineum. EXAM DESCRIPTION: RAD - Chest Single View - 09/18/2021 12:00 pm CLINICAL HISTORY: COUGH Chest pain. COMPARISON: No comparisons FINDINGS: Portable technique limits examination quality. The lungs are grossly clear. The heart is normal in size. Right-sided venous catheter has tip in the right atrium region. Conclusions/Impression: ESRD -HD TIW as tolerated -HD today. Give IV albumin. Hypokalemia -Replete potassium prn Hypomagnesemia -Replete with IV magnesium prn HypoPO4 -Give Neutra-phos prn -Encourage nutrition Hypotension Sepsis/ Septic Shock Acute Cystitis Sacral decubitus ulcer -Continue Vancomycin and Meropenem; monitor vanc level -IV Albumin prn -Continue Levophed; wean as tolerated -Follow up with surgery; plan for wound vac Diastolic CHF, chronic A/C hypoxic respiratory failure -Low sodium diet -Continue Oxygen supplementation -HD with UF as tolerated DM II with CKD -RISS Severe malnutrition -Continue Ensure supplementation -IV Albumin prn -Continue nephrovite Anemia in CKD -PRBC transfusion prn -Retacrit TIW CKD MBD -Continue Calcitriol Case reviewed with Dr. Adam Greater than 30min patient care.
[2021-09-27 05:07] LABS: Absolute Lymphocytes (CBC) 4.1 K/uL (0.7-4.9); Hematocrit 27.1 % (39.6-49.0); MPV 8.5 fL (7.6-11.3)
[2021-09-27 05:13] LABS: Lymphocytes % 36.1 % (15.3-44.8)
[2021-09-27 05:20] LABS: Albumin 2.4 g/dL (3.4-5.0); Potassium 4.1 mmol/L (3.5-5.1)
--- NOTE | 2021-09-27 05:53 | P.PN ---
Date of Service: 09/27/21 Subjective: Tolerated debridement yesterday, underwent dialysis. Levophed was uptitrated after dialysis and able to slightly wean down overnight. Remains on Levophed this morning Patient reports feeling a little bit better today, reports good appetite, not having any severe/significant pain at this time Denies shortness of breath ROS: 10 point ROS as noted above, otherwise negative Physical examination General: In no apparent distress, awake/interactive HEENT: Mucous membr. moist/pink, sclera anicteric Respiratory: mild b/l crackles, nonlabored on 1L NC Cardiovascular: Irregular heart rate/rhythm, 2+ b/l edema up to thighs Gastrointestinal: Soft, Non-distended, nontender. Integumentary: large sacral decubitus ulcer - with dressing in place, LLE dressing in place c/d/i Neurological: follows commands, moves upper extremities Problem List Sepsis secondary to infected sacral ulcer, bacteremia End-stage renal disease on hemodialysis Chronic systolic heart failure History of CVA (cerebrovascular accident) Metabolic acidosis Anemia No evidence of active bleeding. Patient was on Eliquis but no GI bleed. No melena or hematochezia. Eliquis now on hold suspect anemia secondary to infection, CKD s/p 5u PRBC, last 2 uPRBC on 09/24 s/p sacral decubitus ulcer debridement x2 by Dr. Ramirez Nephrology is following for hemodialysis. Metabolic acidosis resolved. Status post albumin infusion for low albumin and hypotension Patient is still hypotensive despite multiple albumin infusion, normal saline bolus and IV hydration. Levophed drip is being weaned down. Currently at 4 mcg per minute. seems to required more after dialysis goal MAP > 60 patient does have h/o low blood pressure chronically Continue midodrine Infectious disease is following. Blood culture: pansensitive Proteus. Wound culture: Proteus and Citrobacter. Now growing enterococcus as well Repeat blood culture shows no growth to date. Continue merrem and Dapto (added by ID on 09/25) Urine culture: No growth. Feeding as tolerated. Insulin sliding scale for glucose management. unclear if current level of cognition/mentation is his baseline or not, will discuss further with family Dispo: continue ICU level of care, anticipate several more days Patient is a good candidate for LTAC placement for aggressive wound care, bacteremia treatment and hemodialysis. This was reportedly discussed with family earlier in the week and they do not want him going anywhere else but home when ready. Time Spent Managing Pts Care (In Minutes): 35
[2021-09-27] MEDS: INSULIN -REGULAR HUMAN 50 UNIT/0.5 ML ML SQ SCH ×4 (06:00→16:43)
[2021-09-27] MEDS: PANTOPRAZOLE 40MG TABLET PO SCH (06:30)
[2021-09-27] MEDS: NOREPINEPHRINE 8 MG in D5W 250 ML IV SCH (07:50)
[2021-09-27] MEDS: MULTIVITAMINS,THERAPEUT 1 TAB PO SCH (07:59)
[2021-09-27] MEDS: ARIPiprazole 5 MG TAB PO SCH (07:59)
[2021-09-27] MEDS: CALCITROL 0.25 MCG CAP PO SCH (07:59)
[2021-09-27] MEDS: MIDODRINE HCL 5 MG TABLET PO SCH ×3 (07:59→17:06)
[2021-09-27] MEDS: AMIODARONE HCL 200 MG TAB PO SCH (07:59)
[2021-09-27] MEDS: FLUTICASONE SALMETEROL IH SCH ×2 (08:00→21:05)
[2021-09-27] MEDS: Meropenem 500 MG/100 ML BAG IV SCH (08:00)
[2021-09-27] MEDS: LACTOSE-REDUCED FOOD 330 ML LIQUID PO SCH ×3 (08:00→21:00)
[2021-09-27] MEDS: COLLAGENASE 30 GM OINTMENT TOP SCH (09:00)
--- NOTE | 2021-09-27 12:29 | P.PN ---
Subjective Date of Service: 09/27/21 Chief Complaint: Altered mental status Patient seen examined at bedside, status post seconds sacral wound debridement. Review of Systems 10-point ROS is otherwise unremarkable Physical Examination - Vital Signs Temperature: 97.4 F Blood Pressure: 107/45 Pulse: 88 Respirations: 20 Pulse Ox (%): 85 - Studies Microbiology 09/18/21 11:41 Blood - Blood Aerobic Blood Culture - Final Proteus Mirabilis 09/18/21 11:41 Blood - Blood Blood Culture Gram Stain - Final 09/18/21 11:41 Blood - Blood Anaerobic Blood Culture - Final Proteus Mirabilis 09/18/21 11:41 Blood - Blood Gram Stain - Final 09/18/21 11:35 Blood - Blood Aerobic Blood Culture - Final Proteus Mirabilis 09/18/21 11:35 Blood - Blood Blood Culture Gram Stain - Final 09/18/21 11:35 Blood - Blood Anaerobic Blood Culture - Final Proteus Mirabilis 09/18/21 11:35 Blood - Blood Gram Stain - Final 09/18/21 12:45 Clean Catch Urine [place] Count - Final No growth. 09/18/21 12:45 Clean Catch Urine - Final No growth. Assessment And Plan - Plan Physical exam: General: Other (AMS) HEENT: Atraumatic Neck: Supple Respiratory: Clear to auscultation bilaterally, Normal air movement Cardiovascular: Normal pulses, Regular rate/rhythm Gastrointestinal: Normal bowel sounds, Soft and benign Musculoskeletal: No contractures Integumentary: Pressure ulcer (Sacral decubitus ulcer status post surgical debridement performed on 09/19. Conclusions/Impression: Antibiotics: CURRENT: Daptomycin Start: 09/25 Meropenem Start: 09/19 DC: Vancomycin Start: 09/18 Stop: 09/24 Assessment/plan Severe sepsis secondary to infected sacral decubitus ulcer Patient septic on admission with lactic acidosis, metabolic acidosis, leukocytosis, and tacypena. Source infection: Infected sacral decubitus ulcer. CT abdomen pelvis showed gas-forming soft tissue infection directly posterior to sacrum. Sacral wound culture grew Proteus mirabilis, citrobacter, and vancomycin-resistant Enterococcus faecalis. Based off wound culture report patient has been placed on daptomycin and meropenem. Baseline creatinine kinase: 15, will obtain weekly creatinine kinase will patient is on daptomycin. Will hold statin well patient is on this medication. Patient underwent emergent debridement of sacral decubitus ulcer on 09/19. Additional debridement performed on 09/26. Continue wound care per surgical team. Wound VAC placed 2 sacral wound on 09/27. Will obtain imaging to assess for osteomyelitis. Bacteremia Blood cultures obtained on 09/18 growing Proteus mirabilis sensitive to meropenem. Repeat blood cultures obtained on 09/20 show no growth at 24hr. Continue IV meropenem for 7-10 days from 09/20. ESRD on HD Avoid nephrotoxic agents, renally dose all antibiotics/give after HD on HD days. Nephrology following. Anemia Patient has received blood products. Continue to monitor H&H. Leukocytosis Down trending, continue to monitor WBC trend in fever curve. Protein caloric malnutrition: Moderate Patient was low albumin, recommend supplemental Ensure protein drinks. Adequate nutrition needed for proper wound healing. -medical management per primary team Plan of care discussed with Dr. newell Thank you for consultation.
[2021-09-27] MEDS: DAPTOMYCIN IVPB SCH (13:59)
[2021-09-27] MEDS: NA CHLORIDE 0.9% IVPB SCH (13:59)
--- NOTE | 2021-09-27 19:19 | RAD REPORT ---
EXAM DESCRIPTION: US - UPPER EXTREMITY VENOUS BILAT - 09/27/2021 6:46 pm CLINICAL HISTORY: R/O DVT, right arm pain COMPARISON: None. TECHNIQUE: Real-time sonographic evaluation of the right upper extremity deep venous system was perf ormed. Doppler evaluation was performed with extrinsic compression maneuvers and visual inspection. V elocity values and waveforms were obtained. FINDINGS: Exam is technically limited. Patient was in a contracted position and pain. This limited v isualization of the right basilic and right axillary veins. Echogenic material is present within the superficial right cephalic vein. The vessel was not compress ible and no flow was identified on Doppler assessment. Normal blood flow is seen with no intraluminal abnormalities of the right internal jugular vein. In t he far peripheral right upper extremity the radial and ulnar veins are unremarkable. No subclavian or brachials vein abnormality identified. No mass, hematoma or other significant finding in the soft tissues. IMPRESSION: Acute superficial venous thrombosis identified in the cephalic vein. No deep venous thrombosis identified in the right upper extremity. The right axillary vein was poorly visualized but there are no findings proximal or distal to this segment that would suggest the axill bradley vein thrombosis.
[2021-09-27] MEDS: APIXABAN 2.5 MG TABLET PO SCH (21:05)
--- NOTE | 2021-09-27 21:16 | P.PN ---
Date of Service: 09/27/21 Vital Signs Temp Pulse Resp BP Pulse Ox 97.4 F 87 24 H 103/56 L 100 09/27/21 12:29 09/27/21 15:45 09/27/21 15:45 09/27/21 15:45 09/27/21 15:00 Medications Acetaminophen (Acetaminophen 650mg/Rect Supp) 650 mg OR Q6HP PRN PRN Reason: TEMP > 100' F Acetaminophen (Acetaminophen 500 Mg Tab) 500 mg PO Q4HP PRN PRN Reason: TEMP > 100' F Amiodarone HCl (Amiodarone Hcl 200 Mg Tab) 200 mg PO DAILY [facility] Last Admin: 09/27/21 07:59 Dose: 200 mg Documented by: Apixaban (Apixaban 2.5 Mg Tablet) 2.5 mg PO BID [facility] Last Admin: 09/27/21 21:05 Dose: 2.5 mg Documented by: Aripiprazole (Aripiprazole 5 Mg Tab) 2.5 mg PO DAILY [facility] Last Admin: 09/27/21 07:59 Dose: 2.5 mg Documented by: Calcitriol (Calcitrol 0.25 Mcg Cap) 0.5 mcg PO DAILY [facility] Last Admin: 09/27/21 07:59 Dose: 0.5 mcg Documented by: Collagenase (Collagenase 30 Gm Ointment) 1 appl TOP DAILY [facility] Last Admin: 09/27/21 09:00 Dose: Not Given Documented by: Docusate Sodium (Docusate Na 100 Mg Cap) 100 mg PO BID PRN PRN Reason: CONSTIPATION Epoetin Garrick (Epoetin Garrick 10,000 Unit/Ml Vial) 10,000 unit SQ M,W,F [facility] Last Admin: 09/26/21 16:46 Dose: 10,000 unit Documented by: Heparin Sodium (Porcine) (Heparin 1,000 Unit/Ml Vial) 3,000 unit IV EVERY HD [facility] Stop: 10/03/21 17:01 Heparin Sodium (Porcine) (Heparin 1,000 Unit/Ml Vial) 6,000 unit IV EVERY HD PRN PRN Reason: AFTER EACH Home Med (Fluticasone Propion/Salmeterol [Fluticasone-Salmeterol 100-50]) 1 each IH BID [facility] Last Admin: 09/27/21 21:05 Dose: 1 each Documented by: Home Med (Petrolatum,White [Aloe Boody]) 0 gm TOP PRN PRN PRN Reason: wound [facility] Med (Ketorolac Tromethamine [Ketorolac Tromethamine]) 1 drop OPTH QID PRN PRN Reason: inflammation Home Med (Carboxymethylcellulose Sodium [Restore Plus]) 2 each OPTH QID PRN PRN Reason: DRY EYES Albumin Human (Albumin 25%) 50 mls @ 100 mls/hr IV EVERY HD [facility] Meropenem (Merrem 500 Mg/100 Ml Ns Ivpb) 500 mg in 100 mls @ 200 mls/hr IV DAILY [facility] Last Admin: 09/27/21 08:00 Dose: 100 mls Documented by: Norepinephrine Bitartrate 8 mg (/ Dextrose) 258 mls @ 0 mls/hr IV TITR [facility]; Protocol Last Titration: 09/27/21 16:15 Dose: 0 mcg/min, 0 mls/hr Documented by: Sodium Chloride (Sodium Chloride) 250 mls @ 0 mls/hr IV .Q0M [facility] Last Admin: 09/24/21 22:36 Dose: 250 mls Documented by: Daptomycin 675 mg/ Sodium (Chloride) 100 mls @ 200 mls/hr IVPB Q48H [facility] Last Admin: 09/27/21 13:59 Dose: 100 mls Documented by: Insulin Human Regular (Insulin -Regular Human 50 Unit/0.5 Ml Ml) 0 unit SQ Q6HR [facility]; Protocol Last Admin: 09/27/21 16:43 Dose: Not Given Documented by: Ipratropium Robinson (Ipratropium Brom 0.5mg/2.5ml) 0.5 mg IH QIDRESP PRN PRN Reason: SHORTNESS OF BREATH Last Admin: 09/19/21 21:55 Dose: 0.5 mg Documented by: Mannitol (Mannitol 25% 12.5 Gm/50 Ml Vial) 12.5 gm IV EVERY HD PRN PRN Reason: Titrate to SBP (MUST DEFINE) Midodrine (Midodrine Hcl 5 Mg Tablet) 5 mg PO AC [facility] Last Admin: 09/27/21 17:06 Dose: 5 mg Documented by: Ondansetron HCl (Ondansetron 4 Mg/2 Ml Vial) 4 mg IV Q6HP PRN PRN Reason: NAUSEA / VOMITING Pantoprazole Sodium (Pantoprazole 40mg Tablet) 40 mg PO DAILYAC [facility]; Protocol Last Admin: 09/27/21 06:30 Dose: Not Given Documented by: Sodium Chloride (Flush Normal Saline 10 Ml) 10 ml IV BID KAMRYN Last Admin: 09/27/21 21:05 Dose: 10 ml Documented by: Sodium Chloride (Sodium Chloride 0.9% 10ml Inj) 10 ml IV UD PRN PRN Reason: Diluant Vitamin B Complex/Vit C/Folic Acid (Multivitamins,Therapeut 1 Tab) 1 tab PO DAILY [facility] Last Admin: 09/27/21 07:59 Dose: 1 tab Documented by: Microbiology Results 09/18/21 11:41 Blood - Blood Aerobic Blood Culture - Final Proteus Mirabilis 09/18/21 11:41 Blood - Blood Blood Culture Gram Stain - Final 09/18/21 11:41 Blood - Blood Anaerobic Blood Culture - Final Proteus Mirabilis 09/18/21 11:41 Blood - Blood Gram Stain - Final 09/18/21 11:35 Blood - Blood Aerobic Blood Culture - Final Proteus Mirabilis 09/18/21 11:35 Blood - Blood Blood Culture Gram Stain - Final 09/18/21 11:35 Blood - Blood Anaerobic Blood Culture - Final Proteus Mirabilis 09/18/21 11:35 Blood - Blood Gram Stain - Final 09/18/21 12:45 Clean Catch Urine [place] Count - Final No growth. 09/18/21 12:45 Clean Catch Urine - Final No growth. Assessment/ Plan: Nephrology No dyspnea. ZHAO No chest pain Weakness and fatigue. No acute events overnight. Vitals, medications, blood work and imaging reviewed in the chart General: In no apparent distress, Cooperative HEENT: Atraumatic Neck: Supple Respiratory: Clear to auscultation bilaterally Cardiovascular: Regular rate/rhythm, Hip Edema Gastrointestinal: Non-distended, No tenderness Musculoskeletal: No clubbing, No contractures Integumentary: No rashes, No cyanosis. Large sacral ulcer. Neurological: Normal speech Laboratory Data (last 24 hrs) 09/18/21 11:41: PT 21.2 H, INR 1.83, APTT 33.6 09/18/21 11:41: WBC 20.90 H*, Hgb 7.1 L, Hct 23.9 L, Plt Count 344 09/18/21 11:41: Sodium 134 L, Potassium 3.5, BUN 63 H, Creatinine 10.30 H*, Glucose 97, Total Bilirubin 0.6, AST 23, ALT 20, Alkaline Phosphatase 114, Amylase 24 L, Lipase 39 L Imagings Data: EXAM DESCRIPTION: CT - Abdomen Pelvis Wo Contrast - 09/18/2021 5:07 pm CLINICAL HISTORY: Sepsis COMPARISON: No comparisons TECHNIQUE: Axial [address] imaging of the abdomen and pelvis was performed without IV contrast. No IV contrast was given because of allergy, abnormal renal function, patient refusal or physician request. No oral contrast administered. All CT scans are performed using dose optimization technique as appropriate and may include automated exposure control or mA/KV adjustment according to patient size. FINDINGS: No suspicious findings in the lung bases. The liver, spleen and pancreas show no suspicious findings on non-contrast imaging. Gallbladder and biliary tree are also without suspicious finding. Gallstones can be occult on CT imaging. Degree of respiratory motion artifact of the upper abdomen limits accurate assessment of gallbladder wall thickness. No hydronephrosis or suspicious renal mass. No significant adrenal finding. Isodense renal masses and pyelonephritis cannot be excluded in the absence of IV contrast. The urinary bladder is without significant finding. A 2.6 centimeter focal mass posterior right margin of the bladder is isodense to the bladder and is suspected to be moderate-sized bladder diverticulum. No gastric dilatation or gastric wall thickening. No pneumatosis intestinalis. Within the peritoneal cavity there is no free air, free fluid or inflammatory stranding. No acute retroperitoneal process seen. No hernia, mass or bulky lymphadenopathy. Patient has advanced degenerative changes of both hip joints, worse on the left. No acute bone or joint finding. Patient has extensive gas densities present in the subcutaneous fatty tissues posterior to the sacrum and coccyx. No bone destructive changes. The air densities extend laterally 08-2010 cm off of the midline. The inferior margin of the soft tissue gas densities extend in proximity to the posterior wall distal rectum and posterior margin of the levator ani musculature. No abnormal air densities in the fatty tissues of the perineum or scrotum. No history was provided indicating that the patient has a known decubitus ulcer or known wound in this region. IMPRESSION: Extensive abnormal air in the subcutaneous fatty tissues posterior to the sacrum and coccyx with extension each direction laterally 8-10 cm off of the midline. Inferior margin of the air densities abutthe posterior wall distal rectum and posterior margin of the levator ani musculature. This is most likely gas-forming soft tissue infection. The abnormal air densiti es do not yet extend into the fatty tissues of the perineum. EXAM DESCRIPTION: RAD - Chest Single View - 09/18/2021 12:00 pm CLINICAL HISTORY: COUGH Chest pain. COMPARISON: No comparisons FINDINGS: Portable technique limits examination quality. The lungs are grossly clear. The heart is normal in size. Right-sided venous catheter has tip in the right atrium region. Conclusions/Impression: ESRD -HD TIW as tolerated -HD tomorrow Hypokalemia -Replete potassium prn Hypomagnesemia -Replete with IV magnesium prn HypoPO4 -Give Neutra-phos prn -Encourage nutrition Hypotension Sepsis/ Septic Shock Acute Cystitis Sacral decubitus ulcer -Continue Vancomycin and Meropenem; monitor vanc level -IV Albumin prn -Continue Levophed; wean as tolerated -Follow up with surgery; plan for wound vac Diastolic CHF, chronic A/C hypoxic respiratory failure -Low sodium diet -Continue Oxygen supplementation -HD with UF as tolerated DM II with CKD -RISS Severe malnutrition -Continue Ensure supplementation -IV Albumin prn -Continue nephrovite Anemia in CKD -PRBC transfusion prn -Retacrit TIW CKD MBD -Continue Calcitriol Case reviewed with Dr. Adam. Plan for a CT tomorrow. Greater than 30min patient care.
[2021-09-27] MEDS ORDERED: POTASS/SODIUM PHOSPHATE 1 PKT POWD.PACK PO ONE (21:19)
[2021-09-28] MEDS: INSULIN -REGULAR HUMAN 50 UNIT/0.5 ML ML SQ SCH ×4 (05:43→17:20)
[2021-09-28] MEDS: PANTOPRAZOLE 40MG TABLET PO SCH (05:45)
--- NOTE | 2021-09-28 05:50 | P.PN ---
Date of Service: 09/28/21 Subjective: No acute events overnight. Patient went for CT today, shows osteomyelitis Weaned off Levophed this morning, blood pressure soft, will need to be restarted for dialysis Patient without any new complaints at bedside ROS: 10 point ROS as noted above, otherwise negative Physical examination General: In no apparent distress, awake/interactive HEENT: Mucous membr. moist/pink, sclera anicteric Respiratory: nonlabored on 2L NC, diminished at bases bilaterally, mild crackles at left base Cardiovascular: Irregular heart rate/rhythm, 2+ b/l edema up to thighs Gastrointestinal: Soft, Non-distended, nontender. Integumentary: large sacral decubitus ulcer with wound vac in place Neurological: follows commands Problem List Sepsis secondary to infected sacral ulcer, bacteremia End-stage renal disease on hemodialysis RUE supervicial vein thrombosis; h/o upper extremity DVT Chronic systolic heart failure History of CVA (cerebrovascular accident) Metabolic acidosis Anemia No evidence of active bleeding. Patient was on Eliquis but no GI bleed. No melena or hematochezia. Eliquis 5mg last given evening of 09/23 suspect anemia secondary to infection, CKD s/p 5u PRBC, last 2 uPRBC on 09/24 hgb relatively stable, concern for UE DVT, eliquis 2.5mg BID started 09/27, will discuss further with hematology s/p sacral decubitus ulcer debridement x2 by Dr. Ramirez Wound VAC placed 09/27 Nephrology is following for hemodialysis. Metabolic acidosis resolved. Status post albumin infusion for low albumin and hypotension Patient is still hypotensive despite multiple albumin infusion, normal saline bolus and IV hydration. Levophed drip ongoing for several days, weaned down yesterday, but will be restarted for dialysis today seems to require more with/after dialysis goal MAP > 60 patient does have h/o low blood pressure chronically Continue midodrine Infectious disease is following. Blood culture: pansensitive Proteus. Wound culture: Proteus and Citrobacter. Now growing enterococcus as well Repeat blood culture shows no growth to date. Continue merrem and Dapto (added by ID on 09/25) Urine culture: No growth. Feeding as tolerated. Insulin sliding scale for glucose management. CT showed osteomyelitis. Will discuss with ID regarding antibiotic recommendations. Dispo: continue ICU level of care, anticipate several more days family do not want him going anywhere else but home when ready home with home health, wound vac, will need prolonged antibiotics, hopefully can be given with dialysis Time Spent Managing Pts Care (In Minutes): 35
[2021-09-28 05:57] LABS: Absolute Lymphocytes (CBC) 2.8 K/uL (0.7-4.9); Hematocrit 25.8 % (39.6-49.0); Lymphocytes % 31.7 % (15.3-44.8); MPV 8.2 fL (7.6-11.3); RBC Red Blood Cell Count 3.04 M/uL (4.33-5.43)
[2021-09-28 06:44] LABS: Albumin 2.2 g/dL (3.4-5.0); Bilirubin Total 0.6 mg/dL (0.2-1.0); Phosphorus 2.6 mg/dL (2.5-4.9); Potassium 4.1 mmol/L (3.5-5.1); Protein, Total 5.8 g/dL (6.4-8.2)
--- NOTE | 2021-09-28 07:41 | RAD REPORT ---
EXAM DESCRIPTION: CT - Abdomen Pelvis W Contrast - 09/28/2021 6:32 am CLINICAL HISTORY: eval sacral ulcer, eval osteomyelitis, abdominal pain COMPARISON: No comparisons TECHNIQUE: Biphasic, helical CT imaging of the abdomen and pelvis was performed following 100 ml non -ionic IV contrast. No oral contrast administered. All CT scans are performed using dose optimization technique as appropriate and may include automated exposure control or mA/KV adjustment according to patient size. FINDINGS: Contrast opacification is suboptimal. No cardiomegaly or pericardial effusion. Minimal left pleural effusion with partial atelectasis in th e left lower lobe. The liver, spleen, and pancreas show no suspicious findings. Gallbladder and biliary tree are also wi thout suspicious finding. Stones and sludge can be occult on CT imaging. Respiratory motion also limi ts gallbladder assessment. Symmetric renal function is seen with no hydronephrosis or suspicious renal mass. No pyelonephritis o r acute parenchymal process. No bladder abnormalities. Incidental note made of 3 centimeter diverticu lum projecting from the posterior right margin of the bladder. No adrenal abnormalities. Stomach is decompressed which accentuates wall thickness. A very minimal hiatal hernia is suspected. No focal gastric finding identifiable. No dilated small bowel loop. Appendicitis is not identified. A ir and stool are scattered in nondilated colon with no acute colon process identified. Hyperdense mat erial within the lumen of the distal rectum may be ingested medication. No free air or pneumatosis. No abnormal free fluid collection in the peritoneal cavity. Small fat only right inguinal hernia pre sent. Patient has a small fat only umbilical hernia. No omental thickening or bulky lymphadenopathy. Arterial tree calcifications are present without aneurysm or acute finding. Disc and bone degenerative changes are present in the lumbar spine and SI joints. A large decubitus ulcer is present posterior to the lower sacrum and coccyx. Erosive bony changes are identified at the tip of the coccyx. The ulcer depth contacts the coccyx. No bone loss in the sacrum . IMPRESSION: Osteomyelitis findings with cortical disruption and bone loss changes present at the tip of the coccyx which is contacted by the large sacral decubitus ulcer. There is no air or drainable fluid collection near the decubitus ulcer. Minimal left pleural effusion with partial atelectasis in the left lower lobe.
[2021-09-28] MEDS: MIDODRINE HCL 5 MG TABLET PO SCH ×3 (07:58→17:19)
[2021-09-28] MEDS: Meropenem 500 MG/100 ML BAG IV SCH (07:58)
[2021-09-28] MEDS: AMIODARONE HCL 200 MG TAB PO SCH (07:58)
[2021-09-28] MEDS: APIXABAN 2.5 MG TABLET PO SCH ×2 (07:58→20:51)
[2021-09-28] MEDS: CALCITROL 0.25 MCG CAP PO SCH (07:59)
[2021-09-28] MEDS: MULTIVITAMINS,THERAPEUT 1 TAB PO SCH (08:00)
[2021-09-28] MEDS: FLUTICASONE SALMETEROL IH SCH ×2 (08:00→20:51)
[2021-09-28] MEDS: ARIPiprazole 5 MG TAB PO SCH (08:00)
[2021-09-28] MEDS: LACTOSE-REDUCED FOOD 330 ML LIQUID PO SCH ×3 (08:01→20:52)
[2021-09-28] MEDS: COLLAGENASE 30 GM OINTMENT TOP SCH (08:02)
[2021-09-28 08:52] LABS: Anisocytosis 1+; Blood Morphology Comment NOTED (NOT SEEN); Platelet Estimate DECR
--- NOTE | 2021-09-28 11:22 | P.PN ---
Subjective Date of Service: 09/28/21 Chief Complaint: Altered mental status Patient seen examined at bedside, CT pelvis positive for osteomyelitis. Review of Systems 10-point ROS is otherwise unremarkable Physical Examination - Vital Signs Temperature: 97.1 F Blood Pressure: 91/48 Pulse: 88 Respirations: 19 Pulse Ox (%): 96 - Studies Laboratory Last Values WBC 20.90 K/uL (4.3-10.9) H* 09/18/21 11:41 RBC 2.71 M/uL (4.33-5.43) L 09/18/21 11:41 Hgb 7.1 g/dL (13.6-17.9) L 09/18/21 11:41 Hct 23.9 % (39.6-49.0) L 09/18/21 11:41 MCV 88.3 fL (80-100) 09/18/21 11:41 MCH 26.1 pg (27.0-35.0) L 09/18/21 11:41 MCHC 29.6 g/dL (32.0-36.0) L 09/18/21 11:41 RDW 20.0 % (12.1-15.2) H 09/18/21 11:41 Plt Count 344 K/uL (152-406) 09/18/21 11:41 MPV 7.9 fL (7.6-11.3) 09/18/21 11:41 Neutrophils % 86.4 % (41.7-73.7) H 09/18/21 11:41 Lymphocytes % 9.0 % (15.3-44.8) L 09/18/21 11:41 Monocytes % 4.1 % (3.3-12.3) 09/18/21 11:41 Eosinophils % 0.3 % (0-4.4) 09/18/21 11:41 Basophils % 0.2 % (0-1.3) 09/18/21 11:41 Absolute Neutrophils 18.0 K/uL (1.8-8.0) H 09/18/21 11:41 Segmented Neutrophils 90 % (40-80) H 09/18/21 11:41 Absolute Lymphocytes 1.9 K/uL (0.7-4.9) 09/18/21 11:41 Lymphocytes 7 % (15-42) L 09/18/21 11:41 Monocytes 3 % (0-10) 09/18/21 11:41 Absolute Monocytes 0.9 K/uL (0.1-1.3) 09/18/21 11:41 Absolute Eosinophils 0.1 K/uL (0-0.5) 09/18/21 11:41 Absolute Basophils 0.0 K/uL (0-0.5) 09/18/21 11:41 Platelet Estimate Adeq 09/18/21 11:41 Morphology Comment Not seen (NOT SEEN) 09/18/21 11:41 PT 21.2 SECONDS (9.5-12.5) H 09/18/21 11:41 INR 1.83 09/18/21 11:41 APTT 33.6 SECONDS (24.3-36.9) 09/18/21 11:41 Sodium 134 mmol/L (136-145) L 09/18/21 11:41 Potassium 3.5 mmol/L (3.5-5.1) 09/18/21 11:41 Chloride 104 mmol/L (98-107) 09/18/21 11:41 Carbon Dioxide 14 mmol/L (21-32) L* 09/18/21 11:41 BUN 63 mg/dL (7-18) H 09/18/21 11:41 Creatinine 10.30 mg/dL (0.55-1.3) H* 09/18/21 11:41 Estimated GFR 6 mL/min (=/>90) L 09/18/21 11:41 Glucose 97 mg/dL (74-106) 09/18/21 11:41 Lactic Acid 4.4 mmol/L (0.4-2.0) H* 09/18/21 11:41 Calcium 8.5 mg/dL (8.5-10.1) 09/18/21 11:41 Total Bilirubin 0.6 mg/dL (0.2-1.0) 09/18/21 11:41 Direct Bilirubin 0.3 mg/dL (0-0.2) H 09/18/21 11:41 AST 23 U/L (15-37) 09/18/21 11:41 ALT 20 U/L (12-78) 09/18/21 11:41 Alkaline Phosphatase 114 U/L (45-117) 09/18/21 11:41 Creatine Kinase 80 U/L (39-308) 09/18/21 11:41 CK-MB (CK-2) 2.6 ng/mL (1.0-3.6) 09/18/21 11:41 Rapid Troponin I 0.04 ng/mL (0.0-0.045) 09/18/21 11:41 Serum Total Protein 6.4 g/dL (6.4-8.2) 09/18/21 11:41 Albumin 1.6 g/dL (3.4-5.0) L 09/18/21 11:41 Globulin 4.8 g/dL (2.3-3.5) H 09/18/21 11:41 Albumin/Globulin Ratio 0.3 (1.1-1.8) L 09/18/21 11:41 Amylase 24 U/L (25-115) L 09/18/21 11:41 Lipase 39 U/L (73-393) L 09/18/21 11:41 Procalcitonin 5.15 ng/mL (<0.050) H 09/18/21 11:41 Urine RBC 5-10 /HPF (NONE SEEN) H 09/18/21 12:45 Urine WBC 5-10 /HPF (<5) H 09/18/21 12:45 Ur Squamous Epith Cells <5 /HPF (NONE SEEN) 09/18/21 12:45 Urine Bacteria 20-50 /HPF (NONE SEEN) H 09/18/21 12:45 Urine Culture Reflexed Reflexed 09/18/21 12:45 Influenza Type A RNA Negative (NEGATIVE) 09/18/21 12:27 Influenza Type B RNA Negative (NEGATIVE) 09/18/21 12:27 SARS-CoV-2 RNA (RT-PCR) Negative (NEGATIVE) 09/18/21 12:27 Miscellaneous Test Cancelled 09/18/21 11:31 Assessment And Plan - Plan Physical exam: General: Other (AMS) HEENT: Atraumatic Neck: Supple Respiratory: Clear to auscultation bilaterally, Normal air movement Cardiovascular: Normal pulses, Regular rate/rhythm Gastrointestinal: Normal bowel sounds, Soft and benign Musculoskeletal: No contractures Integumentary: Pressure ulcer (Sacral decubitus ulcer status post surgical debridement performed on 09/19. Conclusions/Impression: Antibiotics: CURRENT: Daptomycin Start: 09/25 Meropenem Start: 09/19 DC: Vancomycin Start: 09/18 Stop: 09/24 Assessment/plan Severe sepsis secondary to infected sacral decubitus ulcer Patient septic on admission with lactic acidosis, metabolic acidosis, leukocyt osis, and tacypena. Source infection: Infected sacral decubitus ulcer. CT abdomen pelvis showed gas-forming soft tissue infection directly posterior to sacrum. Sacral wound culture grew Proteus mirabilis, citrobacter, and vancomycin-resistant Enterococcus faecalis. Based off wound culture report patient has been placed on daptomycin and meropenem. Baseline creatinine kinase: 15, will obtain weekly creatinine kinase will patient is on daptomycin. Will hold statin well patient is on this medication. Patient underwent emergent debridement of sacral decubitus ulcer on 09/19. Additional debridement performed on 09/26. Continue wound care per surgical team. Wound VAC placed to sacral wound on 09/27. Coccyx osteomyelitis Patient will need antibioitc therapy for 6 weeks duration. Continue dapto and merum during hospital stay, can send home on IV cephazolin--BC showed sensitivity. Weekly labs inculding: CRP, ESR, CBC, BMP. 09/26: CRP: 61 ESR: 105 Bacteremia Blood cultures obtained on 09/18 growing Proteus mirabilis sensitive to meropenem. Repeat blood cultures obtained on 09/20 show no growth at 24hr. Continue IV meropenem for 7-10 days from 09/20. ESRD on HD Avoid nephrotoxic agents, renally dose all antibiotics/give after HD on HD days. Nephrology following. Anemia Patient has received blood products. Continue to monitor H&H. Leukocytosis Down trending, continue to monitor WBC trend in fever curve. Protein caloric malnutrition: Moderate Patient was low albumin, recommend supplemental Ensure protein drinks. Adequate nutrition needed for proper wound healing. -medical management per primary team Plan of care discussed with Dr. newell Thank you for consultation.
[2021-09-28] MEDS: NOREPINEPHRINE 8 MG in D5W 250 ML IV SCH (12:00)
[2021-09-28] MEDS: EPOETIN ALFA 10,000 UNIT/ML VIAL SQ SCH (17:19)
--- NOTE | 2021-09-28 23:00 | P.PN ---
Date of Service: 09/28/21 Vital Signs Temp Pulse Resp BP Pulse Ox 97.2 F 90 24 H 88/49 L 97 09/28/21 20:00 09/28/21 21:45 09/28/21 21:45 09/28/21 21:45 09/28/21 21:45 Medications Acetaminophen (Acetaminophen 650mg/Rect Supp) 650 mg OH Q6HP PRN PRN Reason: TEMP > 100' F Acetaminophen (Acetaminophen 500 Mg Tab) 500 mg PO Q4HP PRN PRN Reason: TEMP > 100' F Amiodarone HCl (Amiodarone Hcl 200 Mg Tab) 200 mg PO DAILY [facility] Last Admin: 09/28/21 07:58 Dose: 200 mg Documented by: Apixaban (Apixaban 2.5 Mg Tablet) 2.5 mg PO BID [facility] Last Admin: 09/28/21 20:51 Dose: 2.5 mg Documented by: Aripiprazole (Aripiprazole 5 Mg Tab) 2.5 mg PO DAILY [facility] Last Admin: 09/28/21 08:00 Dose: 2.5 mg Documented by: Calcitriol (Calcitrol 0.25 Mcg Cap) 0.5 mcg PO DAILY [facility] Last Admin: 09/28/21 07:59 Dose: 0.5 mcg Documented by: Docusate Sodium (Docusate Na 100 Mg Cap) 100 mg PO BID PRN PRN Reason: CONSTIPATION Epoetin Garrick (Epoetin Garrick 10,000 Unit/Ml Vial) 10,000 unit SQ M,W,F [facility] Last Admin: 09/28/21 17:19 Dose: 10,000 unit Documented by: Heparin Sodium (Porcine) (Heparin 1,000 Unit/Ml Vial) 3,000 unit IV EVERY HD [facility] Stop: 10/03/21 17:01 Heparin Sodium (Porcine) (Heparin 1,000 Unit/Ml Vial) 6,000 unit IV EVERY HD PRN PRN Reason: AFTER EACH Home Med (Fluticasone Propion/Salmeterol [Fluticasone-Salmeterol 100-50]) 1 each IH BID [facility] Last Admin: 09/28/21 20:51 Dose: 1 each Documented by: Home Med (Petrolatum,White [Aloe [place]]) 0 gm TOP PRN PRN PRN Reason: wound detention Med (Ketorolac Tromethamine [Ketorolac Tromethamine]) 1 drop OPTH QID PRN PRN Reason: inflammation Home Med (Carboxymethylcellulose Sodium [Restore Plus]) 2 each OPTH QID PRN PRN Reason: DRY EYES Albumin Human (Albumin 25%) 50 mls @ 100 mls/hr IV EVERY HD [facility] Meropenem (Merrem 500 Mg/100 Ml Ns Ivpb) 500 mg in 100 mls @ 200 mls/hr IV DAILY [facility] Last Admin: 09/28/21 07:58 Dose: 100 mls Documented by: Norepinephrine Bitartrate 8 mg (/ Dextrose) 258 mls @ 0 mls/hr IV TITR [facility]; Protocol Last Titration: 09/28/21 18:15 Dose: 5 mcg/min, 9.7 mls/hr Documented by: Sodium Chloride (Sodium Chloride) 250 mls @ 0 mls/hr IV .Q0M [facility] Last Admin: 09/24/21 22:36 Dose: 250 mls Documented by: Daptomycin 675 mg/ Sodium (Chloride) 100 mls @ 200 mls/hr IVPB Q48H [facility] Last Admin: 09/27/21 13:59 Dose: 100 mls Documented by: Insulin Human Regular (Insulin -Regular Human 50 Unit/0.5 Ml Ml) 0 unit SQ Q6HR [facility]; Protocol Last Admin: 09/28/21 17:20 Dose: Not Given Documented by: Ipratropium Lillie (Ipratropium Brom 0.5mg/2.5ml) 0.5 mg IH QIDRESP PRN PRN Reason: SHORTNESS OF BREATH Last Admin: 09/19/21 21:55 Dose: 0.5 mg Documented by: Mannitol (Mannitol 25% 12.5 Gm/50 Ml Vial) 12.5 gm IV EVERY HD PRN PRN Reason: Titrate to SBP (MUST DEFINE) Midodrine (Midodrine Hcl 5 Mg Tablet) 5 mg PO AC [facility] Last Admin: 09/28/21 17:19 Dose: 5 mg Documented by: Ondansetron HCl (Ondansetron 4 Mg/2 Ml Vial) 4 mg IV Q6HP PRN PRN Reason: NAUSEA / VOMITING Pantoprazole Sodium (Pantoprazole 40mg Tablet) 40 mg PO DAILYAC [facility]; Protocol Last Admin: 09/28/21 05:45 Dose: 40 mg Documented by: Sodium Chloride (Flush Normal Saline 10 Ml) 10 ml IV BID [facility] Last Admin: 09/28/21 20:52 Dose: 10 ml Documented by: Sodium Chloride (Sodium Chloride 0.9% 10ml Inj) 10 ml IV UD PRN PRN Reason: Diluant Vitamin B Complex/Vit C/Folic Acid (Multivitamins,Therapeut 1 Tab) 1 tab PO DAILY [facility] Last Admin: 09/28/21 08:00 Dose: 1 tab Documented by: Microbiology Results 09/18/21 11:41 Blood - Blood Aerobic Blood Culture - Final Proteus Mirabilis 09/18/21 11:41 Blood - Blood Blood Culture Gram Stain - Final 09/18/21 11:41 Blood - Blood Anaerobic Blood Culture - Final Proteus Mirabilis 09/18/21 11:41 Blood - Blood Gram Stain - Final 09/18/21 11:35 Blood - Blood Aerobic Blood Culture - Final Proteus Mirabilis 09/18/21 11:35 Blood - Blood Blood Culture Gram Stain - Final 09/18/21 11:35 Blood - Blood Anaerobic Blood Culture - Final Proteus Mirabilis 09/18/21 11:35 Blood - Blood Gram Stain - Final 09/18/21 12:45 Clean Catch Urine Allen Count - Final No growth. 09/18/21 12:45 Clean Catch Urine - Final No growth. Assessment/ Plan: Nephrology No dyspnea. ZHAO No chest pain Weakness and fatigue. No acute events overnight. Vitals, medications, blood work and imaging reviewed in the chart General: In no apparent distress, Cooperative HEENT: Atraumatic Neck: Supple Respiratory: Clear to auscultation bilaterally Cardiovascular: Regular rate/rhythm, Hip Edema Gastrointestinal: Non-distended, No tenderness Musculoskeletal: No clubbing, No contractures Integumentary: No rashes, No cyanosis. Large sacral ulcer. Neurological: Normal speech Laboratory Data (last 24 hrs) 09/18/21 11:41: PT 21.2 H, INR 1.83, APTT 33.6 09/18/21 11:41: WBC 20.90 H*, Hgb 7.1 L, Hct 23.9 L, Plt Count 344 09/18/21 11:41: Sodium 134 L, Potassium 3.5, BUN 63 H, Creatinine 10.30 H*, Glucose 97, Total Bilirubin 0.6, AST 23, ALT 20, Alkaline Phosphatase 114, Amylase 24 L, Lipase 39 L Imagings Data: EXAM DESCRIPTION: CT - Abdomen Pelvis Wo Contrast - 09/18/2021 5:07 pm CLINICAL HISTORY: Sepsis COMPARISON: No comparisons TECHNIQUE: Axial [address] imaging of the abdomen and pelvis was performed without IV contrast. No IV contrast was given because of allergy, abnormal renal function, patient refusal or physician request. No oral contrast administered. All CT scans are performed using dose optimization technique as appropriate and may include automated exposure control or mA/KV adjustment according to patient size. FINDINGS: No suspicious findings in the lung bases. The liver, spleen and pancreas show no suspicious findings on non-contrast imaging. Gallbladder and biliary tree are also without suspicious finding. Gallstones can be occult on CT imaging. Degree of respiratory motion artifact of the upper abdomen limits accurate assessment of gallbladder wall thickness. No hydronephrosis or suspicious renal mass. No significant adrenal finding. Isodense renal masses and pyelonephritis cannot be excluded in the absence of IV contrast. The urinary bladder is without significant finding. A 2.6 centimeter focal mass posterior right margin of the bladder is isodense to the bladder and is suspected to be moderate-sized bladder diverticulum. No gastric dilatation or gastric wall thickening. No pneumatosis intestinalis. Within the peritoneal cavity there is no free air, free fluid or inflammatory stranding. No acute retroperitoneal process seen. No hernia, mass or bulky lymphadenopathy. Patient has advanced degenerative changes of both hip joints, worse on the left. No acute bone or joint finding. Patient has extensive gas densities present in the subcutaneous fatty tissues posterior to the sacrum and coccyx. No bone destructive changes. The air densities extend laterally 08-2010 cm off of the midline. The inferior margin of the soft tissue gas densities extend in proximity to the posterior wall distal rectum and posterior margin of the levator ani musculature. No abnormal air densities in the fatty tissues of the perineum or scrotum. No history was prov ided indicating that the patient has a known decubitus ulcer or known wound in this region. IMPRESSION: Extensive abnormal air in the subcutaneous fatty tissues posterior to the sacrum and coccyx with extension each direction laterally 8-10 cm off of the midline. Inferior margin of the air densities abutthe posterior wall distal rectum and posterior margin of the levator ani musculature. This is most likely gas-forming soft tissue infection. The abnormal air densities do not yet extend into the fatty tissues of the perineum. EXAM DESCRIPTION: RAD - Chest Single View - 09/18/2021 12:00 pm CLINICAL HISTORY: COUGH Chest pain. COMPARISON: No comparisons FINDINGS: Portable technique limits examination quality. The lungs are grossly clear. The heart is normal in size. Right-sided venous catheter has tip in the right atrium region. Conclusions/Impression: ESRD -HD TIW as tolerated Hypokalemia -Replete potassium prn Hypomagnesemia -Replete with IV magnesium prn HypoPO4 -Give Neutra-phos prn -Encourage nutrition Hypotension Sepsis/ Septic Shock Acute Cystitis Sacral decubitus ulcer. Osteomyelitis of the coccyx. -Continue Vancomycin and Meropenem; monitor vanc level -IV Albumin prn -Continue Levophed; wean as tolerated -Follow up with surgery; plan for wound vac Diastolic CHF, chronic A/C hypoxic respiratory failure -Low sodium diet -Continue Oxygen supplementation -HD with UF as tolerated DM II with CKD -RISS Severe malnutrition -Continue Ensure supplementation -IV Albumin prn -Continue nephrovite Anemia in CKD -PRBC transfusion prn -Retacrit TIW CKD MBD -Continue Calcitriol Case reviewed with Dr. Adam. Greater than 30min patient care.
[2021-09-29 05:26] LABS: Absolute Lymphocytes (CBC) 2.8 K/uL (0.7-4.9); Hematocrit 24.2 % (39.6-49.0); Lymphocytes % 33.8 % (15.3-44.8); MPV 8.4 fL (7.6-11.3); RBC Red Blood Cell Count 2.86 M/uL (4.33-5.43)
[2021-09-29 05:31] LABS: Albumin 2.1 g/dL (3.4-5.0); Magnesium 2.2 mg/dL (1.8-2.4); Phosphorus 2.6 mg/dL (2.5-4.9); Potassium 4.1 mmol/L (3.5-5.1)
[2021-09-29] MEDS: PANTOPRAZOLE 40MG TABLET PO SCH (05:31)
[2021-09-29] MEDS: INSULIN -REGULAR HUMAN 50 UNIT/0.5 ML ML SQ SCH ×4 (06:00→18:00)
[2021-09-29] MEDS: LACTOSE-REDUCED FOOD 330 ML LIQUID PO SCH ×3 (08:07→19:57)
[2021-09-29] MEDS: AMIODARONE HCL 200 MG TAB PO SCH (08:07)
[2021-09-29] MEDS: CALCITROL 0.25 MCG CAP PO SCH (08:07)
[2021-09-29] MEDS: MIDODRINE HCL 5 MG TABLET PO SCH ×3 (08:07→18:07)
[2021-09-29] MEDS: APIXABAN 2.5 MG TABLET PO SCH (08:07)
[2021-09-29] MEDS: MULTIVITAMINS,THERAPEUT 1 TAB PO SCH (08:08)
[2021-09-29] MEDS: ARIPiprazole 5 MG TAB PO SCH (08:08)
[2021-09-29] MEDS: FLUTICASONE SALMETEROL IH SCH ×2 (08:08→19:54)
[2021-09-29] MEDS: Meropenem 500 MG/100 ML BAG IV SCH (08:09)
[2021-09-29] MEDS: NOREPINEPHRINE 8 MG in D5W 250 ML IV SCH (08:28)
--- NOTE | 2021-09-29 12:53 | P.PN ---
Date of Service: 09/29/21 Subjective: Underwent dialysis yesterday Was weaned off Levophed, however required with dialysis and continues to require it Patient without any new complaints today, feels a little more tired than yesterday ROS: 10 point ROS as noted above, otherwise negative Physical examination General: In no apparent distress, awake/interactive HEENT: Mucous membr. moist/pink, sclera anicteric Respiratory: nonlabored on 2L NC, diminished at bases bilaterally Cardiovascular: Irregular heart rate/rhythm, 2+ b/l edema up to thighs Gastrointestinal: Soft, Non-distended, nontender Integumentary: large sacral decubitus ulcer with wound vac in place, LLE with dressing c/d/i Neurological: follows commands Problem List Sepsis secondary to infected sacral ulcer, bacteremia ESRD on hemodialysis RUE supervicial vein thrombosis; h/o upper extremity DVT Chronic systolic heart failure History of CVA (cerebrovascular accident) Metabolic acidosis Anemia No evidence of active bleeding. Patient was on Eliquis but no GI bleed. No melena or hematochezia. Eliquis 5mg last given evening of 09/23 suspect anemia secondary to infection, CKD s/p 5u PRBC, last 2 uPRBC on 09/24 hgb slowly downtrending RUE superficial vein thrombosis noted 09/27, eliquis 2.5mg BID started on 09/27, reviewed with hematology if begins to bleed or hgb drops significantly, will need to discontinue/hold again s/p sacral decubitus ulcer debridement x2 by Dr. Ramirez Wound VAC placed 09/27 Nephrology is following for hemodialysis. Metabolic acidosis resolved. Status post albumin infusion for low albumin and hypotension Patient is still hypotensive despite multiple albumin infusion, normal saline bolus and IV hydration. on levophed drip, seems to require more with/after dialysis goal MAP > 60 patient does have h/o low blood pressure chronically Continue midodrine Infectious disease is following. Blood culture: pansensitive Proteus. Wound culture: Proteus and Citrobacter. Now growing enterococcus as well Repeat blood culture shows no growth to date. Continue merrem and Dapto (added by ID on 09/25) Urine culture: No growth. Feeding as tolerated. Insulin sliding scale for glucose management. CT showed osteomyelitis. Will discuss with ID regarding antibiotic recommendations. Dispo: continue ICU level of care, anticipate several more days family do not want him going anywhere else but home when ready home with home health, wound vac, will need prolonged antibiotics, hopefully can be given with dialysis Time Spent Managing Pts Care (In Minutes): 35
--- NOTE | 2021-09-29 13:36 | P.PN ---
Subjective Date of Service: 09/29/21 Chief Complaint: Altered mental status Subjective: No new changes (remains on levophed 20mcg/min) Review of Systems Respiratory: Shortness of Breath Physical Examination - Vital Signs Temperature: 97.1 F Blood Pressure: 126/54 Pulse: 83 Respirations: 23 Pulse Ox (%): 97 - Physical Exam General: Alert, In no apparent distress HEENT: Atraumatic Respiratory: Clear to auscultation bilaterally Cardiovascular: No edema Gastrointestinal: Normal bowel sounds Musculoskeletal: No clubbing Urinary: Dialysis catheter - Studies Medications List Reviewed: Yes Assessment And Plan - Plan ESRD -HD TIW as tolerated Hypokalemia -Replete potassium prn Hypomagnesemia -Replete with IV magnesium prn HypoPO4 -Give Neutra-phos prn -Encourage nutrition Hypotension Sepsis/ Septic Shock Acute Cystitis Sacral decubitus ulcer. Osteomyelitis of the coccyx. -Continue Vancomycin and Meropenem; monitor vanc level -IV Albumin prn -Continue Levophed; wean as tolerated -Follow up with surgery; plan for wound vac Diastolic CHF, chronic A/C hypoxic respiratory failure -Low sodium diet -Continue Oxygen supplementation -HD with UF as tolerated DM II with CKD -RISS Severe malnutrition -Continue Ensure supplementation -IV Albumin prn -Continue nephrovite Anemia in CKD -PRBC transfusion prn -Retacrit TIW CKD MBD -Continue Calcitriol Critical Care: Yes
[2021-09-29] MEDS: DAPTOMYCIN IVPB SCH (15:15)
[2021-09-29] MEDS: NA CHLORIDE 0.9% IVPB SCH (15:15)
[2021-09-30] MEDS: NOREPINEPHRINE 8 MG in D5W 250 ML IV SCH ×3 (00:01→17:49)
--- NOTE | 2021-09-30 05:47 | P.PN ---
Date of Service: 09/30/21 Subjective: remains on levophed nursing reports patient tired last night more awake this morning, "feels ok" no new pains, no worsening SOB / no chest pain Itching on his back ROS: 10 point ROS as noted above, otherwise negative Physical examination General: In no apparent distress, awake/interactive HEENT: Mucous membr. moist/pink, sclera anicteric Respiratory: nonlabored on 2L NC, diminished at bases bilaterally Cardiovascular: Regular rate/rhythm, 2+ b/l edema up to thighs Gastrointestinal: Soft, Non-distended, nontender Integumentary: large sacral decubitus ulcer with wound vac in place, LLE with dressing c/d/i Neurological: Awake, fatigued appearing, follows commands Problem List Sepsis secondary to infected sacral ulcer, bacteremia ESRD on hemodialysis RUE supervicial vein thrombosis; h/o upper extremity DVT Chronic systolic heart failure History of CVA (cerebrovascular accident) Metabolic acidosis Anemia No evidence of active bleeding. Patient was on Eliquis but no GI bleed noted. No melena or hematochezia. Eliquis 5mg last given evening of 09/23 suspect anemia secondary to infection, CKD s/p 5u PRBC, last 2 uPRBC on 09/24 RUE superficial vein thrombosis noted 09/27, eliquis 2.5mg BID started on 09/27, reviewed with hematology hgb slowly downtrending again, dc'd on 09/29 monitor hgb closely, may need another transfusion s/p sacral decubitus ulcer debridement x2 by Dr. Ramirez Wound VAC placed 09/27 Nephrology is following for hemodialysis. Metabolic acidosis resolved. s/p albumin infusions remains hypotensive, requiring levophed. patient does have h/o low blood pressure chronically seems to require more with/after dialysis goal MAP > 60 Continue midodrine Infectious disease is following. Blood culture: pansensitive Proteus. Wound culture: Proteus and Citrobacter, Enteroccus Repeat blood culture shows no growth to date. Urine culture: No growth. Continue merrem and Dapto (added by ID on 09/25) Feeding as tolerated. Insulin sliding scale for glucose management. CT showed osteomyelitis. Will discuss with ID regarding antibiotic recommendations / duration Dispo: continue ICU level of care, anticipate several more days family do not want him going anywhere else but home on discharge. Has had prior bad experience/outcomes home with home health, wound vac, will need prolonged antibiotics, hopefully can be given with dialysis Time Spent Managing Pts Care (In Minutes): 35
[2021-09-30] MEDS: PANTOPRAZOLE 40MG TABLET PO SCH (05:57)
[2021-09-30] MEDS: INSULIN -REGULAR HUMAN 50 UNIT/0.5 ML ML SQ SCH ×4 (06:00→17:49)
[2021-09-30 06:04] LABS: Phosphorus 2.7 mg/dL (2.5-4.9); Potassium 3.9 mmol/L (3.5-5.1)
[2021-09-30 06:21] LABS: Hematocrit 24.9 % (39.6-49.0); MPV 7.7 fL (7.6-11.3); RBC Red Blood Cell Count 2.94 M/uL (4.33-5.43)
[2021-09-30] MEDS: AMIODARONE HCL 200 MG TAB PO SCH (07:42)
[2021-09-30] MEDS: ARIPiprazole 5 MG TAB PO SCH (07:42)
[2021-09-30] MEDS: MIDODRINE HCL 5 MG TABLET PO SCH ×3 (07:42→16:53)
[2021-09-30] MEDS: CALCITROL 0.25 MCG CAP PO SCH (07:42)
[2021-09-30] MEDS: MULTIVITAMINS,THERAPEUT 1 TAB PO SCH (07:42)
[2021-09-30] MEDS: FLUTICASONE SALMETEROL IH SCH ×2 (07:43→20:22)
[2021-09-30] MEDS: LACTOSE-REDUCED FOOD 330 ML LIQUID PO SCH ×3 (07:43→20:25)
[2021-09-30] MEDS: Meropenem 500 MG/100 ML BAG IV SCH (07:44)
--- NOTE | 2021-09-30 11:56 | RAD REPORT ---
EXAM DESCRIPTION: [place] Single View09/30/2021 10:31 am CLINICAL HISTORY: Shortness of breath/desaturation COMPARISON: September 28, 2021 CT abdomen FINDINGS: Small left pleural effusion. Lungs appear clear of acute infiltrate. Heart is normal size. Central venous catheter in place IMPRESSION: Small left pleural effusion
[2021-09-30 11:59] LABS: Arterial Blood Carboxyhemoglob 1.2 % (0-1.5); Blood O2 Saturation 98.2 % (92-98.5)
--- NOTE | 2021-09-30 12:58 | PN ---
Date of Progress Note: 09/30/2021 Subjective: The patient was seen and examined at bedside. Overnight, he has remained on Levophed. He is down to 60 mcg/min of Levophed. He has had some desaturations while he was sleeping. ABG was done which was within acceptable range. He continues to be a little confused and is not able to give me much history. Physical Examination: Vital Signs: Showing temperature of 97.5, pulse rate of 90, respiratory rate of 21, blood pressure 9 1/20. He is saturating at 93% on nasal cannula oxygen. General: He appears in no acute distress. HEENT: Atraumatic head. Lungs: Auscultation of lungs reveal bilateral equal air entry anteriorly. He is on Levophed at 60 m cg/min. Abdomen: Soft and nontender. Extremities: Showed evidence of anasarca. He has a sacral decubitus ulcer. Laboratory Data: Showing hemoglobin of 7.7, hematocrit 24.9, and platelet count of 135. BMP results are showing labs consistent with ESRD. Current Medications: Have been reviewed in detail. Impression: 1.End-stage renal disease, on dialysis. 2.Infected sacral decubitus ulcer. 3.Hypotension secondary to septic shock from infected sacral ulcer, status post debridement x2. 4.Anemia secondary to chronic disease. 5.Severe malnutrition. 6.Bed-bound status and debility. 7.Underlying metabolic encephalopathy. Plan: The patient continues to be on high dose Levophed at this time. His chest x-ray was done this morning showing a small left pleural effusion but otherwise no acute pulmonary edema. We will hold off on dialysis at this time. We will plan for dialysis tomorrow. Continue local wound care for sac ral ulcer and continue antibiotics for the infection. Continue to wean down Levophed as tolerated. The patient's prognosis remains poor. We will discuss further with the family. The patient's antico agulation is currently on hold because of severe anemia and concern for bleed as well as renal failur e. Continue Retacrit and transfuse p.r.n. Follow up closely on wound care and culture results. Inf ectious Disease being consulted for antibiotic recommendations. VV/MODL Voice ID: [id number] Report ID: [id number]
[2021-09-30 16:14] LABS: Absolute Lymphocytes (CBC) 2.8 K/uL (0.7-4.9); Hematocrit 25.6 % (39.6-49.0); Lymphocytes % 31.2 % (15.3-44.8); MPV 7.7 fL (7.6-11.3); RBC Red Blood Cell Count 3.04 M/uL (4.33-5.43)
[2021-10-01] MEDS: NOREPINEPHRINE 8 MG in D5W 250 ML IV SCH ×3 (04:29→21:19)
[2021-10-01 05:35] LABS: Hematocrit 23.5 % (39.6-49.0); MPV 8.1 fL (7.6-11.3); RBC Red Blood Cell Count 2.78 M/uL (4.33-5.43)
[2021-10-01] MEDS: INSULIN -REGULAR HUMAN 50 UNIT/0.5 ML ML SQ SCH ×4 (06:00→17:33)
[2021-10-01 06:03] LABS: Albumin 1.9 g/dL (3.4-5.0); Magnesium 2.2 mg/dL (1.8-2.4); Phosphorus 3.1 mg/dL (2.5-4.9); Potassium 3.9 mmol/L (3.5-5.1)
--- NOTE | 2021-10-01 06:06 | P.PN ---
Date of Service: 10/01/21 Subjective: Appears more tired "things are fine" Denies any change in his pain/no worsening, no shortness of breath on oxygen Without any new complaints/concerns this morning Still requiring Levophed ROS: 10 point ROS as noted above, otherwise negative Physical examination General: In no apparent distress, awake/interactive, fatigued appearing HEENT: Mucous membr. moist/pink, sclera anicteric Respiratory: nonlabored on 2L NC, diminished at bases bilaterally Cardiovascular: Regular rate/rhythm, 2+ b/l edema up to thighs Gastrointestinal: Soft, Non-distended, nontender Integumentary: large sacral decubitus ulcer with wound vac in place, LLE with dr pineda c/d/i Neurological: Awake, fatigued appearing, follows commands Problem List Sepsis secondary to infected sacral ulcer, bacteremia ESRD on hemodialysis RUE supervicial vein thrombosis; h/o upper extremity DVT Chronic systolic heart failure History of CVA (cerebrovascular accident) Metabolic acidosis Anemia No evidence of active bleeding. Patient was on Eliquis but no GI bleed noted. No melena or hematochezia. Eliquis 5mg last given evening of 09/23 suspect anemia secondary to infection, CKD s/p 5u PRBC, last 2 uPRBC on 09/24 RUE superficial vein thrombosis noted 09/27, eliquis 2.5mg BID started on 09/27, reviewed with hematology hgb slowly downtrending again, dc'd on 09/29 Transfuse 1 unit with dialysis today, may help with his hypotension and lethargy s/p sacral decubitus ulcer debridement x2 by Dr. Ramirez Wound VAC placed 09/27 Nephrology is following for hemodialysis. Metabolic acidosis resolved. s/p albumin infusions remains hypotensive, requiring levophed. patient does have h/o low blood pressure chronically seems to require more with/after dialysis goal MAP > 60 Continue midodrine Infectious disease is following. Blood culture: pansensitive Proteus. Wound culture: Proteus and Citrobacter, Enteroccus Repeat blood culture shows no growth to date. Urine culture: No growth. Continue merrem and Dapto (added by ID on 09/25) Feeding as tolerated. Insulin sliding scale for glucose management. CT showed osteomyelitis. Will discuss with ID regarding antibiotic recommendations / duration Dispo: continue ICU level of care, anticipate several more days family do not want him going anywhere else but home on discharge. Has had prior bad experience/outcomes home with home health, wound vac, will need prolonged antibiotics, hopefully can be given with dialysis With prolonged hospitalization, much difficulty weaning the Levophed. Time Spent Managing Pts Care (In Minutes): 35
[2021-10-01] MEDS: PANTOPRAZOLE 40MG TABLET PO SCH (06:30)
[2021-10-01] MEDS: Meropenem 500 MG/100 ML BAG IV SCH ×2 (09:00→21:17)
[2021-10-01] MEDS: AMIODARONE HCL 200 MG TAB PO SCH (09:53)
[2021-10-01] MEDS: LACTOSE-REDUCED FOOD 330 ML LIQUID PO SCH ×3 (09:53→21:00)
[2021-10-01] MEDS: MIDODRINE HCL 5 MG TABLET PO SCH ×3 (09:53→17:33)
[2021-10-01] MEDS: CALCITROL 0.25 MCG CAP PO SCH (09:53)
[2021-10-01] MEDS: FLUTICASONE SALMETEROL IH SCH ×2 (09:53→21:00)
[2021-10-01] MEDS: ARIPiprazole 5 MG TAB PO SCH (09:53)
[2021-10-01] MEDS: MULTIVITAMINS,THERAPEUT 1 TAB PO SCH (09:53)
--- NOTE | 2021-10-01 12:04 | P.PN ---
Subjective Date of Service: 10/01/21 Chief Complaint: Altered mental status Patient seen examined at bedside, per nursing staff patient has had decreased PO intake and is more lethargic. he is alert and orientated x2. Review of Systems 10-point ROS is otherwise unremarkable Physical Examination - Vital Signs Temperature: 97.1 F Blood Pressure: 110/52 Pulse: 72 Respirations: 19 Pulse Ox (%): 97 - Studies Microbiology 09/18/21 11:41 Blood - Blood Aerobic Blood Culture - Final Proteus Mirabilis 09/18/21 11:41 Blood - Blood Blood Culture Gram Stain - Final 09/18/21 11:41 Blood - Blood Anaerobic Blood Culture - Final Proteus Mirabilis 09/18/21 11:41 Blood - Blood Gram Stain - Final 09/18/21 11:35 Blood - Blood Aerobic Blood Culture - Final Proteus Mirabilis 09/18/21 11:35 Blood - Blood Blood Culture Gram Stain - Final 09/18/21 11:35 Blood - Blood Anaerobic Blood Culture - Final Proteus Mirabilis 09/18/21 11:35 Blood - Blood Gram Stain - Final 09/18/21 12:45 Clean Catch Urine [place] Count - Final No growth. 09/18/21 12:45 Clean Catch Urine - Final No growth. Medications List Reviewed: Yes Assessment And Plan - Plan Physical exam: General: Other (AMS) HEENT: Atraumatic Neck: Supple Respiratory: Clear to auscultation bilaterally, Normal air movement Cardiovascular: Normal pulses, Regular rate/rhythm Gastrointestinal: Normal bowel sounds, Soft and benign Musculoskeletal: No contractures Integumentary: Pressure ulcer (Sacral decubitus ulcer status post surgical debridement performed on 09/19. Conclusions/Impression: Antibiotics: CURRENT: Daptomycin Start: 09/25 Meropenem Start: 09/19 DC: Vancomycin Start: 09/18 Stop: 09/24 Assessment/plan Severe sepsis secondary to infected sacral decubitus ulcer Patient septic on admission with lactic acidosis, metabolic acidosis, leukocytosis, and tacypena. Source infection: Infected sacral decubitus ulcer. CT abdomen pelvis showed gas-forming soft tissue infection directly posterior to sacrum. Sacral wound culture grew Proteus mirabilis, citrobacter, and vancomycin-resistant Enterococcus faecalis. Based off wound culture report patient has been placed on daptomycin and meropenem. Baseline creatinine kinase: 15, will obtain weekly creatinine kinase will patient is on daptomycin. Will hold statin well patient is on this medication. Patient underwent emergent debridement of sacral decubitus ulcer on 09/19. Additional debridement performed on 09/26. Continue wound care per surgical team. Wound VAC placed to sacral wound on 09/27. CK level on 10/01: 11 Coccyx osteomyelitis Patient will need antibioitc therapy for 6 weeks duration. Continue dapto and merum during hospital stay, can send home on IV rocephin--BC showed sensitivity. Antibiotic day . Bacteremia Blood cultures obtained on 09/18 growing Proteus mirabilis sensitive to meropenem. Repeat blood cultures obtained on 09/20 show no growth at 24hr. Continue IV meropenem for 7-10 days from 09/20. Extended due to osteomyeltis. ESRD on HD Avoid nephrotoxic agents, renally dose all antibiotics/give after HD on HD days. Nephrology following. Anemia Patient has received blood products. Continue to monitor H&H. Leukocytosis Down trending, continue to monitor WBC trend in fever curve. Protein caloric malnutrition: Moderate Patient was low albumin, recommend supplemental Ensure protein drinks. Adequate nutrition needed for proper wound healing. -medical management per primary team Plan of care discussed with Dr. newell Thank you for consultation.
[2021-10-01] MEDS: NA CHLORIDE 0.9% IVPB SCH (13:41)
[2021-10-01] MEDS: DAPTOMYCIN IVPB SCH (13:41)
[2021-10-01] MEDS: ALBUMIN HUMAN 25% 50 ML IV SCH (17:26)
[2021-10-01] MEDS: EPOETIN ALFA 10,000 UNIT/ML VIAL SQ SCH (17:33)
--- NOTE | 2021-10-01 20:37 | P.PN ---
Date of Service: 10/01/21 Vital Signs Temp Pulse Resp BP Pulse Ox 97.1 F 82 18 148/68 H 100 10/01/21 12:04 10/01/21 19:30 10/01/21 19:30 10/01/21 19:30 10/01/21 19:30 Medications Acetaminophen (Acetaminophen 650mg/Rect Supp) 650 mg TX Q6HP PRN PRN Reason: TEMP > 100' F Acetaminophen (Acetaminophen 500 Mg Tab) 500 mg PO Q4HP PRN PRN Reason: TEMP > 100' F Amiodarone HCl (Amiodarone Hcl 200 Mg Tab) 200 mg PO DAILY [facility] Last Admin: 10/01/21 09:53 Dose: 200 mg Documented by: Aripiprazole (Aripiprazole 5 Mg Tab) 2.5 mg PO DAILY [facility] Last Admin: 10/01/21 09:53 Dose: 2.5 mg Documented by: Calcitriol (Calcitrol 0.25 Mcg Cap) 0.5 mcg PO DAILY [facility] Last Admin: 10/01/21 09:53 Dose: 0.5 mcg Documented by: Docusate Sodium (Docusate Na 100 Mg Cap) 100 mg PO BID PRN PRN Reason: CONSTIPATION Epoetin Garrick (Epoetin Garrick 10,000 Unit/Ml Vial) 10,000 unit SQ M,W,F [facility] Last Admin: 10/01/21 17:33 Dose: 10,000 unit Documented by: Heparin Sodium (Porcine) (Heparin 1,000 Unit/Ml Vial) 6,000 unit IV EVERY HD PRN PRN Reason: AFTER EACH Home Med (Fluticasone Propion/Salmeterol [Fluticasone-Salmeterol 100-50]) 1 each IH BID [facility] Last Admin: 10/01/21 09:53 Dose: 1 each Documented by: Home Med (Petrolatum,White [Aloe [place]]) 0 gm TOP PRN PRN PRN Reason: wound skilled nursing Med (Ketorolac Tromethamine [Ketorolac Tromethamine]) 1 drop OPTH QID PRN PRN Reason: inflammation Home Med (Carboxymethylcellulose Sodium [Restore Plus]) 2 each OPTH QID PRN PRN Reason: DRY EYES Albumin Human (Albumin 25%) 50 mls @ 100 mls/hr IV EVERY HD [facility] Meropenem (Merrem 500 Mg/100 Ml Ns Ivpb) 500 mg in 100 mls @ 200 mls/hr IV DAILY [facility] Last Admin: 10/01/21 09:00 Dose: Not Given Documented by: Norepinephrine Bitartrate 8 mg (/ Dextrose) 258 mls @ 0 mls/hr IV TITR [facility]; Protocol Last Admin: 10/01/21 15:40 Dose: 12 mcg/min, 23.2 mls/hr Documented by: Sodium Chloride (Sodium Chloride) 250 mls @ 0 mls/hr IV .Q0M [facility] Last Admin: 09/24/21 22:36 Dose: 250 mls Documented by: Daptomycin 675 mg/ Sodium (Chloride) 100 mls @ 200 mls/hr IVPB Q48H [facility] Last Admin: 10/01/21 13:41 Dose: 100 mls Documented by: Insulin Human Regular (Insulin -Regular Human 50 Unit/0.5 Ml Ml) 0 unit SQ Q6HR [facility]; Protocol Last Admin: 10/01/21 17:33 Dose: Not Given Documented by: Ipratropium [place] (Ipratropium Brom 0.5mg/2.5ml) 0.5 mg IH QIDRESP PRN PRN Reason: SHORTNESS OF BREATH Last Admin: 09/19/21 21:55 Dose: 0.5 mg Documented by: Mannitol (Mannitol 25% 12.5 Gm/50 Ml Vial) 12.5 gm IV EVERY HD PRN PRN Reason: Titrate to SBP (MUST DEFINE) Midodrine (Midodrine Hcl 5 Mg Tablet) 5 mg PO AC [facility] Last Admin: 10/01/21 17:33 Dose: 5 mg Documented by: Ondansetron HCl (Ondansetron 4 Mg/2 Ml Vial) 4 mg IV Q6HP PRN PRN Reason: NAUSEA / VOMITING Pantoprazole Sodium (Pantoprazole 40mg Tablet) 40 mg PO DAILYAC [facility]; Protocol Last Admin: 10/01/21 06:30 Dose: 40 mg Documented by: Sodium Chloride (Flush Normal Saline 10 Ml) 10 ml IV BID [facility] Last Admin: 10/01/21 09:53 Dose: 10 ml Documented by: Sodium Chloride (Sodium Chloride 0.9% 10ml Inj) 10 ml IV UD PRN PRN Reason: Diluant Vitamin B Complex/Vit C/Folic Acid (Multivitamins,Therapeut 1 Tab) 1 tab PO DAILY [facility] Last Admin: 10/01/21 09:53 Dose: 1 tab Documented by: Microbiology Results 09/18/21 11:41 Blood - Blood Aerobic Blood Culture - Final Proteus Mirabilis 09/18/21 11:41 Blood - Blood Blood Culture Gram Stain - Final 09/18/21 11:41 Blood - Blood Anaerobic Blood Culture - Final Proteus Mirabilis 09/18/21 11:41 Blood - Blood Gram Stain - Final 09/18/21 11:35 Blood - Blood Aerobic Blood Culture - Final Proteus Mirabilis 09/18/21 11:35 Blood - Blood Blood Culture Gram Stain - Final 09/18/21 11:35 Blood - Blood Anaerobic Blood Culture - Final Proteus Mirabilis 09/18/21 11:35 Blood - Blood Gram Stain - Final 09/18/21 12:45 Clean Catch Urine [place] Count - Final No growth. 09/18/21 12:45 Clean Catch Urine - Final No growth. Assessment/ Plan: Nephrology No dyspnea. ZHAO No chest pain Weakness and fatigue. Worsening malaise today. No acute events overnight. Vitals, medications, blood work and imaging reviewed in the chart General: In no apparent distress, Cooperative HEENT: Atraumatic Neck: Supple Respiratory: Clear to auscultation bilaterally Cardiovascular: Regular rate/rhythm, Hip & LE Edema Gastrointestinal: Non-distended, No tenderness Musculoskeletal: No clubbing, No contractures Integumentary: No rashes, No cyanosis. Large sacral ulcer. Neurological: Normal speech Laboratory Data (last 24 hrs) 09/18/21 11:41: PT 21.2 H, INR 1.83, APTT 33.6 09/18/21 11:41: WBC 20.90 H*, Hgb 7.1 L, Hct 23.9 L, Plt Count 344 09/18/21 11:41: Sodium 134 L, Potassium 3.5, BUN 63 H, Creatinine 10.30 H*, Glucose 97, Total Bilirubin 0.6, AST 23, ALT 20, Alkaline Phosphatase 114, Amylase 24 L, Lipase 39 L Imagings Data: EXAM DESCRIPTION: CT - Abdomen Pelvis Wo Contrast - 09/18/2021 5:07 pm CLINICAL HISTORY: Sepsis COMPARISON: No comparisons TECHNIQUE: Axial [address] imaging of the abdomen and pelvis was performed without IV contrast. No IV contrast was given because of allergy, abnormal renal function, patient refusal or physician request. No oral contrast administered. All CT scans are performed using dose optimization technique as appropriate and may include automated exposure control or mA/KV adjustment according to patient size. FINDINGS: No suspicious findings in the lung bases. The liver, spleen and pancreas show no suspicious findings on non-contrast imaging. Gallbladder and biliary tree are also without suspicious finding. Gallstones can be occult on CT imaging. Degree of respiratory motion artifact of the upper abdomen limits accurate assessment of gallbladder wall thickness. No hydronephrosis or suspicious renal mass. No significant adrenal finding. Isodense renal masses and pyelonephritis cannot be excluded in the absence of IV contrast. The urinary bladder is without significant finding. A 2.6 centimeter focal mass posterior right margin of the bladder is isodense to the bladder and is suspected to be moderate-sized bladder diverticulum. No gastric dilatation or gastric wall thickening. No pneumatosis intestinalis. Within the peritoneal cavity there is no free air, free fluid or inflammatory stranding. No acute retroperitoneal process seen. No hernia, mass or bulky lymphadenopathy. Patient has advanced degenerative changes of both hip joints, worse on the left. No acute bone or joint finding. Patient has extensive gas densities present in the subcutaneous fatty tissues posterior to the sacrum and coccyx. No bone destructive changes. The air densities extend laterally 08-2010 cm off of the midline. The inferior margin of the soft tissue gas densities extend in proximity to the posterior wall distal rectum and posterior margin of the levator ani musculature. No abnormal air densities in the fatty tissues of the perineum or scrotum. No history was provided indicating that the patient has a known decubitus ulcer or known wound in this region. IMPRESSION: Extensive abnormal air in the subcutaneous fatty tissues posterior to the sacrum and coccyx with extension each direction laterally 8-10 cm off of the midline. Inferior margin of the air densities abutthe posterior wall distal rectum and posterior margin of the levator ani musculature. This is most likely gas-forming soft tissue infection. The abnormal air densities do not yet extend into the fatty tissues of the perineum. EXAM DESCRIPTION: RAD - Chest Single View - 09/18/2021 12:00 pm CLINICAL HISTORY: COUGH Chest pain. COMPARISON: No comparisons FINDINGS: Portable technique limits examination quality. The lungs are grossly clear. The heart is normal in size. Right-sided venous catheter has tip in the right atrium region. Conclusions/Impression: ESRD -HD TIW as tolerated Hypokalemia -Replete potassium prn Hypomagnesemia -Replete with IV magnesium prn HypoPO4 -Give Neutra-phos prn -Encourage nutrition Hypotension Sepsis/ Septic Shock Acute Cystitis Sacral decubitus ulcer. Osteomyelitis of the coccyx. -Continue Vancomycin and Meropenem; monitor vanc level -IV Albumin prn -Continue Levophed; wean as tolerated -Follow up with surgery; wound vac Diastolic CHF, chronic A/C hypoxic respiratory failure -Low sodium diet -Continue Oxygen supplementation -HD with UF as tolerated DM II with CKD -RISS Severe malnutrition -Continue Ensure supplementation -IV Albumin with HD today -Continue nephrovite Anemia in CKD -PRBC transfusion with HD today -Retacrit TIW CKD MBD -Continue Calcitriol Case reviewed with Dr. Adam. Greater than 30min patient care.
[2021-10-01 23:37] LABS: Hematocrit 25.4 % (39.6-49.0)
[2021-10-02] MEDS: INSULIN -REGULAR HUMAN 50 UNIT/0.5 ML ML SQ SCH ×4 (06:00→17:25)
[2021-10-02] MEDS: PANTOPRAZOLE 40MG TABLET PO SCH (06:27)
[2021-10-02 06:43] LABS: Hematocrit 25.1 % (39.6-49.0); MPV 7.5 fL (7.6-11.3)
[2021-10-02 07:00] LABS: Albumin 2.2 g/dL (3.4-5.0); Magnesium 2.1 mg/dL (1.8-2.4); Phosphorus 2.3 mg/dL (2.5-4.9); Potassium 3.7 mmol/L (3.5-5.1)
[2021-10-02] MEDS: AMIODARONE HCL 200 MG TAB PO SCH (08:30)
[2021-10-02] MEDS: CALCITROL 0.25 MCG CAP PO SCH (08:30)
[2021-10-02] MEDS: MIDODRINE HCL 5 MG TABLET PO SCH ×3 (08:30→16:30)
[2021-10-02] MEDS: MULTIVITAMINS,THERAPEUT 1 TAB PO SCH (08:34)
[2021-10-02] MEDS: ARIPiprazole 5 MG TAB PO SCH (08:34)
[2021-10-02] MEDS: FLUTICASONE SALMETEROL IH SCH ×2 (08:34→21:00)
[2021-10-02] MEDS: LACTOSE-REDUCED FOOD 330 ML LIQUID PO SCH ×3 (09:00→21:00)
[2021-10-02] MEDS: Meropenem 500 MG/100 ML BAG IV SCH (09:54)
--- NOTE | 2021-10-02 11:09 | P.PN ---
Subjective Date of Service: 10/02/21 Chief Complaint: Altered mental status Patient seen examined at bedside, no acute events. Review of Systems 10-point ROS is otherwise unremarkable Physical Examination - Vital Signs Temperature: 97.3 F Blood Pressure: 107/68 Pulse: 81 Respirations: 21 Pulse Ox (%): 99 - Studies Laboratory Last Values WBC 20.90 K/uL (4.3-10.9) H* 09/18/21 11:41 RBC 2.71 M/uL (4.33-5.43) L 09/18/21 11:41 Hgb 7.1 g/dL (13.6-17.9) L 09/18/21 11:41 Hct 23.9 % (39.6-49.0) L 09/18/21 11:41 MCV 88.3 fL (80-100) 09/18/21 11:41 MCH 26.1 pg (27.0-35.0) L 09/18/21 11:41 MCHC 29.6 g/dL (32.0-36.0) L 09/18/21 11:41 RDW 20.0 % (12.1-15.2) H 09/18/21 11:41 Plt Count 344 K/uL (152-406) 09/18/21 11:41 MPV 7.9 fL (7.6-11.3) 09/18/21 11:41 Neutrophils % 86.4 % (41.7-73.7) H 09/18/21 11:41 Lymphocytes % 9.0 % (15.3-44.8) L 09/18/21 11:41 Monocytes % 4.1 % (3.3-12.3) 09/18/21 11:41 Eosinophils % 0.3 % (0-4.4) 09/18/21 11:41 Basophils % 0.2 % (0-1.3) 09/18/21 11:41 Absolute Neutrophils 18.0 K/uL (1.8-8.0) H 09/18/21 11:41 Segmented Neutrophils 90 % (40-80) H 09/18/21 11:41 Absolute Lymphocytes 1.9 K/uL (0.7-4.9) 09/18/21 11:41 Lymphocytes 7 % (15-42) L 09/18/21 11:41 Monocytes 3 % (0-10) 09/18/21 11:41 Absolute Monocytes 0.9 K/uL (0.1-1.3) 09/18/21 11:41 Absolute Eosinophils 0.1 K/uL (0-0.5) 09/18/21 11:41 Absolute Basophils 0.0 K/uL (0-0.5) 09/18/21 11:41 Platelet Estimate Adeq 09/18/21 11:41 Morphology Comment Not seen (NOT SEEN) 09/18/21 11:41 PT 21.2 SECONDS (9.5-12.5) H 09/18/21 11:41 INR 1.83 09/18/21 11:41 APTT 33.6 SECONDS (24.3-36.9) 09/18/21 11:41 Sodium 134 mmol/L (136-145) L 09/18/21 11:41 Potassium 3.5 mmol/L (3.5-5.1) 09/18/21 11:41 Chloride 104 mmol/L (98-107) 09/18/21 11:41 Carbon Dioxide 14 mmol/L (21-32) L* 09/18/21 11:41 BUN 63 mg/dL (7-18) H 09/18/21 11:41 Creatinine 10.30 mg/dL (0.55-1.3) H* 09/18/21 11:41 Estimated GFR 6 mL/min (=/>90) L 09/18/21 11:41 Glucose 97 mg/dL (74-106) 09/18/21 11:41 Lactic Acid 4.4 mmol/L (0.4-2.0) H* 09/18/21 11:41 Calcium 8.5 mg/dL (8.5-10.1) 09/18/21 11:41 Total Bilirubin 0.6 mg/dL (0.2-1.0) 09/18/21 11:41 Direct Bilirubin 0.3 mg/dL (0-0.2) H 09/18/21 11:41 AST 23 U/L (15-37) 09/18/21 11:41 ALT 20 U/L (12-78) 09/18/21 11:41 Alkaline Phosphatase 114 U/L (45-117) 09/18/21 11:41 Creatine Kinase 80 U/L (39-308) 09/18/21 11:41 CK-MB (CK-2) 2.6 ng/mL (1.0-3.6) 09/18/21 11:41 Rapid Troponin I 0.04 ng/mL (0.0-0.045) 09/18/21 11:41 Serum Total Protein 6.4 g/dL (6.4-8.2) 09/18/21 11:41 Albumin 1.6 g/dL (3.4-5.0) L 09/18/21 11:41 Globulin 4.8 g/dL (2.3-3.5) H 09/18/21 11:41 Albumin/Globulin Ratio 0.3 (1.1-1.8) L 09/18/21 11:41 Amylase 24 U/L (25-115) L 09/18/21 11:41 Lipase 39 U/L (73-393) L 09/18/21 11:41 Procalcitonin 5.15 ng/mL (<0.050) H 09/18/21 11:41 Urine RBC 5-10 /HPF (NONE SEEN) H 09/18/21 12:45 Urine WBC 5-10 /HPF (<5) H 09/18/21 12:45 Ur Squamous Epith Cells <5 /HPF (NONE SEEN) 09/18/21 12:45 Urine Bacteria 20-50 /HPF (NONE SEEN) H 09/18/21 12:45 Urine Culture Reflexed Reflexed 09/18/21 12:45 Influenza Type A RNA Negative (NEGATIVE) 09/18/21 12:27 Influenza Type B RNA Negative (NEGATIVE) 09/18/21 12:27 SARS-CoV-2 RNA (RT-PCR) Negative (NEGATIVE) 09/18/21 12:27 Miscellaneous Test Cancelled 09/18/21 11:31 Medications List Reviewed: Yes Assessment And Plan - Plan Physical exam: General: Other (AMS) HEENT: Atraumatic Neck: Supple Respiratory: Clear to auscultation bilaterally, Normal air movement Cardiovascular: Normal pulses, Regular rate/rhythm Gastrointestinal: Normal bowel sounds, Soft and benign Musculoskeletal: No contractures Integumentary: Pressure ulcer (Sacral decubitus ulcer status post surgical debridement performed on 09/19. Conclusions/Impression: Antibiotics: CURRENT: Daptomycin Start: 09/25 Meropenem Start: 09/19 DC: Vancomycin Start: 09/18 Stop: 09/24 Assessment/plan Severe sepsis secondary to infected sacral decubitus ulcer Patient septic on admission with lactic acidosis, metabolic acidosis, leukocytosis, and tacypena. Source infection: Infected sacral decubitus ulcer. CT abdomen pelvis showed gas-forming soft tissue infection directly posterior to sacrum. Sacral wound culture grew Proteus mirabilis, citrobacter, and vancomycin-resistant Enterococcus faecalis. Based off wound culture report patient has been placed on daptomycin and meropenem. Baseline creatinine kinase: 15, will obtain weekly creatinine kinase will patient is on daptomycin. Will hold statin well patient is on this medication. Patient underwent emergent debridement of sacral decubitus ulcer on 09/19. Additional debridement performed on 09/26. Continue wound care per surgical team. Wound VAC placed to sacral wound on 09/27. CK level on 10/01: 11 Coccyx osteomyelitis Patient will need antibioitc therapy for 6 weeks duration. Continue dapto and merum during hospital stay, can send home on IV rocephin--BC showed sensitivity. Antibiotic day . Bacteremia Blood cultures obtained on 09/18 growing Proteus mirabilis sensitive to meropenem. Repeat blood cultures obtained on 09/20 show no growth at 24hr. Continue IV meropenem for 7-10 days from 09/20. Extended due to osteomyeltis. ESRD on HD Avoid nephrotoxic agents, renally dose all antibiotics/give after HD on HD days. Nephrology following. Anemia Patient has received blood products. Continue to monitor H&H. Leukocytosis Down trending, continue to monitor WBC trend in fever curve. Protein caloric malnutrition: Moderate Patient was low albumin, recommend supplemental Ensure protein drinks. Adequate nutrition needed for proper wound healing. -medical management per primary team Plan of care discussed with Dr. newell Thank you for consultation.
[2021-10-02] MEDS: NOREPINEPHRINE 8 MG in D5W 250 ML IV SCH (13:26)
[2021-10-02 13:29] LABS: HBsAG Nonreactive (Nonreactive)
--- NOTE | 2021-10-02 13:55 | P.PN ---
Subjective Date of Service: 10/02/21 Chief Complaint: Altered mental status Patient awake and interactive. Still hypotensive and requiring Levophed drip. Physical Examination - Vital Signs Temperature: 97.6 F Blood Pressure: 87/73 Pulse: 77 Respirations: 21 Pulse Ox (%): 100 - Studies Medications List Reviewed: Yes Assessment And Plan - Current Problems (Diagnosis) (1) Sepsis Current Visit: Yes Status: Acute (2) UTI (urinary tract infection) Current Visit: Yes Status: Acute (3) End-stage renal disease on hemodialysis Current Visit: Yes Status: Acute (4) Chronic systolic heart failure Current Visit: Yes Status: Acute (5) History of CVA (cerebrovascular accident) Current Visit: Yes Status: Acute (6) Metabolic acidosis Current Visit: Yes Status: Acute (7) Anemia Current Visit: Yes Status: Acute - Plan Physical examination General: In no apparent distress, awake and interactive. Neck: JVD not distended Respiratory: Clear to auscultation bilaterally, Normal air movement Cardiovascular: Normal S1 S2, Irregular heart rate/rhythm Gastrointestinal: Soft and benign, Non-distended, nontender. Musculoskeletal: No swelling Integumentary: Stage IV large sacral decubitus ulcer Neurological: Moves all extremities Plan: Status post 5 unit PRBC transfusion. No evidence of active bleeding. Patient is on Eliquis but no GI bleed. No melena or hematochezia. Patient with superficial vein thrombosis. Eliquis discontinued. Status post sacral decubitus ulcer debridement. Dr. Ramirez saw patient and status post debridement x2. Wound VAC in place. Nephrology is following for hemodialysis. Metabolic acidosis resolved. Status post albumin infusion for low albumin and hypotension. Patient is still hypotensive despite multiple albumin infusion, normal saline bolus and IV hydration. Also hypotensive despite being on midodrine. Will increase midodrine to 10 mg 3 times daily and wean off Levophed drip as possible. Infectious disease is following. Blood culture: pansensitive Proteus. Wound culture: Proteus and Citrobacter. Repeat blood culture shows no growth to date. On daptomycin and meropenem. Urine culture: No growth. Feeding as tolerated. Patient is tolerating puree diet. Insulin sliding scale for glucose management. Anemia likely secondary to sepsis and chronic kidney disease. Hemoglobin is stable around 7 Monitor CBC and blood chemistry. Electrolyte replacement per nephrology. Patient is a good candidate for LTAC placement for aggressive wound care, bacteremia treatment and hemodialysis. Family have refused LTAC placement. Prognosis guarded.
[2021-10-02] MEDS ORDERED: POTASSIUM PHOS IN 0.9 % NACL 15 MMOL/250 ML BAG IV ONE (21:02)
--- NOTE | 2021-10-02 21:10 | P.PN ---
Date of Service: 10/02/21 Vital Signs Temp Pulse Resp BP Pulse Ox 97.4 F 85 24 H 114/59 L 100 10/02/21 16:00 10/02/21 18:45 10/02/21 18:45 10/02/21 18:45 10/02/21 18:45 Medications Acetaminophen (Acetaminophen 650mg/Rect Supp) 650 mg [place] Q6HP PRN PRN Reason: TEMP > 100' F Acetaminophen (Acetaminophen 500 Mg Tab) 500 mg PO Q4HP PRN PRN Reason: TEMP > 100' F Amiodarone HCl (Amiodarone Hcl 200 Mg Tab) 200 mg PO DAILY [facility] Last Admin: 10/02/21 08:30 Dose: 200 mg Documented by: Aripiprazole (Aripiprazole 5 Mg Tab) 2.5 mg PO DAILY [facility] Last Admin: 10/02/21 08:34 Dose: 2.5 mg Documented by: Calcitriol (Calcitrol 0.25 Mcg Cap) 0.5 mcg PO DAILY [facility] Last Admin: 10/02/21 08:30 Dose: 0.5 mcg Documented by: Docusate Sodium (Docusate Na 100 Mg Cap) 100 mg PO BID PRN PRN Reason: CONSTIPATION Epoetin Garrick (Epoetin Garrick 10,000 Unit/Ml Vial) 10,000 unit SQ M,W,F [facility] Last Admin: 10/01/21 17:33 Dose: 10,000 unit Documented by: Home Med (Fluticasone Propion/Salmeterol [Fluticasone-Salmeterol 100-50]) 1 each IH BID [facility] Last Admin: 10/02/21 08:34 Dose: 1 each Documented by: Home Med (Petrolatum,White [Aloe [place]]) 0 gm TOP PRN PRN PRN Reason: wound [facility] Med (Ketorolac Tromethamine [Ketorolac Tromethamine]) 1 drop OPTH QID PRN PRN Reason: inflammation Last Admin: 10/02/21 08:31 Dose: 1 drop Documented by: Home Med (Carboxymethylcellulose Sodium [Restore Plus]) 2 each OPTH QID PRN PRN Reason: DRY EYES Last Admin: 10/02/21 08:31 Dose: 2 each Documented by: Albumin Human (Albumin 25%) 50 mls @ 100 mls/hr IV EVERY HD [facility] Last Admin: 10/01/21 17:26 Dose: 50 mls Documented by: Meropenem (Merrem 500 Mg/100 Ml Ns Ivpb) 500 mg in 100 mls @ 200 mls/hr IV DAILY [facility] Last Admin: 10/02/21 09:54 Dose: 100 mls Documented by: Norepinephrine Bitartrate 8 mg (/ Dextrose) 258 mls @ 0 mls/hr IV TITR [facility]; Protocol Last Titration: 10/02/21 18:45 Dose: 8 mcg/min, 15.5 mls/hr Documented by: Sodium Chloride (Sodium Chloride) 250 mls @ 0 mls/hr IV .Q0M [facility] Last Admin: 09/24/21 22:36 Dose: 250 mls Documented by: Daptomycin 675 mg/ Sodium (Chloride) 100 mls @ 200 mls/hr IVPB Q48H [facility] Last Admin: 10/01/21 13:41 Dose: 100 mls Documented by: Potassium Phosphate (Potassium Phos 15 Mmol/250 Ml Ns) 15 mmol in 250 mls @ 62.5 mls/hr IV 1X ONE; Protocol Stop: 10/03/21 01:01 Insulin Human Regular (Insulin -Regular Human 50 Unit/0.5 Ml Ml) 0 unit SQ Q6HR [facility]; Protocol Last Admin: 10/02/21 17:25 Dose: Not Given Documented by: Ipratropium [place] (Ipratropium Brom 0.5mg/2.5ml) 0.5 mg IH QIDRESP PRN PRN Reason: SHORTNESS OF BREATH Last Admin: 09/19/21 21:55 Dose: 0.5 mg Documented by: Mannitol (Mannitol 25% 12.5 Gm/50 Ml Vial) 12.5 gm IV EVERY HD PRN PRN Reason: Titrate to SBP (MUST DEFINE) Midodrine (Midodrine Hcl 5 Mg Tablet) 10 mg PO AC [facility] Last Admin: 10/02/21 16:30 Dose: 10 mg Documented by: Ondansetron HCl (Ondansetron 4 Mg/2 Ml Vial) 4 mg IV Q6HP PRN PRN Reason: NAUSEA / VOMITING Pantoprazole Sodium (Pantoprazole 40mg Tablet) 40 mg PO DAILYAC [facility]; Protocol Last Admin: 10/02/21 06:27 Dose: 40 mg Documented by: Sodium Chloride (Flush Normal Saline 10 Ml) 10 ml IV BID [facility] Last Admin: 10/02/21 08:34 Dose: 10 ml Documented by: Sodium Chloride (Sodium Chloride 0.9% 10ml Inj) 10 ml IV UD PRN PRN Reason: Diluant Vitamin B Complex/Vit C/Folic Acid (Multivitamins,Therapeut 1 Tab) 1 tab PO DAILY [facility] Last Admin: 10/02/21 08:34 Dose: 1 tab Documented by: Microbiology Results 09/18/21 11:41 Blood - Blood Aerobic Blood Culture - Final Proteus Mirabilis 09/18/21 11:41 Blood - Blood Blood Culture Gram Stain - Final 09/18/21 11:41 Blood - Blood Anaerobic Blood Culture - Final Proteus Mirabilis 09/18/21 11:41 Blood - Blood Gram Stain - Final 09/18/21 11:35 Blood - Blood Aerobic Blood Culture - Final Proteus Mirabilis 09/18/21 11:35 Blood - Blood Blood Culture Gram Stain - Final 09/18/21 11:35 Blood - Blood Anaerobic Blood Culture - Final Proteus Mirabilis 09/18/21 11:35 Blood - Blood Gram Stain - Final 09/18/21 12:45 Clean Catch Urine [place] Count - Final No growth. 09/18/21 12:45 Clean Catch Urine - Final No growth. Assessment/ Plan: Nephrology No dyspnea. ZHAO. No chest pain Weakness and fatigue. No acute events overnight. Vitals, medications, blood work and imaging reviewed in the chart General: In no apparent distress, Cooperative HEENT: Atraumatic Neck: Supple Respiratory: Clear to auscultation bilaterally Cardiovascular: Regular rate/rhythm, Hip & LE Edema Gastrointestinal: Non-distended, No tenderness Musculoskeletal: No clubbing, No contractures Integumentary: No rashes, No cyanosis. Large sacral ulcer. Neurological: Normal speech Laboratory Data (last 24 hrs) 09/18/21 11:41: PT 21.2 H, INR 1.83, APTT 33.6 09/18/21 11:41: WBC 20.90 H*, Hgb 7.1 L, Hct 23.9 L, Plt Count 344 09/18/21 11:41: Sodium 134 L, Potassium 3.5, BUN 63 H, Creatinine 10.30 H*, Glucose 97, Total Bilirubin 0.6, AST 23, ALT 20, Alkaline Phosphatase 114, Amylase 24 L, Lipase 39 L Imagings Data: EXAM DESCRIPTION: CT - Abdomen Pelvis Wo Contrast - 09/18/2021 5:07 pm CLINICAL HISTORY: Sepsis COMPARISON: No comparisons TECHNIQUE: Axial [address] imaging of the abdomen and pelvis was performed without IV contrast. No IV contrast was given because of allergy, abnormal renal function, patient refusal or physician request. No oral contrast administered. All CT scans are performed using dose optimization technique as appropriate and may include automated exposure control or mA/KV adjustment according to patient size. FINDINGS: No suspicious findings in the lung bases. The liver, spleen and pancreas show no suspicious findings on non-contrast imaging. Gallbladder and biliary tree are also without suspicious finding. Gallstones can be occult on CT imaging. Degree of respiratory motion artifact of the upper abdomen limits accurate assessment of gallbladder wall thickness. No hydronephrosis or suspicious renal mass. No significant adrenal finding. Isodense renal masses and pyelonephritis cannot be excluded in the absence of IV contrast. The urinary bladder is without significant finding. A 2.6 centimeter focal mass posterior right margin of the bladder is isodense to the bladder and is suspected to be moderate-sized bladder diverticulum. No gastric dilatation or gastric wall thickening. No pneumatosis intestinalis. Within the peritoneal cavity there is no free air, free fluid or inflammatory stranding. No acute retroperitoneal process seen. No hernia, mass or bulky lymphadenopathy. Patient has advanced degenerative changes of both hip joints, worse on the left. No acute bone or joint finding. Patient has extensive gas densities present in the subcutaneous fatty tissues posterior to the sacrum and coccyx. No bone destructive changes. The air densities extend laterally 08-2010 cm off of the midline. The inferior margin of the soft tissue gas densities extend in proximity to the posterior wall distal rectum and posterior margin of the levator ani musculature. No abnormal air densities in the fatty tissues of the perineum or scrotum. No history was provided indicating that the patient has a known decubitus ulcer or known wound in this region. IMPRESSION: Extensive abnormal air in the subcutaneous fatty tissues posterior to the sacrum and coccyx with extension each direction laterally 8-10 cm off of the midline. Inferior margin of the air densities abutthe posterior wall distal rectum and posterior margin of the levator ani musculature. This is most likely gas-forming soft tissue infection. The abnormal air densities do not yet extend into the fatty tissues of the perineum. EXAM DESCRIPTION: RAD - Chest Single View - 09/18/2021 12:00 pm CLINICAL HISTORY: COUGH Chest pain. COMPARISON: No comparisons FINDINGS: Portable technique limits examination quality. The lungs are grossly clear. The heart is normal in size. Right-sided venous catheter has tip in the right atrium region. Conclusions/Impression: ESRD -HD TIW as tolerated Hypokalemia -Replete potassium Hypomagnesemia -Replete with IV magnesium prn HypoPO4 -Replete PO4 -Encourage nutrition Hypotension Sepsis/ Septic Shock Acute Cystitis Sacral decubitus ulcer. Osteomyelitis of the coccyx. -Continue Meropenem -IV Albumin prn -Continue Levophed; wean as tolerated -Follow up with surgery; wound vac Diastolic CHF, chronic A/C hypoxic respiratory failure -Low sodium diet -Continue Oxygen supplementation -HD with UF as tolerated DM II with CKD -RISS Severe malnutrition -Continue Ensure supplementation -IV Albumin with HD today -Continue nephrovite Anemia in CKD -PRBC transfusion with HD today -Retacrit TIW CKD MBD -Continue Calcitriol Greater than 30min patient care.
[2021-10-03] MEDS: INSULIN -REGULAR HUMAN 50 UNIT/0.5 ML ML SQ SCH ×4 (06:00→17:21)
[2021-10-03] MEDS: PANTOPRAZOLE 40MG TABLET PO SCH (06:01)
[2021-10-03 06:11] LABS: Hematocrit 25.4 % (39.6-49.0); MPV 8.4 fL (7.6-11.3); RBC Red Blood Cell Count 2.99 M/uL (4.33-5.43)
[2021-10-03 06:32] LABS: Albumin 2.1 g/dL (3.4-5.0); Magnesium 2.2 mg/dL (1.8-2.4); Phosphorus 3.9 mg/dL (2.5-4.9)
[2021-10-03] MEDS: LACTOSE-REDUCED FOOD 330 ML LIQUID PO SCH ×3 (09:00→20:29)
[2021-10-03] MEDS: FLUTICASONE SALMETEROL IH SCH ×2 (09:00→20:32)
[2021-10-03] MEDS: MIDODRINE HCL 5 MG TABLET PO SCH ×3 (09:24→16:57)
[2021-10-03] MEDS: MULTIVITAMINS,THERAPEUT 1 TAB PO SCH (09:26)
[2021-10-03] MEDS: ARIPiprazole 5 MG TAB PO SCH (09:26)
[2021-10-03] MEDS: CALCITROL 0.25 MCG CAP PO SCH (09:26)
[2021-10-03] MEDS: AMIODARONE HCL 200 MG TAB PO SCH (09:27)
[2021-10-03] MEDS: NOREPINEPHRINE 8 MG in D5W 250 ML IV SCH (09:28)
--- NOTE | 2021-10-03 10:55 | P.PN ---
Subjective Date of Service: 10/03/21 Chief Complaint: Altered mental status Patient seen examined at bedside, new skin tear noted to right forearm. Review of Systems 10-point ROS is otherwise unremarkable Physical Examination - Vital Signs Temperature: 97.2 F Blood Pressure: 94/52 Pulse: 75 Respirations: 18 Pulse Ox (%): 100 - Studies Laboratory Last Values WBC 20.90 K/uL (4.3-10.9) H* 09/18/21 11:41 RBC 2.71 M/uL (4.33-5.43) L 09/18/21 11:41 Hgb 7.1 g/dL (13.6-17.9) L 09/18/21 11:41 Hct 23.9 % (39.6-49.0) L 09/18/21 11:41 MCV 88.3 fL (80-100) 09/18/21 11:41 MCH 26.1 pg (27.0-35.0) L 09/18/21 11:41 MCHC 29.6 g/dL (32.0-36.0) L 09/18/21 11:41 RDW 20.0 % (12.1-15.2) H 09/18/21 11:41 Plt Count 344 K/uL (152-406) 09/18/21 11:41 MPV 7.9 fL (7.6-11.3) 09/18/21 11:41 Neutrophils % 86.4 % (41.7-73.7) H 09/18/21 11:41 Lymphocytes % 9.0 % (15.3-44.8) L 09/18/21 11:41 Monocytes % 4.1 % (3.3-12.3) 09/18/21 11:41 Eosinophils % 0.3 % (0-4.4) 09/18/21 11:41 Basophils % 0.2 % (0-1.3) 09/18/21 11:41 Absolute Neutrophils 18.0 K/uL (1.8-8.0) H 09/18/21 11:41 Segmented Neutrophils 90 % (40-80) H 09/18/21 11:41 Absolute Lymphocytes 1.9 K/uL (0.7-4.9) 09/18/21 11:41 Lymphocytes 7 % (15-42) L 09/18/21 11:41 Monocytes 3 % (0-10) 09/18/21 11:41 Absolute Monocytes 0.9 K/uL (0.1-1.3) 09/18/21 11:41 Absolute Eosinophils 0.1 K/uL (0-0.5) 09/18/21 11:41 Absolute Basophils 0.0 K/uL (0-0.5) 09/18/21 11:41 Platelet Estimate Adeq 09/18/21 11:41 Morphology Comment Not seen (NOT SEEN) 09/18/21 11:41 PT 21.2 SECONDS (9.5-12.5) H 09/18/21 11:41 INR 1.83 09/18/21 11:41 APTT 33.6 SECONDS (24.3-36.9) 09/18/21 11:41 Sodium 134 mmol/L (136-145) L 09/18/21 11:41 Potassium 3.5 mmol/L (3.5-5.1) 09/18/21 11:41 Chloride 104 mmol/L (98-107) 09/18/21 11:41 Carbon Dioxide 14 mmol/L (21-32) L* 09/18/21 11:41 BUN 63 mg/dL (7-18) H 09/18/21 11:41 Creatinine 10.30 mg/dL (0.55-1.3) H* 09/18/21 11:41 Estimated GFR 6 mL/min (=/>90) L 09/18/21 11:41 Glucose 97 mg/dL (74-106) 09/18/21 11:41 Lactic Acid 4.4 mmol/L (0.4-2.0) H* 09/18/21 11:41 Calcium 8.5 mg/dL (8.5-10.1) 09/18/21 11:41 Total Bilirubin 0.6 mg/dL (0.2-1.0) 09/18/21 11:41 Direct Bilirubin 0.3 mg/dL (0-0.2) H 09/18/21 11:41 AST 23 U/L (15-37) 09/18/21 11:41 ALT 20 U/L (12-78) 09/18/21 11:41 Alkaline Phosphatase 114 U/L (45-117) 09/18/21 11:41 Creatine Kinase 80 U/L (39-308) 09/18/21 11:41 CK-MB (CK-2) 2.6 ng/mL (1.0-3.6) 09/18/21 11:41 Rapid Troponin I 0.04 ng/mL (0.0-0.045) 09/18/21 11:41 Serum Total Protein 6.4 g/dL (6.4-8.2) 09/18/21 11:41 Albumin 1.6 g/dL (3.4-5.0) L 09/18/21 11:41 Globulin 4.8 g/dL (2.3-3.5) H 09/18/21 11:41 Albumin/Globulin Ratio 0.3 (1.1-1.8) L 09/18/21 11:41 Amylase 24 U/L (25-115) L 09/18/21 11:41 Lipase 39 U/L (73-393) L 09/18/21 11:41 Procalcitonin 5.15 ng/mL (<0.050) H 09/18/21 11:41 Urine RBC 5-10 /HPF (NONE SEEN) H 09/18/21 12:45 Urine WBC 5-10 /HPF (<5) H 09/18/21 12:45 Ur Squamous Epith Cells <5 /HPF (NONE SEEN) 09/18/21 12:45 Urine Bacteria 20-50 /HPF (NONE SEEN) H 09/18/21 12:45 Urine Culture Reflexed Reflexed 09/18/21 12:45 Influenza Type A RNA Negative (NEGATIVE) 09/18/21 12:27 Influenza Type B RNA Negative (NEGATIVE) 09/18/21 12:27 SARS-CoV-2 RNA (RT-PCR) Negative (NEGATIVE) 09/18/21 12:27 Miscellaneous Test Cancelled 09/18/21 11:31 Medications List Reviewed: Yes Assessment And Plan - Plan Physical exam: General: Other (AMS) HEENT: Atraumatic Neck: Supple Respiratory: Clear to auscultation bilaterally, Normal air movement Cardiovascular: Normal pulses, Regular rate/rhythm Gastrointestinal: Normal bowel sounds, Soft and benign Musculoskeletal: No contractures Integumentary: Pressure ulcer (Sacral decubitus ulcer status post surgical debridement performed on 09/19 and 09/26. Conclusions/Impression: Antibiotics: CURRENT: Daptomycin Start: 09/25 Meropenem Start: 09/19 DC: Vancomycin Start: 09/18 Stop: 09/24 Assessment/plan Severe sepsis secondary to infected sacral decubitus ulcer Patient septic on admission with lactic acidosis, metabolic acidosis, leukocytosis, and tacypena. Source infection: Infected sacral decubitus ulcer. CT abdomen pelvis showed gas-forming soft tissue infection directly posterior to sacrum. Sacral wound culture grew Proteus mirabilis, citrobacter, and vancomycin-resistant Enterococcus faecalis. Based off wound culture report patient has been placed on daptomycin and meropenem. Baseline creatinine kinase: 15, will obtain weekly creatinine kinase will patient is on daptomycin. Will hold statin well patient is on this medication. Patient underwent emergent debridement of sacral decubitus ulcer on 09/19. Additional debridement performed on 09/26. Continue wound care per surgical team. Wound VAC placed to sacral wound on 09/27. CK level on 10/01: 11 Coccyx osteomyelitis Patient will need antibioitc therapy for 6 weeks duration. Continue dapto and merum during hospital stay/while patient is still on pressers, can send home on IV rocephin--BC showed sensitivity. Antibiotic day . right forearm skin tear Patient is at risk of skin abrasions due to mediations and poor nutritional status. Continue to monitor closely and use caution when moving. To area: apply xeroform and cover with foam. Change daily or PRN if soiled or removed. Bacteremia Blood cultures obtained on 09/18 growing Proteus mirabilis sensitive to meropenem. Repeat blood cultures obtained on 09/20 show no growth at 24hr. Continue IV meropenem for 7-10 days from 09/20. Extended due to osteomyeltis. ESRD on HD Avoid nephrotoxic agents, renally dose all antibiotics/give after HD on HD days. Nephrology following. Anemia Patient has received blood products. Continue to monitor H&H. Leukocytosis Down trending, continue to monitor WBC trend in fever curve. Protein caloric malnutrition: Moderate Patient was low albumin, recommend supplemental Ensure protein drinks. Adequate nutrition needed for proper wound healing. -medical management per primary team Plan of care discussed with Dr. newell Thank you for consultation.
--- NOTE | 2021-10-03 14:38 | P.PN ---
Subjective Date of Service: 10/03/21 Chief Complaint: Altered mental status Patient awake and interactive. No major changes from yesterday. Levophed drip being weaned down. Physical Examination - Vital Signs Temperature: 98.4 F Blood Pressure: 120/49 Pulse: 84 Respirations: 20 Pulse Ox (%): 98 - Studies Medications List Reviewed: Yes Assessment And Plan - Current Problems (Diagnosis) (1) Sepsis Current Visit: Yes Status: Acute (2) UTI (urinary tract infection) Current Visit: Yes Status: Acute (3) End-stage renal disease on hemodialysis Current Visit: Yes Status: Acute (4) Chronic systolic heart failure Current Visit: Yes Status: Acute (5) History of CVA (cerebrovascular accident) Current Visit: Yes Status: Acute (6) Metabolic acidosis Current Visit: Yes Status: Acute (7) Anemia Current Visit: Yes Status: Acute - Plan Physical examination General: In no apparent distress, awake and interactive. Neck: JVD not distended Respiratory: Clear to auscultation bilaterally, Normal air movement Cardiovascular: Normal S1 S2, Irregular heart rate/rhythm Gastrointestinal: Soft and benign, Non-distended, nontender. Musculoskeletal: No swelling Integumentary: Stage IV large sacral decubitus ulcer. Multiple skin tears on bilateral upper extremities and lower extremities. Bilateral lower extremity venous stasis dermatitis and hemosiderin discolorations. Neurological: Moves all extremities Plan: Status post 5 unit PRBC transfusion. No evidence of active bleeding. Patient is on Eliquis but no GI bleed. No melena or hematochezia. Patient with superficial vein thrombosis. Eliquis discontinued. Status post sacral decubitus ulcer debridement. Dr. Ramirez saw patient. Status post debridement x2. Wound VAC in place. Nephrology is following for hemodialysis. Metabolic acidosis resolved. Status post albumin infusion for low albumin and hypotension. Status post multiple albumin infusion, normal saline bolus and IV hydration. Also hypotensive despite being on midodrine. Continue midodrine to 10 mg 3 times daily and wean off Levophed drip as possible. Obtain echocardiogram to assess his ejection fraction. Infectious disease is following. Blood culture: pansensitive Proteus. Wound culture: Proteus and Citrobacter. Repeat blood culture shows no growth to date. On daptomycin and meropenem. ID is monitoring CPK levels. Urine culture: No growth. Feeding as tolerated. Patient is tolerating puree diet. Insulin sliding scale for glucose management. Anemia likely secondary to sepsis and chronic kidney disease. Hemoglobin is stable around 7 Monitor CBC and blood chemistry. Electrolyte replacement per nephrology. Patient is a good candidate for LTAC placement for aggressive wound care, bacteremia treatment and hemodialysis. Family have refused LTAC placement and would like to take him home upon discharge. Family has been informed it may be difficult to take care of of him, transport him to dialysis given his large decubitus and a soft blood pressure. Recommended care in a facility but they are adamant on managing him at home. Prognosis guarded.
[2021-10-03] MEDS: EPOETIN ALFA 10,000 UNIT/ML VIAL SQ SCH (16:57)
[2021-10-03] MEDS: Meropenem 500 MG/100 ML BAG IV SCH (20:27)
--- NOTE | 2021-10-03 20:56 | P.PN ---
Date of Service: 10/03/21 Vital Signs Temp Pulse Resp BP Pulse Ox 97.1 F 80 21 H 98/61 99 10/03/21 16:00 10/03/21 17:15 10/03/21 17:15 10/03/21 17:15 10/03/21 17:15 Medications Acetaminophen (Acetaminophen 650mg/Rect Supp) 650 mg NV Q6HP PRN PRN Reason: TEMP > 100' F Acetaminophen (Acetaminophen 500 Mg Tab) 500 mg PO Q4HP PRN PRN Reason: TEMP > 100' F Amiodarone HCl (Amiodarone Hcl 200 Mg Tab) 200 mg PO DAILY [facility] Last Admin: 10/03/21 09:27 Dose: 200 mg Documented by: Aripiprazole (Aripiprazole 5 Mg Tab) 2.5 mg PO DAILY [facility] Last Admin: 10/03/21 09:26 Dose: 2.5 mg Documented by: Calcitriol (Calcitrol 0.25 Mcg Cap) 0.5 mcg PO DAILY [facility] Last Admin: 10/03/21 09:26 Dose: 0.5 mcg Documented by: Docusate Sodium (Docusate Na 100 Mg Cap) 100 mg PO BID PRN PRN Reason: CONSTIPATION Epoetin Garrick (Epoetin Garrick 10,000 Unit/Ml Vial) 10,000 unit SQ M,W,F [facility] Last Admin: 10/03/21 16:57 Dose: 10,000 unit Documented by: Home Med (Fluticasone Propion/Salmeterol [Fluticasone-Salmeterol 100-50]) 1 each IH BID [facility] Last Admin: 10/03/21 20:32 Dose: 1 each Documented by: Home Med (Petrolatum,White [Aloe [place]]) 0 gm TOP PRN PRN PRN Reason: wound senior care Med (Ketorolac Tromethamine [Ketorolac Tromethamine]) 1 drop OPTH QID PRN PRN Reason: inflammation Last Admin: 10/02/21 08:31 Dose: 1 drop Documented by: Home Med (Carboxymethylcellulose Sodium [Restore Plus]) 2 each OPTH QID PRN PRN Reason: DRY EYES Last Admin: 10/02/21 08:31 Dose: 2 each Documented by: Albumin Human (Albumin 25%) 50 mls @ 100 mls/hr IV EVERY HD [facility] Last Admin: 10/01/21 17:26 Dose: 50 mls Documented by: Meropenem (Merrem 500 Mg/100 Ml Ns Ivpb) 500 mg in 100 mls @ 200 mls/hr IV DAILY [facility] Last Admin: 10/03/21 20:27 Dose: 100 mls Documented by: Norepinephrine Bitartrate 8 mg (/ Dextrose) 258 mls @ 0 mls/hr IV TITR [facility]; Protocol Last Titration: 10/03/21 20:15 Dose: 7 mcg/min, 13.5 mls/hr Documented by: Sodium Chloride (Sodium Chloride) 250 mls @ 0 mls/hr IV .Q0M [facility] Last Admin: 09/24/21 22:36 Dose: 250 mls Documented by: Daptomycin 675 mg/ Sodium (Chloride) 100 mls @ 200 mls/hr IVPB Q48H [facility] Last Admin: 10/01/21 13:41 Dose: 100 mls Documented by: Insulin Human Regular (Insulin -Regular Human 50 Unit/0.5 Ml Ml) 0 unit SQ Q6HR [facility]; Protocol Last Admin: 10/03/21 17:21 Dose: Not Given Documented by: Ipratropium [place] (Ipratropium Brom 0.5mg/2.5ml) 0.5 mg IH QIDRESP PRN PRN Reason: SHORTNESS OF BREATH Last Admin: 09/19/21 21:55 Dose: 0.5 mg Documented by: Mannitol (Mannitol 25% 12.5 Gm/50 Ml Vial) 12.5 gm IV EVERY HD PRN PRN Reason: Titrate to SBP (MUST DEFINE) Midodrine (Midodrine Hcl 5 Mg Tablet) 10 mg PO AC [facility] Last Admin: 10/03/21 16:57 Dose: 10 mg Documented by: Ondansetron HCl (Ondansetron 4 Mg/2 Ml Vial) 4 mg IV Q6HP PRN PRN Reason: NAUSEA / VOMITING Pantoprazole Sodium (Pantoprazole 40mg Tablet) 40 mg PO DAILYAC [facility]; Protocol Last Admin: 10/03/21 06:01 Dose: 40 mg Documented by: Sodium Chloride (Flush Normal Saline 10 Ml) 10 ml IV BID [facility] Last Admin: 10/03/21 20:31 Dose: 10 ml Documented by: Sodium Chloride (Sodium Chloride 0.9% 10ml Inj) 10 ml IV UD PRN PRN Reason: Diluant Vitamin B Complex/Vit C/Folic Acid (Multivitamins,Therapeut 1 Tab) 1 tab PO DAILY [facility] Last Admin: 10/03/21 09:26 Dose: 1 tab Documented by: Microbiology Results 09/18/21 11:41 Blood - Blood Aerobic Blood Culture - Final Proteus Mirabilis 09/18/21 11:41 Blood - Blood Blood Culture Gram Stain - Final 09/18/21 11:41 Blood - Blood Anaerobic Blood Culture - Final Proteus Mirabilis 09/18/21 11:41 Blood - Blood Gram Stain - Final 09/18/21 11:35 Blood - Blood Aerobic Blood Culture - Final Proteus Mirabilis 09/18/21 11:35 Blood - Blood Blood Culture Gram Stain - Final 09/18/21 11:35 Blood - Blood Anaerobic Blood Culture - Final Proteus Mirabilis 09/18/21 11:35 Blood - Blood Gram Stain - Final 09/18/21 12:45 Clean Catch Urine [place] Count - Final No growth. 09/18/21 12:45 Clean Catch Urine - Final No growth. Assessment/ Plan: Nephrology No dyspnea. ZHAO. No chest pain Weakness and fatigue. More responsive today with improved appetite. No acute events overnight. Vitals, medications, blood work and imaging reviewed in the chart General: In no apparent distress, Cooperative HEENT: Atraumatic Neck: Supple Respiratory: Clear to auscultation bilaterally Cardiovascular: Regular rate/rhythm, Hip & LE Edema Gastrointestinal: Non-distended, No tenderness Musculoskeletal: No clubbing, No contractures Integumentary: No rashes, No cyanosis. Large sacral ulcer. Neurological: Normal speech Laboratory Data (last 24 hrs) 09/18/21 11:41: PT 21.2 H, INR 1.83, APTT 33.6 09/18/21 11:41: WBC 20.90 H*, Hgb 7.1 L, Hct 23.9 L, Plt Count 344 09/18/21 11:41: Sodium 134 L, Potassium 3.5, BUN 63 H, Creatinine 10.30 H*, Glucose 97, Total Bilirubin 0.6, AST 23, ALT 20, Alkaline Phosphatase 114, Amylase 24 L, Lipase 39 L Imagings Data: EXAM DESCRIPTION: CT - Abdomen Pelvis Wo Contrast - 09/18/2021 5:07 pm CLINICAL HISTORY: Sepsis COMPARISON: No comparisons TECHNIQUE: Axial [address] imaging of the abdomen and pelvis was performed without IV contrast. No IV contrast was given because of allergy, abnormal renal function, patient refusal or physician request. No oral contrast administered. All CT scans are performed using dose optimization technique as appropriate and may include automated exposure control or mA/KV adjustment according to patient size. FINDINGS: No suspicious findings in the lung bases. The liver, spleen and pancreas show no suspicious findings on non-contrast imaging. Gallbladder and biliary tree are also without suspicious finding. Gallstones can be occult on CT imaging. Degree of respiratory motion artifact of the upper abdomen limits accurate assessment of gallbladder wall thickness. No hydronephrosis or suspicious renal mass. No significant adrenal finding. Isodense renal masses and pyelonephritis cannot be excluded in the absence of IV contrast. The urinary bladder is without significant finding. A 2.6 centimeter focal mass posterior right margin of the bladder is isodense to the bladder and is suspected to be moderate-sized bladder diverticulum. No gastric dilatation or gastric wall thickening. No pneumatosis intestinalis. Within the peritoneal cavity there is no free air, free fluid or inflammatory stranding. No acute retroperitoneal process seen. No hernia, mass or bulky lymphadenopathy. Patient has advanced degenerative changes of both hip joints, worse on the left. No acute bone or joint finding. Patient has extensive gas densities present in the subcutaneous fatty tissues posterior to the sacrum and coccyx. No bone destructive changes. The air dens ities extend laterally 08-2010 cm off of the midline. The inferior margin of the soft tissue gas densities extend in proximity to the posterior wall distal rectum and posterior margin of the levator ani musculature. No abnormal air densities in the fatty tissues of the perineum or scrotum. No history was provided indicating that the patient has a known decubitus ulcer or known wound in this region. IMPRESSION: Extensive abnormal air in the subcutaneous fatty tissues posterior to the sacrum and coccyx with extension each direction laterally 8-10 cm off of the midline. Inferior margin of the air densities abutthe posterior wall distal rectum and posterior margin of the levator ani musculature. This is most likely gas-forming soft tissue infection. The abnormal air densities do not yet extend into the fatty tissues of the perineum. EXAM DESCRIPTION: RAD - Chest Single View - 09/18/2021 12:00 pm CLINICAL HISTORY: COUGH Chest pain. COMPARISON: No comparisons FINDINGS: Portable technique limits examination quality. The lungs are grossly clear. The heart is normal in size. Right-sided venous catheter has tip in the right atrium region. Conclusions/Impression: ESRD -HD TIW as tolerated Hypokalemia -Replete potassium Hypomagnesemia -Replete with IV magnesium prn HypoPO4 -Replete PO4 -Encourage nutrition Hypotension Sepsis/ Septic Shock Acute Cystitis Sacral decubitus ulcer. Osteomyelitis of the coccyx. -Continue Meropenem -IV Albumin prn -Continue Levophed; wean as tolerated -Follow up with surgery; wound vac Diastolic CHF, chronic A/C hypoxic respiratory failure -Low sodium diet -Continue Oxygen supplementation -HD with UF as tolerated DM II with CKD -RISS Severe malnutrition -Continue Ensure supplementation -IV Albumin with HD today -Continue nephrovite Anemia in CKD -PRBC transfusion with HD today -Retacrit TIW CKD MBD -Continue Calcitriol Greater than 30min patient care.
[2021-10-03] MEDS: NA CHLORIDE 0.9% IVPB SCH (21:54)
[2021-10-03] MEDS: DAPTOMYCIN IVPB SCH (21:54)
[2021-10-04] MEDS: NOREPINEPHRINE 8 MG in D5W 250 ML IV SCH (02:38)
[2021-10-04 05:11] LABS: Absolute Lymphocytes (CBC) 3.1 K/uL (0.7-4.9); Hematocrit 23.5 % (39.6-49.0); Lymphocytes % 41.6 % (15.3-44.8); MPV 7.4 fL (7.6-11.3); RBC Red Blood Cell Count 2.77 M/uL (4.33-5.43)
[2021-10-04 05:31] LABS: Albumin 2.6 g/dL (3.4-5.0); Bilirubin Total 0.6 mg/dL (0.2-1.0); Potassium 3.9 mmol/L (3.5-5.1); Protein, Total 5.9 g/dL (6.4-8.2)
[2021-10-04] MEDS: INSULIN -REGULAR HUMAN 50 UNIT/0.5 ML ML SQ SCH ×4 (05:57→17:14)
[2021-10-04] MEDS: PANTOPRAZOLE 40MG TABLET PO SCH (06:09)
[2021-10-04 06:28] LABS: Anisocytosis SLIGHT; Blood Morphology Comment NOTED (NOT SEEN); Platelet Estimate ADEQ
[2021-10-04] MEDS: FLUTICASONE SALMETEROL IH SCH ×2 (09:00→21:00)
[2021-10-04] MEDS: LACTOSE-REDUCED FOOD 330 ML LIQUID PO SCH ×3 (09:00→21:00)
[2021-10-04] MEDS: CALCITROL 0.25 MCG CAP PO SCH (09:22)
[2021-10-04] MEDS: AMIODARONE HCL 200 MG TAB PO SCH (09:22)
[2021-10-04] MEDS: MIDODRINE HCL 5 MG TABLET PO SCH ×3 (09:22→17:14)
[2021-10-04] MEDS: ARIPiprazole 5 MG TAB PO SCH (09:23)
[2021-10-04] MEDS: MULTIVITAMINS,THERAPEUT 1 TAB PO SCH (09:24)
[2021-10-04] MEDS: Meropenem 500 MG/100 ML BAG IV SCH (10:23)
[2021-10-04] MEDS ORDERED: COLLAGENASE 30 GM OINTMENT TOP ONE (11:18)
--- NOTE | 2021-10-04 11:40 | P.PN ---
Subjective Date of Service: 10/04/21 Chief Complaint: Altered mental status Patient seen examined at bedside, patient still has right femoral line placed. Has been there for 2 weeks duration. Recommend pulling this line. Review of Systems 10-point ROS is otherwise unremarkable Physical Examination - Vital Signs Temperature: 97.1 F Blood Pressure: 107/56 Pulse: 81 Respirations: 21 Pulse Ox (%): 100 - Studies Laboratory Last Values WBC 20.90 K/uL (4.3-10.9) H* 09/18/21 11:41 RBC 2.71 M/uL (4.33-5.43) L 09/18/21 11:41 Hgb 7.1 g/dL (13.6-17.9) L 09/18/21 11:41 Hct 23.9 % (39.6-49.0) L 09/18/21 11:41 MCV 88.3 fL (80-100) 09/18/21 11:41 MCH 26.1 pg (27.0-35.0) L 09/18/21 11:41 MCHC 29.6 g/dL (32.0-36.0) L 09/18/21 11:41 RDW 20.0 % (12.1-15.2) H 09/18/21 11:41 Plt Count 344 K/uL (152-406) 09/18/21 11:41 MPV 7.9 fL (7.6-11.3) 09/18/21 11:41 Neutrophils % 86.4 % (41.7-73.7) H 09/18/21 11:41 Lymphocytes % 9.0 % (15.3-44.8) L 09/18/21 11:41 Monocytes % 4.1 % (3.3-12.3) 09/18/21 11:41 Eosinophils % 0.3 % (0-4.4) 09/18/21 11:41 Basophils % 0.2 % (0-1.3) 09/18/21 11:41 Absolute Neutrophils 18.0 K/uL (1.8-8.0) H 09/18/21 11:41 Segmented Neutrophils 90 % (40-80) H 09/18/21 11:41 Absolute Lymphocytes 1.9 K/uL (0.7-4.9) 09/18/21 11:41 Lymphocytes 7 % (15-42) L 09/18/21 11:41 Monocytes 3 % (0-10) 09/18/21 11:41 Absolute Monocytes 0.9 K/uL (0.1-1.3) 09/18/21 11:41 Absolute Eosinophils 0.1 K/uL (0-0.5) 09/18/21 11:41 Absolute Basophils 0.0 K/uL (0-0.5) 09/18/21 11:41 Platelet Estimate Adeq 09/18/21 11:41 Morphology Comment Not seen (NOT SEEN) 09/18/21 11:41 PT 21.2 SECONDS (9.5-12.5) H 09/18/21 11:41 INR 1.83 09/18/21 11:41 APTT 33.6 SECONDS (24.3-36.9) 09/18/21 11:41 Sodium 134 mmol/L (136-145) L 09/18/21 11:41 Potassium 3.5 mmol/L (3.5-5.1) 09/18/21 11:41 Chloride 104 mmol/L (98-107) 09/18/21 11:41 Carbon Dioxide 14 mmol/L (21-32) L* 09/18/21 11:41 BUN 63 mg/dL (7-18) H 09/18/21 11:41 Creatinine 10.30 mg/dL (0.55-1.3) H* 09/18/21 11:41 Estimated GFR 6 mL/min (=/>90) L 09/18/21 11:41 Glucose 97 mg/dL (74-106) 09/18/21 11:41 Lactic Acid 4.4 mmol/L (0.4-2.0) H* 09/18/21 11:41 Calcium 8.5 mg/dL (8.5-10.1) 09/18/21 11:41 Total Bilirubin 0.6 mg/dL (0.2-1.0) 09/18/21 11:41 Direct Bilirubin 0.3 mg/dL (0-0.2) H 09/18/21 11:41 AST 23 U/L (15-37) 09/18/21 11:41 ALT 20 U/L (12-78) 09/18/21 11:41 Alkaline Phosphatase 114 U/L (45-117) 09/18/21 11:41 Creatine Kinase 80 U/L (39-308) 09/18/21 11:41 CK-MB (CK-2) 2.6 ng/mL (1.0-3.6) 09/18/21 11:41 Rapid Troponin I 0.04 ng/mL (0.0-0.045) 09/18/21 11:41 Serum Total Protein 6.4 g/dL (6.4-8.2) 09/18/21 11:41 Albumin 1.6 g/dL (3.4-5.0) L 09/18/21 11:41 Globulin 4.8 g/dL (2.3-3.5) H 09/18/21 11:41 Albumin/Globulin Ratio 0.3 (1.1-1.8) L 09/18/21 11:41 Amylase 24 U/L (25-115) L 09/18/21 11:41 Lipase 39 U/L (73-393) L 09/18/21 11:41 Procalcitonin 5.15 ng/mL (<0.050) H 09/18/21 11:41 Urine RBC 5-10 /HPF (NONE SEEN) H 09/18/21 12:45 Urine WBC 5-10 /HPF (<5) H 09/18/21 12:45 Ur Squamous Epith Cells <5 /HPF (NONE SEEN) 09/18/21 12:45 Urine Bacteria 20-50 /HPF (NONE SEEN) H 09/18/21 12:45 Urine Culture Reflexed Reflexed 09/18/21 12:45 Influenza Type A RNA Negative (NEGATIVE) 09/18/21 12:27 Influenza Type B RNA Negative (NEGATIVE) 09/18/21 12:27 SARS-CoV-2 RNA (RT-PCR) Negative (NEGATIVE) 09/18/21 12:27 Miscellaneous Test Cancelled 09/18/21 11:31 Medications List Reviewed: Yes Assessment And Plan - Plan Physical exam: General: Other (AMS) HEENT: Atraumatic Neck: Supple Respiratory: Clear to auscultation bilaterally, Normal air movement Cardiovascular: Normal pulses, Regular rate/rhythm Gastrointestinal: Normal bowel sounds, Soft and benign Musculoskeletal: No contractures Integumentary: Pressure ulcer (Sacral decubitus ulcer status post surgical debridement performed on 09/19 and 09/26. Conclusions/Impression: Antibiotics: CURRENT: Daptomycin Start: 09/25 Meropenem Start: 09/19 DC: Vancomycin Start: 09/18 Stop: 09/24 Assessment/plan Severe sepsis secondary to infected sacral decubitus ulcer Patient septic on admission with lactic acidosis, metabolic acidosis, leukocytosis, and tacypena. Source infection: Infected sacral decubitus ulcer. CT abdomen pelvis showed gas-forming soft tissue infection directly posterior to sacrum. Sacral wound culture grew Proteus mirabilis, citrobacter, and vancomycin-resistant Enterococcus faecalis. Based off wound culture report patient has been placed on daptomycin and meropenem. Baseline creatinine kinase: 15, will obtain weekly creatinine kinase will patient is on daptomycin. Will hold statin well patient is on this medication. Patient underwent emergent debridement of sacral decubitus ulcer on 09/19. Additional debridement performed on 09/26. Continue wound care per surgical team. Wound VAC placed to sacral wound on 09/27. CK level on 10/01: 11 Coccyx osteomyelitis Patient will need antibioitc therapy for 6 weeks duration. Continue dapto and merum during hospital stay/while patient is still on pressers, can send home on IV ceftazidime or cefepime as a can be given with dialysis--BC showed sensitivity. Antibiotic day . right forearm skin tear Patient is at risk of skin abrasions due to mediations and poor nutritional status. Continue to monitor closely and use caution when moving. To area: apply xeroform and cover with foam. Change daily or PRN if soiled or removed. Bacteremia Blood cultures obtained on 09/18 growing Proteus mirabilis sensitive to meropenem. Repeat blood cultures obtained on 09/20 show no growth at 24hr. Continue IV meropenem for 7-10 days from 09/20. Extended due to osteomyeltis. ESRD on HD Avoid nephrotoxic agents, renally dose all antibiotics/give after HD on HD days. Nephrology following. Anemia Patient has received blood products. Continue to monitor H&H. Leukocytosis Resolved, continue to monitor WBC trend in fever curve. Protein caloric malnutrition: Moderate Patient was low albumin, recommend supplemental Ensure protein drinks. Adequate nutrition needed for proper wound healing. -medical management per primary team Plan of care discussed with Dr. newell Thank you for consultation.
--- NOTE | 2021-10-04 13:00 | P.PN ---
Subjective Date of Service: 10/04/21 Chief Complaint: Altered mental status Patient has no new complaint. He is awake. Still on Levophed drip. Physical Examination - Vital Signs Temperature: 97.1 F Blood Pressure: 122/55 Pulse: 87 Respirations: 20 Pulse Ox (%): 97 - Studies Medications List Reviewed: Yes Assessment And Plan - Current Problems (Diagnosis) (1) Sepsis Current Visit: Yes Status: Acute (2) UTI (urinary tract infection) Current Visit: Yes Status: Acute (3) End-stage renal disease on hemodialysis Current Visit: Yes Status: Acute (4) Chronic systolic heart failure Current Visit: Yes Status: Acute (5) History of CVA (cerebrovascular accident) Current Visit: Yes Status: Acute (6) Metabolic acidosis Current Visit: Yes Status: Acute (7) Anemia Current Visit: Yes Status: Acute - Plan Physical examination General: In no apparent distress, awake and interactive. Neck: JVD not distended Respiratory: Clear to auscultation bilaterally, Normal air movement Cardiovascular: Normal S1 S2, Irregular heart rate/rhythm Gastrointestinal: Soft and benign, Non-distended, nontender. Musculoskeletal: No swelling Integumentary: Stage IV large sacral decubitus ulcer. Multiple skin tears on bilateral upper extremities and lower extremities. Bilateral lower extremity venous stasis dermatitis and hemosiderin discolorations. Neurological: Moves all extremities Plan: Status post 5 unit PRBC transfusion. No evidence of active bleeding. Patient was on Eliquis. No melena or hematochezia. Hemoglobin remained stable. Patient with superficial vein thrombosis. Eliquis discontinued. Status post sacral decubitus ulcer debridement. Dr. Ramirez saw patient. Status post debridement x2. Wound VAC in place. Dr. Ramirez to follow. Nephrology is following for hemodialysis. Metabolic acidosis resolved. Status post albumin infusion for low albumin and hypotension. Status post multiple albumin infusion, normal saline bolus and IV hydration. Also hypotensive despite being on midodrine. Continue midodrine to 10 mg 3 times daily and wean off Levophed drip as possible. Echocardiogram to assess EF is pending Infectious disease is following. Patient with femoral central line. Blood culture: pansensitive Proteus. Wound culture: Proteus and Citrobacter. Repeat blood culture shows no growth to date. On daptomycin and meropenem. ID is monitoring CPK levels. Plan is to wean off Levophed drip so we can discontinue the central line. ID is planning vancomycin with hemodialysis for osteomyelitis Urine culture: No growth. Feeding as tolerated. Patient is tolerating puree diet. Insulin sliding scale for glucose management. Anemia likely secondary to sepsis and chronic kidney disease. Hemoglobin is stable around 7 Monitor CBC and blood chemistry. Electrolyte replacement per nephrology. Patient is a good candidate for LTAC placement for aggressive wound care, bacteremia treatment and hemodialysis. Family have refused LTAC placement and would like to take him home upon discharge. Family has been informed it may be difficult to take care of of him, transport him to dialysis given his large decubitus and a soft blood pressure. Recommended care in a facility but they are adamant on managing him at home. We may be able to discharge him home once patient is weaned off the Levophed drip. Prognosis guarded.
--- NOTE | 2021-10-04 20:54 | P.PN ---
Date of Service: 10/04/21 Vital Signs Temp Pulse Resp BP Pulse Ox 97.6 F 100 H 27 H 125/64 95 10/04/21 16:00 10/04/21 18:00 10/04/21 18:00 10/04/21 18:00 10/04/21 18:00 Medications Acetaminophen (Acetaminophen 650mg/Rect Supp) 650 mg MA Q6HP PRN PRN Reason: TEMP > 100' F Acetaminophen (Acetaminophen 500 Mg Tab) 500 mg PO Q4HP PRN PRN Reason: TEMP > 100' F Amiodarone HCl (Amiodarone Hcl 200 Mg Tab) 200 mg PO DAILY [facility] Last Admin: 10/04/21 09:22 Dose: 200 mg Documented by: Aripiprazole (Aripiprazole 5 Mg Tab) 2.5 mg PO DAILY [facility] Last Admin: 10/04/21 09:23 Dose: 2.5 mg Documented by: Calcitriol (Calcitrol 0.25 Mcg Cap) 0.5 mcg PO DAILY [facility] Last Admin: 10/04/21 09:22 Dose: 0.5 mcg Documented by: Collagenase (Collagenase 30 Gm Ointment) 1 appl TOP DAILY [facility] Docusate Sodium (Docusate Na 100 Mg Cap) 100 mg PO BID PRN PRN Reason: CONSTIPATION Epoetin Garrick (Epoetin Garrick 10,000 Unit/Ml Vial) 10,000 unit SQ M,W,F [facility] Last Admin: 10/03/21 16:57 Dose: 10,000 unit Documented by: Home Med (Fluticasone Propion/Salmeterol [Fluticasone-Salmeterol 100-50]) 1 each IH BID [facility] Last Admin: 10/04/21 09:00 Dose: 1 each Documented by: Home Med (Petrolatum,White [Aloe [place]]) 0 gm TOP PRN PRN PRN Reason: wound [facility] Med (Ketorolac Tromethamine [Ketorolac Tromethamine]) 1 drop OPTH QID PRN PRN Reason: inflammation Last Admin: 10/02/21 08:31 Dose: 1 drop Documented by: Home Med (Carboxymethylcellulose Sodium [Restore Plus]) 2 each OPTH QID PRN PRN Reason: DRY EYES Last Admin: 10/02/21 08:31 Dose: 2 each Documented by: Albumin Human (Albumin 25%) 50 mls @ 100 mls/hr IV EVERY HD [facility] Last Admin: 10/01/21 17:26 Dose: 50 mls Documented by: Meropenem (Merrem 500 Mg/100 Ml Ns Ivpb) 500 mg in 100 mls @ 200 mls/hr IV DAILY [facility] Last Admin: 10/04/21 10:23 Dose: 100 mls Documented by: Norepinephrine Bitartrate 8 mg (/ Dextrose) 258 mls @ 0 mls/hr IV TITR [facility]; Protocol Last Titration: 10/04/21 14:10 Dose: 0 mcg/min, 0 mls/hr Documented by: Sodium Chloride (Sodium Chloride) 250 mls @ 0 mls/hr IV .Q0M [facility] Last Admin: 09/24/21 22:36 Dose: 250 mls Documented by: Daptomycin 675 mg/ Sodium (Chloride) 100 mls @ 200 mls/hr IVPB Q48H [facility] Last Admin: 10/03/21 21:54 Dose: 100 mls Documented by: Insulin Human Regular (Insulin -Regular Human 50 Unit/0.5 Ml Ml) 0 unit SQ Q6HR [facility]; Protocol Last Admin: 10/04/21 17:14 Dose: Not Given Documented by: Ipratropium [place] (Ipratropium Brom 0.5mg/2.5ml) 0.5 mg IH QIDRESP PRN PRN Reason: SHORTNESS OF BREATH Last Admin: 09/19/21 21:55 Dose: 0.5 mg Documented by: Mannitol (Mannitol 25% 12.5 Gm/50 Ml Vial) 12.5 gm IV EVERY HD PRN PRN Reason: Titrate to SBP (MUST DEFINE) Midodrine (Midodrine Hcl 5 Mg Tablet) 10 mg PO AC [facility] Last Admin: 10/04/21 17:14 Dose: 10 mg Documented by: Ondansetron HCl (Ondansetron 4 Mg/2 Ml Vial) 4 mg IV Q6HP PRN PRN Reason: NAUSEA / VOMITING Pantoprazole Sodium (Pantoprazole 40mg Tablet) 40 mg PO DAILYAC [facility]; Protocol Last Admin: 10/04/21 06:09 Dose: 40 mg Documented by: Sodium Chloride (Flush Normal Saline 10 Ml) 10 ml IV BID [facility] Last Admin: 10/04/21 09:00 Dose: 10 ml Documented by: Sodium Chloride (Sodium Chloride 0.9% 10ml Inj) 10 ml IV UD PRN PRN Reason: Diluant Vitamin B Complex/Vit C/Folic Acid (Multivitamins,Therapeut 1 Tab) 1 tab PO DAILY [facility] Last Admin: 10/04/21 09:24 Dose: 1 tab Documented by: Microbiology Results 09/18/21 11:41 Blood - Blood Aerobic Blood Culture - Final Proteus Mirabilis 09/18/21 11:41 Blood - Blood Blood Culture Gram Stain - Final 09/18/21 11:41 Blood - Blood Anaerobic Blood Culture - Final Proteus Mirabilis 09/18/21 11:41 Blood - Blood Gram Stain - Final 09/18/21 11:35 Blood - Blood Aerobic Blood Culture - Final Proteus Mirabilis 09/18/21 11:35 Blood - Blood Blood Culture Gram Stain - Final 09/18/21 11:35 Blood - Blood Anaerobic Blood Culture - Final Proteus Mirabilis 09/18/21 11:35 Blood - Blood Gram Stain - Final 09/18/21 12:45 Clean Catch Urine [place] Count - Final No growth. 09/18/21 12:45 Clean Catch Urine - Final No growth. Assessment/ Plan: Nephrology No dyspnea. ZHAO. No chest pain Weakness and fatigue. No acute events overnight. Vitals, medications, blood work and imaging reviewed in the chart General: In no apparent distress, Cooperative HEENT: Atraumatic Neck: Supple Respiratory: Clear to auscultation bilaterally Cardiovascular: Regular rate/rhythm, Hip & LE Edema Gastrointestinal: Non-distended, No tenderness Musculoskeletal: No clubbing, No contractures Integumentary: No rashes, No cyanosis. Large sacral ulcer. Neurological: Normal speech Laboratory Data (last 24 hrs) 09/18/21 11:41: PT 21.2 H, INR 1.83, APTT 33.6 09/18/21 11:41: WBC 20.90 H*, Hgb 7.1 L, Hct 23.9 L, Plt Count 344 09/18/21 11:41: Sodium 134 L, Potassium 3.5, BUN 63 H, Creatinine 10.30 H*, Glucose 97, Total Bilirubin 0.6, AST 23, ALT 20, Alkaline Phosphatase 114, Amylase 24 L, Lipase 39 L Imagings Data: EXAM DESCRIPTION: CT - Abdomen Pelvis Wo Contrast - 09/18/2021 5:07 pm CLINICAL HISTORY: Sepsis COMPARISON: No comparisons TECHNIQUE: Axial [address] imaging of the abdomen and pelvis was performed without IV contrast. No IV contrast was given because of allergy, abnormal renal function, patient refusal or physician request. No oral contrast administered. All CT scans are performed using dose optimization technique as appropriate and may include automated exposure control or mA/KV adjustment according to patient size. FINDINGS: No suspicious findings in the lung bases. The liver, spleen and pancreas show no suspicious findings on non-contrast imaging. Gallbladder and biliary tree are also without suspicious finding. Gallstones can be occult on CT imaging. Degree of respiratory motion artifact of the upper abdomen limits accurate assessment of gallbladder wall thickness. No hydronephrosis or suspicious renal mass. No significant adrenal finding. Isodense renal masses and pyelonephritis cannot be excluded in the absence of IV contrast. The urinary bladder is without significant finding. A 2.6 centimeter focal mass posterior right margin of the bladder is isodense to the bladder and is suspected to be moderate-sized bladder diverticulum. No gastric dilatation or gastric wall thickening. No pneumatosis intestinalis. Within the peritoneal cavity there is no free air, free fluid or inflammatory stranding. No acute retroperitoneal process seen. No hernia, mass or bulky lymphadenopathy. Patient has advanced degenerative changes of both hip joints, worse on the left. No acute bone or joint finding. Patient has extensive gas densities present in the subcutaneous fatty tissues posterior to the sacrum and coccyx. No bone destructive changes. The air densities extend laterally 08-2010 cm off of the midline. The inferior margin of the soft tissue gas densities extend in proximity to the posterior wall distal rectum and posterior margin of the levator ani musculature. No abnormal air densities in the fatty tissues of the perineum or scrotum. No history was provided indicating that the patient has a known decubitus ulcer or known wound in this region. IMPRESSION: Extensive abnormal air in the subcutaneous fatty tissues posterior to the sacrum and coccyx with extension each direction laterally 8-10 cm off of the midline. Inferior margin of the air densities abutthe posterior wall distal rectum and posterior margin of the levator ani musculature. This is most likely gas-forming soft tissue infection. The abnormal air densities do not yet extend into the fatty tissues of the perineum. EXAM DESCRIPTION: RAD - Chest Single View - 09/18/2021 12:00 pm CLINICAL HISTORY: COUGH Chest pain. COMPARISON: No comparisons FINDINGS: Portable technique limits examination quality. The lungs are grossly clear. The heart is normal in size. Right-sided venous catheter has tip in the right atrium region. Conclusions/Impression: ESRD -HD TIW as tolerated Hypokalemia -Replete potassium prn Hypomagnesemia -Replete with IV magnesium prn HypoPO4 -Replete PO4 -Encourage nutrition Hypotension Sepsis/ Septic Shock Acute Cystitis Sacral decubitus ulcer. Osteomyelitis of the coccyx. -Continue Meropenem -IV Albumin prn -Continue Levophed; wean as tolerated -Follow up with surgery; wound vac Diastolic CHF, chronic A/C hypoxic respiratory failure -Low sodium diet -Continue Oxygen supplementation -HD with UF as tolerated DM II with CKD -RISS Severe malnutrition -Continue Ensure supplementation -IV Albumin with HD today -Continue nephrovite Anemia in CKD -PRBC transfusion with HD today -Retacrit TIW CKD MBD -Continue Calcitriol Greater than 30min patient care. Case reviewed with Dr. Alanis
[2021-10-05] MEDS ORDERED: GLUCAGON 1 MG/VIAL IM PRN (00:43)
[2021-10-05] MEDS: D50W 25 GM/50 ML SYRINGE IV PRN ×2 (01:01→05:47)
[2021-10-05 05:37] LABS: Lymphocytes % 39.8 % (15.3-44.8); MPV 8.4 fL (7.6-11.3); RBC Red Blood Cell Count 2.81 M/uL (4.33-5.43)
[2021-10-05] MEDS: INSULIN -REGULAR HUMAN 50 UNIT/0.5 ML ML SQ SCH ×4 (05:48→18:00)
[2021-10-05] MEDS: PANTOPRAZOLE 40MG TABLET PO SCH (05:49)
[2021-10-05 05:56] LABS: Potassium 3.7 mmol/L (3.5-5.1)
--- NOTE | 2021-10-05 08:27 | ECHO ---
HEIGHT: 6 ft 0 in WEIGHT: 237 lb 1.6 oz DATE OF STUDY: 10/03/[address]: jacques willard 2-DIMENSIONAL: YES M.MODE: YES DOPPLER: YES COLOR FLOW: YES TDS: YES PORTABLE: YES DEFINITY: NO BUBBLE STUDY: NO DIAGNOSIS: EVALUATE HEART FUNCTION CARDIAC HISTORY: CATHERIZATION: SURGERY: PROSTHETIC VALVE: PACEMAKER: MEASUREMENTS (cm) DIASTOLIC (NORMALS) SYSTOLIC (NORMALS) IVSd 1.0 (0.6-1.2) LA Diam (1.9-4.0) LVEF 77% LVIDd 3.9 (3.5-5.7) LVIDs 2.1 (2.0-3.5) %FS 45% LVPWd 0.9 (0.6-1.2) Ao Diam 3.2 (2.0-3.7) 2 DIMENSIONAL ASSESSMENT: RIGHT ATRIUM: NORMAL LEFT ATRIUM: NORMAL RIGHT VENTRICLE: NORMAL LEFT VENTRICLE: NORMAL TRICUSPID VALVE: NORMAL MITRAL VALVE: NORMAL PULMONIC VALVE: NORMAL AORTIC VALVE: PERICARDIAL EFFUSION: NONE AORTIC ROOT: NORMAL LEFT VENTRICULAR WALL MOTION: NORMAL DOPPLER/COLOR FLOW: MODERATE AORTIC STENOSIS. COMMENTS: NORMAL LEFT VENTRICULAR EJECTION FRACTION 60-65%. NORMAL WALL MOTION. MODERATE AORTIC STENOSIS. TECHNOLOGIST: Gus RYAN
[2021-10-05] MEDS: LACTOSE-REDUCED FOOD 330 ML LIQUID PO SCH ×3 (09:00→21:00)
[2021-10-05] MEDS: FLUTICASONE SALMETEROL IH SCH ×2 (09:00→21:40)
[2021-10-05] MEDS ORDERED: COLLAGENASE 30 GM OINTMENT TOP SCH (09:00)
[2021-10-05] MEDS: CALCITROL 0.25 MCG CAP PO SCH (10:14)
[2021-10-05] MEDS: MIDODRINE HCL 5 MG TABLET PO SCH ×3 (10:15→16:30)
[2021-10-05] MEDS: ARIPiprazole 5 MG TAB PO SCH (10:15)
[2021-10-05] MEDS: MULTIVITAMINS,THERAPEUT 1 TAB PO SCH (10:16)
[2021-10-05] MEDS: AMIODARONE HCL 200 MG TAB PO SCH (10:16)
--- NOTE | 2021-10-05 11:44 | P.PN ---
Subjective Date of Service: 10/05/21 Chief Complaint: Altered mental status Subjective: No new changes, No C/O voiced, Tolerating diet, Ambulating, Improving Patient seen examined at bedside, taken off Levophed drip last night. Patient is set to have dialysis today, if pressure stabilized after dialysis we will de- escalate antibiotics and remove right femoral central line. Review of Systems 10-point ROS is otherwise unremarkable Physical Examination - Vital Signs Temperature: 98.4 F Blood Pressure: 107/58 Pulse: 91 Respirations: 24 Pulse Ox (%): 96 - Physical Exam General: Alert, In no apparent distress HEENT: Atraumatic, PERRLA, EOMI Neck: Supple, JVD not distended Respiratory: Clear to auscultation bilaterally, Normal air movement Cardiovascular: Regular rate/rhythm, Normal S1 S2 Gastrointestinal: Normal bowel sounds, No tenderness Musculoskeletal: No tenderness Integumentary: No rashes Neurological: Normal speech, Normal tone, Normal affect Lymphatics: No axilla or inguinal lymphadenopathy - Studies Laboratory Last Values WBC 20.90 K/uL (4.3-10.9) H* 09/18/21 11:41 RBC 2.71 M/uL (4.33-5.43) L 09/18/21 11:41 Hgb 7.1 g/dL (13.6-17.9) L 09/18/21 11:41 Hct 23.9 % (39.6-49.0) L 09/18/21 11:41 MCV 88.3 fL (80-100) 09/18/21 11:41 MCH 26.1 pg (27.0-35.0) L 09/18/21 11:41 MCHC 29.6 g/dL (32.0-36.0) L 09/18/21 11:41 RDW 20.0 % (12.1-15.2) H 09/18/21 11:41 Plt Count 344 K/uL (152-406) 09/18/21 11:41 MPV 7.9 fL (7.6-11.3) 09/18/21 11:41 Neutrophils % 86.4 % (41.7-73.7) H 09/18/21 11:41 Lymphocytes % 9.0 % (15.3-44.8) L 09/18/21 11:41 Monocytes % 4.1 % (3.3-12.3) 09/18/21 11:41 Eosinophils % 0.3 % (0-4.4) 09/18/21 11:41 Basophils % 0.2 % (0-1.3) 09/18/21 11:41 Absolute Neutrophils 18.0 K/uL (1.8-8.0) H 09/18/21 11:41 Segmented Neutrophils 90 % (40-80) H 09/18/21 11:41 Absolute Lymphocytes 1.9 K/uL (0.7-4.9) 09/18/21 11:41 Lymphocytes 7 % (15-42) L 09/18/21 11:41 Monocytes 3 % (0-10) 09/18/21 11:41 Absolute Monocytes 0.9 K/uL (0.1-1.3) 09/18/21 11:41 Absolute Eosinophils 0.1 K/uL (0-0.5) 09/18/21 11:41 Absolute Basophils 0.0 K/uL (0-0.5) 09/18/21 11:41 Platelet Estimate Adeq 09/18/21 11:41 Morphology Comment Not seen (NOT SEEN) 09/18/21 11:41 PT 21.2 SECONDS (9.5-12.5) H 09/18/21 11:41 INR 1.83 09/18/21 11:41 APTT 33.6 SECONDS (24.3-36.9) 09/18/21 11:41 Sodium 134 mmol/L (136-145) L 09/18/21 11:41 Potassium 3.5 mmol/L (3.5-5.1) 09/18/21 11:41 Chloride 104 mmol/L (98-107) 09/18/21 11:41 Carbon Dioxide 14 mmol/L (21-32) L* 09/18/21 11:41 BUN 63 mg/dL (7-18) H 09/18/21 11:41 Creatinine 10.30 mg/dL (0.55-1.3) H* 09/18/21 11:41 Estimated GFR 6 mL/min (=/>90) L 09/18/21 11:41 Glucose 97 mg/dL (74-106) 09/18/21 11:41 Lactic Acid 4.4 mmol/L (0.4-2.0) H* 09/18/21 11:41 Calcium 8.5 mg/dL (8.5-10.1) 09/18/21 11:41 Total Bilirubin 0.6 mg/dL (0.2-1.0) 09/18/21 11:41 Direct Bilirubin 0.3 mg/dL (0-0.2) H 09/18/21 11:41 AST 23 U/L (15-37) 09/18/21 11:41 ALT 20 U/L (12-78) 09/18/21 11:41 Alkaline Phosphatase 114 U/L (45-117) 09/18/21 11:41 Creatine Kinase 80 U/L (39-308) 09/18/21 11:41 CK-MB (CK-2) 2.6 ng/mL (1.0-3.6) 09/18/21 11:41 Rapid Troponin I 0.04 ng/mL (0.0-0.045) 09/18/21 11:41 Serum Total Protein 6.4 g/dL (6.4-8.2) 09/18/21 11:41 Albumin 1.6 g/dL (3.4-5.0) L 09/18/21 11:41 Globulin 4.8 g/dL (2.3-3.5) H 09/18/21 11:41 Albumin/Globulin Ratio 0.3 (1.1-1.8) L 09/18/21 11:41 Amylase 24 U/L (25-115) L 09/18/21 11:41 Lipase 39 U/L (73-393) L 09/18/21 11:41 Procalcitonin 5.15 ng/mL (<0.050) H 09/18/21 11:41 Urine RBC 5-10 /HPF (NONE SEEN) H 09/18/21 12:45 Urine WBC 5-10 /HPF (<5) H 09/18/21 12:45 Ur Squamous Epith Cells <5 /HPF (NONE SEEN) 09/18/21 12:45 Urine Bacteria 20-50 /HPF (NONE SEEN) H 09/18/21 12:45 Urine Culture Reflexed Reflexed 09/18/21 12:45 Influenza Type A RNA Negative (NEGATIVE) 09/18/21 12:27 Influenza Type B RNA Negative (NEGATIVE) 09/18/21 12:27 SARS-CoV-2 RNA (RT-PCR) Negative (NEGATIVE) 09/18/21 12:27 Miscellaneous Test Cancelled 09/18/21 11:31 Medications List Reviewed: Yes Assessment And Plan - Plan Physical exam: General: Other (AMS) HEENT: Atraumatic Neck: Supple Respiratory: Clear to auscultation bilaterally, Normal air movement Cardiovascular: Normal pulses, Regular rate/rhythm Gastrointestinal: Normal bowel sounds, Soft and benign Musculoskeletal: No contractures Integumentary: Pressure ulcer (Sacral decubitus ulcer status post surgical debridement performed on 09/19 and 09/26. Conclusions/Impression: Antibiotics: CURRENT: Daptomycin Start: 09/25 Meropenem Start: 09/19 DC: Vancomycin Start: 09/18 Stop: 09/24 Assessment/plan Severe sepsis secondary to infected sacral decubitus ulcer Patient septic on admission with lactic acidosis, metabolic acidosis, leukocytosis, and tacypena. Source infection: Infected sacral decubitus ulcer. CT abdomen pelvis showed gas-forming soft tissue infection directly posterior to sacrum. Sacral wound culture grew Proteus mirabilis, citrobacter, and vancomycin-resistant Enterococcus faecalis. Based off wound culture report patient has been placed on daptomycin and meropenem. Baseline creatinine kinase: 15, will obtain weekly creatinine kinase will patient is on daptomycin. Will hold statin well patient is on this medication. Patient underwent emergent debridement of sacral decubitus ulcer on 09/19. Additional debridement performed on 09/26. Continue wound care per surgical team. Wound VAC placed to sacral wound on 09/27. CK level on 10/01: 11 1: 15 Coccyx osteomyelitis Patient will need antibioitc therapy for 6 weeks duration. Continue dapto and merum during hospital stay/while patient is still on pressers, can send home on IV ceftazidime or cefepime as a can be given with dialysis--BC showed sensitivity. Antibiotic day . right forearm skin tear Patient is at risk of skin abrasions due to mediations and poor nutritional status. Continue to monitor closely and use caution when moving. To area: apply xeroform and cover with foam. Change daily or PRN if soiled or removed. Bacteremia Blood cultures obtained on 09/18 growing Proteus mirabilis sensitive to meropenem. Repeat blood cultures obtained on 09/20 show no growth at 24hr. Continue IV meropenem for 7-10 days from 09/20. Extended due to osteomyeltis. ESRD on HD Avoid nephrotoxic agents, renally dose all antibiotics/give after HD on HD days. Nephrology following. Anemia Patient has received blood products. Continue to monitor H&H. Leukocytosis Resolved, continue to monitor WBC trend in fever curve. Protein caloric malnutrition: Moderate Patient was low albumin, recommend supplemental Ensure protein drinks. Adequate nutrition needed for proper wound healing. -medical management per primary team Plan of care discussed with Dr. newell Thank you for consultation.
--- NOTE | 2021-10-05 13:14 | P.PN ---
Subjective Date of Service: 10/05/21 Chief Complaint: Altered mental status Patient has no new complaint. He is awake. He is weaned off Levophed drip. Patient's blood sugar borderline low at some point today. Physical Examination - Vital Signs Temperature: 98.4 F Blood Pressure: 107/58 Pulse: 91 Respirations: 24 Pulse Ox (%): 96 - Physical Exam General: Alert, In no apparent distress HEENT: Mucous membr. moist/pink Neck: JVD not distended Respiratory: Clear to auscultation bilaterally, Normal air movement Cardiovascular: No edema, Regular rate/rhythm, Normal S1 S2 Gastrointestinal: Soft and benign, Non-distended, No tenderness Integumentary: Pressure ulcer (Large sacral decubitus ulcer with wound VAC applied.), Other (Bilateral lower extremity venous stasis dermatitis) Neurological: Other (No focal motor deficit.) - Studies Medications List Reviewed: Yes Assessment And Plan - Current Problems (Diagnosis) (1) Sepsis Current Visit: Yes Status: Acute (2) UTI (urinary tract infection) Current Visit: Yes Status: Acute (3) End-stage renal disease on hemodialysis Current Visit: Yes Status: Acute (4) Chronic systolic heart failure Current Visit: Yes Status: Acute (5) History of CVA (cerebrovascular accident) Current Visit: Yes Status: Acute (6) Metabolic acidosis Current Visit: Yes Status: Acute (7) Anemia Current Visit: Yes Status: Acute - Plan Physical examination General: In no apparent distress, awake and interactive. Neck: JVD not distended Respiratory: Clear to auscultation bilaterally, Normal air movement Cardiovascular: Normal S1 S2, Irregular heart rate/rhythm Gastrointestinal: Soft and benign, Non-distended, nontender. Musculoskeletal: No swelling Integumentary: Stage IV large sacral decubitus ulcer. Multiple skin tears on bilateral upper extremities and lower extremities. Bilateral lower extremity venous stasis dermatitis and hemosiderin discolorations. Neurological: Moves all extremities Plan: Status post 5 unit PRBC transfusion. No evidence of active bleeding. Patient was on Eliquis. No melena or hematochezia. Hemoglobin remained stable. Patient with superficial vein thrombosis. Eliquis discontinued. Status post sacral decubitus ulcer debridement. Dr. Ramirez saw patient. Status post debridement x2. Wound VAC in place. Dr. Ramirez to follow. Nephrology is following for hemodialysis. Metabolic acidosis resolved. Status post albumin infusion for low albumin and hypotension. Status post multiple albumin infusion, normal saline bolus and IV hydration. Also hypotensive despite being on midodrine. Continue midodrine to 10 mg 3 times daily. Levophed drip weaned off. Echocardiogram: Normal EF. I suspect adrenal insufficiency given persistent hypotension and hypoglycemia. Check a.m. cortisol level. Start IV dexamethasone. Infectious disease is following. Patient with femoral central line. Remove central line after dialysis today Blood culture: pansensitive Proteus. Wound culture: Proteus and Citrobacter. Repeat blood culture shows no growth to date. On daptomycin and meropenem. ID is monitoring CPK levels. ID is planning outpatient vancomycin with hemodialysis. ID is planning vancomycin with hemodialysis for osteomyelitis Urine culture: No growth. Feeding as tolerated. Patient is tolerating puree diet. Insulin sliding scale for glucose management. Anemia likely secondary to sepsis and chronic kidney disease. Hemoglobin is stable around 7 Monitor CBC and blood chemistry. Electrolyte replacement per nephrology. Patient is a good candidate for LTAC placement for aggressive wound care, bacteremia treatment and hemodialysis. Family have refused LTAC placement and would like to take him home upon discharge. Family has been informed it may be difficult to take care of of him, transport him to dialysis given his large decubitus and a soft blood pressure. Recommended care in a facility but they are adamant on managing him at home. We may be able to discharge him home once patient is weaned off the Levophed drip. Prognosis guarded.
[2021-10-05] MEDS: DAPTOMYCIN IVPB SCH (13:42)
[2021-10-05] MEDS: NA CHLORIDE 0.9% IVPB SCH (13:42)
[2021-10-05] MEDS: Meropenem 500 MG/100 ML BAG IV SCH (13:43)
[2021-10-05] MEDS: ALBUMIN HUMAN 25% 50 ML IV SCH (15:23)
[2021-10-05] MEDS: NOREPINEPHRINE 8 MG in D5W 250 ML IV SCH (16:08)
[2021-10-05] MEDS: EPOETIN ALFA 10,000 UNIT/ML VIAL SQ SCH (19:12)
--- NOTE | 2021-10-05 20:32 | P.PN ---
Date of Service: 10/05/21 Vital Signs Temp Pulse Resp BP Pulse Ox 97.6 F 80 22 H 92/51 L 98 10/05/21 16:00 10/05/21 18:15 10/05/21 18:15 10/05/21 18:15 10/05/21 18:15 Medications Acetaminophen (Acetaminophen 650mg/Rect Supp) 650 mg TN Q6HP PRN PRN Reason: TEMP > 100' F Acetaminophen (Acetaminophen 500 Mg Tab) 500 mg PO Q4HP PRN PRN Reason: TEMP > 100' F Amiodarone HCl (Amiodarone Hcl 200 Mg Tab) 200 mg PO DAILY [facility] Last Admin: 10/05/21 10:16 Dose: 200 mg Documented by: Calcitriol (Calcitrol 0.25 Mcg Cap) 0.5 mcg PO DAILY [facility] Last Admin: 10/05/21 10:14 Dose: 0.5 mcg Documented by: Collagenase (Collagenase 30 Gm Ointment) 1 appl TOP TUTHSA@0900 [facility] Dexamethasone (Dexamethasone 4 Mg/Ml Vial) 4 mg IV Q12HR [facility] Dextrose (D50w 25 Gm/50 Ml Syringe) 12.5 gm IV PRN PRN PRN Reason: HYPOGLYCEMIA Last Admin: 10/05/21 05:47 Dose: 12.5 gm Documented by: Docusate Sodium (Docusate Na 100 Mg Cap) 100 mg PO BID PRN PRN Reason: CONSTIPATION Epoetin Garrick (Epoetin Garrick 10,000 Unit/Ml Vial) 10,000 unit SQ M,W,F [facility] Last Admin: 10/05/21 19:12 Dose: 10,000 unit Documented by: Glucagon (Glucagon 1 Mg/Vial) 1 mg IM 1X PRN PRN Reason: HYPOGLYCEMIA Heparin Sodium (Porcine) (Heparin 1,000 Unit/Ml Vial) 6,000 unit IV EVERY HD PRN PRN Reason: DIALYSIS Last Admin: 10/05/21 18:26 Dose: 6,000 unit Documented by: Home Med (Fluticasone Propion/Salmeterol [Fluticasone-Salmeterol 100-50]) 1 each IH BID [facility] Last Admin: 10/05/21 09:00 Dose: 1 each Documented by: Home Med (Petrolatum,White [Aloe [place]]) 0 gm TOP PRN PRN PRN Reason: wound alf Med (Ketorolac Tromethamine [Ketorolac Tromethamine]) 1 drop OPTH QID PRN PRN Reason: inflammation Last Admin: 10/02/21 08:31 Dose: 1 drop Documented by: Home Med (Carboxymethylcellulose Sodium [Restore Plus]) 2 each OPTH QID PRN PRN Reason: DRY EYES Last Admin: 10/02/21 08:31 Dose: 2 each Documented by: Albumin Human (Albumin 25%) 50 mls @ 100 mls/hr IV EVERY HD KAMRYN Last Admin: 10/05/21 15:23 Dose: 50 mls Documented by: Meropenem (Merrem 500 Mg/100 Ml Ns Ivpb) 500 mg in 100 mls @ 200 mls/hr IV DAILY [facility] Last Admin: 10/05/21 13:43 Dose: 100 mls Documented by: Norepinephrine Bitartrate 8 mg (/ Dextrose) 258 mls @ 0 mls/hr IV TITR [facility]; Protocol Last Admin: 10/05/21 16:08 Dose: 2 mcg/min, 3.9 mls/hr Documented by: Sodium Chloride (Sodium Chloride) 250 mls @ 0 mls/hr IV .Q0M [facility] Last Admin: 09/24/21 22:36 Dose: 250 mls Documented by: Daptomycin 675 mg/ Sodium (Chloride) 100 mls @ 200 mls/hr IVPB Q48H [facility] Last Admin: 10/05/21 13:42 Dose: 100 mls Documented by: Insulin Human Regular (Insulin -Regular Human 50 Unit/0.5 Ml Ml) 0 unit SQ Q6HR [facility]; Protocol Last Admin: 10/05/21 18:00 Dose: Not Given Documented by: Ipratropium [place] (Ipratropium Brom 0.5mg/2.5ml) 0.5 mg IH QIDRESP PRN PRN Reason: SHORTNESS OF BREATH Last Admin: 09/19/21 21:55 Dose: 0.5 mg Documented by: Mannitol (Mannitol 25% 12.5 Gm/50 Ml Vial) 12.5 gm IV EVERY HD PRN PRN Reason: Titrate to SBP (MUST DEFINE) Midodrine (Midodrine Hcl 5 Mg Tablet) 10 mg PO AC [facility] Last Admin: 10/05/21 16:30 Dose: Not Given Documented by: Ondansetron HCl (Ondansetron 4 Mg/2 Ml Vial) 4 mg IV Q6HP PRN PRN Reason: NAUSEA / VOMITING Pantoprazole Sodium (Pantoprazole 40mg Tablet) 40 mg PO DAILYAC [facility]; Protocol Last Admin: 10/05/21 05:49 Dose: 40 mg Documented by: Sodium Chloride (Flush Normal Saline 10 Ml) 10 ml IV BID [facility] Last Admin: 10/05/21 09:00 Dose: 10 ml Documented by: Sodium Chloride (Sodium Chloride 0.9% 10ml Inj) 10 ml IV UD PRN PRN Reason: Diluant Vitamin B Complex/Vit C/Folic Acid (Multivitamins,Therapeut 1 Tab) 1 tab PO DAILY [facility] Last Admin: 10/05/21 10:16 Dose: 1 tab Documented by: Microbiology Results 09/18/21 11:41 Blood - Blood Aerobic Blood Culture - Final Proteus Mirabilis 09/18/21 11:41 Blood - Blood Blood Culture Gram Stain - Final 09/18/21 11:41 Blood - Blood Anaerobic Blood Culture - Final Proteus Mirabilis 09/18/21 11:41 Blood - Blood Gram Stain - Final 09/18/21 11:35 Blood - Blood Aerobic Blood Culture - Final Proteus Mirabilis 09/18/21 11:35 Blood - Blood Blood Culture Gram Stain - Final 09/18/21 11:35 Blood - Blood Anaerobic Blood Culture - Final Proteus Mirabilis 09/18/21 11:35 Blood - Blood Gram Stain - Final 09/18/21 12:45 Clean Catch Urine [place] Count - Final No growth. 09/18/21 12:45 Clean Catch Urine - Final No growth. Assessment/ Plan: Nephrology No dyspnea. ZHAO. No chest pain Weakness and fatigue. No acute events overnight. Vitals, medications, blood work and imaging reviewed in the chart General: In no apparent distress, Cooperative HEENT: Atraumatic Neck: Supple Respiratory: Clear to auscultation bilaterally Cardiovascular: Regular rate/rhythm, Hip & LE Edema Gastrointestinal: Non-distended, No tenderness Musculoskeletal: No clubbing, No contractures Integumentary: No rashes, No cyanosis. Large sacral ulcer. Neurological: Normal speech Laboratory Data (last 24 hrs) 09/18/21 11:41: PT 21.2 H, INR 1.83, APTT 33.6 09/18/21 11:41: WBC 20.90 H*, Hgb 7.1 L, Hct 23.9 L, Plt Count 344 09/18/21 11:41: Sodium 134 L, Potassium 3.5, BUN 63 H, Creatinine 10.30 H*, Glucose 97, Total Bilirubin 0.6, AST 23, ALT 20, Alkaline Phosphatase 114, Amylase 24 L, Lipase 39 L Imagings Data: EXAM DESCRIPTION: CT - Abdomen Pelvis Wo Contrast - 09/18/2021 5:07 pm CLINICAL HISTORY: Sepsis COMPARISON: No comparisons TECHNIQUE: Axial [address] imaging of the abdomen and pelvis was performed without IV contrast. No IV contrast was given because of allergy, abnormal renal function, patient refusal or physician request. No oral contrast administered. All CT scans are performed using dose optimization technique as appropriate and may include automated exposure control or mA/KV adjustment according to patient size. FINDINGS: No suspicious findings in the lung bases. The liver, spleen and pancreas show no suspicious findings on non-contrast imaging. Gallbladder and biliary tree are also without suspicious finding. Gallstones can be occult on CT imaging. Degree of respiratory motion artifact of the upper abdomen limits accurate assessment of gallbladder wall thickness. No hydronephrosis or suspicious renal mass. No significant adrenal finding. Isodense renal masses and pyelonephritis cannot be excluded in the absence of IV contrast. The urinary bladder is without significant finding. A 2.6 centimeter focal mass posterior right margin of the bladder is isodense to the bladder and is suspected to be moderate-sized bladder diverticulum. No gastric dilatation or gastric wall thickening. No pneumatosis intestinalis. Within the peritoneal cavity there is no free air, free fluid or inflammatory stranding. No acute retroperitoneal process seen. No hernia, mass or bulky lymphadenopathy. Patient has advanced degenerative changes of both hip joints, worse on the left. No acute bone or joint finding. Patient has extensive gas densities present in the subcutaneous fatty tissues posterior to the sacrum and coccyx. No bone destructive changes. The air densities extend laterally 08-2010 cm off of the midline. The inferior margin of the soft tissue gas densities extend in proximity to the posterior wall distal rectum and posterior margin of the levator ani musculature. No abnormal air densities in the fatty tissues of the perineum or scrotum. No history was provided indicating that the patient has a known decubitus ulcer or known wound in this region. IMPRESSION: Extensive abnormal air in the subcutaneous fatty tissues posterior to the sacrum and coccyx with extension each direction laterally 8-10 cm off of the midline. Inferior margin of the air densities abutthe posterior wall distal rectum and posterior margin of the levator ani musculature. This is most likely gas-forming soft tissue infection. The abnormal air densities do not yet extend into the fatty tissues of the perineum. EXAM DESCRIPTION: RAD - Chest Single View - 09/18/2021 12:00 pm CLINICAL HISTORY: COUGH Chest pain. COMPARISON: No comparisons FINDINGS: Portable technique limits examination quality. The lungs are grossly clear. The heart is normal in size. Right-sided venous catheter has tip in the right atrium region. Conclusions/Impression: ESRD -HD TIW as tolerated -Seen and examined on HD complicated by hypotension Hypokalemia -Replete potassium prn Hypomagnesemia -Replete with IV magnesium prn HypoPO4 -Replete PO4 prn -Encourage nutrition Hypotension Sepsis/ Septic Shock Acute Cystitis Sacral decubitus ulcer. Osteomyelitis of the coccyx. -Continue Meropenem -IV Albumin prn -Continue Levophed; wean as tolerated -Follow up with surgery; wound vac Diastolic CHF, chronic A/C hypoxic respiratory failure -Low sodium diet -Continue Oxygen supplementation -HD with UF as tolerated DM II with CKD -RISS Severe malnutrition -Continue Ensure supplementation -IV Albumin with HD today -Continue nephrovite Anemia in CKD -PRBC transfusion with HD today -Retacrit TIW CKD MBD -Continue Calcitriol Greater than 30min patient care. Case reviewed with the at the bedside.
[2021-10-05] MEDS: dexAMETHasone 4 MG/ML VIAL IV SCH (21:38)
[2021-10-06 05:42] LABS: Absolute Lymphocytes (CBC) 1.2 K/uL (0.7-4.9); Hematocrit 23.5 % (39.6-49.0); Lymphocytes % 27.7 % (15.3-44.8); MPV 7.8 fL (7.6-11.3); RBC Red Blood Cell Count 2.76 M/uL (4.33-5.43)
[2021-10-06 05:55] LABS: Albumin 2.6 g/dL (3.4-5.0); Phosphorus 3.1 mg/dL (2.5-4.9); Potassium 3.9 mmol/L (3.5-5.1)
[2021-10-06] MEDS: INSULIN -REGULAR HUMAN 50 UNIT/0.5 ML ML SQ SCH ×4 (06:00→16:29)
[2021-10-06] MEDS: PANTOPRAZOLE 40MG TABLET PO SCH (06:40)
[2021-10-06] MEDS: dexAMETHasone 4 MG/ML VIAL IV SCH ×2 (08:25→20:53)
[2021-10-06] MEDS: AMIODARONE HCL 200 MG TAB PO SCH (08:25)
[2021-10-06] MEDS: MIDODRINE HCL 5 MG TABLET PO SCH ×3 (08:25→16:03)
[2021-10-06] MEDS: CALCITROL 0.25 MCG CAP PO SCH (08:25)
[2021-10-06] MEDS: Meropenem 500 MG/100 ML BAG IV SCH (08:26)
[2021-10-06] MEDS: MULTIVITAMINS,THERAPEUT 1 TAB PO SCH (08:26)
[2021-10-06] MEDS: FLUTICASONE SALMETEROL IH SCH ×2 (08:27→20:57)
[2021-10-06] MEDS: LACTOSE-REDUCED FOOD 330 ML LIQUID PO SCH ×3 (08:27→20:55)
[2021-10-06] MEDS ORDERED: COLLAGENASE 30 GM OINTMENT TOP ONE (10:58)
--- NOTE | 2021-10-06 12:19 | P.PN ---
Subjective Date of Service: 10/06/21 Chief Complaint: Altered mental status Patient has no new complaint. He is needing Levophed drip intermittently. Currently at a very low rate. Blood sugar readings have improved since starting steroid. Physical Examination - Vital Signs Temperature: 96.9 F Blood Pressure: 105/47 Pulse: 76 Respirations: 20 Pulse Ox (%): 97 - Studies Medications List Reviewed: Yes Assessment And Plan - Current Problems (Diagnosis) (1) Sepsis Current Visit: Yes Status: Acute (2) UTI (urinary tract infection) Current Visit: Yes Status: Acute (3) End-stage renal disease on hemodialysis Current Visit: Yes Status: Acute (4) Chronic systolic heart failure Current Visit: Yes Status: Acute (5) History of CVA (cerebrovascular accident) Current Visit: Yes Status: Acute (6) Metabolic acidosis Current Visit: Yes Status: Acute (7) Anemia Current Visit: Yes Status: Acute - Plan Physical examination General: In no apparent distress, awake and interactive. Neck: JVD not distended Respiratory: Clear to auscultation bilaterally, Normal air movement Cardiovascular: Normal S1 S2, Irregular heart rate/rhythm Gastrointestinal: Soft and benign, Non-distended, nontender. Musculoskeletal: No swelling Integumentary: Stage IV large sacral decubitus ulcer with wound VAC. Multiple skin tears on bilateral upper extremities and lower extremities. Bilateral lower extremity venous stasis dermatitis and hemosiderin discolorations. Neurological: Moves all extremities Plan: Status post 5 unit PRBC transfusion. No evidence of active bleeding. Patient w as on Eliquis. No melena or hematochezia. Hemoglobin remain stable. Patient with superficial vein thrombosis. Eliquis discontinued. Status post sacral decubitus ulcer debridement. Dr. Ramirez saw patient. Status post debridement x2. Wound VAC in place. Dr. Ramirez considering another debridement. Nephrology is following for hemodialysis. Metabolic acidosis resolved. Status post albumin infusion for low albumin and hypotension. Status post multiple albumin infusion, normal saline bolus and IV hydration. Also hypotensive despite being on midodrine. Continue midodrine to 10 mg 3 times daily. Levophed drip weaned off. Echocardiogram: Normal EF. I suspect adrenal insufficiency given persistent hypotension and hypoglycemia. A.m. cortisol is low. Blood glucose readings improved with IV dexamethasone. Continue dexamethasone. Will transition to oral hydrocortisone once weaned off of Levophed. Infectious disease is following. Patient with femoral central line. Remove central line once weaned off Levophed. Blood culture: pansensitive Proteus. Wound culture: Proteus and Citrobacter. Repeat blood culture shows no growth to date. On daptomycin and meropenem. ID is monitoring CPK levels. ID is planning vancomycin with hemodialysis for osteomyelitis Urine culture: No growth. Feeding as tolerated. Patient is tolerating puree diet. Insulin sliding scale for glucose management. Anemia likely secondary to sepsis and chronic kidney disease. Hemoglobin is stable around 7 Monitor CBC and blood chemistry. Electrolyte replacement per nephrology. Discharge him home per family request once patient is weaned off the Levophed drip. Prognosis guarded.
[2021-10-06] MEDS: COLLAGENASE 30 GM OINTMENT TOP SCH (13:15)
[2021-10-07 05:47] LABS: Hematocrit 23.1 % (39.6-49.0)
[2021-10-07] MEDS: INSULIN -REGULAR HUMAN 50 UNIT/0.5 ML ML SQ SCH ×4 (06:00→17:39)
[2021-10-07 06:02] LABS: Albumin 2.6 g/dL (3.4-5.0); Phosphorus 3.5 mg/dL (2.5-4.9); Potassium 3.6 mmol/L (3.5-5.1)
[2021-10-07] MEDS: PANTOPRAZOLE 40MG TABLET PO SCH (06:39)
[2021-10-07] MEDS: MIDODRINE HCL 5 MG TABLET PO SCH ×3 (06:40→16:17)
[2021-10-07] MEDS ORDERED: POTASSIUM CL SA 10 MEQ TAB PO ONE (07:29)
[2021-10-07] MEDS: AMIODARONE HCL 200 MG TAB PO SCH (08:36)
[2021-10-07] MEDS: dexAMETHasone 4 MG/ML VIAL IV SCH ×2 (08:36→20:36)
[2021-10-07] MEDS: CALCITROL 0.25 MCG CAP PO SCH (08:36)
[2021-10-07] MEDS: Meropenem 500 MG/100 ML BAG IV SCH (08:37)
[2021-10-07] MEDS: FLUTICASONE SALMETEROL IH SCH ×2 (08:38→20:36)
[2021-10-07] MEDS ORDERED: POTASSIUM 25 MEQ EFFERV TAB PO ONE (08:39)
[2021-10-07] MEDS: MULTIVITAMINS,THERAPEUT 1 TAB PO SCH (08:41)
[2021-10-07] MEDS: LACTOSE-REDUCED FOOD 330 ML LIQUID PO SCH (09:00)
--- NOTE | 2021-10-07 11:01 | P.PN ---
Subjective Date of Service: 10/07/21 Chief Complaint: Altered mental status Patient is more interactive and better mood today. He is eating more. Levophed drip weaned off. Blood sugar levels have been stable. Physical Examination - Vital Signs Temperature: 98.4 F Blood Pressure: 115/56 Pulse: 78 Respirations: 18 Pulse Ox (%): 100 - Physical Exam General: In no apparent distress, Other (Awake) HEENT: Mucous membr. moist/pink - Studies Medications List Reviewed: Yes Assessment And Plan - Current Problems (Diagnosis) (1) Sepsis Current Visit: Yes Status: Acute (2) UTI (urinary tract infection) Current Visit: Yes Status: Acute (3) End-stage renal disease on hemodialysis Current Visit: Yes Status: Acute (4) Chronic systolic heart failure Current Visit: Yes Status: Acute (5) History of CVA (cerebrovascular accident) Current Visit: Yes Status: Acute (6) Metabolic acidosis Current Visit: Yes Status: Acute (7) Anemia Current Visit: Yes Status: Acute - Plan Physical examination General: In no apparent distress, awake and more interactive. Respiratory: Clear to auscultation bilaterally, Normal air movement Cardiovascular: Normal S1 S2, Irregular heart rate/rhythm Gastrointestinal: Soft and benign, Non-distended, nontender. Musculoskeletal: No swelling Integumentary: Stage IV large sacral decubitus ulcer with wound VAC. Bilateral lower extremity venous stasis dermatitis and hemosiderin discolorations. Neurological: Moves all extremities Plan: Status post 5 unit PRBC transfusion. No evidence of active bleeding. Patient was on Eliquis. No melena or hematochezia. Hemoglobin remain stable. Patient with superficial vein thrombosis. Eliquis discontinued. Status post sacral decubitus ulcer debridement. Dr. Ramirez saw patient. Status post debridement x2. Wound VAC in place. Dr. Ramirez considering another debridement next week. Nephrology is following for hemodialysis. Metabolic acidosis resolved. Status post albumin infusion for low albumin and hypotension. Status post multiple albumin infusion, normal saline bolus and IV hydration. Also hypotensive despite being on midodrine. Continue midodrine to 10 mg 3 times daily. Levophed drip weaned off. Echocardiogram: Normal EF. I suspect adrenal insufficiency given persistent hypotension and hypoglycemia. A.m. cortisol is low. Blood glucose readings improved with IV dexamethasone. Patient currently weaned off Levophed drip. Continue dexamethasone. Will transition to oral hydrocortisone on discharge. Infectious disease is following. Blood culture: pansensitive Proteus. Wound culture: Proteus and Citrobacter. Repeat blood culture shows no growth to date. On daptomycin and meropenem. ID is monitoring CPK levels. ID is planning vancomycin with hemodialysis for osteomyelitis Urine culture: No growth. Feeding as tolerated. Patient is tolerating puree diet. Insulin sliding scale for glucose management. Anemia likely secondary to sepsis and chronic kidney disease. Transfuse 1 more unit with hemodialysis. Monitor CBC and blood chemistry. Electrolyte replacement per nephrology. Prognosis guarded.
[2021-10-07] MEDS ORDERED: NA CHLORIDE 0.9% 250 ML IV SCH (12:00)
[2021-10-07] MEDS: ENSURE HIGH PROTEIN 237 ML CAN PO SCH ×2 (15:24→20:37)
[2021-10-07] MEDS: DAPTOMYCIN IVPB SCH (16:14)
[2021-10-07] MEDS: NA CHLORIDE 0.9% IVPB SCH (16:14)
[2021-10-08 05:23] LABS: Hematocrit 23.2 % (39.6-49.0)
[2021-10-08] MEDS: PANTOPRAZOLE 40MG TABLET PO SCH (05:29)
[2021-10-08 05:52] LABS: Albumin 2.6 g/dL (3.4-5.0); Potassium 3.5 mmol/L (3.5-5.1)
[2021-10-08] MEDS: INSULIN -REGULAR HUMAN 50 UNIT/0.5 ML ML SQ SCH ×5 (06:00→23:35)
[2021-10-08] MEDS: ENSURE HIGH PROTEIN 237 ML CAN PO SCH ×3 (08:35→21:00)
[2021-10-08] MEDS: Meropenem 500 MG/100 ML BAG IV SCH (08:41)
[2021-10-08] MEDS: dexAMETHasone 4 MG/ML VIAL IV SCH ×2 (08:42→20:35)
[2021-10-08] MEDS: FLUTICASONE SALMETEROL IH SCH ×2 (08:42→20:38)
[2021-10-08] MEDS: AMIODARONE HCL 200 MG TAB PO SCH (09:00)
[2021-10-08] MEDS: MIDODRINE HCL 5 MG TABLET PO SCH ×3 (09:00→16:37)
[2021-10-08] MEDS ORDERED: NA CHLORIDE 0.9% 500 ML ONE (09:47)
[2021-10-08] MEDS ORDERED: BUPIVACAINE 0.5% PF 10 ML VIAL ONE (10:56)
[2021-10-08] MEDS ORDERED: COLLAGENASE 30 GM OINTMENT TOP ONE (10:56)
[2021-10-08] MEDS ORDERED: SUCCINYLCHOLINE 20 MG/ML (10 ML) IV ONE (11:01)
[2021-10-08] MEDS ORDERED: propofoL 200 MG/20 ML VIAL IV ONE (11:07)
--- NOTE | 2021-10-08 11:14 | P.BOP ---
Preoperative diagnosis: necrotic infected sacral stage 4 decubitus ulcer, sepsis, ESRD, afib Postoperative diagnosis: same Primary procedure: SubQ Debridement infected sacral stage 4 decubitus ulcer Secondary procedure: 17 x 15 x 2cm Estimated blood loss: <10cc Specimen: culture and necrotic tissue Findings: devitalized tissue Anesthesia: General Complications: None Drain(s): Other Transferred to: Recovery Room Condition: Critical
--- NOTE | 2021-10-08 12:39 | OP ---
Date of Procedure: 10/08/2021 Surgeon: Rosalino Ramirez MD Preoperative Diagnosis: Sacral decubitus ulcer. Postoperative Diagnosis: Sacral decubitus ulcer. Procedure: Excisional biopsy of subcutaneous sacral decubitus ulcer about 17 x 15 x 2 cm, also pulse lavage of the sacral ulcer. Anesthesia: General. Complications: None. 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 At one point, it is requiring different trips to the OR to improve it, which shows some improvement. Today, we still saw some devitalized tissue present and needs to be debrided. So, we offered him excisional debridement in the OR with a pulse lavage with benefits, alternatives, and risks once again including, but not limited to infection, bleeding, damage to adjac ent structures, anesthesia complication, nonhealing wound, NC, and even . The consent was steffanie d by the family. Procedure In Detail: The patient was brought to the operating room, placed in supine position. A ti me-out was called. The patient was placed in lateral decubitus position with proper protection. We have some areas of necrotic tissue present. Some crepitus with necrotic fascia also present. Using the scissors and an 11 blade, we proceeded to remove all those areas. The area of debridement is abo ut 17 x 15 x 2 cm. After that, we did a pulse lavage over the area to help us with this microscopic debridement. The patient tolerated the procedure well. Hemostasis was obtained and then we covered the area with wet- to-dry dressing. The patient tolerated the procedure well. The patient was sent back to ICU in stab le condition. HM/MODL Voice ID: [id number] Report ID: [id number]
[2021-10-08] MEDS ORDERED: Gentamicin Inj 240 MG in NA CHLORIDE 0.9% 100 ML IVPB ONE (13:00)
[2021-10-08] MEDS: MULTIVITAMINS,THERAPEUT 1 TAB PO SCH (13:02)
[2021-10-08] MEDS: CALCITROL 0.25 MCG CAP PO SCH (13:02)
--- NOTE | 2021-10-08 13:59 | P.PN ---
Subjective Date of Service: 10/08/21 Chief Complaint: Altered mental status S/p another sacral decubitus ulcer debridement today. Patient blood pressure stable without Levophed drip. Blood sugar levels have also been stable. Physical Examination - Vital Signs Temperature: 97.4 F Blood Pressure: 131/64 Pulse: 80 Respirations: 18 Pulse Ox (%): 100 - Studies Medications List Reviewed: Yes Assessment And Plan - Current Problems (Diagnosis) (1) Sepsis Current Visit: Yes Status: Acute (2) UTI (urinary tract infection) Current Visit: Yes Status: Acute (3) End-stage renal disease on hemodialysis Current Visit: Yes Status: Acute (4) Chronic systolic heart failure Current Visit: Yes Status: Acute (5) History of CVA (cerebrovascular accident) Current Visit: Yes Status: Acute (6) Metabolic acidosis Current Visit: Yes Status: Acute (7) Anemia Current Visit: Yes Status: Acute - Plan Physical examination General: In no apparent distress, awake and more interactive. Respiratory: Clear to auscultation bilaterally, Normal air movement Cardiovascular: Normal S1 S2, Irregular heart rate/rhythm Gastrointestinal: Soft and benign, Non-distended, nontender. Musculoskeletal: No swelling Integumentary: Stage IV large sacral decubitus ulcer with wound VAC. Bilateral lower extremity venous stasis dermatitis and hemosiderin discolorations. Neurological: Moves all extremities Plan: Status post 5 unit PRBC transfusion. No evidence of active bleeding. Patient was on Eliquis. No melena or hematochezia. Hemoglobin remain stable. Patient with superficial vein thrombosis. Eliquis discontinued. Dr. Ramirez following. Status post sacral decubitus ulcer debridement x3. Wound VAC. Nephrology is following for hemodialysis. Metabolic acidosis resolved. Status post albumin infusion for low albumin and hypotension. Levophed drip weaned off. Echocardiogram: Normal EF. I suspect adrenal insufficiency given persistent hypotension and hypoglycemia. A.m. cortisol is low. Blood glucose readings and blood pressure improved with IV dexamethasone. Blood pressure currently stable without Levophed drip. Continue dexamethasone. Will transition to oral hydrocortisone on discharge. Infectious disease is following. Blood culture: pansensitive Proteus. Wound culture: Proteus and Citrobacter. Repeat blood culture shows no growth to date. On daptomycin and meropenem. ID recommending IV gentamicin and Ancef for outpatient treatment Urine culture: No growth. Feeding as tolerated. Patient is tolerating puree diet. Insulin sliding scale for glucose management. Anemia likely secondary to sepsis and chronic kidney disease. Transfuse 1 more unit with hemodialysis today. Monitor CBC and blood chemistry. Electrolyte replacement per nephrology. Prognosis guarded.
[2021-10-08] MEDS: EPOETIN ALFA 10,000 UNIT/ML VIAL SQ SCH (16:37)
--- NOTE | 2021-10-08 18:24 | P.PN ---
Date of Service: 10/08/21 Vital Signs Temp Pulse Resp BP Pulse Ox 97.4 F 78 20 132/76 99 10/08/21 16:00 10/08/21 18:00 10/08/21 18:00 10/08/21 18:00 10/08/21 17:00 Medications Acetaminophen (Acetaminophen 650mg/Rect Supp) 650 mg MN Q6HP PRN PRN Reason: TEMP > 100' F Acetaminophen (Acetaminophen 500 Mg Tab) 500 mg PO Q4HP PRN PRN Reason: TEMP > 100' F Amiodarone HCl (Amiodarone Hcl 200 Mg Tab) 200 mg PO DAILY [facility] Last Admin: 10/08/21 09:00 Dose: 200 mg Documented by: Calcitriol (Calcitrol 0.25 Mcg Cap) 0.5 mcg PO DAILY [facility] Last Admin: 10/08/21 13:02 Dose: 0.5 mcg Documented by: Collagenase (Collagenase 30 Gm Ointment) 1 appl TOP TUTHSA@0900 [facility] Last Admin: 10/06/21 13:15 Dose: 1 appl Documented by: Dexamethasone (Dexamethasone 4 Mg/Ml Vial) 4 mg IV Q12HR [facility] Last Admin: 10/08/21 08:42 Dose: 4 mg Documented by: Dextrose (D50w 25 Gm/50 Ml Syringe) 12.5 gm IV PRN PRN PRN Reason: HYPOGLYCEMIA Last Admin: 10/05/21 05:47 Dose: 12.5 gm Documented by: Docusate Sodium (Docusate Na 100 Mg Cap) 100 mg PO BID PRN PRN Reason: CONSTIPATION Epoetin Garrick (Epoetin Garrick 10,000 Unit/Ml Vial) 10,000 unit SQ M,W,F [facility] Last Admin: 10/08/21 16:37 Dose: 10,000 unit Documented by: Glucagon (Glucagon 1 Mg/Vial) 1 mg IM 1X PRN PRN Reason: HYPOGLYCEMIA Heparin Sodium (Porcine) (Heparin 1,000 Unit/Ml Vial) 6,000 unit IV EVERY HD PRN PRN Reason: DIALYSIS Last Admin: 10/05/21 18:26 Dose: 6,000 unit Documented by: Home Med (Fluticasone Propion/Salmeterol [Fluticasone-Salmeterol 100-50]) 1 each IH BID [facility] Last Admin: 10/08/21 08:42 Dose: 1 each Documented by: Home Med (Petrolatum,White [Aloe Castalia]) 0 gm TOP PRN PRN PRN Reason: wound prison Med (Ketorolac Tromethamine [Ketorolac Tromethamine]) 1 drop OPTH QID PRN PRN Reason: inflammation Last Admin: 10/02/21 08:31 Dose: 1 drop Documented by: Home Med (Carboxymethylcellulose Sodium [Restore Plus]) 2 each OPTH QID PRN PRN Reason: DRY EYES Last Admin: 10/02/21 08:31 Dose: 2 each Documented by: Albumin Human (Albumin 25%) 50 mls @ 100 mls/hr IV EVERY HD [facility] Last Admin: 10/05/21 15:23 Dose: 50 mls Documented by: Norepinephrine Bitartrate 8 mg (/ Dextrose) 258 mls @ 0 mls/hr IV TITR [facility]; Protocol Last Titration: 10/06/21 11:00 Dose: 0 mcg/min, 0 mls/hr Documented by: Sodium Chloride (Sodium Chloride) 250 mls @ 0 mls/hr IV .Q0M [facility] Last Admin: 09/24/21 22:36 Dose: 250 mls Documented by: Sodium Chloride (Sodium Chloride) 250 mls @ 0 mls/hr IV .Q0M [facility] Gentamicin Sulfate 240 mg/ (Sodium Chloride) 106 mls @ 106 mls/hr IVPB AFTER EACH DIALYSIS [facility] Insulin Human Regular (Insulin -Regular Human 50 Unit/0.5 Ml Ml) 0 unit SQ Q6HR [facility]; Protocol Last Admin: 10/08/21 18:00 Dose: Not Given Documented by: Ipratropium Monroe (Ipratropium Brom 0.5mg/2.5ml) 0.5 mg IH QIDRESP PRN PRN Reason: SHORTNESS OF BREATH Last Admin: 09/19/21 21:55 Dose: 0.5 mg Documented by: Mannitol (Mannitol 25% 12.5 Gm/50 Ml Vial) 12.5 gm IV EVERY HD PRN PRN Reason: Titrate to SBP (MUST DEFINE) Midodrine (Midodrine Hcl 5 Mg Tablet) 10 mg PO AC [facility] Last Admin: 10/08/21 16:37 Dose: 10 mg Documented by: Nutritional Formula (Ensure High Protein 237 Ml Can) 240 ml PO TID [facility] Last Admin: 10/08/21 13:02 Dose: Not Given Documented by: Ondansetron HCl (Ondansetron 4 Mg/2 Ml Vial) 4 mg IV Q6HP PRN PRN Reason: NAUSEA / VOMITING Pantoprazole Sodium (Pantoprazole 40mg Tablet) 40 mg PO DAILYAC [facility]; Protocol Last Admin: 10/08/21 05:29 Dose: Not Given Documented by: Sodium Chloride (Flush Normal Saline 10 Ml) 10 ml IV BID [facility] Last Admin: 10/08/21 08:42 Dose: 10 ml Documented by: Sodium Chloride (Sodium Chloride 0.9% 10ml Inj) 10 ml IV UD PRN PRN Reason: Diluant Vitamin B Complex/Vit C/Folic Acid (Multivitamins,Therapeut 1 Tab) 1 tab PO DAILY [facility] Last Admin: 10/08/21 13:02 Dose: 1 tab Documented by: Microbiology Results 09/18/21 11:41 Blood - Blood Aerobic Blood Culture - Final Proteus Mirabilis 09/18/21 11:41 Blood - Blood Blood Culture Gram Stain - Final 09/18/21 11:41 Blood - Blood Anaerobic Blood Culture - Final Proteus Mirabilis 09/18/21 11:41 Blood - Blood Gram Stain - Final 09/18/21 11:35 Blood - Blood Aerobic Blood Culture - Final Proteus Mirabilis 09/18/21 11:35 Blood - Blood Blood Culture Gram Stain - Final 09/18/21 11:35 Blood - Blood Anaerobic Blood Culture - Final Proteus Mirabilis 09/18/21 11:35 Blood - Blood Gram Stain - Final 09/18/21 12:45 Clean Catch Urine Flat Lick Count - Final No growth. 09/18/21 12:45 Clean Catch Urine - Final No growth. Assessment/ Plan: Nephrology No dyspnea. ZHAO. No chest pain Weakness and fatigue. No acute events overnight. Wound debridement this morning. Vitals, medications, blood work and imaging reviewed in the chart General: In no apparent distress, Cooperative HEENT: Atraumatic Neck: Supple Respiratory: Clear to auscultation bilaterally Cardiovascular: Regular rate/rhythm, Hip & LE Edema Gastrointestinal: Non-distended, No tenderness Musculoskeletal: No clubbing, No contractures Integumentary: No rashes, No cyanosis. Large sacral ulcer. Neurological: Normal speech Laboratory Data (last 24 hrs) 09/18/21 11:41: PT 21.2 H, INR 1.83, APTT 33.6 09/18/21 11:41: WBC 20.90 H*, Hgb 7.1 L, Hct 23.9 L, Plt Count 344 09/18/21 11:41: Sodium 134 L, Potassium 3.5, BUN 63 H, Creatinine 10.30 H*, Glucose 97, Total Bilirubin 0.6, AST 23, ALT 20, Alkaline Phosphatase 114, Amylase 24 L, Lipase 39 L Imagings Data: EXAM DESCRIPTION: CT - Abdomen Pelvis Wo Contrast - 09/18/2021 5:07 pm CLINICAL HISTORY: Sepsis COMPARISON: No comparisons TECHNIQUE: Axial [address] imaging of the abdomen and pelvis was performed without IV contrast. No IV contrast was given because of allergy, abnormal renal function, patient refusal or physician request. No oral contrast administered. All CT scans are performed using dose optimization technique as appropriate and may include automated exposure control or mA/KV adjustment according to patient size. FINDINGS: No suspicious findings in the lung bases. The liver, spleen and pancreas show no suspicious findings on non-contrast imaging. Gallbladder and biliary tree are also without suspicious finding. Gallstones can be occult on CT imaging. Degree of respiratory motion artifact of the upper abdomen limits accurate assessment of gallbladder wall thickness. No hydronephrosis or suspicious renal mass. No significant adrenal finding. Isodense renal masses and pyelonephritis cannot be excluded in the absence of IV contrast. The urinary bladder is without significant finding. A 2.6 centimeter focal mass posterior right margin of the bladder is isodense to the bladder and is suspected to be moderate-sized bladder diverticulum. No gastric dilatation or gastric wall thickening. No pneumatosis intestinalis. Within the peritoneal cavity there is no free air, free fluid or inflammatory stranding. No acute retroperitoneal process seen. No hernia, mass or bulky lymphadenopathy. Patient has advanced degenerative changes of both hip joints, worse on the left. No acute bone or joint finding. Patient has extensive gas densities present in the subcutaneous fatty tissues posterior to the sacrum and coccyx. No bone destructive changes. The air densities extend laterally 08-2010 cm off of the midline. The inferior margin of the soft tissue gas densities extend in proximity to the posterior wall distal rectum and posterior margin of the levator ani musculature. No abnormal air densities in the fatty tissues of the perineum or scrotum. No history was provided indicating that the patient has a known decubitus ulcer or known wound in this region. IMPRESSION: Extensive abnormal air in the subcutaneous fatty tissues posterior to the sacrum and coccyx with extension each direction laterally 8-10 cm off of the midline. Inferior margin of the air densities abutthe posterior wall distal rectum and posterior margin of the levator ani musculature. This is most likely gas-forming soft tissue infection. The abnormal air densities do not yet extend into the fatty tissues of the perineum. EXAM DESCRIPTION: RAD - Chest Single View - 09/18/2021 12:00 pm CLINICAL HISTORY: COUGH Chest pain. COMPARISON: No comparisons FINDINGS: Portable technique limits examination quality. The lungs are grossly clear. The heart is normal in size. Right-sided venous catheter has tip in the right atrium region. Conclusions/Impression: ESRD -HD TIW as tolerated Hypokalemia -Replete potassium prn Hypomagnesemia -Replete with IV magnesium prn HypoPO4 -Replete PO4 prn -Encourage nutrition Hypotension Sepsis/ Septic Shock Acute Cystitis Sacral decubitus ulcer. Osteomyelitis of the coccyx. -Continue Meropenem -IV Albumin prn -Continue Levophed; wean as tolerated -Follow up with surgery; wound vac Diastolic CHF, chronic A/C hypoxic respiratory failure -Low sodium diet -Continue Oxygen supplementation -HD with UF as tolerated DM II with CKD -RISS Severe malnutrition -Continue Ensure supplementation -IV Albumin with HD today -Continue nephrovite Anemia in CKD -PRBC transfusion with HD today -Retacrit TIW CKD MBD -Continue Calcitriol Greater than 30min patient care.
[2021-10-08 21:14] LABS: Hematocrit 25.4 % (39.6-49.0)
[2021-10-09] MEDS: INSULIN -REGULAR HUMAN 50 UNIT/0.5 ML ML SQ SCH ×4 (05:27→21:00)
[2021-10-09 05:48] LABS: Hematocrit 25.1 % (39.6-49.0)
[2021-10-09] MEDS: PANTOPRAZOLE 40MG TABLET PO SCH (06:06)
--- NOTE | 2021-10-09 06:09 | P.PN ---
Date of Service: 10/09/21 Subjective: No acute events overnight. Remains off Levophed drip. Patient reports feeling slightly better today, more awake/alert ROS: 10 point ROS as noted above, otherwise negative Physical examination GEN: Alert, oriented, NAD HEENT: Normal conjunctiva, sclera anicteric CV: Regular rate and rhythm, 2+ BLE edema Pulm: Nonlabored respiration on 2L NC ABD: Soft, nontender, nondistended Integumentary: wound vac in place Problem List Sepsis secondary to infected sacral ulcer, bacteremia ESRD on hemodialysis RUE supervicial vein thrombosis; h/o upper extremity DVT Chronic systolic heart failure History of CVA (cerebrovascular accident) Adrenal insufficiency Metabolic acidosis Anemia s/p 5u PRBCs over the course of his hospitalization. No evidence of active bleeding. Patient was on Eliquis. No melena or hematochezia. Hemoglobin remains stable. Patient with superficial vein thrombosis. Eliquis discontinued. Dr. Ramirez following. s/p sacral decubitus ulcer debridement x3. Wound VAC. Nephrology is following for hemodialysis. Metabolic acidosis resolved. s/p albumin infusion for low albumin and hypotension. Levophed drip weaned off. Echocardiogram: Normal EF. Blood pressure improved after initiation of dexamethasone. A.m. cortisol was low and is concern for adrenal insufficiency. Continue dexamethasone, can transition to oral hydrocortisone on discharge Infectious disease is following. Repeat blood culture shows no growth to date. was on daptomycin and meropenem. ID recommending IV gentamicin and Ancef for outpatient treatment Feeding as tolerated. Patient is tolerating puree diet. Insulin sliding scale for glucose management. Anemia likely secondary to sepsis and chronic kidney disease. Electrolyte replacement per nephrology. Prognosis guarded. Dispo: family plan on taking patient home SW said may be issue with HD - pt would only be accepted via stretcher - unable to tolerate / too weak for wheelchair discussed with , she will further discuss with daughter - looking into cost for ambulance transportation
[2021-10-09 06:27] LABS: Albumin 2.6 g/dL (3.4-5.0); Phosphorus 3.3 mg/dL (2.5-4.9); Potassium 3.6 mmol/L (3.5-5.1)
[2021-10-09] MEDS ORDERED: GLUCAGON 1 MG/VIAL IM PRN (08:11)
[2021-10-09] MEDS ORDERED: D50W 25 GM/50 ML SYRINGE IV PRN (08:11)
[2021-10-09] MEDS: COLLAGENASE 30 GM OINTMENT TOP SCH (09:00)
[2021-10-09] MEDS: ENSURE HIGH PROTEIN 237 ML CAN PO SCH ×3 (09:00→20:58)
[2021-10-09] MEDS: FLUTICASONE SALMETEROL IH SCH ×2 (09:00→21:00)
[2021-10-09] MEDS: MIDODRINE HCL 5 MG TABLET PO SCH ×3 (09:20→17:08)
[2021-10-09] MEDS: CALCITROL 0.25 MCG CAP PO SCH (09:21)
[2021-10-09] MEDS: AMIODARONE HCL 200 MG TAB PO SCH (09:21)
[2021-10-09] MEDS: dexAMETHasone 4 MG/ML VIAL IV SCH ×2 (09:21→21:16)
--- NOTE | 2021-10-09 11:56 | P.PN ---
Subjective Date of Service: 10/09/21 Chief Complaint: Altered mental status Patient seen examined at bedside, has been off pressors since 10/06. Recommend pulling right groin central line Review of Systems 10-point ROS is otherwise unremarkable Physical Examination - Vital Signs Temperature: 97.2 F Blood Pressure: 121/56 Pulse: 90 Respirations: 16 Pulse Ox (%): 97 - Studies Laboratory Last Values WBC 20.90 K/uL (4.3-10.9) H* 09/18/21 11:41 RBC 2.71 M/uL (4.33-5.43) L 09/18/21 11:41 Hgb 7.1 g/dL (13.6-17.9) L 09/18/21 11:41 Hct 23.9 % (39.6-49.0) L 09/18/21 11:41 MCV 88.3 fL (80-100) 09/18/21 11:41 MCH 26.1 pg (27.0-35.0) L 09/18/21 11:41 MCHC 29.6 g/dL (32.0-36.0) L 09/18/21 11:41 RDW 20.0 % (12.1-15.2) H 09/18/21 11:41 Plt Count 344 K/uL (152-406) 09/18/21 11:41 MPV 7.9 fL (7.6-11.3) 09/18/21 11:41 Neutrophils % 86.4 % (41.7-73.7) H 09/18/21 11:41 Lymphocytes % 9.0 % (15.3-44.8) L 09/18/21 11:41 Monocytes % 4.1 % (3.3-12.3) 09/18/21 11:41 Eosinophils % 0.3 % (0-4.4) 09/18/21 11:41 Basophils % 0.2 % (0-1.3) 09/18/21 11:41 Absolute Neutrophils 18.0 K/uL (1.8-8.0) H 09/18/21 11:41 Segmented Neutrophils 90 % (40-80) H 09/18/21 11:41 Absolute Lymphocytes 1.9 K/uL (0.7-4.9) 09/18/21 11:41 Lymphocytes 7 % (15-42) L 09/18/21 11:41 Monocytes 3 % (0-10) 09/18/21 11:41 Absolute Monocytes 0.9 K/uL (0.1-1.3) 09/18/21 11:41 Absolute Eosinophils 0.1 K/uL (0-0.5) 09/18/21 11:41 Absolute Basophils 0.0 K/uL (0-0.5) 09/18/21 11:41 Platelet Estimate Adeq 09/18/21 11:41 Morphology Comment Not seen (NOT SEEN) 09/18/21 11:41 PT 21.2 SECONDS (9.5-12.5) H 09/18/21 11:41 INR 1.83 09/18/21 11:41 APTT 33.6 SECONDS (24.3-36.9) 09/18/21 11:41 Sodium 134 mmol/L (136-145) L 09/18/21 11:41 Potassium 3.5 mmol/L (3.5-5.1) 09/18/21 11:41 Chloride 104 mmol/L (98-107) 09/18/21 11:41 Carbon Dioxide 14 mmol/L (21-32) L* 09/18/21 11:41 BUN 63 mg/dL (7-18) H 09/18/21 11:41 Creatinine 10.30 mg/dL (0.55-1.3) H* 09/18/21 11:41 Estimated GFR 6 mL/min (=/>90) L 09/18/21 11:41 Glucose 97 mg/dL (74-106) 09/18/21 11:41 Lactic Acid 4.4 mmol/L (0.4-2.0) H* 09/18/21 11:41 Calcium 8.5 mg/dL (8.5-10.1) 09/18/21 11:41 Total Bilirubin 0.6 mg/dL (0.2-1.0) 09/18/21 11:41 Direct Bilirubin 0.3 mg/dL (0-0.2) H 09/18/21 11:41 AST 23 U/L (15-37) 09/18/21 11:41 ALT 20 U/L (12-78) 09/18/21 11:41 Alkaline Phosphatase 114 U/L (45-117) 09/18/21 11:41 Creatine Kinase 80 U/L (39-308) 09/18/21 11:41 CK-MB (CK-2) 2.6 ng/mL (1.0-3.6) 09/18/21 11:41 Rapid Troponin I 0.04 ng/mL (0.0-0.045) 09/18/21 11:41 Serum Total Protein 6.4 g/dL (6.4-8.2) 09/18/21 11:41 Albumin 1.6 g/dL (3.4-5.0) L 09/18/21 11:41 Globulin 4.8 g/dL (2.3-3.5) H 09/18/21 11:41 Albumin/Globulin Ratio 0.3 (1.1-1.8) L 09/18/21 11:41 Amylase 24 U/L (25-115) L 09/18/21 11:41 Lipase 39 U/L (73-393) L 09/18/21 11:41 Procalcitonin 5.15 ng/mL (<0.050) H 09/18/21 11:41 Urine RBC 5-10 /HPF (NONE SEEN) H 09/18/21 12:45 Urine WBC 5-10 /HPF (<5) H 09/18/21 12:45 Ur Squamous Epith Cells <5 /HPF (NONE SEEN) 09/18/21 12:45 Urine Bacteria 20-50 /HPF (NONE SEEN) H 09/18/21 12:45 Urine Culture Reflexed Reflexed 09/18/21 12:45 Influenza Type A RNA Negative (NEGATIVE) 09/18/21 12:27 Influenza Type B RNA Negative (NEGATIVE) 09/18/21 12:27 SARS-CoV-2 RNA (RT-PCR) Negative (NEGATIVE) 09/18/21 12:27 Miscellaneous Test Cancelled 09/18/21 11:31 Medications List Reviewed: Yes Assessment And Plan - Plan Physical exam: General: Other (AMS) HEENT: Atraumatic Neck: Supple Respiratory: Clear to auscultation bilaterally, Normal air movement Cardiovascular: Normal pulses, Regular rate/rhythm Gastrointestinal: Normal bowel sounds, Soft and benign Musculoskeletal: No contractures Integumentary: Pressure ulcer (Sacral decubitus ulcer status post surgical debridement performed on 09/19 and 09/26. Conclusions/Impression: Antibiotics: CURRENT: Gentamicin Start: 10/09 DC: Vancomycin Start: 09/18 Stop: 09/24 Daptomycin Start: 09/25 Stop: 10/08 Meropenem Start: 09/19 Stop: 10/08 Assessment/plan Severe sepsis secondary to infected sacral decubitus ulcer Patient septic on admission with lactic acidosis, metabolic acidosis, leukocytosis, and tacypena. Source infection: Infected sacral decubitus ulcer. CT abdomen pelvis showed gas-forming soft tissue infection directly posterior to sacrum. Sacral wound culture grew Proteus mirabilis, citrobacter, and vancomycin-resistant Enterococcus faecalis. Based off wound culture report patient has been placed on daptomycin and meropenem. Baseline creatinine kinase: 15, will obtain weekly creatinine kinase will patient is on daptomycin. Will hold statin well patient is on this medication. Patient underwent emergent debridement of sacral decubitus ulcer on 09/19. Additional debridement performed on 09/26. Antibiotic switched to monotherapy with IV gentamicin as it is only available agents sensitive to Proteus Mirabella's that being that can be given with dialysis. Continue wound care per surgical team. Wound VAC placed to sacral wound on 09/27. CK level on 10/01: 11 10/04: 15 Coccyx osteomyelitis Patient will need antibioitc therapy for 6 weeks duration. Antibiotic day . right forearm skin tear Patient is at risk of skin abrasions due to mediations and poor nutritional status. Continue to monitor closely and use caution when moving. To area: apply xeroform and cover with foam. Change daily or PRN if soiled or removed. Bacteremia Blood cultures obtained on 09/18 growing Proteus mirabilis sensitive to meropenem. Repeat blood cultures obtained on 09/20 show no growth at 24hr. Continue IV meropenem for 7-10 days from 09/20. Extended due to osteomyeltis. ESRD on HD Avoid nephrotoxic agents, renally dose all antibiotics/give after HD on HD days. Nephrology following. Anemia Patient has received blood products. Continue to monitor H&H. Leukocytosis Resolved, continue to monitor WBC trend in fever curve. Protein caloric malnutrition: Moderate Patient was low albumin, recommend supplemental Ensure protein drinks. Adequate nutrition needed for proper wound healing. -medical management per primary team Plan of care discussed with Dr. newell Thank you for consultation.
[2021-10-09] MEDS: MULTIVITAMINS,THERAPEUT 1 TAB PO SCH (12:30)
--- NOTE | 2021-10-09 13:33 | PN ---
Date of Progress Note: 10/09/2021 Diagnosis: Sacral decubitus ulcer. Subjective: The patient is improving from the surgical standpoint. We instructed primary and the re st of the team that if he gets discharged or go to another place, the wound care will continue the sa me, which is a wound VAC, change every 3 days. Offloading, nutrition are important. If he gets disc harged, eventually [facility] care. FELICITA/OLGA LIDIA Voice ID: [id number] Report ID: [id number]
[2021-10-09] MEDS: TRAMADOL HCL 50 MG TAB PO PRN (14:21)
--- NOTE | 2021-10-09 20:46 | P.PN ---
Date of Service: 10/09/21 Vital Signs Temp Pulse Resp BP Pulse Ox 97.3 F 71 16 131/67 100 10/09/21 17:50 10/09/21 18:00 10/09/21 17:50 10/09/21 18:00 10/09/21 18:00 Medications Acetaminophen (Acetaminophen 650mg/Rect Supp) 650 mg RI Q6HP PRN PRN Reason: TEMP > 100' F Acetaminophen (Acetaminophen 500 Mg Tab) 500 mg PO Q4HP PRN PRN Reason: TEMP > 100' F Amiodarone HCl (Amiodarone Hcl 200 Mg Tab) 200 mg PO DAILY [facility] Last Admin: 10/09/21 09:21 Dose: 200 mg Documented by: Calcitriol (Calcitrol 0.25 Mcg Cap) 0.5 mcg PO DAILY [facility] Last Admin: 10/09/21 09:21 Dose: 0.5 mcg Documented by: Collagenase (Collagenase 30 Gm Ointment) 1 appl TOP TUTHSA@0900 [facility] Last Admin: 10/09/21 09:00 Dose: 1 appl Documented by: Dexamethasone (Dexamethasone 4 Mg/Ml Vial) 4 mg IV Q12HR [facility] Last Admin: 10/09/21 09:21 Dose: 4 mg Documented by: Dextrose (D50w 25 Gm/50 Ml Syringe) 12.5 gm IV PRN PRN PRN Reason: HYPOGLYCEMIA Last Admin: 10/05/21 05:47 Dose: 12.5 gm Documented by: Docusate Sodium (Docusate Na 100 Mg Cap) 100 mg PO BID PRN PRN Reason: CONSTIPATION Epoetin Garrick (Epoetin Garrick 10,000 Unit/Ml Vial) 10,000 unit SQ M,W,F [facility] Last Admin: 10/08/21 16:37 Dose: 10,000 unit Documented by: Glucagon (Glucagon 1 Mg/Vial) 1 mg IM 1X PRN PRN Reason: HYPOGLYCEMIA Heparin Sodium (Porcine) (Heparin 1,000 Unit/Ml Vial) 6,000 unit IV EVERY HD PRN PRN Reason: DIALYSIS Last Admin: 10/05/21 18:26 Dose: 6,000 unit Documented by: Home Med (Fluticasone Propion/Salmeterol [Fluticasone-Salmeterol 100-50]) 1 each IH BID [facility] Last Admin: 10/09/21 09:00 Dose: 1 each Documented by: Home Med (Petrolatum,White [Aloe [place]]) 0 gm TOP PRN PRN PRN Reason: wound [facility] Med (Ketorolac Tromethamine [Ketorolac Tromethamine]) 1 drop OPTH QID PRN PRN Reason: inflammation Last Admin: 10/02/21 08:31 Dose: 1 drop Documented by: Home Med (Carboxymethylcellulose Sodium [Restore Plus]) 2 each OPTH QID PRN PRN Reason: DRY EYES Last Admin: 10/02/21 08:31 Dose: 2 each Documented by: Albumin Human (Albumin 25%) 50 mls @ 100 mls/hr IV EVERY HD KAMRYN Last Admin: 10/05/21 15:23 Dose: 50 mls Documented by: Norepinephrine Bitartrate 8 mg (/ Dextrose) 258 mls @ 0 mls/hr IV TITR KARMYN; Protocol Last Titration: 10/06/21 11:00 Dose: 0 mcg/min, 0 mls/hr Documented by: Sodium Chloride (Sodium Chloride) 250 mls @ 0 mls/hr IV .Q0M KAMRYN Last Admin: 09/24/21 22:36 Dose: 250 mls Documented by: Sodium Chloride (Sodium Chloride) 250 mls @ 0 mls/hr IV .Q0M KAMRYN Gentamicin Sulfate 240 mg/ (Sodium Chloride) 106 mls @ 106 mls/hr IVPB AFTER EACH DIALYSIS [facility] Insulin Human Regular (Insulin -Regular Human 50 Unit/0.5 Ml Ml) 0 unit SQ ACHS KAMRYN; Protocol Last Admin: 10/09/21 16:13 Dose: Not Given Documented by: Ipratropium [place] (Ipratropium Brom 0.5mg/2.5ml) 0.5 mg IH QIDRESP PRN PRN Reason: SHORTNESS OF BREATH Last Admin: 09/19/21 21:55 Dose: 0.5 mg Documented by: Mannitol (Mannitol 25% 12.5 Gm/50 Ml Vial) 12.5 gm IV EVERY HD PRN PRN Reason: Titrate to SBP (MUST DEFINE) Midodrine (Midodrine Hcl 5 Mg Tablet) 10 mg PO AC KAMRYN Last Admin: 10/09/21 17:08 Dose: 10 mg Documented by: Nutritional Formula (Ensure High Protein 237 Ml Can) 240 ml PO TID KAMRYN Last Admin: 10/09/21 14:00 Dose: 240 ml Documented by: Ondansetron HCl (Ondansetron 4 Mg/2 Ml Vial) 4 mg IV Q6HP PRN PRN Reason: NAUSEA / VOMITING Pantoprazole Sodium (Pantoprazole 40mg Tablet) 40 mg PO DAILYAC [facility]; Protocol Last Admin: 10/09/21 06:06 Dose: 40 mg Documented by: Sodium Chloride (Flush Normal Saline 10 Ml) 10 ml IV BID [facility] Last Admin: 10/09/21 09:00 Dose: 10 ml Documented by: Sodium Chloride (Sodium Chloride 0.9% 10ml Inj) 10 ml IV UD PRN PRN Reason: Diluant Tramadol HCl (Tramadol Hcl 50 Mg Tab) 50 mg PO Q8H PRN PRN Reason: Pain scale 5-7 (Moderate) Last Admin: 10/09/21 14:21 Dose: 50 mg Documented by: Vitamin B Complex/Vit C/Folic Acid (Multivitamins,Therapeut 1 Tab) 1 tab PO DAILY [facility] Last Admin: 10/09/21 12:30 Dose: 1 tab Documented by: Microbiology Results 09/18/21 11:41 Blood - Blood Aerobic Blood Culture - Final Proteus Mirabilis 09/18/21 11:41 Blood - Blood Blood Culture Gram Stain - Final 09/18/21 11:41 Blood - Blood Anaerobic Blood Culture - Final Proteus Mirabilis 09/18/21 11:41 Blood - Blood Gram Stain - Final 09/18/21 11:35 Blood - Blood Aerobic Blood Culture - Final Proteus Mirabilis 09/18/21 11:35 Blood - Blood Blood Culture Gram Stain - Final 09/18/21 11:35 Blood - Blood Anaerobic Blood Culture - Final Proteus Mirabilis 09/18/21 11:35 Blood - Blood Gram Stain - Final 09/18/21 12:45 Clean Catch Urine Sells Count - Final No growth. 09/18/21 12:45 Clean Catch Urine - Final No growth. Assessment/ Plan: Nephrology No dyspnea. ZHAO. No chest pain Weakness and fatigue. No acute events overnight. Vitals, medications, blood work and imaging reviewed in the chart General: In no apparent distress, Cooperative HEENT: Atraumatic Neck: Supple Respiratory: Clear to auscultation bilaterally Cardiovascular: Regular rate/rhythm, Hip & LE Edema Gastrointestinal: Non-distended, No tenderness Musculoskeletal: No clubbing, No contractures Integumentary: No rashes, No cyanosis. Large sacral ulcer. Neurological: Normal speech Laboratory Data (last 24 hrs) 09/18/21 11:41: PT 21.2 H, INR 1.83, APTT 33.6 09/18/21 11:41: WBC 20.90 H*, Hgb 7.1 L, Hct 23.9 L, Plt Count 344 09/18/21 11:41: Sodium 134 L, Potassium 3.5, BUN 63 H, Creatinine 10.30 H*, Glucose 97, Total Bilirubin 0.6, AST 23, ALT 20, Alkaline Phosphatase 114, Amylase 24 L, Lipase 39 L Imagings Data: EXAM DESCRIPTION: CT - Abdomen Pelvis Wo Contrast - 09/18/2021 5:07 pm CLINICAL HISTORY: Sepsis COMPARISON: No comparisons TECHNIQUE: Axial [address] imaging of the abdomen and pelvis was performed without IV contrast. No IV contrast was given because of allergy, abnormal renal function, patient refusal or physician request. No oral contrast administered. All CT scans are performed using dose optimization technique as appropriate and may include automated exposure control or mA/KV adjustment according to patient size. FINDINGS: No suspicious findings in the lung bases. The liver, spleen and pancreas show no suspicious findings on non-contrast imaging. Gallbladder and biliary tree are also without suspicious finding. Gallstones can be occult on CT imaging. Degree of respiratory motion artifact of the upper abdomen limits accurate assessment of gallbladder wall thickness. No hydronephrosis or suspicious renal mass. No significant adrenal finding. Isodense renal masses and pyelonephritis cannot be excluded in the absence of IV contrast. The urinary bladder is without significant finding. A 2.6 centimeter focal mass posterior right margin of the bladder is isodense to the bladder and is suspected to be moderate-sized bladder diverticulum. No gastric dilatation or gastric wall thickening. No pneumatosis intestinalis. Within the peritoneal cavity there is no free air, free fluid or inflammatory stranding. No acute retroperitoneal process seen. No hernia, mass or bulky lymphadenopathy. Patient has advanced degenerative changes of both hip joints, worse on the left. No acute bone or joint finding. Patient has extensive gas densities present in the subcutaneous fatty tissues posterior to the sacrum and coccyx. No bone destructive changes. The air densities extend laterally 08-2010 cm off of the midline. The inferior margin of the soft tissue gas densities extend in proximity to the posterior wall distal rectum and posterior margin of the levator ani musculature. No abnormal air densities in the fatty tissues of the perineum or scrotum. No history was provided indicating that the patient has a known decubitus ulcer or known wound in this region. IMPRESSION: Extensive abnormal air in the subcutaneous fatty tissues posterior to the sacrum and coccyx with extension each direction laterally 8-10 cm off of the midline. Inferior margin of the air densities abutthe posterior wall distal rectum and posterior margin of the levator ani musculature. This is most likely gas-forming soft tissue infection. The abnormal air densities do not yet extend into the fatty tissues of the perineum. EXAM DESCRIPTION: RAD - Chest Single View - 09/18/2021 12:00 pm CLINICAL HISTORY: COUGH Chest pain. COMPARISON: No comparisons FINDINGS: Portable technique limits examination quality. The lungs are grossly clear. The heart is normal in size. Right-sided venous catheter has tip in the right atrium region. Conclusions/Impression: ESRD -HD TIW as tolerated Hypokalemia -Replete potassium prn Hypomagnesemia -Replete with IV magnesium prn HypoPO4 -Replete PO4 prn -Encourage nutrition Hypotension Sepsis/ Septic Shock Acute Cystitis Sacral decubitus ulcer. Osteomyelitis of the coccyx. -Continue Meropenem -IV Albumin prn -Continue Levophed; wean as tolerated -Follow up with surgery; wound vac Diastolic CHF, chronic A/C hypoxic respiratory failure -Low sodium diet -Continue Oxygen supplementation -HD with UF as tolerated DM II with CKD -RISS Severe malnutrition -Continue Ensure supplementation -IV Albumin with HD today -Continue nephrovite Anemia in CKD -PRBC transfusion with HD today -Retacrit TIW CKD MBD -Continue Calcitriol Greater than 30min patient care.
[2021-10-10 05:41] LABS: MPV 7.6 fL (7.6-11.3); RBC Red Blood Cell Count 3.11 M/uL (4.33-5.43)
[2021-10-10] MEDS: PANTOPRAZOLE 40MG TABLET PO SCH (05:42)
--- NOTE | 2021-10-10 06:12 | P.PN ---
Date of Service: 10/10/21 Subjective: No acute events overnight. Remains off Levophed drip. Reports feeling alright, no new complaints ROS: 10 point ROS as noted above, otherwise negative Physical examination GEN: Alert, oriented, NAD HEENT: Normal conjunctiva, sclera anicteric CV: Regular rate and rhythm, 2+ BLE edema Pulm: Nonlabored respiration on 2L NC ABD: Soft, nontender, nondistended Integumentary: wound vac in place Problem List Sepsis secondary to infected sacral ulcer, bacteremia ESRD on hemodialysis RUE supervicial vein thrombosis; h/o upper extremity DVT Chronic systolic heart failure History of CVA (cerebrovascular accident) Adrenal insufficiency Metabolic acidosis Anemia s/p 5u PRBCs over the course of his hospitalization. No evidence of active bleeding. Patient was on Eliquis. No melena or hematochezia. Hemoglobin remains stable. Anemia likely secondary to sepsis and chronic kidney disease. Patient with superficial vein thrombosis. Eliquis discontinued due to drop in Hgb Dr. Ramirez following. s/p sacral decubitus ulcer debridement x3. Wound VAC. Nephrology is following for hemodialysis. Metabolic acidosis resolved. s/p albumin infusion for low albumin and hypotension. Levophed drip weaned off. Echocardiogram: Normal EF. can dc femoral line once peripheral IV access is obtained Blood pressure improved after initiation of dexamethasone. A.m. cortisol was low and is concern for adrenal insufficiency. Continue dexamethasone, can transition to oral hydrocortisone Infectious disease is following. Repeat blood culture shows no growth to date. was on daptomycin and meropenem. ID recommending IV gentamicin and Ancef for outpatient treatment Feeding as tolerated. Patient is tolerating puree diet. Insulin sliding scale for glucose management. Electrolyte replacement per nephrology. Dispo: family plan on taking patient home SW said may be issue with HD - pt would only be accepted via stretcher - unable to tolerate / too weak for wheelchair discussed with , she will further discuss with daughter - looking into cost for ambulance transportation
[2021-10-10 06:14] LABS: Albumin 2.6 g/dL (3.4-5.0); Phosphorus 4.2 mg/dL (2.5-4.9); Potassium 3.5 mmol/L (3.5-5.1)
[2021-10-10] MEDS ORDERED: IPRATROPIUM BROM 0.5MG/2.5ML IH PRN (07:07)
[2021-10-10] MEDS: INSULIN -REGULAR HUMAN 50 UNIT/0.5 ML ML SQ SCH ×4 (07:30→20:31)
[2021-10-10] MEDS: CALCITROL 0.25 MCG CAP PO SCH (08:05)
[2021-10-10] MEDS: MIDODRINE HCL 5 MG TABLET PO SCH ×3 (08:05→17:34)
[2021-10-10] MEDS: AMIODARONE HCL 200 MG TAB PO SCH (08:06)
[2021-10-10] MEDS: dexAMETHasone 4 MG/ML VIAL IV SCH ×2 (08:06→20:05)
[2021-10-10] MEDS: FLUTICASONE SALMETEROL IH SCH ×2 (08:07→20:04)
[2021-10-10] MEDS: MULTIVITAMINS,THERAPEUT 1 TAB PO SCH (08:07)
[2021-10-10] MEDS: ENSURE HIGH PROTEIN 237 ML CAN PO SCH ×3 (08:08→20:04)
--- NOTE | 2021-10-10 12:11 | P.PN ---
Subjective Date of Service: 10/10/21 Chief Complaint: Altered mental status Patient seen examined at bedside, WBC within normal range Review of Systems 10-point ROS is otherwise unremarkable Physical Examination - Vital Signs Temperature: 97.2 F Blood Pressure: 155/71 Pulse: 66 Respirations: 18 Pulse Ox (%): 99 - Studies Laboratory Last Values WBC 20.90 K/uL (4.3-10.9) H* 09/18/21 11:41 RBC 2.71 M/uL (4.33-5.43) L 09/18/21 11:41 Hgb 7.1 g/dL (13.6-17.9) L 09/18/21 11:41 Hct 23.9 % (39.6-49.0) L 09/18/21 11:41 MCV 88.3 fL (80-100) 09/18/21 11:41 MCH 26.1 pg (27.0-35.0) L 09/18/21 11:41 MCHC 29.6 g/dL (32.0-36.0) L 09/18/21 11:41 RDW 20.0 % (12.1-15.2) H 09/18/21 11:41 Plt Count 344 K/uL (152-406) 09/18/21 11:41 MPV 7.9 fL (7.6-11.3) 09/18/21 11:41 Neutrophils % 86.4 % (41.7-73.7) H 09/18/21 11:41 Lymphocytes % 9.0 % (15.3-44.8) L 09/18/21 11:41 Monocytes % 4.1 % (3.3-12.3) 09/18/21 11:41 Eosinophils % 0.3 % (0-4.4) 09/18/21 11:41 Basophils % 0.2 % (0-1.3) 09/18/21 11:41 Absolute Neutrophils 18.0 K/uL (1.8-8.0) H 09/18/21 11:41 Segmented Neutrophils 90 % (40-80) H 09/18/21 11:41 Absolute Lymphocytes 1.9 K/uL (0.7-4.9) 09/18/21 11:41 Lymphocytes 7 % (15-42) L 09/18/21 11:41 Monocytes 3 % (0-10) 09/18/21 11:41 Absolute Monocytes 0.9 K/uL (0.1-1.3) 09/18/21 11:41 Absolute Eosinophils 0.1 K/uL (0-0.5) 09/18/21 11:41 Absolute Basophils 0.0 K/uL (0-0.5) 09/18/21 11:41 Platelet Estimate Adeq 09/18/21 11:41 Morphology Comment Not seen (NOT SEEN) 09/18/21 11:41 PT 21.2 SECONDS (9.5-12.5) H 09/18/21 11:41 INR 1.83 09/18/21 11:41 APTT 33.6 SECONDS (24.3-36.9) 09/18/21 11:41 Sodium 134 mmol/L (136-145) L 09/18/21 11:41 Potassium 3.5 mmol/L (3.5-5.1) 09/18/21 11:41 Chloride 104 mmol/L (98-107) 09/18/21 11:41 Carbon Dioxide 14 mmol/L (21-32) L* 09/18/21 11:41 BUN 63 mg/dL (7-18) H 09/18/21 11:41 Creatinine 10.30 mg/dL (0.55-1.3) H* 09/18/21 11:41 Estimated GFR 6 mL/min (=/>90) L 09/18/21 11:41 Glucose 97 mg/dL (74-106) 09/18/21 11:41 Lactic Acid 4.4 mmol/L (0.4-2.0) H* 09/18/21 11:41 Calcium 8.5 mg/dL (8.5-10.1) 09/18/21 11:41 Total Bilirubin 0.6 mg/dL (0.2-1.0) 09/18/21 11:41 Direct Bilirubin 0.3 mg/dL (0-0.2) H 09/18/21 11:41 AST 23 U/L (15-37) 09/18/21 11:41 ALT 20 U/L (12-78) 09/18/21 11:41 Alkaline Phosphatase 114 U/L (45-117) 09/18/21 11:41 Creatine Kinase 80 U/L (39-308) 09/18/21 11:41 CK-MB (CK-2) 2.6 ng/mL (1.0-3.6) 09/18/21 11:41 Rapid Troponin I 0.04 ng/mL (0.0-0.045) 09/18/21 11:41 Serum Total Protein 6.4 g/dL (6.4-8.2) 09/18/21 11:41 Albumin 1.6 g/dL (3.4-5.0) L 09/18/21 11:41 Globulin 4.8 g/dL (2.3-3.5) H 09/18/21 11:41 Albumin/Globulin Ratio 0.3 (1.1-1.8) L 09/18/21 11:41 Amylase 24 U/L (25-115) L 09/18/21 11:41 Lipase 39 U/L (73-393) L 09/18/21 11:41 Procalcitonin 5.15 ng/mL (<0.050) H 09/18/21 11:41 Urine RBC 5-10 /HPF (NONE SEEN) H 09/18/21 12:45 Urine WBC 5-10 /HPF (<5) H 09/18/21 12:45 Ur Squamous Epith Cells <5 /HPF (NONE SEEN) 09/18/21 12:45 Urine Bacteria 20-50 /HPF (NONE SEEN) H 09/18/21 12:45 Urine Culture Reflexed Reflexed 09/18/21 12:45 Influenza Type A RNA Negative (NEGATIVE) 09/18/21 12:27 Influenza Type B RNA Negative (NEGATIVE) 09/18/21 12:27 SARS-CoV-2 RNA (RT-PCR) Negative (NEGATIVE) 09/18/21 12:27 Miscellaneous Test Cancelled 09/18/21 11:31 Medications List Reviewed: Yes Assessment And Plan - Plan Physical exam: General: Other (AMS) HEENT: Atraumatic Neck: Supple Respiratory: Clear to auscultation bilaterally, Normal air movement Cardiovascular: Normal pulses, Regular rate/rhythm Gastrointestinal: Normal bowel sounds, Soft and benign Musculoskeletal: No contractures Integumentary: Pressure ulcer (Sacral decubitus ulcer status post surgical debridement performed on 09/19 and 09/26. Conclusions/Impression: Antibiotics: CURRENT: Gentamicin Start: 10/09 DC: Vancomycin Start: 09/18 Stop: 09/24 Daptomycin Start: 09/25 Stop: 10/08 Meropenem Start: 09/19 Stop: 10/08 Assessment/plan Severe sepsis secondary to infected sacral decubitus ulcer Patient septic on admission with lactic acidosis, metabolic acidosis, leukocytosis, and tacypena. Source infection: Infected sacral decubitus ulcer. CT abdomen pelvis showed gas-forming soft tissue infection directly posterior to sacrum. Sacral wound culture grew Proteus mirabilis, citrobacter, and vancomycin-resistant Enterococcus faecalis. Based off wound culture report patient has been placed on daptomycin and meropenem. Baseline creatinine kinase: 15, will obtain weekly creatinine kinase will patient is on daptomycin. Will hold statin well patient is on this medication. Patient underwent emergent debridement of sacral decubitus ulcer on 09/19. Additional debridement performed on 09/26. Antibiotic switched to monotherapy with IV gentamicin as it is only available agent sensitive to Proteus Mirabella's that being that can be given with dialysis. Continue wound care per surgical team. Wound VAC placed to sacral wound on 09/27. CK level on 10/01: 11 10/04: 15 Coccyx osteomyelitis Patient will need antibioitc therapy for 6 weeks duration. Antibiotic day . right forearm skin tear Patient is at risk of skin abrasions due to mediations and poor nutritional status. Continue to monitor closely and use caution when moving. To area: apply xeroform and cover with foam. Change daily or PRN if soiled or removed. Bacteremia Blood cultures obtained on 09/18 growing Proteus mirabilis sensitive to meropenem. Repeat blood cultures obtained on 09/20 show no growth at 24hr. Continue IV meropenem for 7-10 days from 09/20. Extended due to osteomyeltis. ESRD on HD Avoid nephrotoxic agents, renally dose all antibiotics/give after HD on HD days. Nephrology following. Anemia Patient has received blood products. Continue to monitor H&H. Leukocytosis Resolved, continue to monitor WBC trend in fever curve. Protein caloric malnutrition: Moderate Patient was low albumin, recommend supplemental Ensure protein drinks. Adequate nutrition needed for proper wound healing. -medical management per primary team Plan of care discussed with Dr. newell Thank you for consultation.
[2021-10-10] MEDS: EPOETIN ALFA 10,000 UNIT/ML VIAL SQ SCH (17:34)
--- NOTE | 2021-10-10 21:36 | P.PN ---
Date of Service: 10/10/21 Vital Signs Temp Pulse Resp BP Pulse Ox 97 F 86 15 140/65 96 10/10/21 16:00 10/10/21 18:00 10/10/21 14:00 10/10/21 18:00 10/10/21 18:00 Medications Acetaminophen (Acetaminophen 650mg/Rect Supp) 650 mg [place] Q6HP PRN PRN Reason: TEMP > 100' F Acetaminophen (Acetaminophen 500 Mg Tab) 500 mg PO Q4HP PRN PRN Reason: TEMP > 100' F Amiodarone HCl (Amiodarone Hcl 200 Mg Tab) 200 mg PO DAILY [facility] Last Admin: 10/10/21 08:06 Dose: 200 mg Documented by: Calcitriol (Calcitrol 0.25 Mcg Cap) 0.5 mcg PO DAILY [facility] Last Admin: 10/10/21 08:05 Dose: 0.5 mcg Documented by: Collagenase (Collagenase 30 Gm Ointment) 1 appl TOP TUTHSA@0900 [facility] Last Admin: 10/09/21 09:00 Dose: 1 appl Documented by: Dexamethasone (Dexamethasone 4 Mg/Ml Vial) 4 mg IV Q12HR [facility] Last Admin: 10/10/21 20:05 Dose: 4 mg Documented by: Dextrose (D50w 25 Gm/50 Ml Syringe) 12.5 gm IV PRN PRN PRN Reason: HYPOGLYCEMIA Last Admin: 10/05/21 05:47 Dose: 12.5 gm Documented by: Docusate Sodium (Docusate Na 100 Mg Cap) 100 mg PO BID PRN PRN Reason: CONSTIPATION Epoetin Garrick (Epoetin Garrick 10,000 Unit/Ml Vial) 10,000 unit SQ M,W,F [facility] Last Admin: 10/10/21 17:34 Dose: 10,000 unit Documented by: Glucagon (Glucagon 1 Mg/Vial) 1 mg IM 1X PRN PRN Reason: HYPOGLYCEMIA Heparin Sodium (Porcine) (Heparin 1,000 Unit/Ml Vial) 6,000 unit IV EVERY HD PRN PRN Reason: DIALYSIS Last Admin: 10/10/21 19:48 Dose: 6,000 unit Documented by: Home Med (Fluticasone Propion/Salmeterol [Fluticasone-Salmeterol 100-50]) 1 each IH BID [facility] Last Admin: 10/10/21 20:04 Dose: 1 each Documented by: Home Med (Petrolatum,White [[place]]) 0 gm TOP PRN PRN PRN Reason: wound senior living Med (Ketorolac Tromethamine [Ketorolac Tromethamine]) 1 drop OPTH QID PRN PRN Reason: inflammation Last Admin: 10/02/21 08:31 Dose: 1 drop Documented by: Home Med (Carboxymethylcellulose Sodium [Restore Plus]) 2 each OPTH QID PRN PRN Reason: DRY EYES Last Admin: 10/02/21 08:31 Dose: 2 each Documented by: Albumin Human (Albumin 25%) 50 mls @ 100 mls/hr IV EVERY HD [facility] Last Admin: 10/05/21 15:23 Dose: 50 mls Documented by: Norepinephrine Bitartrate 8 mg (/ Dextrose) 258 mls @ 0 mls/hr IV TITR [facility]; Protocol Last Titration: 10/06/21 11:00 Dose: 0 mcg/min, 0 mls/hr Documented by: Sodium Chloride (Sodium Chloride) 250 mls @ 0 mls/hr IV .Q0M [facility] Last Admin: 09/24/21 22:36 Dose: 250 mls Documented by: Sodium Chloride (Sodium Chloride) 250 mls @ 0 mls/hr IV .Q0M [facility] Gentamicin Sulfate 240 mg/ (Sodium Chloride) 106 mls @ 106 mls/hr IVPB AFTER EACH DIALYSIS [facility] Insulin Human Regular (Insulin -Regular Human 50 Unit/0.5 Ml Ml) 0 unit SQ ACHS [facility]; Protocol Last Admin: 10/10/21 20:31 Dose: Not Given Documented by: Ipratropium [place] (Ipratropium Brom 0.5mg/2.5ml) 0.5 mg IH QIDP PRN PRN Reason: SHORTNESS OF BREATH Last Admin: 10/10/21 19:36 Dose: 0.5 mg Documented by: Mannitol (Mannitol 25% 12.5 Gm/50 Ml Vial) 12.5 gm IV EVERY HD PRN PRN Reason: Titrate to SBP (MUST DEFINE) Midodrine (Midodrine Hcl 5 Mg Tablet) 10 mg PO AC [facility] Last Admin: 10/10/21 17:34 Dose: 10 mg Documented by: Nutritional Formula (Ensure High Protein 237 Ml Can) 240 ml PO TID [facility] Last Admin: 10/10/21 20:04 Dose: 240 ml Documented by: Ondansetron HCl (Ondansetron 4 Mg/2 Ml Vial) 4 mg IV Q6HP PRN PRN Reason: NAUSEA / VOMITING Pantoprazole Sodium (Pantoprazole 40mg Tablet) 40 mg PO DAILYAC [facility]; Protocol Last Admin: 10/10/21 05:42 Dose: 40 mg Documented by: Sodium Chloride (Flush Normal Saline 10 Ml) 10 ml IV BID [facility] Last Admin: 10/10/21 20:04 Dose: 10 ml Documented by: Sodium Chloride (Sodium Chloride 0.9% 10ml Inj) 10 ml IV UD PRN PRN Reason: Diluant Tramadol HCl (Tramadol Hcl 50 Mg Tab) 50 mg PO Q8H PRN PRN Reason: Pain scale 5-7 (Moderate) Last Admin: 10/09/21 14:21 Dose: 50 mg Documented by: Vitamin B Complex/Vit C/Folic Acid (Multivitamins,Therapeut 1 Tab) 1 tab PO DAILY [facility] Last Admin: 10/10/21 08:07 Dose: 1 tab Documented by: Microbiology Results 09/18/21 11:41 Blood - Blood Aerobic Blood Culture - Final Proteus Mirabilis 09/18/21 11:41 Blood - Blood Blood Culture Gram Stain - Final 09/18/21 11:41 Blood - Blood Anaerobic Blood Culture - Final Proteus Mirabilis 09/18/21 11:41 Blood - Blood Gram Stain - Final 09/18/21 11:35 Blood - Blood Aerobic Blood Culture - Final Proteus Mirabilis 09/18/21 11:35 Blood - Blood Blood Culture Gram Stain - Final 09/18/21 11:35 Blood - Blood Anaerobic Blood Culture - Final Proteus Mirabilis 09/18/21 11:35 Blood - Blood Gram Stain - Final 09/18/21 12:45 Clean Catch Urine [place] Count - Final No growth. 09/18/21 12:45 Clean Catch Urine - Final No growth. Assessment/ Plan: Nephrology No dyspnea. ZHAO. No chest pain Weakness and fatigue. No acute events overnight. Vitals, medications, blood work and imaging reviewed in the chart General: In no apparent distress, Cooperative HEENT: Atraumatic Neck: Supple Respiratory: Clear to auscultation bilaterally Cardiovascular: Regular rate/rhythm, Hip & LE Edema Gastrointestinal: Non-distended, No tenderness Musculoskeletal: No clubbing, No contractures Integumentary: No rashes, No cyanosis. Large sacral ulcer. Neurological: Normal speech Laboratory Data (last 24 hrs) 09/18/21 11:41: PT 21.2 H, INR 1.83, APTT 33.6 09/18/21 11:41: WBC 20.90 H*, Hgb 7.1 L, Hct 23.9 L, Plt Count 344 09/18/21 11:41: Sodium 134 L, Potassium 3.5, BUN 63 H, Creatinine 10.30 H*, Glucose 97, Total Bilirubin 0.6, AST 23, ALT 20, Alkaline Phosphatase 114, Amylase 24 L, Lipase 39 L Imagings Data: EXAM DESCRIPTION: CT - Abdomen Pelvis Wo Contrast - 09/18/2021 5:07 pm CLINICAL HISTORY: Sepsis COMPARISON: No comparisons TECHNIQUE: Axial [address] imaging of the abdomen and pelvis was performed without IV contrast. No IV contrast was given because of allergy, abnormal renal function, patient refusal or physician request. No oral contrast administered. All CT scans are performed using dose optimization technique as appropriate and may include automated exposure control or mA/KV adjustment according to patient size. FINDINGS: No suspicious findings in the lung bases. The liver, spleen and pancreas show no suspicious findings on non-contrast imaging. Gallbladder and biliary tree are also without suspicious finding. Gallstones can be occult on CT imaging. Degree of respiratory motion artifact of the upper abdomen limits accurate assessment of gallbladder wall thickness. No hydronephrosis or suspicious renal mass. No significant adrenal finding. Isodense renal masses and pyelonephritis cannot be excluded in the absence of IV contrast. The urinary bladder is without significant finding. A 2.6 centimeter focal mass posterior right margin of the bladder is isodense to the bladder and is suspected to be moderate-sized bladder diverticulum. No gastric dilatation or gastric wall thickening. No pneumatosis intestinalis. Within the peritoneal cavity there is no free air, free fluid or inflammatory stranding. No acute retroperitoneal process seen. No hernia, mass or bulky lymphadenopathy. Patient has advanced degenerative changes of both hip joints, worse on the left. No acute bone or joint finding. Patient has extensive gas densities present in the subcutaneous fatty tissues posterior to the sacrum and coccyx. No bone destructive changes. The air densities extend laterally 08-2010 cm off of the midline. The inferior margin of the soft tissue gas densities extend in proximity to the posterior wall distal rectum and posterior margin of the levator ani musculature. No abnormal air densities in the fatty tissues of the perineum or scrotum. No history was provided indicating that the patient has a known decubitus ulcer or known wound in this region. IMPRESSION: Extensive abnormal air in the subcutaneous fatty tissues posterior to the sacrum and coccyx with extension each direction laterally 8-10 cm off of the midline. Inferior margin of the air densities abutthe posterior wall distal rectum and posterior margin of the levator ani musculature. This is most likely gas-forming soft tissue infection. The abnormal air den sities do not yet extend into the fatty tissues of the perineum. EXAM DESCRIPTION: RAD - Chest Single View - 09/18/2021 12:00 pm CLINICAL HISTORY: COUGH Chest pain. COMPARISON: No comparisons FINDINGS: Portable technique limits examination quality. The lungs are grossly clear. The heart is normal in size. Right-sided venous catheter has tip in the right atrium region. Conclusions/Impression: ESRD -HD TIW as tolerated Hypokalemia -Replete potassium prn Hypomagnesemia -Replete with IV magnesium prn HypoPO4 -Replete PO4 prn -Encourage nutrition Hypotension Sepsis/ Septic Shock Acute Cystitis Sacral decubitus ulcer. Osteomyelitis of the coccyx. -Continue Abx -IV Albumin prn -Levophed prn -Follow up with surgery; wound vac Diastolic CHF, chronic A/C hypoxic respiratory failure -Low sodium diet -Continue Oxygen supplementation -HD with UF as tolerated DM II with CKD -RISS Severe malnutrition -Continue Ensure supplementation -IV Albumin with HD today -Continue nephrovite Anemia in CKD -PRBC transfusion with HD today -Retacrit TIW CKD MBD -Continue Calcitriol Greater than 30min patient care.
[2021-10-11 05:45] LABS: Albumin 2.7 g/dL (3.4-5.0); Magnesium 2.2 mg/dL (1.8-2.4); Potassium 3.5 mmol/L (3.5-5.1)
--- NOTE | 2021-10-11 05:51 | P.PN ---
Date of Service: 10/11/21 Subjective: no acute events overnight. overall improving off levophed for several days femoral line removed yesterday ROS: 10 point ROS as noted above, otherwise negative Physical examination GEN: Alert, oriented, NAD, generalized weakness HEENT: Normal conjunctiva, sclera anicteric CV: Regular rate and rhythm, 2+ BLE edema Pulm: Nonlabored respiration on 2L NC ABD: Soft, nontender, nondistended Integumentary: wound vac in place Problem List Sepsis secondary to infected sacral ulcer, bacteremia ESRD on hemodialysis RUE supervicial vein thrombosis; h/o upper extremity DVT Chronic systolic heart failure History of CVA (cerebrovascular accident) Adrenal insufficiency Metabolic acidosis Anemia s/p 5u PRBCs over the course of his hospitalization. No evidence of active bleeding. Patient was on Eliquis. No melena or hematochezia. Hemoglobin remains stable. Anemia likely secondary to sepsis and chronic kidney disease. Patient with superficial vein thrombosis. Eliquis discontinued due to drop in Hgb Dr. Ramirez following. s/p sacral decubitus ulcer debridement x3. Wound VAC placed. Nephrology is following for hemodialysis. Metabolic acidosis resolved. s/p albumin infusion for low albumin and hypotension. Levophed drip weaned off. Echocardiogram: Normal EF. fem line dc'd on 10/10 Blood pressure improved after initiation of dexamethasone. A.m. cortisol was low and is concern for adrenal insufficiency. Continue dexamethasone, can transition to oral hydrocortisone Infectious disease is following. Repeat blood culture shows no growth to date. was on daptomycin and meropenem. ID recommending IV gentamicin monotherapy for outpatient treatment. adjusting dose, level was high yesterday Feeding as tolerated. Patient is tolerating puree diet. Insulin sliding scale for glucose management. Dispo: family plan on taking patient home JOSE LUIS said may be issue with HD - pt would only be accepted via stretcher - unable to tolerate / too weak for wheelchair family state Medicare part B should have started this September, JOSE LUIS/KIAH unable to see this when run his medicare. Working on finding out DC home once transportation issue is worked out so he can continue dialysis
[2021-10-11] MEDS: PANTOPRAZOLE 40MG TABLET PO SCH (05:52)
[2021-10-11] MEDS: INSULIN -REGULAR HUMAN 50 UNIT/0.5 ML ML SQ SCH ×4 (07:30→20:17)
[2021-10-11] MEDS: AMIODARONE HCL 200 MG TAB PO SCH (08:21)
[2021-10-11] MEDS: CALCITROL 0.25 MCG CAP PO SCH (08:21)
[2021-10-11] MEDS: ENSURE HIGH PROTEIN 237 ML CAN PO SCH ×3 (08:22→20:07)
[2021-10-11] MEDS: dexAMETHasone 4 MG/ML VIAL IV SCH ×2 (08:22→20:09)
[2021-10-11] MEDS: MIDODRINE HCL 5 MG TABLET PO SCH ×3 (08:22→16:40)
[2021-10-11] MEDS: MULTIVITAMINS,THERAPEUT 1 TAB PO SCH (08:22)
[2021-10-11] MEDS: FLUTICASONE SALMETEROL IH SCH ×2 (08:23→20:07)
[2021-10-11] MEDS: COLLAGENASE 30 GM OINTMENT TOP SCH (09:00)
--- NOTE | 2021-10-11 10:28 | P.PN ---
Date of Service: 10/11/21 Vital Signs Temp Pulse Resp BP Pulse Ox 97.3 F 69 17 134/89 99 10/11/21 08:00 10/11/21 08:00 10/11/21 08:00 10/11/21 08:00 10/11/21 08:00 Medications Acetaminophen (Acetaminophen 650mg/Rect Supp) 650 mg [place] Q6HP PRN PRN Reason: TEMP > 100' F Acetaminophen (Acetaminophen 500 Mg Tab) 500 mg PO Q4HP PRN PRN Reason: TEMP > 100' F Amiodarone HCl (Amiodarone Hcl 200 Mg Tab) 200 mg PO DAILY [facility] Last Admin: 10/11/21 08:21 Dose: 200 mg Documented by: Calcitriol (Calcitrol 0.25 Mcg Cap) 0.5 mcg PO DAILY [facility] Last Admin: 10/11/21 08:21 Dose: 0.5 mcg Documented by: Collagenase (Collagenase 30 Gm Ointment) 1 appl TOP TUTHSA@0900 [facility] Last Admin: 10/11/21 09:00 Dose: Not Given Documented by: Dexamethasone (Dexamethasone 4 Mg/Ml Vial) 4 mg IV Q12HR [facility] Last Admin: 10/11/21 08:22 Dose: 4 mg Documented by: Dextrose (D50w 25 Gm/50 Ml Syringe) 12.5 gm IV PRN PRN PRN Reason: HYPOGLYCEMIA Last Admin: 10/05/21 05:47 Dose: 12.5 gm Documented by: Docusate Sodium (Docusate Na 100 Mg Cap) 100 mg PO BID PRN PRN Reason: CONSTIPATION Epoetin [place]rick (Epoetin Garrick 10,000 Unit/Ml Vial) 10,000 unit SQ M,W,F [facility] Last Admin: 10/10/21 17:34 Dose: 10,000 unit Documented by: Glucagon (Glucagon 1 Mg/Vial) 1 mg IM 1X PRN PRN Reason: HYPOGLYCEMIA Heparin Sodium (Porcine) (Heparin 1,000 Unit/Ml Vial) 6,000 unit IV EVERY HD PRN PRN Reason: DIALYSIS Last Admin: 10/10/21 19:48 Dose: 6,000 unit Documented by: Home Med (Fluticasone Propion/Salmeterol [Fluticasone-Salmeterol 100-50]) 1 each IH BID [facility] Last Admin: 10/11/21 08:23 Dose: 1 each Documented by: Home Med (Petrolatum,White [Aloe [place]]) 0 gm TOP PRN PRN PRN Reason: wound intermediate Med (Ketorolac Tromethamine [Ketorolac Tromethamine]) 1 drop OPTH QID PRN PRN Reason: inflammation Last Admin: 10/02/21 08:31 Dose: 1 drop Documented by: Home Med (Carboxymethylcellulose Sodium [Restore Plus]) 2 each OPTH QID PRN PRN Reason: DRY EYES Last Admin: 10/02/21 08:31 Dose: 2 each Documented by: Albumin Human (Albumin 25%) 50 mls @ 100 mls/hr IV EVERY HD [facility] Last Admin: 10/05/21 15:23 Dose: 50 mls Documented by: Norepinephrine Bitartrate 8 mg (/ Dextrose) 258 mls @ 0 mls/hr IV TITR [facility]; Protocol Last Titration: 10/06/21 11:00 Dose: 0 mcg/min, 0 mls/hr Documented by: Sodium Chloride (Sodium Chloride) 250 mls @ 0 mls/hr IV .Q0M [facility] Last Admin: 09/24/21 22:36 Dose: 250 mls Documented by: Sodium Chloride (Sodium Chloride) 250 mls @ 0 mls/hr IV .Q0M [facility] Gentamicin Sulfate 240 mg/ (Sodium Chloride) 106 mls @ 106 mls/hr IVPB AFTER EACH DIALYSIS [facility] Insulin Human Regular (Insulin -Regular Human 50 Unit/0.5 Ml Ml) 0 unit SQ ACHS [facility]; Protocol Last Admin: 10/11/21 07:30 Dose: Not Given Documented by: Ipratropium [place] (Ipratropium Brom 0.5mg/2.5ml) 0.5 mg IH QIDP PRN PRN Reason: SHORTNESS OF BREATH Last Admin: 10/10/21 19:36 Dose: 0.5 mg Documented by: Mannitol (Mannitol 25% 12.5 Gm/50 Ml Vial) 12.5 gm IV EVERY HD PRN PRN Reason: Titrate to SBP (MUST DEFINE) Midodrine (Midodrine Hcl 5 Mg Tablet) 10 mg PO AC [facility] Last Admin: 10/11/21 08:22 Dose: 10 mg Documented by: Nutritional Formula (Ensure High Protein 237 Ml Can) 240 ml PO TID [facility] Last Admin: 10/11/21 08:22 Dose: 240 ml Documented by: Ondansetron HCl (Ondansetron 4 Mg/2 Ml Vial) 4 mg IV Q6HP PRN PRN Reason: NAUSEA / VOMITING Pantoprazole Sodium (Pantoprazole 40mg Tablet) 40 mg PO DAILYAC [facility]; Protocol Last Admin: 10/11/21 05:52 Dose: 40 mg Documented by: Sodium Chloride (Flush Normal Saline 10 Ml) 10 ml IV BID [facility] Last Admin: 10/11/21 08:22 Dose: 10 ml Documented by: Sodium Chloride (Sodium Chloride 0.9% 10ml Inj) 10 ml IV UD PRN PRN Reason: Diluant Tramadol HCl (Tramadol Hcl 50 Mg Tab) 50 mg PO Q8H PRN PRN Reason: Pain scale 5-7 (Moderate) Last Admin: 10/09/21 14:21 Dose: 50 mg Documented by: Vitamin B Complex/Vit C/Folic Acid (Multivitamins,Therapeut 1 Tab) 1 tab PO DAILY [facility] Last Admin: 10/11/21 08:22 Dose: 1 tab Documented by: Microbiology Results 09/18/21 11:41 Blood - Blood Aerobic Blood Culture - Final Proteus Mirabilis 09/18/21 11:41 Blood - Blood Blood Culture Gram Stain - Final 09/18/21 11:41 Blood - Blood Anaerobic Blood Culture - Final Proteus Mirabilis 09/18/21 11:41 Blood - Blood Gram Stain - Final 09/18/21 11:35 Blood - Blood Aerobic Blood Culture - Final Proteus Mirabilis 09/18/21 11:35 Blood - Blood Blood Culture Gram Stain - Final 09/18/21 11:35 Blood - Blood Anaerobic Blood Culture - Final Proteus Mirabilis 09/18/21 11:35 Blood - Blood Gram Stain - Final 09/18/21 12:45 Clean Catch Urine [place] Count - Final No growth. 09/18/21 12:45 Clean Catch Urine - Final No growth. Assessment/ Plan: Nephrology No dyspnea. ZHAO. No chest pain Weakness and fatigue. No acute events overnight. Vitals, medications, blood work and imaging reviewed in the chart General: In no apparent distress, Cooperative HEENT: Atraumatic Neck: Supple Respiratory: Clear to auscultation bilaterally Cardiovascular: Regular rate/rhythm, Hip & LE Edema Gastrointestinal: Non-distended, No tenderness Musculoskeletal: No clubbing, No contractures Integumentary: No rashes, No cyanosis. Large sacral ulcer. Neurological: Normal speech Laboratory Data (last 24 hrs) 09/18/21 11:41: PT 21.2 H, INR 1.83, APTT 33.6 09/18/21 11:41: WBC 20.90 H*, Hgb 7.1 L, Hct 23.9 L, Plt Count 344 09/18/21 11:41: Sodium 134 L, Potassium 3.5, BUN 63 H, Creatinine 10.30 H*, Glucose 97, Total Bilirubin 0.6, AST 23, ALT 20, Alkaline Phosphatase 114, Amylase 24 L, Lipase 39 L Imagings Data: EXAM DESCRIPTION: CT - Abdomen Pelvis Wo Contrast - 09/18/2021 5:07 pm CLINICAL HISTORY: Sepsis COMPARISON: No comparisons TECHNIQUE: Axial [address] imaging of the abdomen and pelvis was performed without IV contrast. No IV contrast was given because of allergy, abnormal renal function, patient refusal or physician request. No oral contrast administered. All CT scans are performed using dose optimization technique as appropriate and may include automated exposure control or mA/KV adjustment according to patient size. FINDINGS: No suspicious findings in the lung bases. The liver, spleen and pancreas show no suspicious findings on non-contrast imaging. Gallbladder and biliary tree are also without suspicious finding. Gallstones can be occult on CT imaging. Degree of respiratory motion artifact of the upper abdomen limits accurate assessment of gallbladder wall thickness. No hydronephrosis or suspicious renal mass. No significant adrenal finding. Isodense renal masses and pyelonephritis cannot be excluded in the absence of IV contrast. The urinary bladder is without significant finding. A 2.6 centimeter focal mass posterior right margin of the bladder is isodense to the bladder and is suspected to be moderate-sized bladder diverticulum. No gastric dilatation or gastric wall thickening. No pneumatosis intestinalis. Within the peritoneal cavity there is no free air, free fluid or inflammatory stranding. No acute retroperitoneal process seen. No hernia, mass or bulky lymphadenopathy. Patient has advanced degenerative changes of both hip joints, worse on the left. No acute bone or joint finding. Patient has extensive gas densities present in the subcutaneous fatty tissues posterior to the sacrum and coccyx. No bone destructive changes. The air densities extend laterally 08-2010 cm off of the midline. The inferior margin of the soft tissue gas densities extend in proximity to the posterior wall distal rectum and posterior margin of the levator ani musculature. No abnormal air densities in the fatty tissues of the perineum or scrotum. No history was provided indicating that the patient has a known decubitus ulcer or known wound in this region. IMPRESSION: Extensive abnormal air in the subcutaneous fatty tissues posterior to the sacrum and coccyx with extension each direction laterally 8-10 cm off of the midline. Inferior margin of the air densities abutthe posterior wall distal rectum and posterior margin of the levator ani musculature. This is most likely gas-forming soft tissue infection. The abnormal air densities do not yet extend into the fatty tissues of the perineum. EXAM DESCRIPTION: RAD - Chest Single View - 09/18/2021 12:00 pm CLINICAL HISTORY: COUGH Chest pain. COMPARISON: No comparisons FINDINGS: Portable technique limits examination quality. The lungs are grossly clear. The heart is normal in size. Right-sided venous catheter has tip in the right atrium region. Conclusions/Impression: ESRD -HD TIW as tolerated Hypokalemia -Replete potassium prn Hypomagnesemia -Replete with IV magnesium prn HypoPO4 -Replete PO4 prn -Encourage nutrition Hypotension Sepsis/ Septic Shock Acute Cystitis Sacral decubitus ulcer. Osteomyelitis of the coccyx. -Continue Abx -IV Albumin prn -Levophed prn -Follow up with surgery; wound vac Diastolic CHF, chronic A/C hypoxic respiratory failure -Low sodium diet -Continue Oxygen supplementation -HD with UF as tolerated DM II with CKD -RISS Severe malnutrition -Continue Ensure supplementation -IV Albumin with HD today -Continue nephrovite Anemia in CKD -PRBC transfusion with HD today -Retacrit TIW CKD MBD -Continue Calcitriol Greater than 30min patient care.
--- NOTE | 2021-10-11 12:25 | P.PN ---
Subjective Date of Service: 10/11/21 Chief Complaint: Altered mental status Patient seen examined at bedside, femoral line pulled on 10/09. Gentamicin trough supratherapeutic at 3.2, pharmacy adjusted dose. Review of Systems 10-point ROS is otherwise unremarkable Physical Examination - Vital Signs Temperature: 97.3 F Blood Pressure: 145/67 Pulse: 71 Respirations: 15 Pulse Ox (%): 97 - Studies Medications List Reviewed: Yes Assessment And Plan - Plan Physical exam: General: Other (AMS) HEENT: Atraumatic Neck: Supple Respiratory: Clear to auscultation bilaterally, Normal air movement Cardiovascular: Normal pulses, Regular rate/rhythm Gastrointestinal: Normal bowel sounds, Soft and benign Musculoskeletal: No contractures Integumentary: Pressure ulcer (Sacral decubitus ulcer status post surgical debridement performed on 09/19 and 09/26. Conclusions/Impression: Antibiotics: CURRENT: Gentamicin Start: 10/09 DC: Vancomycin Start: 09/18 Stop: 09/24 Daptomycin Start: 09/25 Stop: 10/08 Meropenem Start: 09/19 Stop: 10/08 Assessment/plan Severe sepsis secondary to infected sacral decubitus ulcer Patient septic on admission with lactic acidosis, metabolic acidosis, leukocytosis, and tacypena. Source infection: Infected sacral decubitus ulcer. CT abdomen pelvis showed gas-forming soft tissue infection directly posterior to sacrum. Sacral wound culture grew Proteus mirabilis, citrobacter, and vancomycin-resistant Enterococcus faecalis. Based off wound culture report patient has been placed on daptomycin and meropenem. Baseline creatinine kinase: 15, will obtain weekly creatinine kinase will patient is on daptomycin. Statin was held while patient was on daptomycin. Antibiotic switched to monotherapy with IV gentamicin as it is only available agent sensitive to Proteus Mirabella's that being that can be given with dialysis. Patient underwent emergent debridement of sacral decubitus ulcer on 09/19. Additional debridement performed on 09/26. Continue wound care per surgical team. Wound VAC placed to sacral wound on 09/27. CK level on 10/01: 11 1: 15 Coccyx osteomyelitis Patient will need antibioitc therapy for 6 weeks duration. Antibiotic day . right forearm skin tear Patient is at risk of skin abrasions due to mediations and poor nutritional status. Continue to monitor closely and use caution when moving. To area: apply xeroform and cover with foam. Change daily or PRN if soiled or removed. Bacteremia Blood cultures obtained on 09/18 growing Proteus mirabilis sensitive to meropenem. Repeat blood cultures obtained on 09/20 show no growth at 24hr. Continue IV meropenem for 7-10 days from 09/20. Extended due to osteomyeltis. ESRD on HD Avoid nephrotoxic agents, renally dose all antibiotics/give after HD on HD days. Nephrology following. Anemia Patient has received blood products. Continue to monitor H&H. Leukocytosis Resolved, continue to monitor WBC trend in fever curve. Protein caloric malnutrition: Moderate Patient was low albumin, recommend supplemental Ensure protein drinks. Adequate nutrition needed for proper wound healing. -medical management per primary team Plan of care discussed with Dr. newell Thank you for consultation.
[2021-10-12] MEDS: PANTOPRAZOLE 40MG TABLET PO SCH (05:33)
--- NOTE | 2021-10-12 05:44 | P.PN ---
Date of Service: 10/12/21 Subjective: overall improving no acute events overnight ROS: 10 point ROS as noted above, otherwise negative Physical examination GEN: Alert, oriented, NAD, generalized weakness HEENT: Normal conjunctiva, sclera anicteric CV: Regular rate and rhythm, 1-2+ BLE edema Pulm: Nonlabored respiration on 2L NC ABD: Soft, nontender, nondistended Integumentary: wound vac in place Problem List Sepsis secondary to infected sacral ulcer, bacteremia ESRD on hemodialysis RUE supervicial vein thrombosis; h/o upper extremity DVT Chronic systolic heart failure History of CVA (cerebrovascular accident) Adrenal insufficiency Metabolic acidosis Anemia Anemia likely secondary to sepsis and chronic kidney disease. s/p 5u PRBCs over the course of his hospitalization. No evidence of active bleeding. Patient was on Eliquis. No melena or hematochezia. Hemoglobin remains stable. Patient with superficial vein thrombosis. Eliquis discontinued due to drop in Hgb Dr. Ramirez following. s/p sacral decubitus ulcer debridement x3. Wound VAC placed. Nephrology is following for hemodialysis. Metabolic acidosis resolved. s/p albumin infusion for low albumin and hypotension. Levophed drip weaned off. Echocardiogram: Normal EF. fem line dc'd on 10/10 Blood pressure improved after initiation of dexamethasone. A.m. cortisol was low and is concern for adrenal insufficiency. Continue dexamethasone, can transition to oral hydrocortisone Infectious disease is following. Repeat blood culture shows no growth to date. was on daptomycin and meropenem. ID recommending IV gentamicin monotherapy for outpatient treatment. adjusting dose, level was high yesterday Feeding as tolerated. Patient is tolerating pureed diet. Insulin sliding scale for glucose management. Dispo: family plan on taking patient home SW said may be issue with HD - pt would only be accepted via stretcher - unable to tolerate / too weak for wheelchair family state Medicare part B should have started this September, JOSE LUIS/KIAH unable to see this when run his medicare. Working on finding out DC home once transportation issue is worked out so he can continue dialysis
[2021-10-12] MEDS: INSULIN -REGULAR HUMAN 50 UNIT/0.5 ML ML SQ SCH ×4 (07:30→20:06)
[2021-10-12 08:16] LABS: Absolute Lymphocytes (CBC) 1.3 K/uL (0.7-4.9); Hematocrit 29.4 % (39.6-49.0); Lymphocytes % 13.8 % (15.3-44.8); MPV 7.3 fL (7.6-11.3); RBC Red Blood Cell Count 3.38 M/uL (4.33-5.43)
[2021-10-12] MEDS: MIDODRINE HCL 5 MG TABLET PO SCH ×3 (08:31→16:30)
[2021-10-12 08:32] LABS: Albumin 2.7 g/dL (3.4-5.0); Phosphorus 3.8 mg/dL (2.5-4.9); Potassium 3.4 mmol/L (3.5-5.1)
[2021-10-12] MEDS: AMIODARONE HCL 200 MG TAB PO SCH (08:32)
[2021-10-12] MEDS: ENSURE HIGH PROTEIN 237 ML CAN PO SCH ×3 (08:32→20:04)
[2021-10-12] MEDS: dexAMETHasone 4 MG/ML VIAL IV SCH (08:32)
[2021-10-12] MEDS: FLUTICASONE SALMETEROL IH SCH ×2 (08:33→20:04)
[2021-10-12] MEDS: MULTIVITAMINS,THERAPEUT 1 TAB PO SCH (08:33)
[2021-10-12] MEDS: CALCITROL 0.25 MCG CAP PO SCH (08:34)
[2021-10-12] MEDS: DOCUSATE NA 100 MG CAP PO PRN (08:35)
--- NOTE | 2021-10-12 11:58 | P.PN ---
Subjective Date of Service: 10/12/21 Chief Complaint: Altered mental status Patient seen examined at bedside, no acute events. Review of Systems 10-point ROS is otherwise unremarkable Physical Examination - Vital Signs Temperature: 97.1 F Blood Pressure: 137/72 Pulse: 73 Respirations: 16 Pulse Ox (%): 100 - Studies Laboratory Last Values WBC 20.90 K/uL (4.3-10.9) H* 09/18/21 11:41 RBC 2.71 M/uL (4.33-5.43) L 09/18/21 11:41 Hgb 7.1 g/dL (13.6-17.9) L 09/18/21 11:41 Hct 23.9 % (39.6-49.0) L 09/18/21 11:41 MCV 88.3 fL (80-100) 09/18/21 11:41 MCH 26.1 pg (27.0-35.0) L 09/18/21 11:41 MCHC 29.6 g/dL (32.0-36.0) L 09/18/21 11:41 RDW 20.0 % (12.1-15.2) H 09/18/21 11:41 Plt Count 344 K/uL (152-406) 09/18/21 11:41 MPV 7.9 fL (7.6-11.3) 09/18/21 11:41 Neutrophils % 86.4 % (41.7-73.7) H 09/18/21 11:41 Lymphocytes % 9.0 % (15.3-44.8) L 09/18/21 11:41 Monocytes % 4.1 % (3.3-12.3) 09/18/21 11:41 Eosinophils % 0.3 % (0-4.4) 09/18/21 11:41 Basophils % 0.2 % (0-1.3) 09/18/21 11:41 Absolute Neutrophils 18.0 K/uL (1.8-8.0) H 09/18/21 11:41 Segmented Neutrophils 90 % (40-80) H 09/18/21 11:41 Absolute Lymphocytes 1.9 K/uL (0.7-4.9) 09/18/21 11:41 Lymphocytes 7 % (15-42) L 09/18/21 11:41 Monocytes 3 % (0-10) 09/18/21 11:41 Absolute Monocytes 0.9 K/uL (0.1-1.3) 09/18/21 11:41 Absolute Eosinophils 0.1 K/uL (0-0.5) 09/18/21 11:41 Absolute Basophils 0.0 K/uL (0-0.5) 09/18/21 11:41 Platelet Estimate Adeq 09/18/21 11:41 Morphology Comment Not seen (NOT SEEN) 09/18/21 11:41 PT 21.2 SECONDS (9.5-12.5) H 09/18/21 11:41 INR 1.83 09/18/21 11:41 APTT 33.6 SECONDS (24.3-36.9) 09/18/21 11:41 Sodium 134 mmol/L (136-145) L 09/18/21 11:41 Potassium 3.5 mmol/L (3.5-5.1) 09/18/21 11:41 Chloride 104 mmol/L (98-107) 09/18/21 11:41 Carbon Dioxide 14 mmol/L (21-32) L* 09/18/21 11:41 BUN 63 mg/dL (7-18) H 09/18/21 11:41 Creatinine 10.30 mg/dL (0.55-1.3) H* 09/18/21 11:41 Estimated GFR 6 mL/min (=/>90) L 09/18/21 11:41 Glucose 97 mg/dL (74-106) 09/18/21 11:41 Lactic Acid 4.4 mmol/L (0.4-2.0) H* 09/18/21 11:41 Calcium 8.5 mg/dL (8.5-10.1) 09/18/21 11:41 Total Bilirubin 0.6 mg/dL (0.2-1.0) 09/18/21 11:41 Direct Bilirubin 0.3 mg/dL (0-0.2) H 09/18/21 11:41 AST 23 U/L (15-37) 09/18/21 11:41 ALT 20 U/L (12-78) 09/18/21 11:41 Alkaline Phosphatase 114 U/L (45-117) 09/18/21 11:41 Creatine Kinase 80 U/L (39-308) 09/18/21 11:41 CK-MB (CK-2) 2.6 ng/mL (1.0-3.6) 09/18/21 11:41 Rapid Troponin I 0.04 ng/mL (0.0-0.045) 09/18/21 11:41 Serum Total Protein 6.4 g/dL (6.4-8.2) 09/18/21 11:41 Albumin 1.6 g/dL (3.4-5.0) L 09/18/21 11:41 Globulin 4.8 g/dL (2.3-3.5) H 09/18/21 11:41 Albumin/Globulin Ratio 0.3 (1.1-1.8) L 09/18/21 11:41 Amylase 24 U/L (25-115) L 09/18/21 11:41 Lipase 39 U/L (73-393) L 09/18/21 11:41 Procalcitonin 5.15 ng/mL (<0.050) H 09/18/21 11:41 Urine RBC 5-10 /HPF (NONE SEEN) H 09/18/21 12:45 Urine WBC 5-10 /HPF (<5) H 09/18/21 12:45 Ur Squamous Epith Cells <5 /HPF (NONE SEEN) 09/18/21 12:45 Urine Bacteria 20-50 /HPF (NONE SEEN) H 09/18/21 12:45 Urine Culture Reflexed Reflexed 09/18/21 12:45 Influenza Type A RNA Negative (NEGATIVE) 09/18/21 12:27 Influenza Type B RNA Negative (NEGATIVE) 09/18/21 12:27 SARS-CoV-2 RNA (RT-PCR) Negative (NEGATIVE) 09/18/21 12:27 Miscellaneous Test Cancelled 09/18/21 11:31 Medications List Reviewed: Yes Assessment And Plan - Plan Physical exam: General: Other (AMS) HEENT: Atraumatic Neck: Supple Respiratory: Clear to auscultation bilaterally, Normal air movement Cardiovascular: Normal pulses, Regular rate/rhythm Gastrointestinal: Normal bowel sounds, Soft and benign Musculoskeletal: No contractures Integumentary: Pressure ulcer (Sacral decubitus ulcer status post surgical debridement performed on 09/19 and 09/26. Conclusions/Impression: Antibiotics: CURRENT: Gentamicin Start: 10/09 DC: Vancomycin Start: 09/18 Stop: 09/24 Daptomycin Start: 09/25 Stop: 10/08 Meropenem Start: 09/19 Stop: 10/08 Assessment/plan Severe sepsis secondary to infected sacral decubitus ulcer Patient septic on admission with lactic acidosis, metabolic acidosis, leukocytosis, and tacypena. Source infection: Infected sacral decubitus ulcer. CT abdomen pelvis showed gas-forming soft tissue infection directly posterior to sacrum. Sacral wound culture grew Proteus mirabilis, citrobacter, and vancomycin-resistant Enterococcus faecalis. Based off wound culture report patient has been placed on daptomycin and meropenem. Baseline creatinine kinase: 15. Statin was held while patient was on daptomycin. Antibiotic switched to monotherapy with IV gentamicin as it is only available agent sensitive to Proteus Mirabella's that being that can be given with dialysis. Patient underwent emergent debridement of sacral decubitus ulcer on 09/19. Additional debridement performed on 09/26. Continue wound care per surgical team. Wound VAC placed to sacral wound on 09/27. CK level on 10/01: 11 10/04: 15 Coccyx osteomyelitis Patient will need antibioitc therapy for 6 weeks duration. Antibiotic day . right forearm skin tear Patient is at risk of skin abrasions due to mediations and poor nutritional status. Continue to monitor closely and use caution when moving. To area: apply xeroform and cover with foam. Change daily or PRN if soiled or removed. Bacteremia Blood cultures obtained on 09/18 growing Proteus mirabilis sensitive to meropenem. Repeat blood cultures obtained on 09/20 show no growth at 24hr. Continue IV meropenem for 7-10 days from 09/20. Extended due to osteomyeltis. ESRD on HD Avoid nephrotoxic agents, renally dose all antibiotics/give after HD on HD days. Nephrology following. Anemia Patient has received blood products. Continue to monitor H&H. Leukocytosis Resolved, continue to monitor WBC trend in fever curve. Protein caloric malnutrition: Moderate Patient was low albumin, recommend supplemental Ensure protein drinks. Adequate nutrition needed for proper wound healing. -medical management per primary team Plan of care discussed with Dr. newell Thank you for consultation.
[2021-10-12 12:24] LABS: Anisocytosis 1+; Blood Morphology Comment NOTED (NOT SEEN); Burr Cells 1+; Elliptocytes 1+; Hypochromasia 1+; Platelet Estimate ADEQ; Poikilocytosis 2+; White Blood Cell Scan OK (OK)
[2021-10-12] MEDS: EPOETIN ALFA 10,000 UNIT/ML VIAL SQ SCH (17:49)
[2021-10-12] MEDS: dexAMETHasone 4 MG TAB PO SCH (20:05)
[2021-10-12] MEDS ORDERED: POTASSIUM CL SA 10 MEQ TAB PO ONE (20:42)
--- NOTE | 2021-10-12 20:46 | P.PN ---
Date of Service: 10/12/21 Vital Signs Temp Pulse Resp BP Pulse Ox 96.8 F 69 19 132/67 100 10/12/21 16:00 10/12/21 18:00 10/12/21 18:00 10/12/21 18:00 10/12/21 15:00 Medications Acetaminophen (Acetaminophen 650mg/Rect Supp) 650 mg IL Q6HP PRN PRN Reason: TEMP > 100' F Acetaminophen (Acetaminophen 500 Mg Tab) 500 mg PO Q4HP PRN PRN Reason: TEMP > 100' F Amiodarone HCl (Amiodarone Hcl 200 Mg Tab) 200 mg PO DAILY [facility] Last Admin: 10/12/21 08:32 Dose: 200 mg Documented by: Calcitriol (Calcitrol 0.25 Mcg Cap) 0.5 mcg PO DAILY [facility] Last Admin: 10/12/21 08:34 Dose: 0.5 mcg Documented by: Collagenase (Collagenase 30 Gm Ointment) 1 appl TOP TUTA@0900 [facility] Last Admin: 10/11/21 09:00 Dose: Not Given Documented by: Dexamethasone (Dexamethasone 4 Mg Tab) 2 mg PO BID [facility] Last Admin: 10/12/21 20:05 Dose: 2 mg Documented by: Dextrose (D50w 25 Gm/50 Ml Syringe) 12.5 gm IV PRN PRN PRN Reason: HYPOGLYCEMIA Last Admin: 10/05/21 05:47 Dose: 12.5 gm Documented by: Docusate Sodium (Docusate Na 100 Mg Cap) 100 mg PO BID PRN PRN Reason: CONSTIPATION Last Admin: 10/12/21 08:35 Dose: 100 mg Documented by: Epoetin Garrick (Epoetin Garrick 10,000 Unit/Ml Vial) 10,000 unit SQ M,W,F [facility] Last Admin: 10/12/21 17:49 Dose: 10,000 unit Documented by: Glucagon (Glucagon 1 Mg/Vial) 1 mg IM 1X PRN PRN Reason: HYPOGLYCEMIA Heparin Sodium (Porcine) (Heparin 1,000 Unit/Ml Vial) 6,000 unit IV EVERY HD PRN PRN Reason: DIALYSIS Last Admin: 10/10/21 19:48 Dose: 6,000 unit Documented by: Home Med (Fluticasone Propion/Salmeterol [Fluticasone-Salmeterol 100-50]) 1 each IH BID [facility] Last Admin: 10/12/21 20:04 Dose: 1 each Documented by: Home Med (Petrolatum,White [Aloe [place]]) 0 gm TOP PRN PRN PRN Reason: wound [facility] Med (Ketorolac Tromethamine [Ketorolac Tromethamine]) 1 drop OPTH QID PRN PRN Reason: inflammation Last Admin: 10/02/21 08:31 Dose: 1 drop Documented by: Home Med (Carboxymethylcellulose Sodium [Restore Plus]) 2 each OPTH QID PRN PRN Reason: DRY EYES Last Admin: 10/02/21 08:31 Dose: 2 each Documented by: Albumin Human (Albumin 25%) 50 mls @ 100 mls/hr IV EVERY HD [facility] Last Admin: 10/05/21 15:23 Dose: 50 mls Documented by: Sodium Chloride (Sodium Chloride) 250 mls @ 0 mls/hr IV .Q0M [facility] Last Admin: 09/24/21 22:36 Dose: 250 mls Documented by: Sodium Chloride (Sodium Chloride) 250 mls @ 0 mls/hr IV .Q0M [facility] Gentamicin Sulfate 240 mg/ (Sodium Chloride) 106 mls @ 106 mls/hr IVPB AFTER EACH DIALYSIS [facility] Insulin Human Regular (Insulin -Regular Human 50 Unit/0.5 Ml Ml) 0 unit SQ ACHS [facility]; Protocol Last Admin: 10/12/21 20:06 Dose: Not Given Documented by: Ipratropium Gaines (Ipratropium Brom 0.5mg/2.5ml) 0.5 mg IH QIDP PRN PRN Reason: SHORTNESS OF BREATH Last Admin: 10/10/21 19:36 Dose: 0.5 mg Documented by: Mannitol (Mannitol 25% 12.5 Gm/50 Ml Vial) 12.5 gm IV EVERY HD PRN PRN Reason: Titrate to SBP (MUST DEFINE) Midodrine (Midodrine Hcl 5 Mg Tablet) 10 mg PO AC [facility] Last Admin: 10/12/21 16:30 Dose: Not Given Documented by: Nutritional Formula (Ensure High Protein 237 Ml Can) 240 ml PO TID [facility] Last Admin: 10/12/21 20:04 Dose: 240 ml Documented by: Ondansetron HCl (Ondansetron 4 Mg/2 Ml Vial) 4 mg IV Q6HP PRN PRN Reason: NAUSEA / VOMITING Pantoprazole Sodium (Pantoprazole 40mg Tablet) 40 mg PO DAILYAC [facility]; Protocol Last Admin: 10/12/21 05:33 Dose: 40 mg Documented by: Potassium Chloride (Potassium Cl Sa 10 Meq Tab) 20 meq PO 1X ONE Stop: 10/12/21 20:43 Sodium Chloride (Flush Normal Saline 10 Ml) 10 ml IV BID [facility] Last Admin: 10/12/21 20:05 Dose: 10 ml Documented by: Sodium Chloride (Sodium Chloride 0.9% 10ml Inj) 10 ml IV UD PRN PRN Reason: Diluant Tramadol HCl (Tramadol Hcl 50 Mg Tab) 50 mg PO Q8H PRN PRN Reason: Pain scale 5-7 (Moderate) Last Admin: 10/09/21 14:21 Dose: 50 mg Documented by: Vitamin B Complex/Vit C/Folic Acid (Multivitamins,Therapeut 1 Tab) 1 tab PO DAILY [facility] Last Admin: 10/12/21 08:33 Dose: 1 tab Documented by: Microbiology Results 09/18/21 11:41 Blood - Blood Aerobic Blood Culture - Final Proteus Mirabilis 09/18/21 11:41 Blood - Blood Blood Culture Gram Stain - Final 09/18/21 11:41 Blood - Blood Anaerobic Blood Culture - Final Proteus Mirabilis 09/18/21 11:41 Blood - Blood Gram Stain - Final 09/18/21 11:35 Blood - Blood Aerobic Blood Culture - Final Proteus Mirabilis 09/18/21 11:35 Blood - Blood Blood Culture Gram Stain - Final 09/18/21 11:35 Blood - Blood Anaerobic Blood Culture - Final Proteus Mirabilis 09/18/21 11:35 Blood - Blood Gram Stain - Final 09/18/21 12:45 Clean Catch Urine [place] Count - Final No growth. 09/18/21 12:45 Clean Catch Urine - Final No growth. Assessment/ Plan: Nephrology No dyspnea. ZHAO. No chest pain Weakness and fatigue. No acute events overnight. Vitals, medications, blood work and imaging reviewed in the chart General: In no apparent distress, Cooperative HEENT: Atraumatic Neck: Supple Respiratory: Clear to auscultation bilaterally Cardiovascular: Regular rate/rhythm, Hip & LE Edema Gastrointestinal: Non-distended, No tenderness Musculoskeletal: No clubbing, No contractures Integumentary: No rashes, No cyanosis. Large sacral ulcer. Neurological: Normal speech Laboratory Data (last 24 hrs) 09/18/21 11:41: PT 21.2 H, INR 1.83, APTT 33.6 09/18/21 11:41: WBC 20.90 H*, Hgb 7.1 L, Hct 23.9 L, Plt Count 344 09/18/21 11:41: Sodium 134 L, Potassium 3.5, BUN 63 H, Creatinine 10.30 H*, Glucose 97, Total Bilirubin 0.6, AST 23, ALT 20, Alkaline Phosphatase 114, Amylase 24 L, Lipase 39 L Imagings Data: EXAM DESCRIPTION: CT - Abdomen Pelvis Wo Contrast - 09/18/2021 5:07 pm CLINICAL HISTORY: Sepsis COMPARISON: No comparisons TECHNIQUE: Axial [address] imaging of the abdomen and pelvis was performed without IV contrast. No IV contrast was given because of allergy, abnormal renal function, patient refusal or physician request. No oral contrast administered. All CT scans are performed using dose optimization technique as appropriate and may include automated exposure control or mA/KV adjustment according to patient size. FINDINGS: No suspicious findings in the lung bases. The liver, spleen and pancreas show no suspicious findings on non-contrast imaging. Gallbladder and biliary tree are also without suspicious finding. Gallstones can be occult on CT imaging. Degree of respiratory motion artifact of the upper abdomen limits accurate assessment of gallbladder wall thickness. No hydronephrosis or suspicious renal mass. No significant adrenal finding. Is odense renal masses and pyelonephritis cannot be excluded in the absence of IV contrast. The urinary bladder is without significant finding. A 2.6 centimeter focal mass posterior right margin of the bladder is isodense to the bladder and is suspected to be moderate-sized bladder diverticulum. No gastric dilatation or gastric wall thickening. No pneumatosis intestinalis. Within the peritoneal cavity there is no free air, free fluid or inflammatory stranding. No acute retroperitoneal process seen. No hernia, mass or bulky lymphadenopathy. Patient has advanced degenerative changes of both hip joints, worse on the left. No acute bone or joint finding. Patient has extensive gas densities present in the subcutaneous fatty tissues posterior to the sacrum and coccyx. No bone destructive changes. The air densities extend laterally 08-2010 cm off of the midline. The inferior margin of the soft tissue gas densities extend in proximity to the posterior wall distal rectum and posterior margin of the levator ani musculature. No abnormal air densities in the fatty tissues of the perineum or scrotum. No history was provided indicating that the patient has a known decubitus ulcer or known wound in this region. IMPRESSION: Extensive abnormal air in the subcutaneous fatty tissues posterior to the sacrum and coccyx with extension each direction laterally 8-10 cm off of the midline. Inferior margin of the air densities abutthe posterior wall distal rectum and posterior margin of the levator ani musculature. This is most likely gas-forming soft tissue infection. The abnormal air densities do not yet extend into the fatty tissues of the perineum. EXAM DESCRIPTION: RAD - Chest Single View - 09/18/2021 12:00 pm CLINICAL HISTORY: COUGH Chest pain. COMPARISON: No comparisons FINDINGS: Portable technique limits examination quality. The lungs are grossly clear. The heart is normal in size. Right-sided venous catheter has tip in the right atrium region. Conclusions/Impression: ESRD -HD TIW as tolerated Hypokalemia -Replete potassium Hypomagnesemia -Replete with IV magnesium prn HypoPO4 -Replete PO4 prn -Encourage nutrition Hypotension Sepsis/ Septic Shock Acute Cystitis Sacral decubitus ulcer. Osteomyelitis of the coccyx. -Continue Abx -IV Albumin prn -Levophed prn -Follow up with surgery; wound vac Diastolic CHF, chronic A/C hypoxic respiratory failure -Low sodium diet -Continue Oxygen supplementation -HD with UF as tolerated DM II with CKD -RISS Severe malnutrition -Continue Ensure supplementation -IV Albumin with HD today -Continue nephrovite Anemia in CKD -PRBC transfusion with HD today -Retacrit TIW CKD MBD -Continue Calcitriol Case reviewed with Dr. Adam
[2021-10-13] MEDS: Gentamicin Inj 240 MG in NA CHLORIDE 0.9% 100 ML IVPB SCH (00:22)
[2021-10-13 05:44] VITALS: BMI 31.4
--- NOTE | 2021-10-13 05:50 | P.PN ---
Date of Service: 10/13/21 Subjective: no acute events overnight. doing well ROS: 10 point ROS as noted above, otherwise negative Physical examination GEN: Alert, oriented, NAD, generalized weakness HEENT: Normal conjunctiva, sclera anicteric CV: Regular rate and rhythm, 1-2+ BLE edema Pulm: Nonlabored respiration on 2L NC ABD: Soft, nontender, nondistended Integumentary: wound vac in place Problem List Sepsis secondary to infected sacral ulcer, bacteremia; resolved ESRD on hemodialysis RUE supervicial vein thrombosis; h/o upper extremity DVT Chronic systolic heart failure History of CVA (cerebrovascular accident) Adrenal insufficiency Metabolic acidosis Anemia Anemia likely secondary to sepsis and chronic kidney disease. s/p 5u PRBCs over the course of his hospitalization. No evidence of active bleeding. Patient was on Eliquis. No melena or hematochezia. Hemoglobin remains stable. Patient with superficial vein thrombosis. Eliquis discontinued due to drop in Hgb Dr. Ramirez following. s/p sacral decubitus ulcer debridement x3. Wound VAC placed. Nephrology is following for hemodialysis. Metabolic acidosis resolved. s/p albumin infusion for low albumin and hypotension. required leveophed drip for weeks, eventually weaned off after antibiotics and initiation of dexamethasone for likely adrenal insufficiency. Echocardiogram: Normal EF. fem line dc'd on 10/10 Blood pressure improved after initiation of dexamethasone. A.m. cortisol was low and is concerning for adrenal insufficiency. transitioned to hydrocortisone 10/12, wean as tolerated Infectious disease is following. Repeat blood culture shows no growth to date. was on daptomycin and meropenem. ID recommending IV gentamicin monotherapy for outpatient treatment. adjusting dose, level was high a few days ago Feeding as tolerated. Patient is tolerating pureed diet. Insulin sliding scale for glucose management. Dispo: family plan on taking patient home Issue with HD - pt would only be accepted via stretcher - unable to tolerate / too weak for wheelchair family state Medicare part B should have started this September, SW/CM unable to see this when they run his medicare. DC home once transportation issue is worked out so he can continue dialysis
[2021-10-13 05:59] LABS: Albumin 2.5 g/dL (3.4-5.0); Phosphorus 2.5 mg/dL (2.5-4.9); Potassium 3.1 mmol/L (3.5-5.1)
[2021-10-13] MEDS: PANTOPRAZOLE 40MG TABLET PO SCH (06:09)
[2021-10-13 06:21] LABS: HBsAG Nonreactive (Nonreactive)
[2021-10-13] MEDS: INSULIN -REGULAR HUMAN 50 UNIT/0.5 ML ML SQ SCH ×4 (07:13→20:48)
[2021-10-13] MEDS: CALCITROL 0.25 MCG CAP PO SCH (08:00)
[2021-10-13] MEDS: MIDODRINE HCL 5 MG TABLET PO SCH ×3 (08:01→16:12)
[2021-10-13] MEDS: AMIODARONE HCL 200 MG TAB PO SCH (08:01)
[2021-10-13] MEDS: dexAMETHasone 4 MG TAB PO SCH ×2 (08:01→20:47)
[2021-10-13] MEDS: FLUTICASONE SALMETEROL IH SCH ×2 (08:01→20:53)
[2021-10-13] MEDS: MULTIVITAMINS,THERAPEUT 1 TAB PO SCH (08:02)
[2021-10-13] MEDS: ENSURE HIGH PROTEIN 237 ML CAN PO SCH ×3 (08:02→20:49)
[2021-10-13] MEDS: COLLAGENASE 30 GM OINTMENT TOP SCH (09:00)
[2021-10-13] MEDS: POTASSIUM CL SA 10 MEQ TAB PO SCH ×2 (09:00→09:07)
[2021-10-13] MEDS: POTASSIUM 25 MEQ EFFERV TAB PO SCH ×2 (09:44→11:18)
--- NOTE | 2021-10-13 11:39 | PN ---
Subjective: Patient is seen in intensive care unit on third floor in room 6. Patient is alert, not able to communicate comfortably. He does seem to have some mild shortness of breath still, getting o xygen, O2 sats are, however, in the 98 percentile. Patient did have his dialysis yesterday, tolerate d it well. Clinically, condition is still with significant comorbidities. Patient has wounds on his extremities. He is still short of breath. He is still very weak and has difficulty moving out of b ed on his own, requires significant assistance. He will need transportation to dialysis unit and chris t is what is keeping him in the hospital right now as those things are being arranged. Patient did h ave dialysis yesterday, tolerated that well. Objective: Vital Signs: Blood pressure last one 122/57, before that 139/66; pulse rate about 80; re spirations around 14-16; O2 sats are around 98%. He is on about 3 L of nasal cannula. Lungs: With decreased sounds bilaterally. Abdomen: Soft. Extremities: Have some edema, cleanly dressed multiple wounds on the lower extremities. Laboratory Data: Reviewed. Labs from yesterday show WBC count 9.3, hemoglobin 9.2, hematocrit 29.4. His platelet counts were 162. Sodium 141, potassium 3.1, chloride 106, bicarb 26, BUN 42, creatini ne 4.4. Albumin 2.5. Assessment And Plan: 1.Patient with chronic kidney disease/acute kidney injury, now dialysis dependent, some shortness of breath, general debility. Needs transportation to dialysis. Once that is arranged, patient may be able to go home with dialysis planned preferably in [place] as per patient's convenience. 2.Patient has low potassium, on potassium replacement. Change to elixir to allow patient to take it more comfortably. 3.Anemia, reasonably stable. Hemoglobin is about 9 range. Continue to monitor. Patient's condition continues to be very guarded. Multiple comorbidities. Clinically stable for sheldon or for now. Patient will be transported to floor while we continue to work on his transportation arr angements for dialysis placement. No need for dialysis over the weekend, had dialysis last evening, tolerated it well. /OLGA LIDIA Voice ID: [id number] Report ID: [id number]
[2021-10-13] MEDS: TRAMADOL HCL 50 MG TAB PO PRN (15:05)
--- NOTE | 2021-10-14 05:52 | P.PN ---
Date of Service: 10/14/21 Subjective: Stable, no change patient reports feeling better Transferred to telemetry floor last night Without any new complaints ROS: 10 point review of systems otherwise negative Physical examination GEN: Alert, oriented, NAD, generalized weakness HEENT: Normal conjunctiva, sclera anicteric CV: Regular rate and rhythm, 1-2+ BLE edema Pulm: Nonlabored respiration on 2L NC ABD: Soft, nontender, nondistended Integumentary: wound vac in place Problem List Sepsis secondary to infected sacral ulcer, bacteremia; resolved ESRD on hemodialysis RUE supervicial vein thrombosis; h/o upper extremity DVT Chronic systolic heart failure History of CVA (cerebrovascular accident) Adrenal insufficiency Metabolic acidosis Anemia Anemia likely secondary to sepsis and chronic kidney disease. s/p 5u PRBCs over the course of his hospitalization. No evidence of active bleeding, no melena/hematochezia. Patient was on eliquis for DVT that occurred last year Eliquis discontinued, had stability of Hgb and was restarted, however hgb downtrended again, so Eliquis was dc'd He developed RUE swelling and U/S noted superficial vein thrombosis. Does not require anticoagulation Dr. Ramirez following. s/p sacral decubitus ulcer debridement x3. Wound VAC placed. Nephrology is following for hemodialysis. Metabolic acidosis resolved. s/p albumin infusion for low albumin and hypotension. required leveophed drip for weeks, eventually weaned off after antibiotics and initiation of dexamethasone for likely adrenal insufficiency. Echocardiogram: Normal EF. fem line dc'd on 10/10 Blood pressure improved after initiation of dexamethasone. A.m. cortisol was low and is concerning for adrenal insufficiency. transitioned to hydrocortisone 10/12, wean as tolerated Infectious disease is following. Repeat blood culture shows no growth to date. was on daptomycin and meropenem. ID recommending IV gentamicin monotherapy for outpatient treatment. adjusting dose, level was high a few days ago Feeding as tolerated. Patient is tolerating pureed diet. Insulin sliding scale for glucose management. Dispo: family plan on taking patient home DC home once transportation issue is worked out so he can continue dialysis
[2021-10-14] MEDS: PANTOPRAZOLE 40MG TABLET PO SCH (06:50)
[2021-10-14] MEDS: INSULIN -REGULAR HUMAN 50 UNIT/0.5 ML ML SQ SCH ×4 (07:30→21:00)
[2021-10-14] MEDS: MULTIVITAMINS,THERAPEUT 1 TAB PO SCH (08:45)
[2021-10-14] MEDS: AMIODARONE HCL 200 MG TAB PO SCH (08:46)
[2021-10-14] MEDS: CALCITROL 0.25 MCG CAP PO SCH (08:46)
[2021-10-14] MEDS: dexAMETHasone 4 MG TAB PO SCH ×2 (08:46→22:37)
[2021-10-14] MEDS: MIDODRINE HCL 5 MG TABLET PO SCH ×3 (08:46→16:57)
[2021-10-14] MEDS: ENSURE HIGH PROTEIN 237 ML CAN PO SCH ×3 (08:49→22:39)
[2021-10-14] MEDS: FLUTICASONE SALMETEROL IH SCH ×2 (08:52→22:40)
[2021-10-14 19:36] LABS: Hematocrit 28.4 % (39.6-49.0); MPV 7.4 fL (7.6-11.3)
[2021-10-14 21:01] LABS: Potassium 3.1 mmol/L (3.5-5.1)
[2021-10-14 21:02] LABS: Magnesium 2.2 mg/dL (1.8-2.4)
[2021-10-15] MEDS: ACETAMINOPHEN 500 MG TAB PO PRN (05:54)
[2021-10-15] MEDS: PANTOPRAZOLE 40MG TABLET PO SCH (05:55)
--- NOTE | 2021-10-15 06:05 | P.PN ---
Date of Service: 10/15/21 Subjective: no acute events overnight feeling ok, denies new symptoms hgb down this morning, no bleed ROS: 10 point review of systems otherwise negative Physical examination GEN: Alert, oriented, NAD, generalized weakness HEENT: Normal conjunctiva, sclera anicteric CV: Regular rate and rhythm, 1+ BLE edema up to thighs Pulm: Nonlabored respiration on 2L NC ABD: Soft, nontender, nondistended Integumentary: wound vac in place Problem List Sepsis secondary to infected sacral ulcer, bacteremia; resolved ESRD on hemodialysis RUE supervicial vein thrombosis; h/o upper extremity DVT Chronic systolic heart failure History of CVA (cerebrovascular accident) Adrenal insufficiency Metabolic acidosis Anemia Anemia likely secondary to sepsis and chronic kidney disease. s/p 5u PRBCs over the course of his hospitalization. No evidence of active bleeding, no melena/hematochezia. Patient was on eliquis for DVT that occurred last year Eliquis discontinued, had stability of Hgb and was restarted, however hgb downtr ended again, so Eliquis was dc'd He developed RUE swelling and U/S noted superficial vein thrombosis. Does not require anticoagulation hgb down to 7 from 9, will recheck, may need blood transfusion with dialysis Dr. Ramirez following. s/p sacral decubitus ulcer debridement x3. Wound VAC placed. Nephrology is following for hemodialysis. Metabolic acidosis resolved. s/p albumin infusion for low albumin and hypotension. required leveophed drip for weeks, eventually weaned off after antibiotics and initiation of dexamethasone for likely adrenal insufficiency. Echocardiogram: Normal EF. fem line dc'd on 10/10 Blood pressure improved after initiation of dexamethasone. A.m. cortisol was low and is concerning for adrenal insufficiency. transitioned to hydrocortisone 10/12, wean as tolerated Infectious disease is following. Repeat blood culture shows no growth to date. was on daptomycin and meropenem. ID recommending IV gentamicin monotherapy for outpatient treatment. adjusting dose, level was high a few days ago Feeding as tolerated. Patient is tolerating pureed diet. Insulin sliding scale for glucose management. Dispo: family plan on taking patient home DC home once transportation issue is worked out so he can continue dialysis
[2021-10-15 06:07] LABS: Hematocrit 22.7 % (39.6-49.0); MPV 7.9 fL (7.6-11.3); RBC Red Blood Cell Count 2.57 M/uL (4.33-5.43)
[2021-10-15 06:26] LABS: Magnesium 2.3 mg/dL (1.8-2.4); Potassium 3.3 mmol/L (3.5-5.1)
[2021-10-15 07:22] LABS: Hematocrit 26.4 % (39.6-49.0)
[2021-10-15 07:24] LABS: Anisocytosis 1+; Blood Morphology Comment NOTED (NOT SEEN); Platelet Estimate DECR; White Blood Cell Scan OK (OK)
[2021-10-15] MEDS: INSULIN -REGULAR HUMAN 50 UNIT/0.5 ML ML SQ SCH ×4 (07:30→21:00)
[2021-10-15] MEDS: AMIODARONE HCL 200 MG TAB PO SCH (08:50)
[2021-10-15] MEDS: DOCUSATE NA 100 MG CAP PO PRN (08:50)
[2021-10-15] MEDS: MIDODRINE HCL 5 MG TABLET PO SCH ×3 (08:50→16:32)
[2021-10-15] MEDS: ENSURE HIGH PROTEIN 237 ML CAN PO SCH ×3 (08:50→22:31)
[2021-10-15] MEDS: CALCITROL 0.25 MCG CAP PO SCH (08:50)
[2021-10-15] MEDS: MULTIVITAMINS,THERAPEUT 1 TAB PO SCH (08:50)
[2021-10-15] MEDS: dexAMETHasone 4 MG TAB PO SCH ×2 (08:50→22:30)
[2021-10-15] MEDS: FLUTICASONE SALMETEROL IH SCH ×2 (08:54→22:35)
[2021-10-15] MEDS: POTASSIUM CL SA 10 MEQ TAB PO SCH (10:02)
[2021-10-15] MEDS: Gentamicin Inj 240 MG in NA CHLORIDE 0.9% 100 ML IVPB SCH (15:00)
[2021-10-15] MEDS: EPOETIN ALFA 10,000 UNIT/ML VIAL SQ SCH (16:26)
--- NOTE | 2021-10-15 18:44 | P.PN ---
Subjective Date of Service: 10/15/21 Chief Complaint: Altered mental status Patient seen examined at bedside, continue current antibiotic therapy. Review of Systems 10-point ROS is otherwise unremarkable Physical Examination - Vital Signs Temperature: 97 F Blood Pressure: 137/65 Pulse: 73 Respirations: 20 Pulse Ox (%): 98 - Studies Laboratory Last Values WBC 20.90 K/uL (4.3-10.9) H* 09/18/21 11:41 RBC 2.71 M/uL (4.33-5.43) L 09/18/21 11:41 Hgb 7.1 g/dL (13.6-17.9) L 09/18/21 11:41 Hct 23.9 % (39.6-49.0) L 09/18/21 11:41 MCV 88.3 fL (80-100) 09/18/21 11:41 MCH 26.1 pg (27.0-35.0) L 09/18/21 11:41 MCHC 29.6 g/dL (32.0-36.0) L 09/18/21 11:41 RDW 20.0 % (12.1-15.2) H 09/18/21 11:41 Plt Count 344 K/uL (152-406) 09/18/21 11:41 MPV 7.9 fL (7.6-11.3) 09/18/21 11:41 Neutrophils % 86.4 % (41.7-73.7) H 09/18/21 11:41 Lymphocytes % 9.0 % (15.3-44.8) L 09/18/21 11:41 Monocytes % 4.1 % (3.3-12.3) 09/18/21 11:41 Eosinophils % 0.3 % (0-4.4) 09/18/21 11:41 Basophils % 0.2 % (0-1.3) 09/18/21 11:41 Absolute Neutrophils 18.0 K/uL (1.8-8.0) H 09/18/21 11:41 Segmented Neutrophils 90 % (40-80) H 09/18/21 11:41 Absolute Lymphocytes 1.9 K/uL (0.7-4.9) 09/18/21 11:41 Lymphocytes 7 % (15-42) L 09/18/21 11:41 Monocytes 3 % (0-10) 09/18/21 11:41 Absolute Monocytes 0.9 K/uL (0.1-1.3) 09/18/21 11:41 Absolute Eosinophils 0.1 K/uL (0-0.5) 09/18/21 11:41 Absolute Basophils 0.0 K/uL (0-0.5) 09/18/21 11:41 Platelet Estimate Adeq 09/18/21 11:41 Morphology Comment Not seen (NOT SEEN) 09/18/21 11:41 PT 21.2 SECONDS (9.5-12.5) H 09/18/21 11:41 INR 1.83 09/18/21 11:41 APTT 33.6 SECONDS (24.3-36.9) 09/18/21 11:41 Sodium 134 mmol/L (136-145) L 09/18/21 11:41 Potassium 3.5 mmol/L (3.5-5.1) 09/18/21 11:41 Chloride 104 mmol/L (98-107) 09/18/21 11:41 Carbon Dioxide 14 mmol/L (21-32) L* 09/18/21 11:41 BUN 63 mg/dL (7-18) H 09/18/21 11:41 Creatinine 10.30 mg/dL (0.55-1.3) H* 09/18/21 11:41 Estimated GFR 6 mL/min (=/>90) L 09/18/21 11:41 Glucose 97 mg/dL (74-106) 09/18/21 11:41 Lactic Acid 4.4 mmol/L (0.4-2.0) H* 09/18/21 11:41 Calcium 8.5 mg/dL (8.5-10.1) 09/18/21 11:41 Total Bilirubin 0.6 mg/dL (0.2-1.0) 09/18/21 11:41 Direct Bilirubin 0.3 mg/dL (0-0.2) H 09/18/21 11:41 AST 23 U/L (15-37) 09/18/21 11:41 ALT 20 U/L (12-78) 09/18/21 11:41 Alkaline Phosphatase 114 U/L (45-117) 09/18/21 11:41 Creatine Kinase 80 U/L (39-308) 09/18/21 11:41 CK-MB (CK-2) 2.6 ng/mL (1.0-3.6) 09/18/21 11:41 Rapid Troponin I 0.04 ng/mL (0.0-0.045) 09/18/21 11:41 Serum Total Protein 6.4 g/dL (6.4-8.2) 09/18/21 11:41 Albumin 1.6 g/dL (3.4-5.0) L 09/18/21 11:41 Globulin 4.8 g/dL (2.3-3.5) H 09/18/21 11:41 Albumin/Globulin Ratio 0.3 (1.1-1.8) L 09/18/21 11:41 Amylase 24 U/L (25-115) L 09/18/21 11:41 Lipase 39 U/L (73-393) L 09/18/21 11:41 Procalcitonin 5.15 ng/mL (<0.050) H 09/18/21 11:41 Urine RBC 5-10 /HPF (NONE SEEN) H 09/18/21 12:45 Urine WBC 5-10 /HPF (<5) H 09/18/21 12:45 Ur Squamous Epith Cells <5 /HPF (NONE SEEN) 09/18/21 12:45 Urine Bacteria 20-50 /HPF (NONE SEEN) H 09/18/21 12:45 Urine Culture Reflexed Reflexed 09/18/21 12:45 Influenza Type A RNA Negative (NEGATIVE) 09/18/21 12:27 Influenza Type B RNA Negative (NEGATIVE) 09/18/21 12:27 SARS-CoV-2 RNA (RT-PCR) Negative (NEGATIVE) 09/18/21 12:27 Miscellaneous Test Cancelled 09/18/21 11:31 Medications List Reviewed: Yes Assessment And Plan - Plan Physical exam: General: Other (AMS) HEENT: Atraumatic Neck: Supple Respiratory: Clear to auscultation bilaterally, Normal air movement Cardiovascular: Normal pulses, Regular rate/rhythm Gastrointestinal: Normal bowel sounds, Soft and benign Musculoskeletal: No contractures Integumentary: Pressure ulcer (Sacral decubitus ulcer status post surgical debridement performed on 09/19 and 09/26. Conclusions/Impression: Antibiotics: CURRENT: Gentamicin Start: 10/09 DC: Vancomycin Start: 09/18 Stop: 09/24 Daptomycin Start: 09/25 Stop: 10/08 Meropenem Start: 09/19 Stop: 10/08 Assessment/plan Severe sepsis secondary to infected sacral decubitus ulcer Patient septic on admission with lactic acidosis, metabolic acidosis, leukocytosis, and tacypena. Source infection: Infected sacral decubitus ulcer. CT abdomen pelvis showed gas-forming soft tissue infection directly posterior to sacrum. Sacral wound culture grew Proteus mirabilis, citrobacter, and vancomycin-resistant Enterococcus faecalis. Based off wound culture report patient placed on daptomycin and meropenem. Baseline creatinine kinase: 15. Statin was held while patient was on daptomycin. Antibiotic switched to monotherapy IV gentamicin as it is only available agent sensitive to Proteus Mirabella's that being that can be given with dialysis. Patient underwent emergent debridement of sacral decubitus ulcer on 09/19. Additional debridement performed on 09/26. Continue wound care per surgical team. Wound VAC placed to sacral wound on 09/27. CK level on 10/01: 11 10/04: 15 Coccyx osteomyelitis Patient will need antibioitc therapy for 6 weeks duration. Antibiotic day . end date of 11/06. right forearm skin tear Patient is at risk of skin abrasions due to mediations and poor nutritional status. Continue to monitor closely and use caution when moving. To area: apply xeroform and cover with foam. Change daily or PRN if soiled or removed. Bacteremia Blood cultures obtained on 09/18 growing Proteus mirabilis sensitive to meropenem. Repeat blood cultures obtained on 09/20 show no growth at 24hr. Continue IV meropenem for 7-10 days from 09/20. Extended due to osteomyeltis. ESRD on HD Avoid nephrotoxic agents, renally dose all antibiotics/give after HD on HD days. Nephrology following. Anemia Patient has received blood products. Continue to monitor H&H. Leukocytosis Resolved, continue to monitor WBC trend in fever curve. Protein caloric malnutrition: Moderate Patient was low albumin, recommend supplemental Ensure protein drinks. Adequate nutrition needed for proper wound healing. -medical management per primary team Plan of care discussed with Dr. newell Thank you for consultation.
--- NOTE | 2021-10-15 21:46 | P.PN ---
Date of Service: 10/15/21 Vital Signs Temp Pulse Resp BP Pulse Ox 97 F 73 20 137/65 98 10/15/21 18:43 10/15/21 18:43 10/15/21 18:43 10/15/21 18:43 10/15/21 18:43 Medications Acetaminophen (Acetaminophen 650mg/Rect Supp) 650 mg KS Q6HP PRN PRN Reason: TEMP > 100' F Acetaminophen (Acetaminophen 500 Mg Tab) 500 mg PO Q4HP PRN PRN Reason: TEMP > 100' F Last Admin: 10/15/21 05:54 Dose: 500 mg Documented by: Amiodarone HCl (Amiodarone Hcl 200 Mg Tab) 200 mg PO DAILY [facility] Last Admin: 10/15/21 08:50 Dose: 200 mg Documented by: Calcitriol (Calcitrol 0.25 Mcg Cap) 0.5 mcg PO DAILY [facility] Last Admin: 10/15/21 08:50 Dose: 0.5 mcg Documented by: Collagenase (Collagenase 30 Gm Ointment) 1 appl TOP TUTHSA@0900 [facility] Last Admin: 10/13/21 09:00 Dose: 1 appl Documented by: Dexamethasone (Dexamethasone 4 Mg Tab) 2 mg PO BID [facility] Last Admin: 10/15/21 08:50 Dose: 2 mg Documented by: Dextrose (D50w 25 Gm/50 Ml Syringe) 12.5 gm IV PRN PRN PRN Reason: HYPOGLYCEMIA Last Admin: 10/05/21 05:47 Dose: 12.5 gm Documented by: Docusate Sodium (Docusate Na 100 Mg Cap) 100 mg PO BID PRN PRN Reason: CONSTIPATION Last Admin: 10/15/21 08:50 Dose: 100 mg Documented by: Epoetin Garrick (Epoetin Garrick 10,000 Unit/Ml Vial) 10,000 unit SQ M,W,F [facility] Last Admin: 10/15/21 16:26 Dose: 10,000 unit Documented by: Glucagon (Glucagon 1 Mg/Vial) 1 mg IM 1X PRN PRN Reason: HYPOGLYCEMIA Heparin Sodium (Porcine) (Heparin 1,000 Unit/Ml Vial) 6,000 unit IV EVERY HD PRN PRN Reason: DIALYSIS Last Admin: 10/15/21 13:05 Dose: 6,000 unit Documented by: Home Med (Fluticasone Propion/Salmeterol [Fluticasone-Salmeterol 100-50]) 1 each IH BID [facility] Last Admin: 10/15/21 08:54 Dose: 1 each Documented by: Home Med (Petrolatum,White [Aloe [place]]) 0 gm TOP PRN PRN PRN Reason: wound intermediate Med (Ketorolac Tromethamine [Ketorolac Tromethamine]) 1 drop OPTH QID PRN PRN Reason: inflammation Last Admin: 10/02/21 08:31 Dose: 1 drop Documented by: Home Med (Carboxymethylcellulose Sodium [Restore Plus]) 2 each OPTH QID PRN PRN Reason: DRY EYES Last Admin: 10/02/21 08:31 Dose: 2 each Documented by: Albumin Human (Albumin 25%) 50 mls @ 100 mls/hr IV EVERY HD [facility] Last Admin: 10/05/21 15:23 Dose: 50 mls Documented by: Gentamicin Sulfate 240 mg/ (Sodium Chloride) 106 mls @ 106 mls/hr IVPB AFTER EACH DIALYSIS [facility] Last Admin: 10/15/21 15:00 Dose: 106 mls Documented by: Insulin Human Regular (Insulin -Regular Human 50 Unit/0.5 Ml Ml) 0 unit SQ ACHS [facility]; Protocol Last Admin: 10/15/21 15:59 Dose: Not Given Documented by: Ipratropium Joaquin (Ipratropium Brom 0.5mg/2.5ml) 0.5 mg IH QIDP PRN PRN Reason: SHORTNESS OF BREATH Last Admin: 10/10/21 19:36 Dose: 0.5 mg Documented by: Mannitol (Mannitol 25% 12.5 Gm/50 Ml Vial) 12.5 gm IV EVERY HD PRN PRN Reason: Titrate to SBP (MUST DEFINE) Midodrine (Midodrine Hcl 5 Mg Tablet) 10 mg PO AC [facility] Last Admin: 10/15/21 16:32 Dose: 10 mg Documented by: Nutritional Formula (Ensure High Protein 237 Ml Can) 240 ml PO TID [facility] Last Admin: 10/15/21 14:12 Dose: 237 ml Documented by: Ondansetron HCl (Ondansetron 4 Mg/2 Ml Vial) 4 mg IV Q6HP PRN PRN Reason: NAUSEA / VOMITING Pantoprazole Sodium (Pantoprazole 40mg Tablet) 40 mg PO DAILYAC [facility]; Protocol Last Admin: 10/15/21 05:55 Dose: 40 mg Documented by: Potassium Chloride (Potassium Cl Sa 10 Meq Tab) 20 meq PO DAILY [facility] Last Admin: 10/15/21 10:02 Dose: 20 meq Documented by: Sodium Chloride (Flush Normal Saline 10 Ml) 10 ml IV BID [facility] Last Admin: 10/15/21 08:51 Dose: 10 ml Documented by: Sodium Chloride (Sodium Chloride 0.9% 10ml Inj) 10 ml IV UD PRN PRN Reason: Diluant Vitamin B Complex/Vit C/Folic Acid (Multivitamins,Therapeut 1 Tab) 1 tab PO DAILY [facility] Last Admin: 10/15/21 08:50 Dose: 1 tab Documented by: Microbiology Results 09/18/21 11:41 Blood - Blood Aerobic Blood Culture - Final Proteus Mirabilis 09/18/21 11:41 Blood - Blood Blood Culture Gram Stain - Final 09/18/21 11:41 Blood - Blood Anaerobic Blood Culture - Final Proteus Mirabilis 09/18/21 11:41 Blood - Blood Gram Stain - Final 09/18/21 11:35 Blood - Blood Aerobic Blood Culture - Final Proteus Mirabilis 09/18/21 11:35 Blood - Blood Blood Culture Gram Stain - Final 09/18/21 11:35 Blood - Blood Anaerobic Blood Culture - Final Proteus Mirabilis 09/18/21 11:35 Blood - Blood Gram Stain - Final 09/18/21 12:45 Clean Catch Urine [place] Count - Final No growth. 09/18/21 12:45 Clean Catch Urine - Final No growth. Assessment/ Plan: Nephrology No dyspnea. ZHAO. No chest pain Weakness and fatigue. No acute events overnight. Vitals, medications, blood work and imaging reviewed in the chart General: In no apparent distress, Cooperative HEENT: Atraumatic Neck: Supple Respiratory: Clear to auscultation bilaterally Cardiovascular: Regular rate/rhythm, Hip & LE Edema Gastrointestinal: Non-distended, No tenderness Musculoskeletal: No clubbing, No contractures Integumentary: No rashes, No cyanosis. Large sacral ulcer. Neurological: Normal speech Laboratory Data (last 24 hrs) 09/18/21 11:41: PT 21.2 H, INR 1.83, APTT 33.6 09/18/21 11:41: WBC 20.90 H*, Hgb 7.1 L, Hct 23.9 L, Plt Count 344 09/18/21 11:41: Sodium 134 L, Potassium 3.5, BUN 63 H, Creatinine 10.30 H*, Glucose 97, Total Bilirubin 0.6, AST 23, ALT 20, Alkaline Phosphatase 114, Amylase 24 L, Lipase 39 L Imagings Data: EXAM DESCRIPTION: CT - Abdomen Pelvis Wo Contrast - 09/18/2021 5:07 pm CLINICAL HISTORY: Sepsis COMPARISON: No comparisons TECHNIQUE: Axial [address] imaging of the abdomen and pelvis was performed without IV contrast. No IV contrast was given because of allergy, abnormal renal function, patient refusal or physician request. No oral contrast administered. All CT scans are performed using dose optimization technique as appropriate and may include automated exposure control or mA/KV adjustment according to patient size. FINDINGS: No suspicious findings in the lung bases. The liver, spleen and pancreas show no suspicious findings on non-contrast imaging. Gallbladder and biliary tree are also without suspicious finding. Gallstones can be occult on CT imaging. Degree of respiratory motion artifact of the upper abdomen limits accurate assessment of gallbladder wall thickness. No hydronephrosis or suspicious renal mass. No significant adrenal finding. Isodense renal masses and pyelonephritis cannot be excluded in the absence of IV contrast. The urinary bladder is without significant finding. A 2.6 centimeter focal mass posterior right margin of the bladder is isodense to the bladder and is suspected to be moderate-sized bladder diverticulum. No gastric dilatation or gastric wall thickening. No pneumatosis intestinalis. Within the peritoneal cavity there is no free air, free fluid or inflammatory stranding. No acute retroperitoneal process seen. No hernia, mass or bulky lymphadenopathy. Patient has advanced degenerative changes of both hip joints, worse on the left. No acute bone or joint finding. Patient has extensive gas densities present in the subcutaneous fatty tissues posterior to the sacrum and coccyx. No bone destructive changes. The air densities extend laterally 08-2010 cm off of the midline. The inferior margin of the soft tissue gas densities extend in proximity to the posterior wall distal rectum and posterior margin of the levator ani musculature. No abnormal air densities in the fatty tissues of the perineum or scrotum. No history was provided indicating that the patient has a known decubitus ulcer or known wound in this region. IMPRESSION: Extensive abnormal air in the subcutaneous fatty tissues posterior to the sacrum and coccyx with extension each direction laterally 8-10 cm off of the midline. Inferior margin of the air densities abutthe posterior wall distal rectum and posterior margin of the levator ani musculature. This is most likely gas-forming soft tissue infection. The abnormal air densities do not yet extend into the fatty tissues of the perineum. EXAM DESCRIPTION: RAD - Chest Single View - 09/18/2021 12:00 pm CLINICAL HISTORY: COUGH Chest pain. COMPARISON: No comparisons FINDINGS: Portable technique limits examination quality. The lungs are grossly clear. The heart is normal in size. Right-sided venous catheter has tip in the right atrium region. Conclusions/Impression: ESRD -HD TIW as tolerated Hypokalemia -Start daily potassium Hypomagnesemia -Replete with IV magnesium prn HypoPO4 -Replete PO4 prn -Encourage nutrition Hypotension Sepsis/ Septic Shock Acute Cystitis Sacral decubitus ulcer. Osteomyelitis of the coccyx. -Continue Abx -IV Albumin prn -Levophed prn -Follow up with surgery; wound vac Diastolic CHF, chronic A/C hypoxic respiratory failure -Low sodium diet -Continue Oxygen supplementation -HD with UF as tolerated DM II with CKD -RISS Severe malnutrition -Continue Ensure supplementation -IV Albumin with HD today -Continue nephrovite Anemia in CKD -PRBC transfusion with HD today -Retacrit TIW CKD MBD -Continue Calcitriol
[2021-10-16] MEDS: PANTOPRAZOLE 40MG TABLET PO SCH (05:53)
[2021-10-16] MEDS: ACETAMINOPHEN 500 MG TAB PO PRN ×2 (05:53→11:40)
[2021-10-16 06:13] LABS: Hematocrit 25.6 % (39.6-49.0); MPV 7.8 fL (7.6-11.3); RBC Red Blood Cell Count 2.88 M/uL (4.33-5.43)
[2021-10-16 06:42] LABS: Magnesium 2.1 mg/dL (1.8-2.4)
[2021-10-16 06:43] LABS: Potassium 2.9 mmol/L (3.5-5.1)
[2021-10-16] MEDS: INSULIN -REGULAR HUMAN 50 UNIT/0.5 ML ML SQ SCH ×4 (07:30→21:00)
[2021-10-16] MEDS ORDERED: POTASSIUM CL SA 10 MEQ TAB PO ONE ×2 (08:54→11:36)
[2021-10-16] MEDS: ENSURE HIGH PROTEIN 237 ML CAN PO SCH ×3 (09:00→20:37)
[2021-10-16] MEDS: CALCITROL 0.25 MCG CAP PO SCH (09:59)
[2021-10-16] MEDS: dexAMETHasone 4 MG TAB PO SCH ×2 (10:00→20:37)
[2021-10-16] MEDS: MULTIVITAMINS,THERAPEUT 1 TAB PO SCH (10:00)
[2021-10-16] MEDS: MIDODRINE HCL 5 MG TABLET PO SCH ×3 (10:00→16:30)
[2021-10-16] MEDS: AMIODARONE HCL 200 MG TAB PO SCH (10:00)
[2021-10-16] MEDS: COLLAGENASE 30 GM OINTMENT TOP SCH (10:01)
[2021-10-16] MEDS: FLUTICASONE SALMETEROL IH SCH ×2 (10:42→20:38)
[2021-10-16] MEDS: POTASSIUM CL SA 10 MEQ TAB PO SCH (10:49)
--- NOTE | 2021-10-16 11:41 | P.PN ---
Subjective Date of Service: 10/16/21 Chief Complaint: Altered mental status Patient seen examined at bedside, wound VAC changed at bedside Review of Systems 10-point ROS is otherwise unremarkable Physical Examination - Vital Signs Temperature: 97.2 F Blood Pressure: 147/70 Pulse: 67 Respirations: 23 Pulse Ox (%): 100 - Studies Laboratory Last Values WBC 20.90 K/uL (4.3-10.9) H* 09/18/21 11:41 RBC 2.71 M/uL (4.33-5.43) L 09/18/21 11:41 Hgb 7.1 g/dL (13.6-17.9) L 09/18/21 11:41 Hct 23.9 % (39.6-49.0) L 09/18/21 11:41 MCV 88.3 fL (80-100) 09/18/21 11:41 MCH 26.1 pg (27.0-35.0) L 09/18/21 11:41 MCHC 29.6 g/dL (32.0-36.0) L 09/18/21 11:41 RDW 20.0 % (12.1-15.2) H 09/18/21 11:41 Plt Count 344 K/uL (152-406) 09/18/21 11:41 MPV 7.9 fL (7.6-11.3) 09/18/21 11:41 Neutrophils % 86.4 % (41.7-73.7) H 09/18/21 11:41 Lymphocytes % 9.0 % (15.3-44.8) L 09/18/21 11:41 Monocytes % 4.1 % (3.3-12.3) 09/18/21 11:41 Eosinophils % 0.3 % (0-4.4) 09/18/21 11:41 Basophils % 0.2 % (0-1.3) 09/18/21 11:41 Absolute Neutrophils 18.0 K/uL (1.8-8.0) H 09/18/21 11:41 Segmented Neutrophils 90 % (40-80) H 09/18/21 11:41 Absolute Lymphocytes 1.9 K/uL (0.7-4.9) 09/18/21 11:41 Lymphocytes 7 % (15-42) L 09/18/21 11:41 Monocytes 3 % (0-10) 09/18/21 11:41 Absolute Monocytes 0.9 K/uL (0.1-1.3) 09/18/21 11:41 Absolute Eosinophils 0.1 K/uL (0-0.5) 09/18/21 11:41 Absolute Basophils 0.0 K/uL (0-0.5) 09/18/21 11:41 Platelet Estimate Adeq 09/18/21 11:41 Morphology Comment Not seen (NOT SEEN) 09/18/21 11:41 PT 21.2 SECONDS (9.5-12.5) H 09/18/21 11:41 INR 1.83 09/18/21 11:41 APTT 33.6 SECONDS (24.3-36.9) 09/18/21 11:41 Sodium 134 mmol/L (136-145) L 09/18/21 11:41 Potassium 3.5 mmol/L (3.5-5.1) 09/18/21 11:41 Chloride 104 mmol/L (98-107) 09/18/21 11:41 Carbon Dioxide 14 mmol/L (21-32) L* 09/18/21 11:41 BUN 63 mg/dL (7-18) H 09/18/21 11:41 Creatinine 10.30 mg/dL (0.55-1.3) H* 09/18/21 11:41 Estimated GFR 6 mL/min (=/>90) L 09/18/21 11:41 Glucose 97 mg/dL (74-106) 09/18/21 11:41 Lactic Acid 4.4 mmol/L (0.4-2.0) H* 09/18/21 11:41 Calcium 8.5 mg/dL (8.5-10.1) 09/18/21 11:41 Total Bilirubin 0.6 mg/dL (0.2-1.0) 09/18/21 11:41 Direct Bilirubin 0.3 mg/dL (0-0.2) H 09/18/21 11:41 AST 23 U/L (15-37) 09/18/21 11:41 ALT 20 U/L (12-78) 09/18/21 11:41 Alkaline Phosphatase 114 U/L (45-117) 09/18/21 11:41 Creatine Kinase 80 U/L (39-308) 09/18/21 11:41 CK-MB (CK-2) 2.6 ng/mL (1.0-3.6) 09/18/21 11:41 Rapid Troponin I 0.04 ng/mL (0.0-0.045) 09/18/21 11:41 Serum Total Protein 6.4 g/dL (6.4-8.2) 09/18/21 11:41 Albumin 1.6 g/dL (3.4-5.0) L 09/18/21 11:41 Globulin 4.8 g/dL (2.3-3.5) H 09/18/21 11:41 Albumin/Globulin Ratio 0.3 (1.1-1.8) L 09/18/21 11:41 Amylase 24 U/L (25-115) L 09/18/21 11:41 Lipase 39 U/L (73-393) L 09/18/21 11:41 Procalcitonin 5.15 ng/mL (<0.050) H 09/18/21 11:41 Urine RBC 5-10 /HPF (NONE SEEN) H 09/18/21 12:45 Urine WBC 5-10 /HPF (<5) H 09/18/21 12:45 Ur Squamous Epith Cells <5 /HPF (NONE SEEN) 09/18/21 12:45 Urine Bacteria 20-50 /HPF (NONE SEEN) H 09/18/21 12:45 Urine Culture Reflexed Reflexed 09/18/21 12:45 Influenza Type A RNA Negative (NEGATIVE) 09/18/21 12:27 Influenza Type B RNA Negative (NEGATIVE) 09/18/21 12:27 SARS-CoV-2 RNA (RT-PCR) Negative (NEGATIVE) 09/18/21 12:27 Miscellaneous Test Cancelled 09/18/21 11:31 Medications List Reviewed: Yes Assessment And Plan - Plan Physical exam: General: Other (AMS) HEENT: Atraumatic Neck: Supple Respiratory: Clear to auscultation bilaterally, Normal air movement Cardiovascular: Normal pulses, Regular rate/rhythm Gastrointestinal: Normal bowel sounds, Soft and benign Musculoskeletal: No contractures Integumentary: Pressure ulcer (Sacral decubitus ulcer status post surgical debridement performed on 09/19 and 09/26. Bilateral anterior tubbs pressure wounds, bilateral heel pressure wounds.. Conclusions/Impression: Antibiotics: CURRENT: Gentamicin Start: 10/09 DC: Vancomycin Start: 09/18 Stop: 09/24 Daptomycin Start: 09/25 Stop: 10/08 Meropenem Start: 09/19 Stop: 10/08 Assessment/plan Severe sepsis secondary to infected sacral decubitus ulcer Patient septic on admission with lactic acidosis, metabolic acidosis, leukocytosis, and tacypena. Source infection: Infected sacral decubitus ulcer. CT abdomen pelvis showed gas-forming soft tissue infection directly posterior to sacrum. Sacral wound culture grew Proteus mirabilis, citrobacter, and vancomycin-resistant Enterococcus faecalis. Based off wound culture report patient placed on daptomycin and meropenem. Baseline creatinine kinase: 15. Statin was held while patient was on daptomycin. Antibiotic switched to monotherapy IV gentamicin as it is only available agent sensitive to Proteus Mirabella's that being that can be given with dialysis. Patient underwent emergent debridement of sacral decubitus ulcer on 09/19. Additional debridement performed on 09/26. Continue wound care per surgical team. Wound VAC placed to sacral wound on 09/27. CK level on 10/01: 11 10/04: 15 Coccyx osteomyelitis Patient will need antibioitc therapy for 6 weeks duration. Antibiotic day . End date of 11/06. Left anterior tubbs pressure wound Wound care Medihoney and foam Right anterior tubbs pressure wound Wound care Xeroform and foam Bilateral heel DTI/right lateral foot blister with possible DTI underneath/ right fifth metatarsal head DTI Wound care: Cavilon spray and wrap with Kerlix. Avoid pressure and offload areas. Bacteremia Blood cultures obtained on 09/18 growing Proteus mirabilis sensitive to meropenem. Repeat blood cultures obtained on 09/20 show no growth at 24hr. Continue IV meropenem for 7-10 days from 09/20. Extended due to osteomyeltis. ESRD on HD Avoid nephrotoxic agents, renally dose all antibiotics/give after HD on HD days. Nephrology following. Anemia Patient has received blood products. Continue to monitor H&H. Leukocytosis Resolved, continue to monitor WBC trend in fever curve. Protein caloric malnutrition: Moderate Patient was low albumin, recommend supplemental Ensure protein drinks. Adequate nutrition needed for proper wound healing. -medical management per primary team Plan of care discussed with Dr. newell Thank you for consultation.
--- NOTE | 2021-10-16 13:56 | P.PN ---
Subjective Date of Service: 10/16/21 Chief Complaint: Altered mental status No new complaint. No issues overnight Physical Examination - Vital Signs Temperature: 97.6 F Blood Pressure: 164/74 Pulse: 71 Respirations: 24 Pulse Ox (%): 100 - Studies Medications List Reviewed: Yes Assessment And Plan - Current Problems (Diagnosis) (1) Sepsis Current Visit: Yes Status: Acute (2) UTI (urinary tract infection) Current Visit: Yes Status: Acute (3) End-stage renal disease on hemodialysis Current Visit: Yes Status: Acute (4) Chronic systolic heart failure Current Visit: Yes Status: Acute (5) History of CVA (cerebrovascular accident) Current Visit: Yes Status: Acute (6) Metabolic acidosis Current Visit: Yes Status: Acute (7) Anemia Current Visit: Yes Status: Acute - Plan Physical examination General: In no apparent distress, awake and more interactive. Respiratory: Clear to auscultation bilaterally, Normal air movement Cardiovascular: Normal S1 S2, Irregular heart rate/rhythm Gastrointestinal: Soft and benign, Non-distended, nontender. Musculoskeletal: No swelling Integumentary: Stage IV large sacral decubitus ulcer with wound VAC. Bilateral lower extremity venous stasis dermatitis and hemosiderin discolorations. Neurological: Moves all extremities Plan: Status post 5 unit PRBC transfusion. No evidence of active bleeding. Patient was on Eliquis. No melena or hematochezia. Hemoglobin remain stable. Patient with superficial vein thrombosis. Eliquis discontinued. Dr. Ramirez following. Status post sacral decubitus ulcer debridement x4. Wound VAC. Nephrology is following for hemodialysis. Metabolic acidosis resolved. Status post albumin infusion for low albumin and hypotension. Levophed drip weaned off. Echocardiogram: Normal EF. Suspected adrenal insufficiency given episodes of hypotension and hypoglycemia. A.m. cortisol is low. Blood glucose readings and blood pressure improved with IV dexamethasone. Patient is currently hypertensive on oral dexamethasone. Will reduce dexamethasone dose. Infectious disease is following. Blood culture: pansensitive Proteus. Wound culture: Proteus and Citrobacter. Repeat blood culture shows no growth to date. Antibiotics switched to IV gentamicin being given with hemodialysis. Patient to complete 6 weeks of antibiotics. Urine culture: No growth. Feeding as tolerated. Patient is tolerating diet. Insulin sliding scale for glucose management. Anemia likely secondary to sepsis and chronic kidney disease. Total of 7 units PRBC transfused. Monitor CBC and blood chemistry. Electrolyte replacement per nephrology. Disposition: Daughter want to take patient home. There is an issue with transportation to hemodialysis which is holding patient's discharge. I suggested a meeting with the family with administration, medical team and social service to discuss options for disposition if transportation to and from dialysis is not possible due to affordability or lack of insurance coverage.
[2021-10-17 05:54] LABS: Hematocrit 28.2 % (39.6-49.0); Lymphocytes % 9.4 % (15.3-44.8); RBC Red Blood Cell Count 3.17 M/uL (4.33-5.43)
[2021-10-17] MEDS: ACETAMINOPHEN 500 MG TAB PO PRN ×2 (06:16→17:55)
[2021-10-17] MEDS: PANTOPRAZOLE 40MG TABLET PO SCH (06:16)
[2021-10-17 06:21] LABS: Anisocytosis 2+; Blood Morphology Comment NOTED (NOT SEEN); Burr Cells 1+; Ovalocytes 1+; Platelet Estimate DECR
[2021-10-17 06:50] LABS: Potassium 3.5 mmol/L (3.5-5.1)
[2021-10-17 07:09] LABS: Gentamicin Level, Trough 7.7 ug/mL (0-2.0)
[2021-10-17] MEDS: INSULIN -REGULAR HUMAN 50 UNIT/0.5 ML ML SQ SCH ×4 (07:30→19:50)
[2021-10-17] MEDS: MULTIVITAMINS,THERAPEUT 1 TAB PO SCH (07:59)
[2021-10-17] MEDS: CALCITROL 0.25 MCG CAP PO SCH (07:59)
[2021-10-17] MEDS: AMIODARONE HCL 200 MG TAB PO SCH (07:59)
[2021-10-17] MEDS: POTASSIUM CL SA 10 MEQ TAB PO SCH (07:59)
[2021-10-17] MEDS: ENSURE HIGH PROTEIN 237 ML CAN PO SCH ×3 (08:00→21:02)
[2021-10-17] MEDS: MIDODRINE HCL 5 MG TABLET PO SCH ×3 (08:00→17:56)
[2021-10-17] MEDS: dexAMETHasone 4 MG TAB PO SCH (08:02)
[2021-10-17] MEDS: MEDIHONEY 44 ML TOPICAL TUBE TOP SCH (08:02)
[2021-10-17] MEDS: FLUTICASONE SALMETEROL IH SCH ×2 (08:04→21:01)
--- NOTE | 2021-10-17 11:51 | P.PN ---
Subjective Date of Service: 10/17/21 Chief Complaint: Altered mental status Patient seen examined at bedside, gentamicin level elevated, will hold next dose. Review of Systems 10-point ROS is otherwise unremarkable Physical Examination - Vital Signs Temperature: 97.4 F Blood Pressure: 150/62 Pulse: 67 Respirations: 16 Pulse Ox (%): 100 - Studies Laboratory Last Values WBC 20.90 K/uL (4.3-10.9) H* 09/18/21 11:41 RBC 2.71 M/uL (4.33-5.43) L 09/18/21 11:41 Hgb 7.1 g/dL (13.6-17.9) L 09/18/21 11:41 Hct 23.9 % (39.6-49.0) L 09/18/21 11:41 MCV 88.3 fL (80-100) 09/18/21 11:41 MCH 26.1 pg (27.0-35.0) L 09/18/21 11:41 MCHC 29.6 g/dL (32.0-36.0) L 09/18/21 11:41 RDW 20.0 % (12.1-15.2) H 09/18/21 11:41 Plt Count 344 K/uL (152-406) 09/18/21 11:41 MPV 7.9 fL (7.6-11.3) 09/18/21 11:41 Neutrophils % 86.4 % (41.7-73.7) H 09/18/21 11:41 Lymphocytes % 9.0 % (15.3-44.8) L 09/18/21 11:41 Monocytes % 4.1 % (3.3-12.3) 09/18/21 11:41 Eosinophils % 0.3 % (0-4.4) 09/18/21 11:41 Basophils % 0.2 % (0-1.3) 09/18/21 11:41 Absolute Neutrophils 18.0 K/uL (1.8-8.0) H 09/18/21 11:41 Segmented Neutrophils 90 % (40-80) H 09/18/21 11:41 Absolute Lymphocytes 1.9 K/uL (0.7-4.9) 09/18/21 11:41 Lymphocytes 7 % (15-42) L 09/18/21 11:41 Monocytes 3 % (0-10) 09/18/21 11:41 Absolute Monocytes 0.9 K/uL (0.1-1.3) 09/18/21 11:41 Absolute Eosinophils 0.1 K/uL (0-0.5) 09/18/21 11:41 Absolute Basophils 0.0 K/uL (0-0.5) 09/18/21 11:41 Platelet Estimate Adeq 09/18/21 11:41 Morphology Comment Not seen (NOT SEEN) 09/18/21 11:41 PT 21.2 SECONDS (9.5-12.5) H 09/18/21 11:41 INR 1.83 09/18/21 11:41 APTT 33.6 SECONDS (24.3-36.9) 09/18/21 11:41 Sodium 134 mmol/L (136-145) L 09/18/21 11:41 Potassium 3.5 mmol/L (3.5-5.1) 09/18/21 11:41 Chloride 104 mmol/L (98-107) 09/18/21 11:41 Carbon Dioxide 14 mmol/L (21-32) L* 09/18/21 11:41 BUN 63 mg/dL (7-18) H 09/18/21 11:41 Creatinine 10.30 mg/dL (0.55-1.3) H* 09/18/21 11:41 Estimated GFR 6 mL/min (=/>90) L 09/18/21 11:41 Glucose 97 mg/dL (74-106) 09/18/21 11:41 Lactic Acid 4.4 mmol/L (0.4-2.0) H* 09/18/21 11:41 Calcium 8.5 mg/dL (8.5-10.1) 09/18/21 11:41 Total Bilirubin 0.6 mg/dL (0.2-1.0) 09/18/21 11:41 Direct Bilirubin 0.3 mg/dL (0-0.2) H 09/18/21 11:41 AST 23 U/L (15-37) 09/18/21 11:41 ALT 20 U/L (12-78) 09/18/21 11:41 Alkaline Phosphatase 114 U/L (45-117) 09/18/21 11:41 Creatine Kinase 80 U/L (39-308) 09/18/21 11:41 CK-MB (CK-2) 2.6 ng/mL (1.0-3.6) 09/18/21 11:41 Rapid Troponin I 0.04 ng/mL (0.0-0.045) 09/18/21 11:41 Serum Total Protein 6.4 g/dL (6.4-8.2) 09/18/21 11:41 Albumin 1.6 g/dL (3.4-5.0) L 09/18/21 11:41 Globulin 4.8 g/dL (2.3-3.5) H 09/18/21 11:41 Albumin/Globulin Ratio 0.3 (1.1-1.8) L 09/18/21 11:41 Amylase 24 U/L (25-115) L 09/18/21 11:41 Lipase 39 U/L (73-393) L 09/18/21 11:41 Procalcitonin 5.15 ng/mL (<0.050) H 09/18/21 11:41 Urine RBC 5-10 /HPF (NONE SEEN) H 09/18/21 12:45 Urine WBC 5-10 /HPF (<5) H 09/18/21 12:45 Ur Squamous Epith Cells <5 /HPF (NONE SEEN) 09/18/21 12:45 Urine Bacteria 20-50 /HPF (NONE SEEN) H 09/18/21 12:45 Urine Culture Reflexed Reflexed 09/18/21 12:45 Influenza Type A RNA Negative (NEGATIVE) 09/18/21 12:27 Influenza Type B RNA Negative (NEGATIVE) 09/18/21 12:27 SARS-CoV-2 RNA (RT-PCR) Negative (NEGATIVE) 09/18/21 12:27 Miscellaneous Test Cancelled 09/18/21 11:31 Medications List Reviewed: Yes Assessment And Plan - Plan Physical exam: General: Other (AMS) HEENT: Atraumatic Neck: Supple Respiratory: Clear to auscultation bilaterally, Normal air movement Cardiovascular: Normal pulses, Regular rate/rhythm Gastrointestinal: Normal bowel sounds, Soft and benign Musculoskeletal: No contractures Integumentary: Pressure ulcer (Sacral decubitus ulcer status post surgical debridement performed on 09/19 and 09/26. Bilateral anterior tubbs pressure wounds, bilateral heel pressure wounds.. Conclusions/Impression: Antibiotics: CURRENT: Gentamicin Start: 10/09 DC: Vancomycin Start: 09/18 Stop: 09/24 Daptomycin Start: 09/25 Stop: 10/08 Meropenem Start: 09/19 Stop: 10/08 Assessment/plan Severe sepsis secondary to infected sacral decubitus ulcer Patient septic on admission with lactic acidosis, metabolic acidosis, leukocytosis, and tacypena. Source infection: Infected sacral decubitus ulcer. CT abdomen pelvis showed gas-forming soft tissue infection directly posterior to sacrum. Sacral wound culture grew Proteus mirabilis, citrobacter, and vancomycin-resistant Enterococcus faecalis. Based off wound culture report patient placed on daptomycin and meropenem. Baseline creatinine kinase: 15. Statin was held while patient was on daptomycin. Antibiotic switched to monotherapy IV gentamicin as it is only available agent sensitive to Proteus Mirabella's that being that can be given with dialysis. Patient underwent em ergent debridement of sacral decubitus ulcer on 09/19. Additional debridement performed on 09/26. Continue wound care per surgical team. Wound VAC placed to sacral wound on 09/27. CK level on 10/01: 11 10/04: 15 Coccyx osteomyelitis Patient will need antibioitc therapy for 6 weeks duration. Antibiotic day . End date of 11/06. Left anterior tubsb pressure wound Wound care Medihoney and foam Right anterior tubbs pressure wound Wound care Xeroform and foam Bilateral heel DTI/right lateral foot blister with possible DTI underneath/ right fifth metatarsal head DTI Wound care: Cavilon spray and wrap with Kerlix. Avoid pressure and offload areas. Bacteremia Blood cultures obtained on 09/18 growing Proteus mirabilis sensitive to meropenem. Repeat blood cultures obtained on 09/20 show no growth at 24hr. Continue IV meropenem for 7-10 days from 09/20. Extended due to osteomyeltis. ESRD on HD Avoid nephrotoxic agents, renally dose all antibiotics/give after HD on HD days. Nephrology following. Anemia Patient has received blood products. Continue to monitor H&H. Leukocytosis Resolved, continue to monitor WBC trend in fever curve. Protein caloric malnutrition: Moderate Patient was low albumin, recommend supplemental Ensure protein drinks. Adequate nutrition needed for proper wound healing. -medical management per primary team Plan of care discussed with Dr. newell Thank you for consultation.
--- NOTE | 2021-10-17 13:03 | P.PN ---
Subjective Date of Service: 10/17/21 Chief Complaint: Altered mental status No new complaint. No issues overnight. Patient is eating well. Physical Examination - Vital Signs Temperature: 97.4 F Blood Pressure: 150/62 Pulse: 67 Respirations: 16 Pulse Ox (%): 100 - Studies Medications List Reviewed: Yes Assessment And Plan - Current Problems (Diagnosis) (1) Sepsis Current Visit: Yes Status: Acute (2) UTI (urinary tract infection) Current Visit: Yes Status: Acute (3) End-stage renal disease on hemodialysis Current Visit: Yes Status: Acute (4) Chronic systolic heart failure Current Visit: Yes Status: Acute (5) History of CVA (cerebrovascular accident) Current Visit: Yes Status: Acute (6) Metabolic acidosis Current Visit: Yes Status: Acute (7) Anemia Current Visit: Yes Status: Acute - Plan Physical examination General: In no apparent distress, awake and more interactive. Respiratory: Clear to auscultation bilaterally, Normal air movement Cardiovascular: Normal S1 S2, Irregular heart rate/rhythm Gastrointestinal: Soft and benign, Non-distended, nontender. Musculoskeletal: No swelling Integumentary: Stage IV large sacral decubitus ulcer with wound VAC. Bilateral lower extremity venous stasis dermatitis and hemosiderin discolorations. Neurological: Moves all extremities Plan: Status post 5 unit PRBC transfusion. No evidence of active bleeding. No melena or hematochezia. Hemoglobin remain stable. Patient with superficial vein thrombosis. Eliquis discontinued. Dr. Ramirez following. Status post sacral decubitus ulcer debridement x4. Wound VAC in place. Nephrology is following for hemodialysis. Metabolic acidosis resolved. Status post albumin infusion for low albumin and hypotension. Status post Levophed. Echocardiogram: Normal EF. Suspected adrenal insufficiency given episodes of hypotension and hypoglycemia. A.m. cortisol is low. Blood glucose readings and blood pressure improved with IV dexamethasone. Patient is currently hypertensive on oral dexamethasone. Dexamethasone dose reduced. Infectious disease is following. Blood culture: pansensitive Proteus. Wound culture: Proteus and Citrobacter. Repeat blood culture shows no growth to date. Antibiotics switched to IV gentamicin and being given with hemodialysis. Patient to complete 6 weeks of antibiotics. Urine culture: No growth. Feeding as tolerated. Patient is tolerating pureed diet. Insulin sliding scale for glucose management. Anemia likely secondary to sepsis and chronic kidney disease. Total of 7 units PRBC transfused. Monitor CBC and blood chemistry. Electrolyte replacement per nephrology.
--- NOTE | 2021-10-17 15:09 | PN ---
Date of Progress Note: 10/16/2021 Subjective: Patient is seen at the bedside. Patient's is also in the room. Patient is awake, alert, and unable to give a full history secondary to underlying dementia. Patient is receiving woun d care for his wounds on his leg, as well as, the sacrum. Objective: Vital Signs: Blood pressure is 156/71, pulse 69, afebrile. General: No acute distress. Heart: Regular rate and rhythm. No murmurs, rubs, or gallops. Lungs: Grossly, clear. Abdomen: Soft. Extremities: No edema. Laboratory Data: Hemoglobin 8.2, hematocrit 25.6, platelet count 107. Serum chemistry; sodium 141, potassium 2.9, chloride 106, CO2 26, BUN 45, creatinine 4.88, glucose 100, calcium 8.2. Last gentami gabrielle trough on the is 2.9. Current Medications: Reviewed. Of note, patient is on amiodarone 200 daily, calcitriol 0.5 mcg elie y, dexamethasone 2 mg p.o. b.i.d., Epogen 90121 units with each dialysis day, midodrine 10 mg p.o., p otassium chloride 20 mEq daily, gentamicin 240 mg after each dialysis. Impression: 1.End-stage renal disease, on hemodialysis. 2.Hypokalemia. 3.Sepsis. 4.Urinary tract infection. 5.Chronic systolic congestive heart failure. 6.Decubitus ulcers. 7.Anemia in the setting of chronic kidney disease. Plan: Patient will continue on Friday, Friday, Friday dialysis. I have ordered additional 20 mEq of potassium chloride. Patient is dialyzing on a high potassium bath. There is no evidence of GI l oss for hypokalemia likely from nutritional deficit. Patient is continued on steroids for suspected renal insufficiency. Continue followup cultures. Please ensure that gentamicin dose is titrated by pharmacy to establish outpatient dose with dialysis for duration of treatment. In addition, encourage protein intake. Further recommendations from Елена josue regarding wound care, diet. SE/MODL Voice ID: [id number] Report ID: [id number]
[2021-10-17] MEDS: EPOETIN ALFA 10,000 UNIT/ML VIAL SQ SCH (17:56)
[2021-10-18 04:50] LABS: Absolute Lymphocytes (CBC) 1.6 K/uL (0.7-4.9); Hematocrit 26.5 % (39.6-49.0); Lymphocytes % 14.3 % (15.3-44.8); MPV 7.5 fL (7.6-11.3); RBC Red Blood Cell Count 2.97 M/uL (4.33-5.43)
[2021-10-18 04:57] LABS: Potassium 3.4 mmol/L (3.5-5.1)
[2021-10-18] MEDS: PANTOPRAZOLE 40MG TABLET PO SCH (05:32)
[2021-10-18] MEDS: INSULIN -REGULAR HUMAN 50 UNIT/0.5 ML ML SQ SCH ×4 (07:30→20:52)
[2021-10-18] MEDS: MIDODRINE HCL 5 MG TABLET PO SCH ×3 (08:05→16:51)
[2021-10-18] MEDS: MULTIVITAMINS,THERAPEUT 1 TAB PO SCH (08:05)
[2021-10-18] MEDS: AMIODARONE HCL 200 MG TAB PO SCH (08:05)
[2021-10-18] MEDS: CALCITROL 0.25 MCG CAP PO SCH (08:05)
[2021-10-18] MEDS: POTASSIUM CL SA 10 MEQ TAB PO SCH (08:05)
[2021-10-18] MEDS: MEDIHONEY 44 ML TOPICAL TUBE TOP SCH (08:06)
[2021-10-18] MEDS: FLUTICASONE SALMETEROL IH SCH ×2 (08:06→20:53)
[2021-10-18] MEDS: COLLAGENASE 30 GM OINTMENT TOP SCH (08:06)
[2021-10-18] MEDS: ENSURE HIGH PROTEIN 237 ML CAN PO SCH ×3 (08:06→20:53)
[2021-10-18] MEDS: dexAMETHasone 4 MG TAB PO SCH (08:07)
--- NOTE | 2021-10-18 11:16 | P.PN ---
Subjective Date of Service: 10/18/21 Chief Complaint: Altered mental status Patient seen examined at bedside, WBC within normal range Review of Systems 10-point ROS is otherwise unremarkable Physical Examination - Vital Signs Temperature: 97.3 F Blood Pressure: 147/65 Pulse: 65 Respirations: 18 Pulse Ox (%): 100 - Studies Laboratory Last Values WBC 20.90 K/uL (4.3-10.9) H* 09/18/21 11:41 RBC 2.71 M/uL (4.33-5.43) L 09/18/21 11:41 Hgb 7.1 g/dL (13.6-17.9) L 09/18/21 11:41 Hct 23.9 % (39.6-49.0) L 09/18/21 11:41 MCV 88.3 fL (80-100) 09/18/21 11:41 MCH 26.1 pg (27.0-35.0) L 09/18/21 11:41 MCHC 29.6 g/dL (32.0-36.0) L 09/18/21 11:41 RDW 20.0 % (12.1-15.2) H 09/18/21 11:41 Plt Count 344 K/uL (152-406) 09/18/21 11:41 MPV 7.9 fL (7.6-11.3) 09/18/21 11:41 Neutrophils % 86.4 % (41.7-73.7) H 09/18/21 11:41 Lymphocytes % 9.0 % (15.3-44.8) L 09/18/21 11:41 Monocytes % 4.1 % (3.3-12.3) 09/18/21 11:41 Eosinophils % 0.3 % (0-4.4) 09/18/21 11:41 Basophils % 0.2 % (0-1.3) 09/18/21 11:41 Absolute Neutrophils 18.0 K/uL (1.8-8.0) H 09/18/21 11:41 Segmented Neutrophils 90 % (40-80) H 09/18/21 11:41 Absolute Lymphocytes 1.9 K/uL (0.7-4.9) 09/18/21 11:41 Lymphocytes 7 % (15-42) L 09/18/21 11:41 Monocytes 3 % (0-10) 09/18/21 11:41 Absolute Monocytes 0.9 K/uL (0.1-1.3) 09/18/21 11:41 Absolute Eosinophils 0.1 K/uL (0-0.5) 09/18/21 11:41 Absolute Basophils 0.0 K/uL (0-0.5) 09/18/21 11:41 Platelet Estimate Adeq 09/18/21 11:41 Morphology Comment Not seen (NOT SEEN) 09/18/21 11:41 PT 21.2 SECONDS (9.5-12.5) H 09/18/21 11:41 INR 1.83 09/18/21 11:41 APTT 33.6 SECONDS (24.3-36.9) 09/18/21 11:41 Sodium 134 mmol/L (136-145) L 09/18/21 11:41 Potassium 3.5 mmol/L (3.5-5.1) 09/18/21 11:41 Chloride 104 mmol/L (98-107) 09/18/21 11:41 Carbon Dioxide 14 mmol/L (21-32) L* 09/18/21 11:41 BUN 63 mg/dL (7-18) H 09/18/21 11:41 Creatinine 10.30 mg/dL (0.55-1.3) H* 09/18/21 11:41 Estimated GFR 6 mL/min (=/>90) L 09/18/21 11:41 Glucose 97 mg/dL (74-106) 09/18/21 11:41 Lactic Acid 4.4 mmol/L (0.4-2.0) H* 09/18/21 11:41 Calcium 8.5 mg/dL (8.5-10.1) 09/18/21 11:41 Total Bilirubin 0.6 mg/dL (0.2-1.0) 09/18/21 11:41 Direct Bilirubin 0.3 mg/dL (0-0.2) H 09/18/21 11:41 AST 23 U/L (15-37) 09/18/21 11:41 ALT 20 U/L (12-78) 09/18/21 11:41 Alkaline Phosphatase 114 U/L (45-117) 09/18/21 11:41 Creatine Kinase 80 U/L (39-308) 09/18/21 11:41 CK-MB (CK-2) 2.6 ng/mL (1.0-3.6) 09/18/21 11:41 Rapid Troponin I 0.04 ng/mL (0.0-0.045) 09/18/21 11:41 Serum Total Protein 6.4 g/dL (6.4-8.2) 09/18/21 11:41 Albumin 1.6 g/dL (3.4-5.0) L 09/18/21 11:41 Globulin 4.8 g/dL (2.3-3.5) H 09/18/21 11:41 Albumin/Globulin Ratio 0.3 (1.1-1.8) L 09/18/21 11:41 Amylase 24 U/L (25-115) L 09/18/21 11:41 Lipase 39 U/L (73-393) L 09/18/21 11:41 Procalcitonin 5.15 ng/mL (<0.050) H 09/18/21 11:41 Urine RBC 5-10 /HPF (NONE SEEN) H 09/18/21 12:45 Urine WBC 5-10 /HPF (<5) H 09/18/21 12:45 Ur Squamous Epith Cells <5 /HPF (NONE SEEN) 09/18/21 12:45 Urine Bacteria 20-50 /HPF (NONE SEEN) H 09/18/21 12:45 Urine Culture Reflexed Reflexed 09/18/21 12:45 Influenza Type A RNA Negative (NEGATIVE) 09/18/21 12:27 Influenza Type B RNA Negative (NEGATIVE) 09/18/21 12:27 SARS-CoV-2 RNA (RT-PCR) Negative (NEGATIVE) 09/18/21 12:27 Miscellaneous Test Cancelled 09/18/21 11:31 Medications List Reviewed: Yes Assessment And Plan - Plan Physical exam: General: Other (AMS) HEENT: Atraumatic Neck: Supple Respiratory: Clear to auscultation bilaterally, Normal air movement Cardiovascular: Normal pulses, Regular rate/rhythm Gastrointestinal: Normal bowel sounds, Soft and benign Musculoskeletal: No contractures Integumentary: Pressure ulcer (Sacral decubitus ulcer status post surgical debridement performed on 09/19 and 09/26. Bilateral anterior tubbs pressure wounds, bilateral heel pressure wounds.. Conclusions/Impression: Antibiotics: CURRENT: Gentamicin Start: 10/09 DC: Vancomycin Start: 09/18 Stop: 09/24 Daptomycin Start: 09/25 Stop: 10/08 Meropenem Start: 09/19 Stop: 10/08 Assessment/plan Severe sepsis secondary to infected sacral decubitus ulcer Patient septic on admission with lactic acidosis, metabolic acidosis, leukocytosis, and tacypena. Source infection: Infected sacral decubitus ulcer. CT abdomen pelvis showed gas-forming soft tissue infection directly posterior to sacrum. Sacral wound culture grew Proteus mirabilis, citrobacter, and vanco mycin-resistant Enterococcus faecalis. Based off wound culture report patient placed on daptomycin and meropenem. Baseline creatinine kinase: 15. Statin was held while patient was on daptomycin. Antibiotic switched to monotherapy IV gentamicin as it is only available agent sensitive to Proteus Mirabella's that being that can be given with dialysis. Patient underwent emergent debridement of sacral decubitus ulcer on 09/19. Additional debridement performed on 09/26. Continue wound care per surgical team. Wound VAC placed to sacral wound on 09/27. CK level on 10/01: 11 10/04: 15 Coccyx osteomyelitis Patient will need antibioitc therapy for 6 weeks duration. Antibiotic day . End date of 11/06. Left anterior tubbs pressure wound Wound care Medihoney and foam Right anterior tubbs pressure wound Wound care Xeroform and foam Bilateral heel DTI/right lateral foot blister with possible DTI underneath/ right fifth metatarsal head DTI Wound care: Cavilon spray and wrap with Kerlix. Avoid pressure and offload areas. Bacteremia Blood cultures obtained on 09/18 growing Proteus mirabilis sensitive to meropenem. Repeat blood cultures obtained on 09/20 show no growth at 24hr. Continue IV meropenem for 7-10 days from 09/20. Extended due to osteomyeltis. ESRD on HD Avoid nephrotoxic agents, renally dose all antibiotics/give after HD on HD days. Nephrology following. Anemia Patient has received blood products. Continue to monitor H&H. Leukocytosis Resolved, continue to monitor WBC trend in fever curve. Protein caloric malnutrition: Moderate Patient was low albumin, recommend supplemental Ensure protein drinks. Adequate nutrition needed for proper wound healing. -medical management per primary team Plan of care discussed with Dr. newell Thank you for consultation.
[2021-10-19] MEDS: ACETAMINOPHEN 500 MG TAB PO PRN (05:28)
[2021-10-19] MEDS: PANTOPRAZOLE 40MG TABLET PO SCH (05:28)
[2021-10-19] MEDS: INSULIN -REGULAR HUMAN 50 UNIT/0.5 ML ML SQ SCH ×4 (07:30→21:00)
[2021-10-19] MEDS: ENSURE HIGH PROTEIN 237 ML CAN PO SCH ×3 (08:28→21:00)
[2021-10-19] MEDS: MIDODRINE HCL 5 MG TABLET PO SCH ×3 (08:28→16:13)
[2021-10-19] MEDS: AMIODARONE HCL 200 MG TAB PO SCH (08:28)
[2021-10-19] MEDS: CALCITROL 0.25 MCG CAP PO SCH (08:28)
[2021-10-19] MEDS: dexAMETHasone 4 MG TAB PO SCH (08:28)
[2021-10-19] MEDS: FLUTICASONE SALMETEROL IH SCH ×2 (08:28→21:00)
[2021-10-19] MEDS: MULTIVITAMINS,THERAPEUT 1 TAB PO SCH (08:28)
[2021-10-19] MEDS: POTASSIUM CL SA 10 MEQ TAB PO SCH (08:28)
[2021-10-19] MEDS: MEDIHONEY 44 ML TOPICAL TUBE TOP SCH (08:29)
--- NOTE | 2021-10-19 11:57 | PN ---
Subjective: The patient lying in bed. No new acute event. Chart reviewed. Opens eyes spontaneousl y and is able to follow simple commands. Objective: Vital Signs: Temperature 97, pulse 91, respiration 18, blood pressure 140/67. Lungs: Basal crackles. Heart: S1, S2. Regular. Abdomen: Soft, nontender. Bowel sounds present. Extremities: Trace edema. Wound noted. Laboratory Data: Labs reviewed. Assessment And Plan: 1.Severe sepsis secondary to infected sacral decubitus, coccyx osteomyelitis. 2.Left anterior tubbs pressure wound. 3.Right anterior tubbs pressure wound. 4.Bilaterally deep tissue injury, right heel foot blister with possible deep tissue injury underneat h. 5.Right fifth metatarsal head deep tissue injury. 6.Bacteremia. 7.End-stage renal disease, on hemodialysis. 8.Anemia of chronic disease. 9.Leukocytosis. 10.Protein-calorie malnourishment, moderate. Continue current treatment with nutritional support, S antyl, and gentamicin. We will follow the patient as needed. NF/MODL Voice ID: [id number] Report ID: [id number]
--- NOTE | 2021-10-19 12:26 | PN ---
Date of Progress Note: 10/19/2021 Subjective: The patient was seen and examined at bedside. Denies any complaints. No overnight even ts were noted. Objective: Vital Signs: Have been reviewed and are stable. General: He appears in no acute distress. Lungs: Clear to auscultation. Abdomen: Soft and nontender. The patient has a tunnelled dialysis catheter on his right chest and h e has a sacral wound with wound VAC noted. Laboratory Data: At this time are consistent with ESRD on dialysis. CBC showing anemia of chronic d isease with some mild leukocytosis and platelet count of 113. Current Medications: Have been reviewed in detail. He remains on albumin with dialysis, calcitriol daily, dexamethasone 2 mg daily, Retacrit Friday, Friday, Friday and gentamicin, which is being gi maira after dialysis. Impression: 1.End-stage renal disease, on dialysis. 2.Sacral decubitus ulcer status post debridement. 3.Sepsis. Wound cultures grew Proteus mirabilis, Citrobacter, and VRE. The patient was initially o n daptomycin and meropenem. He is currently getting gentamicin to be given after dialysis. He curre ntly will be dialyzed on Friday, , Friday schedule. He does have anemia for which he is g etting Retacrit. He also has bilateral pressure wounds of his shins as well as his heels, for which he is continuing to get wound care. He has severe malnutrition for which he is getting protein suppl ements and encouraged p.o. intake. Plan: Overall, the patient's condition is guarded. Continue to monitor closely. We will place orde rs for dialysis tomorrow and the plan is to be discharged post dialysis to SNF for ongoing wound care and antibiotics. VV/MODL Voice ID: [id number] Report ID: [id number]
--- NOTE | 2021-10-19 14:16 | P.PN ---
Subjective Date of Service: 10/19/21 Chief Complaint: Altered mental status No new complaint. No issues overnight. . Physical Examination - Vital Signs Temperature: 97.5 F Blood Pressure: 140/69 Pulse: 65 Respirations: 18 Pulse Ox (%): 95 - Studies Medications List Reviewed: Yes Assessment And Plan - Current Problems (Diagnosis) (1) Sepsis Current Visit: Yes Status: Acute (2) UTI (urinary tract infection) Current Visit: Yes Status: Acute (3) End-stage renal disease on hemodialysis Current Visit: Yes Status: Acute (4) Chronic systolic heart failure Current Visit: Yes Status: Acute (5) History of CVA (cerebrovascular accident) Current Visit: Yes Status: Acute (6) Metabolic acidosis Current Visit: Yes Status: Acute (7) Anemia Current Visit: Yes Status: Acute - Plan Physical examination General: In no apparent distress, awake and more interactive. Respiratory: Clear to auscultation bilaterally, Normal air movement Cardiovascular: Normal S1 S2, Irregular heart rate/rhythm Gastrointestinal: Soft and benign, Non-distended, nontender. Musculoskeletal: No swelling Integumentary: Stage IV large sacral decubitus ulcer with wound VAC. Bilateral lower extremity venous stasis dermatitis and hemosiderin discolorations. Neurological: Moves all extremities Plan: Status post 7 unit PRBC transfusion. No evidence of active bleeding. No melena or hematochezia. Hemoglobin remain stable. Patient with superficial vein thrombosis. Eliquis discontinued. Status post sacral decubitus ulcer debridement x4. Wound VAC in place. Nephrology is following for hemodialysis. Metabolic acidosis resolved. Status post albumin infusion for low albumin and hypotension. Status post Levophed. Echocardiogram: Normal EF. Suspected adrenal insufficiency given episodes of hypotension and hypoglycemia. A.m. cortisol is low. Blood glucose readings and blood pressure improved with IV dexamethasone. Patient is currently hypertensive on oral dexamethasone. Dexamethasone dose reduced. Infectious disease is following. Blood culture: pansensitive Proteus. Wound culture: Proteus and Citrobacter. Repeat blood culture shows no growth to date. Antibiotics switched to IV gentamicin and being given with hemodialysis. Patient to complete 6 weeks of antibiotics. Urine culture: No growth. Patient is tolerating pureed diet. Insulin sliding scale for glucose management. Disposition: [facility] for skilled rehab after dialysis tomorrow.
[2021-10-19] MEDS: EPOETIN ALFA 10,000 UNIT/ML VIAL SQ SCH (16:13)
[2021-10-20] MEDS: PANTOPRAZOLE 40MG TABLET PO SCH (06:30)
[2021-10-20] MEDS: INSULIN -REGULAR HUMAN 50 UNIT/0.5 ML ML SQ SCH ×3 (07:30→16:30)
[2021-10-20] MEDS: MIDODRINE HCL 5 MG TABLET PO SCH ×3 (07:30→16:56)
[2021-10-20 08:57] VITALS: O2SAT 94
[2021-10-20] MEDS: FLUTICASONE SALMETEROL IH SCH (09:00)
[2021-10-20] MEDS: COLLAGENASE 30 GM OINTMENT TOP SCH (09:00)
[2021-10-20] MEDS: dexAMETHasone 4 MG TAB PO SCH (09:00)
[2021-10-20] MEDS: AMIODARONE HCL 200 MG TAB PO SCH (09:00)
[2021-10-20] MEDS: POTASSIUM CL SA 10 MEQ TAB PO SCH (09:00)
[2021-10-20] MEDS: MEDIHONEY 44 ML TOPICAL TUBE TOP SCH (09:00)
[2021-10-20] MEDS: ENSURE HIGH PROTEIN 237 ML CAN PO SCH ×2 (09:00→14:00)
[2021-10-20] MEDS: CALCITROL 0.25 MCG CAP PO SCH (09:00)
[2021-10-20] MEDS: MULTIVITAMINS,THERAPEUT 1 TAB PO SCH (09:00)
[2021-10-20 11:13] LABS: HBsAG Nonreactive (Nonreactive)
--- NOTE | 2021-10-20 15:08 | P.DS ---
Admission Date: 09/18/21 Discharge Date: 10/20/21 Disposition: TRANSFER TO CORRECTION Discharge Condition: FAIR Reason for Admission: Altered mental status - Problems (1) Sepsis Current Visit: Yes Status: Acute (2) UTI (urinary tract infection) Current Visit: Yes Status: Acute (3) End-stage renal disease on hemodialysis Current Visit: Yes Status: Acute (4) Chronic systolic heart failure Current Visit: Yes Status: Acute (5) History of CVA (cerebrovascular accident) Current Visit: Yes Status: Acute (6) Metabolic acidosis Current Visit: Yes Status: Acute (7) Anemia Current Visit: Yes Status: Acute (8) Functional quadriplegia Current Visit: Yes Status: Acute Brief History of Present Illness: 76-year-old gentleman with a history of end-stage renal disease on hemodialysis, diabetes mellitus type 2 and heart failure was brought to the emergency department due to altered mental status. Family reports fever up to 102 at home. They also reported patient has become progressively weak up to the point since slumped in his chair today. EMS was called who found him hypoxic with oxygen saturation of 86% on room air. Patient's systolic blood pressure was in the 90s on arrival to the ED. He is afebrile, but WBC markedly elevated to 20,000, lactate elevated to 4.4, chest x-ray unremarkable, UA suggest UTI. Patient has a sacral decubitus ulcer. He has a right anterior chest dialysis catheter which had no discharge or no erythema around it. Family report this is the third episode. He was diagnosed with fever of unknown origin during the first 2 episodes, had a lumbar puncture done at [facility] in the [facility], admitted for 2-weeks. He was also hospitalized for similar episode in [facility], source of sepsis again not identified. Patient was started on hemodialysis in June 2021. Patient given 1 L of normal saline for sepsis and borderline low blood pressure. Central line placed by the ED provider. Patient admitted for further management of sepsis. Hospital Course: Admitted to the ICU for septic shock, started on broad-spectrum IV antibiotics- cefepime and vancomycin, resuscitated with IV fluid and treated with Levophed for hypotension. He was given multiple blood transfusion for anemia. Status post 7 unit PRBC transfusion. No evidence of active bleeding. No melena or hematochezia. Patient with superficial vein thrombosis. Eliquis discontinued. Hemoglobin was stable afterwards. Status post sacral decubitus ulcer debridement x4. Wound VAC placed. Imaging suggested osteomyelitis. Seen by nephrology nephrology for hemodialysis. He had metabolic acidosis which resolved. Status post albumin infusion for low albumin and hypotension. Status post Levophed. Echocardiogram: Normal EF. Patient was still hypotensive despite adequate treatment for sepsis. Suspected adrenal insufficiency given episodes of hypotension and hypoglycemia. A.m. cortisol checked was low. Blood glucose readings and blood pressure improved with IV dexamethasone. Steroid taper down to oral dexamethasone 2 mg daily. Blood culture: pansensitive Proteus. Wound culture: Proteus and Citrobacter. Repeat blood culture: No growth. Seen by infectious disease, antibiotics changed to daptomycin and meropenem and later scaled down to monotherapy with IV gentamicin after dialysis. Patient to complete 6 weeks of antibiotics. Urine culture: No growth. Patient clinical condition improved, seen by speech recommended pured diet. Patient has tolerated the pureed diet. Insulin sliding scale used for glucose management. Patient has been clinically stable over the past several days. He has been accepted to [facility] for skilled rehab. He is deemed stable for discharge. Vital Signs/Physical Exam: Temp Pulse Resp BP Pulse Ox 97.6 F 74 16 159/71 H 95 10/20/21 08:00 10/20/21 08:00 10/20/21 08:00 10/20/21 08:00 10/20/21 08:00 General: In no apparent distress HEENT: Mucous membr. moist/pink Neck: JVD not distended Respiratory: Clear to auscultation bilaterally, Normal air movement Cardiovascular: No edema, Regular rate/rhythm, Normal S1 S2 Gastrointestinal: Normal bowel sounds, Soft and benign, Non-distended, No tenderness Integumentary: Pressure ulcer (heel ulcers.), Other (Large Sacral DU with wound vac in place) Laboratory Data at Discharge: WBC 11.10 K/uL (4.3-10.9) H 10/18/21 04:30 Hgb 8.4 g/dL (13.6-17.9) L 10/18/21 04:30 Hct 26.5 % (39.6-49.0) L 10/18/21 04:30 Plt Count 113 K/uL (152-406) L 10/18/21 04:30 PT 23.0 SECONDS (9.5-12.5) H 09/19/21 05:07 INR 1.99 09/19/21 05:07 APTT 33.6 SECONDS (24.3-36.9) 09/18/21 11:41 Sodium 140 mmol/L (136-145) 10/18/21 04:30 Potassium 3.4 mmol/L (3.5-5.1) L 10/18/21 04:30 BUN 37 mg/dL (7-18) H D 10/18/21 04:30 Creatinine 4.29 mg/dL (0.55-1.3) H D 10/18/21 04:30 Glucose 90 mg/dL (74-106) 10/18/21 04:30 Uric Acid 6.2 mg/dL (3.5-7.2) 09/21/21 06:15 Phosphorus 2.5 mg/dL (2.5-4.9) 10/13/21 04:43 Magnesium 2.1 mg/dL (1.8-2.4) 10/16/21 05:30 Total Bilirubin 0.6 mg/dL (0.2-1.0) 10/04/21 04:46 AST 19 U/L (15-37) 10/04/21 04:46 ALT 13 U/L (12-78) 10/04/21 04:46 Alkaline Phosphatase 74 U/L (45-117) 10/04/21 04:46 Amylase 24 U/L (25-115) L 09/18/21 11:41 Lipase 39 U/L (73-393) L 09/18/21 11:41 Home Medications: Acetaminophen 1,000 mg PO TID PRN 09/18/21 Amiodarone HCl [Cordarone*] 200 mg PO DAILY 09/18/21 Aripiprazole [Abilify] 2.5 tab PO DAILY 09/18/21 Atorvastatin Calcium [Lipitor] 0.5 tab PO BEDTIME 09/18/21 Carboxymethylcellulose Sodium [Restore Plus] 2 each OP QID PRN 09/18/21 Cyanocobalamin (Vitamin B-12) [Vitamin B-12] 1,000 mcg PO DAILY 09/18/21 Ferrous Gluconate 324 mg PO DAILY 09/18/21 Fluticasone Propion/Salmeterol [Fluticasone-Salmeterol 100-50] 1 each IH BID 09/18/21 Folic Acid 1 mg PO DAILY 09/18/21 Ipratropium [place] 1 vial IH QID PRN 09/18/21 Ketorolac Tromethamine 1 drop OP QID PRN 09/18/21 Midodrine HCl 5 mg PO TID 09/18/21 Nut.tx.impaired Renal Fxn,Soy [Nepro Carb Steady] 237 ml PO BID 09/18/21 Petrolatum,White [Aloe [place]] 226 gm TP PRN PRN 09/18/21 Thiamine Mononitrate (Vit B1) [Vitamin B-1] 100 mg PO TID 09/18/21 Tiotropium [Spiriva Handihaler*] 18 mcg IH DAILY 09/18/21 Calcitrol [Rocaltrol*] 0.5 mcg PO DAILY cap 10/20/21 Collagenase [Santyl Ointment*] 1 appl TOP TUTHSA@0900 tube 10/20/21 Docusate [Colace Cap*] 100 mg PO BID PRN cap 10/20/21 Ensure High Protein 240 ml PO TID can 10/20/21 Epoetin [Retacrit] 10,000 unit SQ M,W,F vial 10/20/21 Gentamicin Inj [Garamycin Inj*] 240 mg IVPB Q48H #6 vial 10/20/21 Insulin -Regular Human [Novolin -R*] See Protocol SQ ACHS ml 10/20/21 Mannitol 25% [Mannitol*] 12.5 gm IV EVERY HD PRN vial 10/20/21 Medihoney [Medihoney Woundcare Gel*] 1 appl TOP DAILY tube 10/20/21 Pantoprazole [Protonix Tab*] 40 mg PO DAILYAC tab 10/20/21 Potassium Oral Tab [Klor-Con 10 mEq Tab*] 20 meq PO DAILY tab 10/20/21 dexAMETHasone [Decadron*] 2 mg PO DAILY tab 10/20/21 New Medications: Gentamicin Inj [Garamycin Inj*] 240 mg IVPB Q48H #6 vial Physician Discharge Instructions: Hemodialysis on Tuesdays, and Saturdays. Give IV gentamicin after dialysis for the next 2 weeks. Wound care: Wound Vac: Settings: Pressure-120 mmHg Intensity- High cycles- Continuous Dressing type: RENASYS Foam Black Large Dressing Change: Every 48 hours. Additional Orders: Dressing Change every ,,Sat Clean with Normal Saline, Irrigate with NS, Pat dry apply skin prep to ye- area. Apply Black foam, bridge to off-load. Diet: Renal Activity: Fall precautions Followup: NONE,NONE [Primary Care Provider] - 1 Week Time spent managing pt's care (in minutes): 42
[2021-10-20 16:43] VITALS: BP 128/68; TEMP 97.7
[2021-10-20] MEDS: ACETAMINOPHEN 500 MG TAB PO PRN (16:56)
[2021-10-20] MEDS: Gentamicin Inj 240 MG in NA CHLORIDE 0.9% 100 ML IVPB SCH (16:56)
== END 2021-10-20 18:08 | DRG 853 ==
LOC: ER 10:57 → ERHOLD 15:36 → 3RD-ICU 17:10 → 2ND 10-13 17:10
PROVIDERS: ADMIT Internal Medicine; ATTEND Internal Medicine
PROC: 06HY33Z Insertion of Infusion Device into Lower Vein, Percutaneous Approach (ICD-10-PCS; 2021-09-18)
PROC: 0JD70ZZ Extraction of Back Subcutaneous Tissue and Fascia, Open Approach (ICD-10-PCS; 2021-09-19)
PROC: 5A1D70Z Performance of Urinary Filtration, Intermittent, Less than 6 Hours Per Day (ICD-10-PCS; 2021-09-19)
PROC: 30233N1 Transfusion of Nonautologous Red Blood Cells into Peripheral Vein, Percutaneous Approach (ICD-10-PCS; 2021-09-19)
PROC: 5A1D70Z Performance of Urinary Filtration, Intermittent, Less than 6 Hours Per Day (ICD-10-PCS; principal; 2021-09-21)
PROC: 5A1D70Z Performance of Urinary Filtration, Intermittent, Less than 6 Hours Per Day (ICD-10-PCS; 2021-09-21)
PROC: 5A1D70Z Performance of Urinary Filtration, Intermittent, Less than 6 Hours Per Day (ICD-10-PCS; 2021-09-22)
PROC: 5A1D70Z Performance of Urinary Filtration, Intermittent, Less than 6 Hours Per Day (ICD-10-PCS; 2021-09-24)
PROC: 5A1D70Z Performance of Urinary Filtration, Intermittent, Less than 6 Hours Per Day (ICD-10-PCS; 2021-09-26)
PROC: 0JB73ZZ Excision of Back Subcutaneous Tissue and Fascia, Percutaneous Approach (ICD-10-PCS; 2021-09-26)
PROC: 5A1D70Z Performance of Urinary Filtration, Intermittent, Less than 6 Hours Per Day (ICD-10-PCS; 2021-09-28)
PROC: 5A1D70Z Performance of Urinary Filtration, Intermittent, Less than 6 Hours Per Day (ICD-10-PCS; 2021-10-01)
PROC: 5A1D70Z Performance of Urinary Filtration, Intermittent, Less than 6 Hours Per Day (ICD-10-PCS; 2021-10-03)
PROC: 5A1D70Z Performance of Urinary Filtration, Intermittent, Less than 6 Hours Per Day (ICD-10-PCS; 2021-10-05)
PROC: 5A1D70Z Performance of Urinary Filtration, Intermittent, Less than 6 Hours Per Day (ICD-10-PCS; 2021-10-08)
PROC: 0JB93ZX Excision of Buttock Subcutaneous Tissue and Fascia, Percutaneous Approach, Diagnostic (ICD-10-PCS; 2021-10-08)
PROC: 5A1D70Z Performance of Urinary Filtration, Intermittent, Less than 6 Hours Per Day (ICD-10-PCS; 2021-10-10)
PROC: 5A1D70Z Performance of Urinary Filtration, Intermittent, Less than 6 Hours Per Day (ICD-10-PCS; 2021-10-12)
PROC: 5A1D70Z Performance of Urinary Filtration, Intermittent, Less than 6 Hours Per Day (ICD-10-PCS; 2021-10-15)
PROC: 5A1D70Z Performance of Urinary Filtration, Intermittent, Less than 6 Hours Per Day (ICD-10-PCS; 2021-10-17)
PROC: 5A1D70Z Performance of Urinary Filtration, Intermittent, Less than 6 Hours Per Day (ICD-10-PCS; 2021-10-18)
PROC: 5A1D70Z Performance of Urinary Filtration, Intermittent, Less than 6 Hours Per Day (ICD-10-PCS; 2021-10-20)
DX: A41.89 Other specified sepsis (principal); L89.154 Pressure ulcer of sacral region, stage 4; G93.41 Metabolic encephalopathy; R65.21 Severe sepsis with septic shock; N18.6 End stage renal disease; J96.21 Acute and chronic respiratory failure with hypoxia; E43 Unspecified severe protein-calorie malnutrition; R53.2 Functional quadriplegia; I50.22 Chronic systolic (congestive) heart failure; E87.2 Acidosis; I13.2 Hypertensive heart and chronic kidney disease with heart failure and with stage 5 chronic kidney disease, or end stage renal disease; E11.52 Type 2 diabetes mellitus with diabetic peripheral angiopathy with gangrene; I82.611 Acute embolism and thrombosis of superficial veins of right upper extremity; E27.40 Unspecified adrenocortical insufficiency; M46.28 Osteomyelitis of vertebra, sacral and sacrococcygeal region; N30.00 Acute cystitis without hematuria; I96 Gangrene, not elsewhere classified; L89.622 Pressure ulcer of left heel, stage 2; L89.891 Pressure ulcer of other site, stage 1; E11.22 Type 2 diabetes mellitus with diabetic chronic kidney disease; I95.9 Hypotension, unspecified; Z68.31 Body mass index [BMI] 31.0-31.9, adult; D63.1 Anemia in chronic kidney disease; I48.91 Unspecified atrial fibrillation; E87.6 Hypokalemia; E83.42 Hypomagnesemia; L08.89 Other specified local infections of the skin and subcutaneous tissue; B96.4 Proteus (mirabilis) (morganii) as the cause of diseases classified elsewhere; B95.2 Enterococcus as the cause of diseases classified elsewhere; E11.69 Type 2 diabetes mellitus with other specified complication; F03.90 Unspecified dementia, unspecified severity, without behavioral disturbance, psychotic disturbance, mood disturbance, and anxiety; I87.2 Venous insufficiency (chronic) (peripheral); E83.39 Other disorders of phosphorus metabolism; Z87.891 Personal history of nicotine dependence; Z74.01 Bed confinement status; R53.81 Other malaise; Z99.2 Dependence on renal dialysis; Z86.73 Personal history of transient ischemic attack (TIA), and cerebral infarction without residual deficits; Z20.822 Contact with and (suspected) exposure to COVID-19
CPT/HCPCS: 0240U; 36415; 36430; 71045; 74176; 74177; 80048; 80053; 80069; 80076; 80170; 80202; 81015; 82150; 82533; 82550; 82553; 82607; 82746; 82805; 82947; 83540; 83605; 83690; 83735; 84100; 84132; 84145; 84466; 84484; 84550; 85014; 85018; 85025; 85027; 85610; 85652; 85730; 86140; 86317; 86850; 86900; 86901; 87040; 87070; 87075; 87077; 87086; 87088; 87186; 87205; 87340; 88304; 90935; 93005; 93306; 93970; 94640; 94660; 94760; 96374; 96375; 97140; 97165; 97530; 99251; 99285; C9113; J0171; J0330; J0692; J0878; J1100; J1170; J1580; J1644; J2185; J2250; J2370; J2704; J3010; J3370; J3475; J3480; J3590; J7030; J7040; J7050; J7060; J8540; P9016; P9047; Q5105; Q5106; Q9967